=== PATIENT | male | born 1960 | race Caucasian/White ===

== ENCOUNTER 2016-12-14 15:38 | Inpatient (IN) | payer MEDICARE, OTHER ==
[2016-12-14] MEDS ORDERED: DEXTROSE 5%-NORMAL SALINE 1,000 ML IV PRN (16:01)
[2016-12-14 16:38] LABS: VENOUS BLOOD BASE EXCESS 7.3 mmol/L; VENOUS BLOOD PCO2 49.8 mmHg (35-63); VENOUS BLOOD PH 7.44 (7.30-7.42)
[2016-12-14] MEDS: LEVOFLOXACIN 750 MG/D5W RTU 750 MG/150 ML RTUPB IV SCH (17:32)
[2016-12-14] MEDS ORDERED: ALBUTEROL SULFATE 0.083% NEB 2.5 MG/3 ML AMPUL NEB PRN (17:50)
--- NOTE | 2016-12-14 18:05 | PDOC H&P ---
History of Present Illness Admission Date/PCP: 12/14/16 15:38 MIKEY FOX MD Pulmonary Dr Jesus Patient complains of: SOB History of Present Illness: ELIA ROSENBAUM is a 56 year old male With a known history of COPD O2 dependent, obstructive sleep apnea, still smoking half a pack a day He presented to Dr. Jesus's office with increasing shortness of breath In the office patient was found dyspneic with hypoxemia O2 sat was only 87% on 3 L nasal cannula Patient was referred to hospitalist service for admission Past Medical History Cardiac Medical History: Reports: Coronary Artery Disease, Myocardial Infarction , Hypertension Pulmonary Medical History: Reports: Chronic Obstructive Pulmonary Disease (COPD ) - O2 dependant, Pneumonia, Sleep Apnea, Other - exposure to asbestos EENT Medical History: Reports: None Neurological Medical History: Reports: None Endocrine Medical History: Reports: Diabetes Mellitus Type 2 Renal/ Medical History: Reports: None Malignancy Medical History: Reports: None Skin Medical History: Reports: None Psychiatric Medical History: Reports: None Hematology: Reports: Anemia Past Surgical History Past Surgical History: Reports: Coronary Stent Social History Smoking Status: Current Every Day Smoker Cigarettes Packs Per Day: 0.5 Last Time Smoked: 1230 Frequency of Alcohol Use: None Hx Recreational Drug Use: No Hx Prescription Drug Abuse: No Family History Family History: CAD, Other - Diabetes Parental Family History Reviewed: Yes Children Family History Reviewed: Yes Sibling(s) Family History Reviewed.: Yes - Diabetes mellitus Medication/Allergy Allergies/Adverse Reactions: No Known Allergies Allergy (Unverified 12/14/16 17:14) Review of Systems Constitutional: PRESENT: fatigue Eyes: ABSENT: visual disturbances Ears: ABSENT: hearing changes Respiratory: PRESENT: as per HPI, cough, dyspnea, sputum - Yellowish in color Gastrointestinal: ABSENT: abdominal pain, constipation, diarrhea, hematemesis, hematochezia, nausea, vomiting Genitourinary: ABSENT: dysuria, hematuria Musculoskeletal: ABSENT: joint swelling Integumentary: ABSENT: rash, wounds Neurological: ABSENT: abnormal gait, abnormal speech, confusion, dizziness, focal weakness, syncope Psychiatric: ABSENT: anxiety, depression, homidical ideation, suicidal ideation Physical Exam Vital Signs: Temp Pulse Resp BP Pulse Ox 98.0 F 97 24 H 106/54 L 93 12/14/16 15:59 12/14/16 16:01 12/14/16 15:59 12/14/16 15:59 12/14/16 15:59 Intake & Output 12/13/16 12/14/16 12/15/16 00:59 00:59 00:59 Intake Total 150 Balance 150 General appearance: PRESENT: cooperative, mild distress, other - In mild/ moderate respiratory distress very anxious Head exam: PRESENT: atraumatic, normocephalic Eye exam: PRESENT: conjunctiva pink, EOMI, PERRLA. ABSENT: scleral icterus Neck exam: ABSENT: carotid bruit, JVD, lymphadenopathy, thyromegaly Respiratory exam: PRESENT: accessory muscle use, decreased breath sounds, rales - In the right upper lung field, tachypnea, wheezes Cardiovascular exam: PRESENT: tachycardia. ABSENT: diastolic murmur, systolic murmur Pulses: PRESENT: normal dorsalis pedis pul GI/Abdominal exam: PRESENT: normal bowel sounds, soft. ABSENT: distended, guarding, mass, organolmegaly, rebound, tenderness Rectal exam: PRESENT: deferred Extremities exam: PRESENT: full ROM. ABSENT: calf tenderness, clubbing, pedal edema Musculoskeletal exam: ABSENT: ambulatory, deformity, dislocation, full ROM, normal inspection, tenderness, other Neurological exam: PRESENT: alert, awake, oriented to person, oriented to place , oriented to time, oriented to situation, CN II-XII grossly intact. ABSENT: motor sensory deficit Results Laboratory Results: 12/14/16 16:16 VBG pH 7.44 H VBG pCO2 49.8 VBG HCO3 33.0 H VBG Base Excess 7.3 Impressions: Chest x-ray did not show any infiltrate Assessment & Plan - Diagnosis (1) Acute on chronic respiratory failure with hypoxemia Is this a current diagnosis for this admission?: YesPlan: Hypocalcemia secondary to a COPD acute exacerbation ; patient may also have subclinical pneumonia Pulmonary embolism should be ruled out and CT of the chest will be performed We will provide O2 supplementation BiPAP when necessary (2) COPD exacerbation Is this a current diagnosis for this admission?: YesPlan: Treat with steroids antibiotics nebs (3) Tobacco abuse Is this a current diagnosis for this admission?: YesPlan: Nicotine patch (4) Coronary artery disease Qualifiers: Coronary Disease-Associated Artery/Lesion type: [place] artery [place] vs. transplanted heart: [place] heart Associated angina: without angina Qualified Code(s): I25.10 - Atherosclerotic heart disease of [place] coronary artery without angina pectoris Is this a current diagnosis for this admission?: YesPlan: We will obtain routine cardiac enzymes EKG Patient has no chest pain at this time There is no evidence of an acute coronary syndrome - Time Time Spent with patient: Patient will be admitted to [facility] Noted that is CODE STATUS is DNR/DNI Time Spent: Greater than 70 Minutes
[2016-12-14] MEDS ORDERED: ALBUTEROL SULFATE 0.083% NEB 2.5 MG/3 ML AMPUL NEB ONE (18:16)
[2016-12-14 18:43] LABS: ANION GAP 15 (5-19); BLOOD UREA NITROGEN 21 mg/dL (7-20); CALCIUM 10.3 mg/dL (8.4-10.2); CARBON DIOXIDE 34 mmol/L (22-30); CHLORIDE 94 mmol/L (98-107); GLUCOSE 179 mg/dL (75-110); POTASSIUM 4.5 mmol/L (3.6-5.0); SODIUM 142.5 mmol/L (137-145)
[2016-12-14] MEDS ORDERED: METHYLPREDNISOLONE INJ 125 MG/2 ML SDV IV ONE (19:00)
[2016-12-14] MEDS ORDERED: NICOTINE 14 MG/24 HR PATCH.TD24 TD ONE (19:00)
[2016-12-14 19:51] LABS: ARTERIAL BLOOD BASE EXCESS 5.6 mmol/L; ARTERIAL BLOOD O2 SATURATION 91.3 % (94-98)
[2016-12-14] MEDS: BUDESONIDE NEB 0.5 MG/2 ML AMPUL NEB SCH (20:05)
[2016-12-14] MEDS: IPRATROPIUM/ALBUTEROL 0.5-2.5 MG/3 ML AMPUL NEB SCH (20:05)
[2016-12-14] MEDS: CEFEPIME 1 GM/D5W RTU 1 GM/50 ML RTUPB IV SCH (23:23)
[2016-12-14] MEDS ORDERED: DEXTROSE 50%-WATER SYRINGE 12.5 GM/25 ML DOSE IV PRN (23:32)
[2016-12-14] MEDS ORDERED: DEXTROSE 50%-WATER SYRINGE 25 GM/50 ML DOSE IV PRN (23:32)
[2016-12-14] MEDS ORDERED: GLUCAGON,HUMAN RECOMB 1 MG INJ IM PRN (23:32)
[2016-12-14] MEDS ORDERED: DEXTROSE 40% GEL 15 GM TUBE PO PRN (23:32)
[2016-12-14] MEDS ORDERED: DEXTROSE 40% GEL 15 GM TUBE X 2 PO PRN (23:32)
[2016-12-14] MEDS ORDERED: INSULIN LISPRO 100 UNIT/ML 3 ML VIAL ONE (23:35)
[2016-12-14] MEDS: ACETAMINOPHEN 325 MG TABLET PO PRN (23:48)
--- NOTE | 2016-12-15 00:10 | EKG REPORT ---
SEVERITY:- ABNORMAL ECG - SINUS RHYTHM LAD, CONSIDER LEFT ANTERIOR FASCICULAR BLOCK : Confirmed by: Lindsay Brunson 15-Dec-2016 00:08:36
[2016-12-15] MEDS: METHYLPREDNISOLONE INJ 125 MG/2 ML SDV IV SCH ×3 (02:27→17:41)
[2016-12-15] MEDS: IPRATROPIUM/ALBUTEROL 0.5-2.5 MG/3 ML AMPUL NEB SCH ×4 (02:28→20:46)
[2016-12-15 05:36] LABS: HEMATOCRIT 40.8 % (37.9-51.0); HEMOGLOBIN 12.6 g/dL (13.5-17.0); MEAN CORPUSCULAR HEMOGLOBIN 23.8 pg (27.0-33.4); MEAN CORPUSCULAR HGB CONC 30.9 g/dL (32.0-36.0); MEAN CORPUSCULAR VOLUME 77 fl (80-97); RED BLOOD COUNT 5.28 10^6/uL (4.35-5.55); RED CELL DISTRIBUTION WIDTH 29.2 % (11.5-14.0); WHITE BLOOD COUNT 11.3 10^3/uL (4.0-10.5)
[2016-12-15 05:41] LABS: ALANINE AMINOTRANSFERASE 55 U/L (21-72); ALKALINE PHOSPHATASE 75 U/L (38-126); ANION GAP 11 (5-19); ASPARTATE AMINO TRANSFERASE 29 U/L (17-59); BILIRUBIN,TOTAL 0.4 mg/dL (0.2-1.3); BLOOD UREA NITROGEN 23 mg/dL (7-20); CALCIUM 9.7 mg/dL (8.4-10.2); CARBON DIOXIDE 30 mmol/L (22-30); CHLORIDE 98 mmol/L (98-107); CREATININE RESULT 0.81 mg/dL (0.52-1.25); GLUCOSE 251 mg/dL (75-110); POTASSIUM 4.2 mmol/L (3.6-5.0); SODIUM 138.6 mmol/L (137-145)
[2016-12-15] MEDS: LANSOPRAZOLE 15 MG TAB.RAP.DR PO SCH (05:51)
[2016-12-15 05:58] LABS: TROPONIN I < 0.012 ng/mL
[2016-12-15 06:00] LABS: BAND NEUTROPHILS % (MANUAL) 3 % (3-5); BASOPHILS % (MANUAL) 0 % (0-2); EOSINOPHILS % (MANUAL) 0 % (0-6); LYMPHOCYTES % (MANUAL) 3 % (13-45); TOTAL CELLS COUNTED 100
[2016-12-15 06:03] LABS: ANISOCYTOSIS 4+; BURR CELLS SLIGHT; HYPOCHROMASIA SLIGHT; MICROCYTOSIS SLIGHT; OVALOCYTES 1+; POIKILOCYTOSIS 1+; SCHISTOCYTES SLIGHT; TEAR DROP CELLS SLIGHT; TOXIC GRANULATION 1+
[2016-12-15] MEDS: ALBUTEROL SULFATE HFA (90 MCG/PUFF) 200 PUFF/8.5 GM MDI IH PRN ×2 (06:40→18:15)
[2016-12-15] MEDS: INSULIN LISPRO 100 UNIT/ML 3 ML VIAL SUBCUT PRN ×4 (08:00→22:20)
[2016-12-15] MEDS: BUDESONIDE NEB 0.5 MG/2 ML AMPUL NEB SCH ×2 (09:53→20:46)
[2016-12-15] MEDS ORDERED: AMLODIPINE BESYLATE 2.5 MG TABLET PO SCH (10:00)
--- NOTE | 2016-12-15 10:30 | PDOC PROGRESS REPORT ---
Subjective Progress Note for:: 12/15/16 Subjective:: Patient is very much improved today his breathing is easier; He has no chest pain no shortness of breath No fever no chills On the monitor is in the normal sinus rhythm A CTA of the chest performed yesterday was negative for PE Physical Exam Vital Signs: Temp Pulse Resp BP Pulse Ox 97.7 F 95 16 115/65 91 L 12/15/16 07:21 12/15/16 09:53 12/15/16 09:53 12/15/16 07:21 12/15/16 09:53 Intake & Output 12/14/16 12/15/16 12/16/16 00:59 00:59 00:59 Intake Total 1652 970 Output Total 500 Balance 1652 470 Weight 80.286 kg 80.3 kg General appearance: PRESENT: no acute distress, well-developed, well-nourished Head exam: PRESENT: atraumatic, normocephalic Eye exam: PRESENT: conjunctiva pink, EOMI, PERRLA. ABSENT: scleral icterus Ear exam: PRESENT: normal external ear exam Mouth exam: PRESENT: moist, tongue midline Neck exam: ABSENT: carotid bruit, JVD, lymphadenopathy, thyromegaly Respiratory exam: PRESENT: decreased breath sounds. ABSENT: rales, rhonchi, wheezes Cardiovascular exam: PRESENT: RRR. ABSENT: diastolic murmur, rubs, systolic murmur Pulses: PRESENT: normal dorsalis pedis pul Vascular exam: PRESENT: normal capillary refill GI/Abdominal exam: PRESENT: normal bowel sounds, soft. ABSENT: distended, guarding, mass, organolmegaly, rebound, tenderness Rectal exam: PRESENT: deferred Extremities exam: PRESENT: full ROM. ABSENT: calf tenderness, clubbing, pedal edema Neurological exam: PRESENT: alert, awake, oriented to person, oriented to place , oriented to time, oriented to situation, CN II-XII grossly intact. ABSENT: motor sensory deficit Psychiatric exam: PRESENT: appropriate affect, normal mood. ABSENT: homicidal ideation, suicidal ideation Skin exam: PRESENT: dry, intact, warm. ABSENT: cyanosis, rash Results Laboratory Results: 12/15/16 04:54 12/15/16 04:54 12/14/16 12/14/16 12/14/16 16:16 18:13 19:40 WBC RBC Hgb Hct MCV MCH MCHC RDW Plt Count Seg Neutrophils % Lymphocytes % Monocytes % Eosinophils % Basophils % Absolute Neutrophils Absolute Lymphocytes Absolute Monocytes Absolute Eosinophils Absolute Basophils Carbonic Acid 1.46 H HCO3/H2CO3 Ratio 21:1 ABG pH 7.42 ABG pCO2 48.6 H ABG pO2 60.0 L ABG HCO3 31.1 H ABG O2 Saturation 91.3 L ABG Base Excess 5.6 VBG pH 7.44 H VBG pCO2 49.8 VBG HCO3 33.0 H VBG Base Excess 7.3 FiO2 2L Sodium 142.5 Potassium 4.5 Chloride 94 L Carbon Dioxide 34 H Anion Gap 15 BUN 21 H Creatinine 1.00 Est GFR ( Amer) > 60 Est GFR (Non-Af Amer) > 60 Glucose 179 H Calcium 10.3 H Total Bilirubin AST ALT Alkaline Phosphatase Total Protein Albumin TSH 12/15/16 12/15/16 12/15/16 04:54 04:54 04:54 WBC 11.3 H RBC 5.28 Hgb 12.6 L Hct 40.8 MCV 77 L MCH 23.8 L MCHC 30.9 L RDW 29.2 H Plt Count 393 Seg Neutrophils % Not Reportable Lymphocytes % Not Reportable Monocytes % Not Reportable Eosinophils % Not Reportable Basophils % Not Reportable Absolute Neutrophils Not Reportable Absolute Lymphocytes Not Reportable Absolute Monocytes Not Reportable Absolute Eosinophils Not Reportable Absolute Basophils Not Reportable Carbonic Acid HCO3/H2CO3 Ratio ABG pH ABG pCO2 ABG pO2 ABG HCO3 ABG O2 Saturation ABG Base Excess VBG pH VBG pCO2 VBG HCO3 VBG Base Excess FiO2 Sodium 138.6 Potassium 4.2 Chloride 98 Carbon Dioxide 30 Anion Gap 11 BUN 23 H Creatinine 0.81 Est GFR ( Amer) > 60 Est GFR (Non-Af Amer) > 60 Glucose 251 H Calcium 9.7 Total Bilirubin 0.4 AST 29 ALT 55 Alkaline Phosphatase 75 Total Protein 6.0 L Albumin 3.0 L TSH 0.02 L 12/14/16 12/15/16 12/15/16 18:13 00:13 04:54 Troponin I < 0.012 < 0.012 < 0.012 NT-Pro-B Natriuret Pep 183 Impressions: Chest/Abdomen CTA 12/14/16 18:00 IMPRESSION: 1. NORMAL CTA OF THE CHEST. NO PULMONARY EMBOLI. 2. CHRONIC EMPHYSEMATOUS CHANGES. 5 MM NODULE IN THE RIGHT UPPER LOBE. FOLLOW- UP CLINICALLY INDICATED. Assessment & Plan - Diagnosis (1) Acute on chronic respiratory failure with hypoxemia Is this a current diagnosis for this admission?: Yes (2) COPD exacerbation Is this a current diagnosis for this admission?: YesPlan: Is improving continue the present management (3) Tobacco abuse Is this a current diagnosis for this admission?: Yes (4) Coronary artery disease Qualifiers: Coronary Disease-Associated Artery/Lesion type: [place] artery [place] vs. transplanted heart: [place] heart Associated angina: without angina Qualified Code(s): I25.10 - Atherosclerotic heart disease of [place] coronary artery without angina pectoris Is this a current diagnosis for this admission?: Yes (5) Nodule of right lung Is this a current diagnosis for this admission?: YesPlan: 5 mm nodule in the right upper lung field Patient was given a copy of the CT report And advised to follow-up with a repeat CT in 12 months (6) Hyperglycemia Is this a current diagnosis for this admission?: YesPlan: Patient is very much steroid sensitive Continue insulin coverage We'll start tapering steroids tomorrow - Time Time Spent with patient: 25-34 minutes
[2016-12-15] MEDS: ENOXAPARIN SODIUM INJ 40 MG/0.4 ML DISP.SYRIN SUBCUT SCH (11:09)
[2016-12-15] MEDS: ASCORBIC ACID 500 MG TABLET PO SCH (11:10)
[2016-12-15] MEDS: ACETAMINOPHEN 325 MG TABLET PO PRN ×2 (11:10→22:20)
[2016-12-15] MEDS: METOPROLOL SUCCINATE 50 MG TAB.SR.24H PO SCH (11:11)
[2016-12-15] MEDS: ASPIRIN 81 MG TABLET, CHEWABLE PO SCH (11:11)
[2016-12-15] MEDS: NICOTINE 14 MG/24 HR PATCH.TD24 TD SCH (11:12)
[2016-12-15] MEDS: FERROUS SULFATE 325 MG TABLET PO SCH (11:22)
[2016-12-15] MEDS: DOCUSATE SODIUM 100 MG CAPSULE PO SCH (11:23)
[2016-12-15] MEDS: CEFEPIME 1 GM/D5W RTU 1 GM/50 ML RTUPB IV SCH ×2 (11:23→22:15)
--- NOTE | 2016-12-15 16:38 | PDOC CONSULTATION ---
Consultation Consult Date: 12/14/16 Attending physician:: RADAMES DISLA Consult reason:: Acute on chronic respiratory failure History of Present Illness Admission Date/PCP: 12/14/16 15:38 MIKEY FOX MD History of Present Illness: ELIA ROSENBAUM is a 56 year old male With a known history of COPD O2 dependent, obstructive sleep apnea, still smoking half a pack a day. He i was prescribed 2 L of O2 continuously he was using on pulse at the time of presentation his SaO2 was 79%. He was placed on continuous 2 L therapy saturation isabella to 87% complained of a cough with occasional yellow streaks of phlegm no hemoptysis he denied nausea vomiting but did believe he had fevers and chills with a temperature up to 102 he denies any chest pain or edema he states that he is wearing his CPAP mask most nights although sometimes due to nasal congestion he limits his to use. After several DuoNeb treatments and some IM steroids patient is SaO2 respiratory rate did not improve and Dr. Davis graciously received him on her service Past Medical History Cardiac Medical History: Reports: Coronary Artery Disease, Myocardial Infarction , Hypertension Pulmonary Medical History: Reports: Chronic Obstructive Pulmonary Disease (COPD ) - O2 dependant, Pneumonia, Sleep Apnea, Other - exposure to asbestos EENT Medical History: Reports: None Neurological Medical History: Reports: None Endocrine Medical History: Reports: Diabetes Mellitus Type 2 Renal/ Medical History: Reports: None Malignancy Medical History: Reports: None Skin Medical History: Reports: None Psychiatric Medical History: Reports: None Hematology: Reports: Anemia Past Surgical History Past Surgical History: Reports: Coronary Stent Social History Smoking Status: Current Every Day Smoker Cigarettes Packs Per Day: 0.5 Last Time Smoked: 1230 Frequency of Alcohol Use: None Hx Recreational Drug Use: No Hx Prescription Drug Abuse: No Have you had any respiratory illnesses as a child?: No Have you been exposed to any sick contacts recently?: No Have you travelled outside of [place] in the past 12 months?: No Family History Family History: CAD, Other - Diabetes Parental Family History Reviewed: Yes Children Family History Reviewed: Yes Sibling(s) Family History Reviewed.: Yes Medication/Allergy Home Medications: Acetaminophen [Tylenol 325 mg Tablet] 650 mg PO Q4HP PRN 12/14/16 Albuterol Sulfate [Proair Hfa] 2 puff IH Q4HP PRN 12/14/16 Alendronate Sodium [Fosamax 70 mg Tablet] 1 tab PO ASDIR 12/14/16 Amlodipine Besylate [Norvasc 2.5 mg Tablet] 2.5 mg PO DAILY 12/14/16 Aspirin [Aspirin 81 mg Chewable Tablet] 81 mg PO DAILY 12/14/16 Atorvastatin Calcium [Lipitor 40 mg Tablet] 40 mg PO QHS 12/14/16 Clopidogrel Bisulfate [Plavix 75 mg Tablet] 75 mg PO DAILY 12/14/16 Ipratropium/Albuterol Sulfate [Duoneb 3 ml Ampul] 3 ml NEB RTQID 12/14/16 Lisinopril/Hydrochlorothiazide [Lisinopril-Hctz 10-12.5 mg Tab] 1 each PO DAILY 12/14/16 Metformin HCl [Glucophage] 500 mg PO BID 12/14/16 Metoprolol Succinate [Toprol Xl 50 mg Tab.sr] 50 mg PO DAILY 12/14/16 Tiotropium [place] [Spiriva] 1 cap IH DAILY 12/14/16 Ascorbic Acid [Vitamin C] 500 mg PO QHS 12/15/16 B12/Levomefolate Calcium/B-6 [Foltx Tablet] 1 each PO QHS 12/15/16 Ferrous Sulfate [Iron] 325 mg PO QHS 12/15/16 Omeprazole 20 mg PO DAILY 12/15/16 Allergies/Adverse Reactions: No Known Allergies Allergy (Unverified 12/14/16 17:14) Review of Systems Nose, Mouth, and Throat: PRESENT: sore throat Physical Exam Vital Signs: Temp Pulse Resp BP Pulse Ox 97.7 F 90 16 131/54 H 90 L 12/15/16 11:28 12/15/16 14:19 12/15/16 14:19 12/15/16 11:28 12/15/16 14:19 Intake & Output 12/14/16 12/15/16 12/16/16 06:59 06:59 06:59 Intake Total 2622 Output Total 500 Balance 2122 Weight 80.3 kg General appearance: PRESENT: cooperative, disheveled, mild distress, thin, well- developed, well-nourished Head exam: PRESENT: atraumatic, normocephalic Eye exam: PRESENT: conjunctiva pale, EOMI, PERRLA Mouth exam: PRESENT: moist, neck supple, tongue midline Neck exam: ABSENT: carotid bruit, JVD, lymphadenopathy, thyromegaly Respiratory exam: PRESENT: decreased breath sounds, prolonged expiratory phas, rales, rhonchi, symmetrical, wheezes Cardiovascular exam: PRESENT: RRR, +S1, +S2 Pulses: PRESENT: normal radial pulses GI/Abdominal exam: PRESENT: normal bowel sounds, soft. ABSENT: distended, guarding, mass, organolmegaly, rebound, tenderness Rectal exam: PRESENT: deferred Gentrourinary exam: PRESENT: indwelling catheter Musculoskeletal exam: PRESENT: normal inspection Neurological exam: PRESENT: alert, awake, oriented to person, oriented to place , oriented to time, oriented to situation Psychiatric exam: PRESENT: normal mood Skin exam: PRESENT: dry, warm Results Laboratory Results: 12/15/16 04:54 12/15/16 04:54 12/14/16 12/14/16 12/14/16 16:16 18:13 19:40 WBC RBC Hgb Hct MCV MCH MCHC RDW Plt Count Seg Neutrophils % Lymphocytes % Monocytes % Eosinophils % Basophils % Absolute Neutrophils Absolute Lymphocytes Absolute Monocytes Absolute Eosinophils Absolute Basophils Carbonic Acid 1.46 H HCO3/H2CO3 Ratio 21:1 ABG pH 7.42 ABG pCO2 48.6 H ABG pO2 60.0 L ABG HCO3 31.1 H ABG O2 Saturation 91.3 L ABG Base Excess 5.6 VBG pH 7.44 H VBG pCO2 49.8 VBG HCO3 33.0 H VBG Base Excess 7.3 FiO2 2L Sodium 142.5 Potassium 4.5 Chloride 94 L Carbon Dioxide 34 H Anion Gap 15 BUN 21 H Creatinine 1.00 Est GFR ( Amer) > 60 Est GFR (Non-Af Amer) > 60 Glucose 179 H Calcium 10.3 H Total Bilirubin AST ALT Alkaline Phosphatase Total Protein Albumin TSH 12/15/16 12/15/16 12/15/16 04:54 04:54 04:54 WBC 11.3 H RBC 5.28 Hgb 12.6 L Hct 40.8 MCV 77 L MCH 23.8 L MCHC 30.9 L RDW 29.2 H Plt Count 393 Seg Neutrophils % Not Reportable Lymphocytes % Not Reportable Monocytes % Not Reportable Eosinophils % Not Reportable Basophils % Not Reportable Absolute Neutrophils Not Reportable Absolute Lymphocytes Not Reportable Absolute Monocytes Not Reportable Absolute Eosinophils Not Reportable Absolute Basophils Not Reportable Carbonic Acid HCO3/H2CO3 Ratio ABG pH ABG pCO2 ABG pO2 ABG HCO3 ABG O2 Saturation ABG Base Excess VBG pH VBG pCO2 VBG HCO3 VBG Base Excess FiO2 Sodium 138.6 Potassium 4.2 Chloride 98 Carbon Dioxide 30 Anion Gap 11 BUN 23 H Creatinine 0.81 Est GFR ( Amer) > 60 Est GFR (Non-Af Amer) > 60 Glucose 251 H Calcium 9.7 Total Bilirubin 0.4 AST 29 ALT 55 Alkaline Phosphatase 75 Total Protein 6.0 L Albumin 3.0 L TSH 0.02 L 12/14/16 12/15/16 12/15/16 18:13 00:13 04:54 Troponin I < 0.012 < 0.012 < 0.012 NT-Pro-B Natriuret Pep 183 Impressions: Chest/Abdomen CTA 12/14/16 18:00 IMPRESSION: 1. NORMAL CTA OF THE CHEST. NO PULMONARY EMBOLI. 2. CHRONIC EMPHYSEMATOUS CHANGES. 5 MM NODULE IN THE RIGHT UPPER LOBE. FOLLOW- UP CLINICALLY INDICATED. Assessment & Plan - Diagnosis (1) Acute on chronic respiratory failure with hypoxemia Is this a current diagnosis for this admission?: YesPlan: Intense steroid therapy possible IV antibiotics and continued bronchodilator therapy (2) Coronary artery disease Qualifiers: Coronary Disease-Associated Artery/Lesion type: [place] artery [place] vs. transplanted heart: [place] heart Associated angina: without angina Qualified Code(s): I25.10 - Atherosclerotic heart disease of [place] coronary artery without angina pectoris Is this a current diagnosis for this admission?: YesPlan: Stable at this time (3) Nodule of right lung Is this a current diagnosis for this admission?: YesPlan: Following with serial CT scans (4) Tobacco abuse Is this a current diagnosis for this admission?: YesPlan: Unfortunately patient continues to smoke - Time Time Spent: 50 to 70 Minutes
[2016-12-15] MEDS: LEVOFLOXACIN 750 MG/D5W RTU 750 MG/150 ML RTUPB IV SCH (17:41)
[2016-12-16] MEDS: IPRATROPIUM/ALBUTEROL 0.5-2.5 MG/3 ML AMPUL NEB SCH ×4 (01:50→20:05)
[2016-12-16] MEDS: METHYLPREDNISOLONE INJ 125 MG/2 ML SDV IV SCH ×2 (02:25→09:50)
[2016-12-16] MEDS: LANSOPRAZOLE 15 MG TAB.RAP.DR PO SCH (06:36)
[2016-12-16] MEDS: BUDESONIDE NEB 0.5 MG/2 ML AMPUL NEB SCH ×2 (08:34→20:05)
[2016-12-16] MEDS: ENOXAPARIN SODIUM INJ 40 MG/0.4 ML DISP.SYRIN SUBCUT SCH (08:36)
[2016-12-16] MEDS: INSULIN LISPRO 100 UNIT/ML 3 ML VIAL SUBCUT PRN ×4 (08:36→21:43)
[2016-12-16] MEDS: ASCORBIC ACID 500 MG TABLET PO SCH (09:48)
[2016-12-16] MEDS: METOPROLOL SUCCINATE 50 MG TAB.SR.24H PO SCH (09:48)
[2016-12-16] MEDS: DOCUSATE SODIUM 100 MG CAPSULE PO SCH (09:49)
[2016-12-16] MEDS: FERROUS SULFATE 325 MG TABLET PO SCH (09:49)
[2016-12-16] MEDS: ASPIRIN 81 MG TABLET, CHEWABLE PO SCH (09:49)
[2016-12-16] MEDS: NICOTINE 14 MG/24 HR PATCH.TD24 TD SCH (09:50)
[2016-12-16] MEDS: CEFEPIME 1 GM/D5W RTU 1 GM/50 ML RTUPB IV SCH ×2 (09:50→21:45)
[2016-12-16] MEDS: ACETAMINOPHEN 325 MG TABLET PO PRN ×2 (09:51→21:46)
[2016-12-16] MEDS ORDERED: METHYLPREDNISOLONE INJ 125 MG/2 ML SDV IV SCH (11:40)
--- NOTE | 2016-12-16 15:48 | PDOC PROGRESS REPORT ---
Subjective Progress Note for:: 12/16/16 Subjective:: patient is greatly improved dyspnea resolving patient is coughing up purulent mucous no fever, chills or chest pains Physical Exam Vital Signs: Temp Pulse Resp BP Pulse Ox 97.5 F 77 16 131/60 H 91 L 12/16/16 11:21 12/16/16 14:13 12/16/16 14:13 12/16/16 11:21 12/16/16 11:21 Intake & Output 12/15/16 12/16/16 12/17/16 00:59 00:59 00:59 Intake Total 1652 3643 243 Output Total 2300 Balance 1652 1343 243 Weight 80.286 kg 80.3 kg 80.5 kg General appearance: PRESENT: no acute distress, thin Head exam: PRESENT: atraumatic, normocephalic Eye exam: PRESENT: conjunctiva pink, EOMI, PERRLA. ABSENT: scleral icterus Neck exam: ABSENT: carotid bruit, JVD, lymphadenopathy, thyromegaly Respiratory exam: PRESENT: decreased breath sounds, wheezes. ABSENT: rales, rhonchi Cardiovascular exam: PRESENT: RRR. ABSENT: diastolic murmur, rubs, systolic murmur GI/Abdominal exam: PRESENT: normal bowel sounds, soft. ABSENT: distended, guarding, mass, organolmegaly, rebound, tenderness Extremities exam: ABSENT: calf tenderness, clubbing, full ROM, joint swelling, pedal edema, tenderness, +1 edema, +2 edema, other Musculoskeletal exam: PRESENT: ambulatory, full ROM Neurological exam: PRESENT: alert, awake, oriented to person, oriented to place , oriented to time, oriented to situation, CN II-XII grossly intact. ABSENT: motor sensory deficit Psychiatric exam: PRESENT: appropriate affect, normal mood. ABSENT: homicidal ideation, suicidal ideation Skin exam: PRESENT: dry, intact, warm. ABSENT: cyanosis, rash Results Laboratory Results: 12/15/16 04:54 12/15/16 04:54 12/14/16 12/15/16 12/15/16 18:13 00:13 04:54 Troponin I < 0.012 < 0.012 < 0.012 NT-Pro-B Natriuret Pep 183 Impressions: Chest/Abdomen CTA 12/14/16 18:00 IMPRESSION: 1. NORMAL CTA OF THE CHEST. NO PULMONARY EMBOLI. 2. CHRONIC EMPHYSEMATOUS CHANGES. 5 MM NODULE IN THE RIGHT UPPER LOBE. FOLLOW- UP CLINICALLY INDICATED. Assessment & Plan - Diagnosis (1) Acute on chronic respiratory failure with hypoxemia Is this a current diagnosis for this admission?: Yes (2) COPD exacerbation Is this a current diagnosis for this admission?: Yes (3) Tobacco abuse Is this a current diagnosis for this admission?: Yes (4) Coronary artery disease Qualifiers: Coronary Disease-Associated Artery/Lesion type: [place] artery [place] vs. transplanted heart: [place] heart Associated angina: without angina Qualified Code(s): I25.10 - Atherosclerotic heart disease of [place] coronary artery without angina pectoris Is this a current diagnosis for this admission?: Yes (5) Nodule of right lung Is this a current diagnosis for this admission?: Yes (6) Hyperglycemia Is this a current diagnosis for this admission?: YesPlan: patient is steroid sensitive continue insulin scale - Time Time Spent with patient: continue present management start tapering down steroids d/c in 48H Time Spent with patient: 25-34 minutes
[2016-12-16] MEDS: METHYLPREDNISOLONE INJ 40 MG/1 ML SDV IV SCH (17:35)
[2016-12-16] MEDS ORDERED: LEVOFLOXACIN 750 MG TABLET PO SCH (18:00)
[2016-12-17] MEDS: METHYLPREDNISOLONE INJ 40 MG/1 ML SDV IV SCH ×2 (02:01→10:19)
[2016-12-17] MEDS: IPRATROPIUM/ALBUTEROL 0.5-2.5 MG/3 ML AMPUL NEB SCH ×2 (02:25→08:05)
[2016-12-17 05:20] LABS: HEMATOCRIT 37.7 % (37.9-51.0); HEMOGLOBIN 11.9 g/dL (13.5-17.0); MEAN CORPUSCULAR HEMOGLOBIN 24.4 pg (27.0-33.4); MEAN CORPUSCULAR HGB CONC 31.6 g/dL (32.0-36.0); MEAN CORPUSCULAR VOLUME 77 fl (80-97); RED BLOOD COUNT 4.89 10^6/uL (4.35-5.55); RED CELL DISTRIBUTION WIDTH 28.4 % (11.5-14.0)
[2016-12-17] MEDS: LANSOPRAZOLE 15 MG TAB.RAP.DR PO SCH (05:28)
[2016-12-17 05:39] LABS: ANION GAP 9 (5-19); BLOOD UREA NITROGEN 29 mg/dL (7-20); CARBON DIOXIDE 29 mmol/L (22-30); CHLORIDE 102 mmol/L (98-107); GLUCOSE 140 mg/dL (75-110); POTASSIUM 4.4 mmol/L (3.6-5.0); SODIUM 139.8 mmol/L (137-145)
[2016-12-17 06:01] LABS: BAND NEUTROPHILS % (MANUAL) 2 % (3-5); BASOPHILS % (MANUAL) 0 % (0-2); EOSINOPHILS % (MANUAL) 0 % (0-6); LYMPHOCYTES % (MANUAL) 6 % (13-45); TOTAL CELLS COUNTED 100
[2016-12-17 06:04] LABS: ANISOCYTOSIS 4+; HYPOCHROMASIA SLIGHT; MICROCYTOSIS SLIGHT; TOXIC GRANULATION SLIGHT
[2016-12-17 06:05] LABS: BURR CELLS SLIGHT; OVALOCYTES 1+; POIKILOCYTOSIS 1+; ROULEAUX SLIGHT; SCHISTOCYTES SLIGHT
[2016-12-17 08:02] VITALS: BP 121/62
[2016-12-17] MEDS: BUDESONIDE NEB 0.5 MG/2 ML AMPUL NEB SCH (08:05)
[2016-12-17] MEDS: ENOXAPARIN SODIUM INJ 40 MG/0.4 ML DISP.SYRIN SUBCUT SCH (09:22)
[2016-12-17] MEDS: INSULIN LISPRO 100 UNIT/ML 3 ML VIAL SUBCUT PRN ×2 (10:18→13:12)
[2016-12-17] MEDS: ASPIRIN 81 MG TABLET, CHEWABLE PO SCH (10:18)
[2016-12-17] MEDS: METOPROLOL SUCCINATE 50 MG TAB.SR.24H PO SCH (10:19)
[2016-12-17] MEDS: NICOTINE 14 MG/24 HR PATCH.TD24 TD SCH (10:19)
[2016-12-17] MEDS: DOCUSATE SODIUM 100 MG CAPSULE PO SCH (10:19)
[2016-12-17] MEDS: ASCORBIC ACID 500 MG TABLET PO SCH (10:19)
[2016-12-17] MEDS: FERROUS SULFATE 325 MG TABLET PO SCH (10:19)
[2016-12-17] MEDS: ACETAMINOPHEN 325 MG TABLET PO PRN (10:25)
[2016-12-17] MEDS: CEFEPIME 1 GM/D5W RTU 1 GM/50 ML RTUPB IV SCH (10:41)
--- NOTE | 2016-12-17 13:33 | PDOC PROGRESS REPORT ---
Subjective Progress Note for:: 12/17/16 Subjective:: Patient without complaints progressing well Physical Exam Vital Signs: Temp Pulse Resp BP Pulse Ox 97.4 F 58 L 16 121/62 100 12/17/16 12:22 12/17/16 12:22 12/17/16 12:22 12/17/16 07:27 12/17/16 12:22 Intake & Output 12/16/16 12/17/16 12/18/16 06:59 06:59 06:59 Intake Total 2916 1829 800 Output Total 1800 1825 Balance 1116 4 800 Weight 80.5 kg 82.2 kg General appearance: PRESENT: no acute distress, thin, well-developed, well- nourished Head exam: PRESENT: atraumatic, normocephalic Eye exam: PRESENT: conjunctiva pale Mouth exam: PRESENT: moist, neck supple, tongue midline Neck exam: ABSENT: carotid bruit, JVD, lymphadenopathy, thyromegaly Respiratory exam: PRESENT: decreased breath sounds, prolonged expiratory phas, unlabored Cardiovascular exam: PRESENT: RRR, +S1, +S2 Pulses: PRESENT: normal radial pulses GI/Abdominal exam: ABSENT: ascites, diminished bowel sounds, distended, firm, guarding, hernia, hyperactive bowel sounds, hypoactive bowel sounds, mass, Fraire's sign, normal bowel sounds, organolmegaly, rebound, rigid, soft, tenderness, other Rectal exam: PRESENT: deferred Musculoskeletal exam: PRESENT: normal inspection Neurological exam: PRESENT: alert, awake Psychiatric exam: PRESENT: normal mood Skin exam: PRESENT: dry, intact, warm Results Laboratory Results: 12/17/16 04:35 12/17/16 04:35 12/17/16 12/17/16 04:35 04:35 WBC 15.0 H RBC 4.89 Hgb 11.9 L Hct 37.7 L MCV 77 L MCH 24.4 L MCHC 31.6 L RDW 28.4 H Plt Count 461 H Seg Neutrophils % Not Reportable Lymphocytes % Not Reportable Monocytes % Not Reportable Eosinophils % Not Reportable Basophils % Not Reportable Absolute Neutrophils Not Reportable Absolute Lymphocytes Not Reportable Absolute Monocytes Not Reportable Absolute Eosinophils Not Reportable Absolute Basophils Not Reportable Sodium 139.8 Potassium 4.4 Chloride 102 Carbon Dioxide 29 Anion Gap 9 BUN 29 H Creatinine 0.70 Est GFR ( Amer) > 60 Est GFR (Non-Af Amer) > 60 Glucose 140 H Calcium 9.0 12/14/16 12/15/16 12/15/16 18:13 00:13 04:54 Troponin I < 0.012 < 0.012 < 0.012 NT-Pro-B Natriuret Pep 183 Impressions: Chest/Abdomen CTA 12/14/16 18:00 IMPRESSION: 1. NORMAL CTA OF THE CHEST. NO PULMONARY EMBOLI. 2. CHRONIC EMPHYSEMATOUS CHANGES. 5 MM NODULE IN THE RIGHT UPPER LOBE. FOLLOW- UP CLINICALLY INDICATED. Assessment & Plan - Diagnosis (1) Acute on chronic respiratory failure with hypoxemia Is this a current diagnosis for this admission?: No (2) Coronary artery disease Qualifiers: Coronary Disease-Associated Artery/Lesion type: [place] artery [place] vs. transplanted heart: [place] heart Associated angina: without angina Qualified Code(s): I25.10 - Atherosclerotic heart disease of [place] coronary artery without angina pectoris Is this a current diagnosis for this admission?: YesPlan: Stable at this time (3) Nodule of right lung Is this a current diagnosis for this admission?: YesPlan: Follow-up with CT scans as per Philip criteria (4) Tobacco abuse Is this a current diagnosis for this admission?: YesPlan: Discussed with patient risk and dangers associated with continued tobacco use who is polite but declined further assistance
--- NOTE | 2016-12-17 15:57 | PDOC DISCHARGE SUMMARY ---
General - Admit/Disc Date/PCP Admission Date/Primary Care Provider: 12/14/16 15:38 MIKEY FOX MD Discharge Date: 12/17/16 - Discharge Diagnosis (1) Acute on chronic respiratory failure with hypoxemia Is this a current diagnosis for this admission?: YesSummary: Upon admission patient had acute on chronic hypoxemic hypercarbic respiratory failure ABGs performed on 2 L nasal cannula showed a PCO2 of 48 and a PO2 of 60 Respiratory failure secondary to COPD acute exacerbation and clinical pneumonia Patient had CT of the chest was negative for PE (2) COPD exacerbation Is this a current diagnosis for this admission?: YesSummary: Patient was treated during this hospitalization with high doses of steroids nebs and his breathing improved greatly Was discharged on a steroid taper and Levaquin to continue prior inhalers (3) Tobacco abuse Is this a current diagnosis for this admission?: YesSummary: Patient was advised to quit smoking and agreed to wear a nicotine patch (4) Coronary artery disease Is this a current diagnosis for this admission?: YesSummary: There was no evidence of an acute coronary syndrome (5) Nodule of right lung Is this a current diagnosis for this admission?: YesSummary: Patient was given a copy of his CAT scan and advised to have repeat CAT scan in 6 months to follow up a nodule In the right upper lung (6) Hyperglycemia Is this a current diagnosis for this admission?: YesSummary: Blood sugars were elevated with high-dose steroids Patient was covered with lispro insulin during his hospitalization He is to resume metformin as an outpatient - Additional Information Discharge Activity: Activity As Tolerated Home Medications: Acetaminophen [Tylenol 325 mg Tablet] 650 mg PO Q4HP PRN 12/14/16 Albuterol Sulfate [Proair HFA] 2 puff IH Q4HP PRN 12/14/16 Alendronate Sodium [Fosamax 70 mg Tablet] 1 tab PO ASDIR 12/14/16 Amlodipine Besylate [Norvasc 2.5 mg Tablet] 2.5 mg PO DAILY 12/14/16 Aspirin [Aspirin 81 mg Chewable Tablet] 81 mg PO DAILY 12/14/16 Atorvastatin Calcium [Lipitor 40 mg Tablet] 40 mg PO QHS 12/14/16 Clopidogrel Bisulfate [Plavix 75 mg Tablet] 75 mg PO DAILY 12/14/16 Ipratropium/Albuterol Sulfate [Duoneb 3 ml Ampul] 3 ml NEB RTQID 12/14/16 Lisinopril/Hydrochlorothiazide [Lisinopril-Hctz 10-12.5 mg Tab] 1 each PO DAILY 12/14/16 Metformin HCl [Glucophage] 500 mg PO BID 12/14/16 Metoprolol Succinate [Toprol Xl 50 mg Tab.sr] 50 mg PO DAILY 12/14/16 Tiotropium [place] [Spiriva Handihaler 18 mcg/dose (30 Dose)] 1 cap IH DAILY Ascorbic Acid [Vitamin C] 500 mg PO QHS 12/15/16 Cyanocobalamin (Vitamin B-12) [Vitamin B-12] 1,000 mcg PO QHS 12/15/16 Ferrous Sulfate [Iron] 325 mg PO QHS 12/15/16 Folic Acid 1 mg PO QHS 12/15/16 Omeprazole 20 mg PO DAILY 12/15/16 Fluticasone/Salmeterol [Advair 250-50 Diskus 28 dose] 1 inh IH Q12H #1 inhaler 12/17/16 Levofloxacin [Levaquin 750 mg Tablet] 750 mg PO QPM #7 tablet 12/17/16 Nicotine [Nicoderm 14 mg/24 Hr Transdermal Patch] 1 each TD DAILY #30 patch.[email or web address] 12/17/16 Prednisone 60 mg PO ASDIR PRN #30 tablet 12/17/16 History of Present Illness Patient complains of: Shortness of breath History of Present Illness: ELIA ROSENBAUM is a 56 year old male With a known history of COPD O2 dependent, obstructive sleep apnea, still smoking half a pack a day He presented to Dr. Jesus's office with increasing shortness of breath In the office patient was found dyspneic with hypoxemia O2 sat was only 87% on 3 L nasal cannula Patient was referred to hospitalist service for admission Hospital Course Hospital Course: See above Physical Exam Vital Signs: Temp Pulse Resp BP Pulse Ox 97.4 F 58 L 16 121/62 100 12/17/16 12:22 12/17/16 12:22 12/17/16 12:22 12/17/16 07:27 12/17/16 12:22 Intake & Output 12/16/16 12/17/16 12/18/16 00:59 00:59 00:59 Intake Total 3643 1862 1010 Output Total 2300 1450 375 Balance 1343 412 635 Weight 80.3 kg 80.5 kg 82.2 kg General appearance: PRESENT: no acute distress, well-developed, well-nourished Head exam: PRESENT: atraumatic, normocephalic Eye exam: PRESENT: conjunctiva pink, EOMI, PERRLA. ABSENT: scleral icterus Ear exam: PRESENT: normal external ear exam Mouth exam: PRESENT: moist, tongue midline Neck exam: ABSENT: carotid bruit, JVD, lymphadenopathy, thyromegaly Respiratory exam: PRESENT: decreased breath sounds, wheezes. ABSENT: rales, rhonchi Cardiovascular exam: PRESENT: RRR. ABSENT: diastolic murmur, rubs, systolic murmur Pulses: PRESENT: normal dorsalis pedis pul Vascular exam: PRESENT: normal capillary refill GI/Abdominal exam: PRESENT: normal bowel sounds, soft. ABSENT: distended, guarding, mass, organolmegaly, rebound, tenderness Rectal exam: PRESENT: deferred Extremities exam: PRESENT: full ROM. ABSENT: calf tenderness, clubbing, pedal edema Neurological exam: PRESENT: alert, awake, oriented to person, oriented to place , oriented to time, oriented to situation, CN II-XII grossly intact. ABSENT: motor sensory deficit Psychiatric exam: PRESENT: appropriate affect, normal mood. ABSENT: homicidal ideation, suicidal ideation Skin exam: PRESENT: dry, intact, warm. ABSENT: cyanosis, rash Results Laboratory Results: 12/17/16 04:35 12/17/16 04:35 12/17/16 12/17/16 04:35 04:35 WBC 15.0 H RBC 4.89 Hgb 11.9 L Hct 37.7 L MCV 77 L MCH 24.4 L MCHC 31.6 L RDW 28.4 H Plt Count 461 H Seg Neutrophils % Not Reportable Lymphocytes % Not Reportable Monocytes % Not Reportable Eosinophils % Not Reportable Basophils % Not Reportable Absolute Neutrophils Not Reportable Absolute Lymphocytes Not Reportable Absolute Monocytes Not Reportable Absolute Eosinophils Not Reportable Absolute Basophils Not Reportable Sodium 139.8 Potassium 4.4 Chloride 102 Carbon Dioxide 29 Anion Gap 9 BUN 29 H Creatinine 0.70 Est GFR ( Amer) > 60 Est GFR (Non-Af Amer) > 60 Glucose 140 H Calcium 9.0 12/14/16 12/15/1617 18:13 00:13 04:54 Troponin I < 0.012 < 0.012 < 0.012 NT-Pro-B Natriuret Pep 183 Labs- Entire Visit 12/14/16 12/14/16 12/14/16 16:16 18:13 18:13 WBC RBC Hgb Hct MCV MCH MCHC RDW Plt Count Total Counted Seg Neutrophils % Seg Neuts % (Manual) Band Neutrophils % Lymphocytes % Lymphocytes % (Manual) Monocytes % Monocytes % (Manual) Eosinophils % Eosinophils % (Manual) Basophils % Basophils % (Manual) Absolute Neutrophils Abs Neuts (Manual) Absolute Lymphocytes Abs Lymphs (Manual) Absolute Monocytes Abs Monocytes (Manual) Absolute Eosinophils Absolute Eos (Manual) Absolute Basophils Abs Basophils (Manual) Toxic Granulation Platelet Comment Hypochromasia Poikilocytosis Anisocytosis Microcytosis Tear Drop Cells Ovalocytes Jt Cells Rouleaux Schistocytes Carbonic Acid HCO3/H2CO3 Ratio ABG pH ABG pCO2 ABG pO2 ABG HCO3 ABG Total CO2 ABG O2 Saturation ABG Base Excess VBG pH 7.44 H VBG pCO2 49.8 VBG HCO3 33.0 H VBG Base Excess 7.3 FiO2 Sodium 142.5 Potassium 4.5 Chloride 94 L Carbon Dioxide 34 H Anion Gap 15 BUN 21 H Creatinine 1.00 Est GFR ( Amer) > 60 Est GFR (Non-Af Amer) > 60 Glucose 179 H POC Glucose Calcium 10.3 H Total Bilirubin Direct Bilirubin AST ALT Alkaline Phosphatase Troponin I < 0.012 NT-Pro-B Natriuret Pep Total Protein Albumin TSH 12/14/16 12/14/16 12/15/16 19:40 23:30 00:13 WBC RBC Hgb Hct MCV MCH MCHC RDW Plt Count Total Counted Seg Neutrophils % Seg Neuts % (Manual) Band Neutrophils % Lymphocytes % Lymphocytes % (Manual) Monocytes % Monocytes % (Manual) Eosinophils % Eosinophils % (Manual) Basophils % Basophils % (Manual) Absolute Neutrophils Abs Neuts (Manual) Absolute Lymphocytes Abs Lymphs (Manual) Absolute Monocytes Abs Monocytes (Manual) Absolute Eosinophils Absolute Eos (Manual) Absolute Basophils Abs Basophils (Manual) Toxic Granulation Platelet Comment Hypochromasia Poikilocytosis Anisocytosis Microcytosis Tear Drop Cells Ovalocytes [place] Cells Rouleaux Schistocytes Carbonic Acid 1.46 H HCO3/H2CO3 Ratio 21:1 ABG pH 7.42 ABG pCO2 48.6 H ABG pO2 60.0 L ABG HCO3 31.1 H ABG Total CO2 32.6 H ABG O2 Saturation 91.3 L ABG Base Excess 5.6 VBG pH VBG pCO2 VBG HCO3 VBG Base Excess FiO2 2L Sodium Potassium Chloride Carbon Dioxide Anion Gap BUN Creatinine Est GFR ( Amer) Est GFR (Non-Af Amer) Glucose POC Glucose 337 H Calcium Total Bilirubin Direct Bilirubin AST ALT Alkaline Phosphatase Troponin I < 0.012 NT-Pro-B Natriuret Pep Total Protein Albumin TSH 12/15/16 12/15/16 12/15/16 04:54 04:54 04:54 WBC 11.3 H RBC 5.28 Hgb 12.6 L Hct 40.8 MCV 77 L MCH 23.8 L MCHC 30.9 L RDW 29.2 H Plt Count 393 Total Counted 100 Seg Neutrophils % Not Reportable Seg Neuts % (Manual) 92 H Band Neutrophils % 3 Lymphocytes % Not Reportable Lymphocytes % (Manual) 3 L Monocytes % Not Reportable Monocytes % (Manual) 2 L Eosinophils % Not Reportable Eosinophils % (Manual) 0 Basophils % Not Reportable Basophils % (Manual) 0 Absolute Neutrophils Not Reportable Abs Neuts (Manual) 10.7 H Absolute Lymphocytes Not Reportable Abs Lymphs (Manual) 0.3 L Absolute Monocytes Not Reportable Abs Monocytes (Manual) 0.2 Absolute Eosinophils Not Reportable Absolute Eos (Manual) 0.0 Absolute Basophils Not Reportable Abs Basophils (Manual) 0.0 Toxic Granulation 1+ Platelet Comment ADEQUATE Hypochromasia SLIGHT Poikilocytosis 1+ Anisocytosis 4+ Microcytosis SLIGHT Tear Drop Cells SLIGHT Ovalocytes 1+ Jt Cells SLIGHT Rouleaux Schistocytes SLIGHT Carbonic Acid HCO3/H2CO3 Ratio ABG pH ABG pCO2 ABG pO2 ABG HCO3 ABG Total CO2 ABG O2 Saturation ABG Base Excess VBG pH VBG pCO2 VBG HCO3 VBG Base Excess FiO2 Sodium 138.6 Potassium 4.2 Chloride 98 Carbon Dioxide 30 Anion Gap 11 BUN 23 H Creatinine 0.81 Est GFR ( Amer) > 60 Est GFR (Non-Af Amer) > 60 Glucose 251 H POC Glucose Calcium 9.7 Total Bilirubin 0.4 Direct Bilirubin 0.0 AST 29 ALT 55 Alkaline Phosphatase 75 Troponin I NT-Pro-B Natriuret Pep Total Protein 6.0 L Albumin 3.0 L TSH 0.02 L 12/15/16 12/15/16 12/15/16 04:54 06:12 11:12 WBC RBC Hgb Hct MCV MCH MCHC RDW Plt Count Total Counted Seg Neutrophils % Seg Neuts % (Manual) Band Neutrophils % Lymphocytes % Lymphocytes % (Manual) Monocytes % Monocytes % (Manual) Eosinophils % Eosinophils % (Manual) Basophils % Basophils % (Manual) Absolute Neutrophils Abs Neuts (Manual) Absolute Lymphocytes Abs Lymphs (Manual) Absolute Monocytes Abs Monocytes (Manual) Absolute Eosinophils Absolute Eos (Manual) Absolute Basophils Abs Basophils (Manual) Toxic Granulation Platelet Comment Hypochromasia Poikilocytosis Anisocytosis Microcytosis Tear Drop Cells Ovalocytes Jt Cells Rouleaux Schistocytes Carbonic Acid HCO3/H2CO3 Ratio ABG pH ABG pCO2 ABG pO2 ABG HCO3 ABG Total CO2 ABG O2 Saturation ABG Base Excess VBG pH VBG pCO2 VBG HCO3 VBG Base Excess FiO2 Sodium Potassium Chloride Carbon Dioxide Anion Gap BUN Creatinine Est GFR ( Amer) Est GFR (Non-Af Amer) Glucose POC Glucose 220 H 239 H Calcium Total Bilirubin Direct Bilirubin AST ALT Alkaline Phosphatase Troponin I < 0.012 NT-Pro-B Natriuret Pep 183 Total Protein Albumin TSH 12/15/16 12/15/16 12/16/16 15:54 21:34 06:09 WBC RBC Hgb Hct MCV MCH MCHC RDW Plt Count Total Counted Seg Neutrophils % Seg Neuts % (Manual) Band Neutrophils % Lymphocytes % Lymphocytes % (Manual) Monocytes % Monocytes % (Manual) Eosinophils % Eosinophils % (Manual) Basophils % Basophils % (Manual) Absolute Neutrophils Abs Neuts (Manual) Absolute Lymphocytes Abs Lymphs (Manual) Absolute Monocytes Abs Monocytes (Manual) Absolute Eosinophils Absolute Eos (Manual) Absolute Basophils Abs Basophils (Manual) Toxic Granulation Platelet Comment Hypochromasia Poikilocytosis Anisocytosis Microcytosis Tear Drop Cells Ovalocytes Jt Cells Rouleaux Schistocytes Carbonic Acid HCO3/H2CO3 Ratio ABG pH ABG pCO2 ABG pO2 ABG HCO3 ABG Total CO2 ABG O2 Saturation ABG Base Excess VBG pH VBG pCO2 VBG HCO3 VBG Base Excess FiO2 Sodium Potassium Chloride Carbon Dioxide Anion Gap BUN Creatinine Est GFR ( Amer) Est GFR (Non-Af Amer) Glucose POC Glucose 321 H 164 H 166 H Calcium Total Bilirubin Direct Bilirubin AST ALT Alkaline Phosphatase Troponin I NT-Pro-B Natriuret Pep Total Protein Albumin TSH 12/16/16 12/16/16 12/16/16 11:32 16:05 21:28 WBC RBC Hgb Hct MCV MCH MCHC RDW Plt Count Total Counted Seg Neutrophils % Seg Neuts % (Manual) Band Neutrophils % Lymphocytes % Lymphocytes % (Manual) Monocytes % Monocytes % (Manual) Eosinophils % Eosinophils % (Manual) Basophils % Basophils % (Manual) Absolute Neutrophils Abs Neuts (Manual) Absolute Lymphocytes Abs Lymphs (Manual) Absolute Monocytes Abs Monocytes (Manual) Absolute Eosinophils Absolute Eos (Manual) Absolute Basophils Abs Basophils (Manual) Toxic Granulation Platelet Comment Hypochromasia Poikilocytosis Anisocytosis Microcytosis Tear Drop Cells Ovalocytes Jt Cells Rouleaux Schistocytes Carbonic Acid HCO3/H2CO3 Ratio ABG pH ABG pCO2 ABG pO2 ABG HCO3 ABG Total CO2 ABG O2 Saturation ABG Base Excess VBG pH VBG pCO2 VBG HCO3 VBG Base Excess FiO2 Sodium Potassium Chloride Carbon Dioxide Anion Gap BUN Creatinine Est GFR ( Amer) Est GFR (Non-Af Amer) Glucose POC Glucose 259 H 284 H 273 H Calcium Total Bilirubin Direct Bilirubin AST ALT Alkaline Phosphatase Troponin I NT-Pro-B Natriuret Pep Total Protein Albumin TSH 12/17/16 12/17/16 12/17/16 04:35 04:35 06:42 WBC 15.0 H RBC 4.89 Hgb 11.9 L Hct 37.7 L MCV 77 L MCH 24.4 L MCHC 31.6 L RDW 28.4 H Plt Count 461 H Total Counted 100 Seg Neutrophils % Not Reportable Seg Neuts % (Manual) 88 H Band Neutrophils % 2 L Lymphocytes % Not Reportable Lymphocytes % (Manual) 6 L Monocytes % Not Reportable Monocytes % (Manual) 4 Eosinophils % Not Reportable Eosinophils % (Manual) 0 Basophils % Not Reportable Basophils % (Manual) 0 Absolute Neutrophils Not Reportable Abs Neuts (Manual) 13.5 H Absolute Lymphocytes Not Reportable Abs Lymphs (Manual) 0.9 Absolute Monocytes Not Reportable Abs Monocytes (Manual) 0.6 Absolute Eosinophils Not Reportable Absolute Eos (Manual) 0.0 Absolute Basophils Not Reportable Abs Basophils (Manual) 0.0 Toxic Granulation SLIGHT Platelet Comment ADEQUATE Hypochromasia SLIGHT Poikilocytosis 1+ Anisocytosis 4+ Microcytosis SLIGHT Tear Drop Cells Ovalocytes 1+ [place] Cells SLIGHT Rouleaux SLIGHT Schistocytes SLIGHT Carbonic Acid HCO3/H2CO3 Ratio ABG pH ABG pCO2 ABG pO2 ABG HCO3 ABG Total CO2 ABG O2 Saturation ABG Base Excess VBG pH VBG pCO2 VBG HCO3 VBG Base Excess FiO2 Sodium 139.8 Potassium 4.4 Chloride 102 Carbon Dioxide 29 Anion Gap 9 BUN 29 H Creatinine 0.70 Est GFR ( Amer) > 60 Est GFR (Non-Af Amer) > 60 Glucose 140 H POC Glucose 175 H Calcium 9.0 Total Bilirubin Direct Bilirubin AST ALT Alkaline Phosphatase Troponin I NT-Pro-B Natriuret Pep Total Protein Albumin TSH 12/17/16 11:07 WBC RBC Hgb Hct MCV MCH MCHC RDW Plt Count Total Counted Seg Neutrophils % Seg Neuts % (Manual) Band Neutrophils % Lymphocytes % Lymphocytes % (Manual) Monocytes % Monocytes % (Manual) Eosinophils % Eosinophils % (Manual) Basophils % Basophils % (Manual) Absolute Neutrophils Abs Neuts (Manual) Absolute Lymphocytes Abs Lymphs (Manual) Absolute Monocytes Abs Monocytes (Manual) Absolute Eosinophils Absolute Eos (Manual) Absolute Basophils Abs Basophils (Manual) Toxic Granulation Platelet Comment Hypochromasia Poikilocytosis Anisocytosis Microcytosis Tear Drop Cells Ovalocytes [place] Cells Rouleaux Schistocytes Carbonic Acid HCO3/H2CO3 Ratio ABG pH ABG pCO2 ABG pO2 ABG HCO3 ABG Total CO2 ABG O2 Saturation ABG Base Excess VBG pH VBG pCO2 VBG HCO3 VBG Base Excess FiO2 Sodium Potassium Chloride Carbon Dioxide Anion Gap BUN Creatinine Est GFR ( Amer) Est GFR (Non-Af Amer) Glucose POC Glucose 345 H Calcium Total Bilirubin Direct Bilirubin AST ALT Alkaline Phosphatase Troponin I NT-Pro-B Natriuret Pep Total Protein Albumin TSH EKG Comments: Normal sinus rhythm ,left anterior fascicular block Impressions: Chest/Abdomen CTA 12/14/16 18:00 IMPRESSION: 1. NORMAL CTA OF THE CHEST. NO PULMONARY EMBOLI. 2. CHRONIC EMPHYSEMATOUS CHANGES. 5 MM NODULE IN THE RIGHT UPPER LOBE. FOLLOW- UP CLINICALLY INDICATED. Plan Discharge Plan: Patient was discharged home to follow-up with primary care physician and Dr. Jesus Time Spent: Greater than 30 Minutes
[2016-12-17] MEDS ORDERED: METHYLPREDNISOLONE INJ 125 MG/2 ML SDV IV SCH (18:00)
== END 2016-12-17 13:50 | disposition home or self-care (01) | DRG 189 ==
LOC: 3W 15:38
PROVIDERS: ADMIT Emergency Medicine; ATTEND Emergency Medicine
DX: J96.21 Acute and chronic respiratory failure with hypoxia (principal); J18.9 Pneumonia, unspecified organism; J44.1 Chronic obstructive pulmonary disease with (acute) exacerbation; E11.9 Type 2 diabetes mellitus without complications; D64.9 Anemia, unspecified; I10 Essential (primary) hypertension; I25.10 Atherosclerotic heart disease of native coronary artery without angina pectoris; R91.1 Solitary pulmonary nodule; G47.33 Obstructive sleep apnea (adult) (pediatric); F17.210 Nicotine dependence, cigarettes, uncomplicated; I25.2 Old myocardial infarction; Z99.81 Dependence on supplemental oxygen; Z79.82 Long term (current) use of aspirin; Z79.01 Long term (current) use of anticoagulants; Z79.84 Long term (current) use of oral hypoglycemic drugs; Z79.51 Long term (current) use of inhaled steroids
CPT/HCPCS: 36415; 36600; 71020; 71275; 80048; 80053; 82803; 82962; 83880; 84443; 84484; 85025; 87070; 87077; 87205; 93005; 93010; 94640; 94660; J0692; J1650; J1815; J1956; J2920; J2930; J3490; J7620

== ENCOUNTER 2017-03-21 18:46 | Emergency (ER) | payer MEDICARE, OTHER ==
[2017-03-21] MEDS ORDERED: IPRATROPIUM/ALBUTEROL 0.5-2.5 MG/3 ML AMPUL NEB ONE (18:50)
[2017-03-21] MEDS ORDERED: METHYLPREDNISOLONE INJ 125 MG/2 ML SDV IV ONE (18:52)
[2017-03-21] MEDS ORDERED: NORMAL SALINE 1000 ML 1,000 ML IV ONE (18:58)
[2017-03-21 19:19] LABS: ABSOLUTE BASOPHILS # (AUTO) 0.1 10^3/uL (0.0-0.2); ABSOLUTE EOSINOPHILS # (AUTO) 0.2 10^3/uL (0.0-0.6); ABSOLUTE LYMPHOCYTES (AUTO) 1.8 10^3/uL (0.5-4.7); ABSOLUTE MONOCYTES (AUTO) 1.5 10^3/uL (0.1-1.4); ABSOLUTE NEUT (AUTO) 12.7 10^3/uL (1.7-8.2); BASOPHILS % (AUTO) 0.5 % (0-2); EOSINOPHILS % (AUTO) 1.4 % (0-6); HEMATOCRIT 43.4 % (37.9-51.0); HEMOGLOBIN 14.6 g/dL (13.5-17.0); HGB HCT DIFFERENCE 0.4; LYMPHOCYTES % (AUTO) 11.1 % (13-45); MEAN CORPUSCULAR HEMOGLOBIN 29.2 pg (27.0-33.4); MEAN CORPUSCULAR HGB CONC 33.6 g/dL (32.0-36.0); MEAN CORPUSCULAR VOLUME 87 fl (80-97); MONOCYTES % (AUTO) 9.2 % (3-13); RED BLOOD COUNT 5.01 10^6/uL (4.35-5.55); RED CELL DISTRIBUTION WIDTH 15.8 % (11.5-14.0); SEGMENTED NEUTROPHILS % (AUTO) 77.8 % (42-78); WHITE BLOOD COUNT 16.3 10^3/uL (4.0-10.5)
[2017-03-21 19:27] LABS: VENOUS BLOOD BASE EXCESS 2.7 mmol/L; VENOUS BLOOD HCO3 28.3 mmol/L (20-32); VENOUS BLOOD PCO2 46.9 mmHg (35-63); VENOUS BLOOD PH 7.4 (7.30-7.42)
[2017-03-21 19:28] LABS: PROTHROMBIN TIME 12.9 SEC (11.4-15.4)
[2017-03-21 19:43] LABS: ALANINE AMINOTRANSFERASE 41 U/L (21-72); ALBUMIN 4.4 g/dL (3.5-5.0); ALKALINE PHOSPHATASE 72 U/L (38-126); ANION GAP 12 (5-19); ASPARTATE AMINO TRANSFERASE 27 U/L (17-59); BILIRUBIN,DIRECT 0.3 mg/dL (0.0-0.4); BILIRUBIN,TOTAL 0.7 mg/dL (0.2-1.3); BLOOD UREA NITROGEN 20 mg/dL (7-20); CALCIUM 10.1 mg/dL (8.4-10.2); CARBON DIOXIDE 30 mmol/L (22-30); CHLORIDE 101 mmol/L (98-107); CREATINE KINASE 159 U/L (55-170); CREATININE RESULT 0.87 mg/dL (0.52-1.25); GLUCOSE 113 mg/dL (75-110); POTASSIUM 3.9 mmol/L (3.6-5.0); SODIUM 142.9 mmol/L (137-145)
--- NOTE | 2017-03-21 20:06 | ER Document Report ---
ED Respiratory Problem - General Time seen by provider: 18:49 Mode of Arrival: Ambulatory Information source: Patient, Relative - spouse TRAVEL OUTSIDE OF THE [place] IN LAST 30 DAYS: No - HPI Patient complains to provider of: COPD, Cough, Short of breath Onset: Other - Refer to HPI notes Cough: Productive Sputum color: Yellow Similar symptoms previously: Yes Recently seen / treated by doctor: No <CHRISSY YU - Last Filed: 03/21/17 20:47> <INEZ REES - Last Filed: 03/21/17 23:02> - General Chief Complaint: Breathing Difficulty Stated Complaint: DIFFICULTY BREATHING Notes: Patient is a 56-year-old male presented to emergency department for difficulty breathing. Patient states that his breathing became difficult around 16:00 this afternoon. Patient has a history of COPD and is still a smoker. Patient is dependent on 2 L of oxygen at home. Patient's spouse took the patient's vitals at home at 17:30 and they were: 92% O2 saturation, 95 heart rate, 104 F, 135/82 blood pressure; at 18:00 the patient's vitals were: 91% O2 saturation, 104 heart rate, 103 F, 135/82 blood pressure. Patient had a breathing treatment at 17:30 which provided no relief. Patient denies any chest pain. Patient has a productive cough with yellow sputum. On 12/14/[address] of the chest that showed a 5 mm nodule in the right upper lobe. Patient was told to follow up in 6 months concerning this finding. Patient denies any history of previous intubation. Patient uses CPAP at night. Patient has no known allergies. Patient's k9 handler is Dr. Jesus. (CHRISSY YU) - Related Data Allergies/Adverse Reactions: No Known Allergies Allergy (Unverified 12/14/16 17:14) Past Medical History - General Information source: Patient, Relative - spouse - Social History Smoking Status: Current Every Day Smoker Chew tobacco use (# tins/day): No Frequency of alcohol use: None Drug Abuse: None Family History: CAD, Other - Diabetes - Past Medical History Cardiac Medical History: Reports: Hx Coronary Artery Disease, Hx Heart Attack, Hx Hypertension Pulmonary Medical History: Reports: Hx COPD - O2 dependant, Hx Pneumonia, Hx Sleep Apnea Endocrine Medical History: Reports: Hx Diabetes Mellitus Type 2 Past Surgical History: Reports: Hx Coronary Stent - Immunizations Hx Pneumococcal Vaccination: 08/15/16 <CHRISSY YU - Last Filed: 03/21/17 20:47> Review of Systems - Review of Systems Constitutional: No symptoms reported EENT: No symptoms reported Cardiovascular: No symptoms reported Respiratory: See HPI, Cough, Short of breath, Wheezing Gastrointestinal: No symptoms reported Genitourinary: No symptoms reported Male Genitourinary: No symptoms reported Musculoskeletal: No symptoms reported Skin: No symptoms reported Hematologic/Lymphatic: No symptoms reported Neurological/Psychological: No symptoms reported -: Yes All other systems reviewed and negative <CHRISSY YU - Last Filed: 03/21/17 20:47> Physical Exam <CHRISSY YU - Last Filed: 03/21/17 20:47> <INEZ REES - Last Filed: 03/21/17 23:02> - Vital signs Vitals: Resp Pulse Ox 18 93 03/21/17 18:55 03/21/17 18:55 - Notes Notes: GENERAL: Alert, interacts well. Respiratory distress. HEAD: Normocephalic, atraumatic. EYES: Pupils equal, round, and reactive to light. Extraocular movements intact. ENT: Oral mucosa moist, tongue midline. NECK: Full range of motion. Supple. Trachea midline. LUNGS: Tachypnea. Decreased breath sounds to the right lower lobe. Accessory muscle usage. No wheezes, rales, or rhonchi. HEART: Tachycardic. Regular rhythm. No murmurs, gallops, or rubs. ABDOMEN: Soft, non-tender. Non-distended. Bowel sounds present in all 4 quadrants. EXTREMITIES: Moves all 4 extremities spontaneously. No edema, radial and dorsalis pedis pulses 2/4 bilaterally. No cyanosis. NEUROLOGICAL: Alert and oriented x3. Normal speech. PSYCH: Normal affect, normal mood. SKIN: Warm, dry, normal turgor. No rashes or lesions noted. (CHRISSY YU) Course - Laboratory Result Diagrams: 03/21/17 19:00 03/21/17 19:00 <CHRISSY YU - Last Filed: 03/21/17 20:47> - Laboratory Result Diagrams: 03/21/17 19:00 03/21/17 19:00 <INEZ REES - Last Filed: 03/21/17 23:02> - Re-evaluation Re-evalutation: 03/21/17 23:00 CBC shows leukocytosis at 16.3, coags normal, VBG grossly unremarkable, CMP grossly unremarkable, lactic acid normal, cardiac enzymes negative, chest x-ray shows no acute process, CT angiogram of the chest does not show any pulmonary embolism. After steroids and breathing treatments patient feels much better, oxygenating well, no longer in any respiratory distress. Given his initial fever patient will not only received steroids for this acute exacerbation of COPD but also antibiotics. Patient is quite stable at this point and will be discharged home. (INEZ REES) - Vital Signs Vital signs: Temp Pulse Resp BP Pulse Ox 99.3 F 91 24 H 107/67 93 03/21/17 19:48 03/21/17 22:00 03/21/17 22:00 03/21/17 22:00 03/21/17 22:00 - Laboratory Laboratory results interpreted by me: 03/21/17 03/21/17 19:00 19:00 WBC 16.3 H RDW 15.8 H Lymphocytes % 11.1 L Absolute Neutrophils 12.7 H Absolute Monocytes 1.5 H Glucose 113 H - EKG Interpretation by Me Additional EKG results interpreted by me: 03/21/17 23:00 EKG shows sinus rhythm rate 99, left anterior hemiblock, T wave inversions noted in aVL, T-wave flattening noted in V1 and V2, those T waves were previously inverted on 12/14/2016, no ST segment elevations or depressions per my interpretation. (INEZ REES) Discharge <CHRISSY YU - Last Filed: 03/21/17 20:47> <INEZ REES - Last Filed: 03/21/17 23:02> - Discharge Clinical Impression: Acute on chronic respiratory failure with hypoxemia, Acute bronchitis, bacterial Condition: Stable Disposition: HOME, SELF-CARE Prescriptions: Amox Tr/Potassium Clavulanate [Augmentin 875-125 Tablet] 1 tab PO BID 10 Days Prednisone [Deltasone 20 mg Tablet] 3 tab PO DAILY 5 Days Referrals: MIKEY FOX MD [Primary Care Provider] - Follow up in 3-5 days Scribe Attestation: 03/21/17 23:02 I personally performed the services described in the documentation, reviewed and edited the documentation which was dictated to the scribe in my presence, and it accurately records my words and actions. (INEZ REES) Scribe Documentation - Scribe Written by Scribhelen:: Geovanna Trammell, 03/21/17 20:45 acting as scribe for :: Caren <CHRISSY YU - Last Filed: 03/21/17 20:47>
--- NOTE | 2017-03-21 20:47 | EKG REPORT ---
SEVERITY:- ABNORMAL ECG - SINUS RHYTHM LAD, CONSIDER LEFT ANTERIOR FASCICULAR BLOCK NONSPECIFIC ST-T CHANGES LATERAL LEADS : Confirmed by: Guillermo Cárdenas MD 21-Mar-2017 20:47:14
[2017-03-21 21:54] LABS: CREATINE KINASE MB 2.28 ng/mL (<4.55)
[2017-03-21 22:04] LABS: TROPONIN I < 0.012 ng/mL
[2017-03-21] MEDS ORDERED: AMOXICILLIN TR/POT CLAVULANATE 500-125 MG TAB PO ONE (22:53)
[2017-03-21] MEDS ORDERED: PREDNISONE 20 MG TABLET PO ONE (22:53)
[2017-03-21 23:42] VITALS: BP 113/71
--- NOTE | 2017-03-22 13:02 | ER Document Report ---
Doctor's Note Notes: 03/22/17 13:01 I called and spoke to Christiano Jaeger today in follow-up regarding his visit last night. Patient states that he is feeling quite a bit better than he was yesterday however he still does not feel back to his baseline. States that he is using his breathing treatments approximately every 2-1/2 hours. Advised patient to return to the emergency department should he need uses breathing treatments more often than every 2 hours. Patient expresses understanding.
== END 2017-03-21 23:30 | disposition home or self-care (01) ==
LOC: ER 18:46
DX: J96.21 Acute and chronic respiratory failure with hypoxia (principal); J20.9 Acute bronchitis, unspecified; F17.200 Nicotine dependence, unspecified, uncomplicated; R00.0 Tachycardia, unspecified; I25.10 Atherosclerotic heart disease of native coronary artery without angina pectoris; E11.9 Type 2 diabetes mellitus without complications; I10 Essential (primary) hypertension; Z99.81 Dependence on supplemental oxygen; I25.2 Old myocardial infarction
CPT/HCPCS: 93005; 94640; 99285; 96361; 96374; 36415; 87040; 82553; 82550; 85025; 85610; 80053; 84484; 82803; 83605; 71010; 71275; 93010; J2930; J7030; A9270; J7620

== ENCOUNTER → 2017-07-06 | Outpatient (CLI) | payer MEDICARE, OTHER ==
--- NOTE | 2017-07-06 10:30 | RADIOLOGY REPORT (SQ) ---
EXAM DESCRIPTION: CT CHEST WITHOUT COMPLETED DATE/TIME: 07/06/2017 8:21 am REASON FOR STUDY: EMPHYSEMA (J43.9), CHRONIC RESPIRATORY FAILURE W/HYPOXIA (J96.11), SOLITARY J43.9 EMPHYSEMA, UNSPECIFIED J96.11 CHRONIC RESPIRATORY FAILURE WITH HYPOXIA R91.1 SOLITARY PULMONARY NO DULE COMPARISON: 03/21/2017 TECHNIQUE: CT scan performed of the chest without intravenous contrast. Images reviewed with lung, soft tissue and bone windows. Reconstructed coronal and sagittal MPR images reviewed. All images st ored on PACS. All CT scanners at this facility use dose modulation, iterative reconstruction, and/or weight based d osing when appropriate to reduce radiation dose to as low as reasonably achievable (ALARA). [facility]: Dose Right [facility]: CareDose [facility]: Dose Right [facility]: Teradose 4D [facility]: Smart gokit RADIATION DOSE: Up-to-date CT equipment and radiation dose reduction techniques were employed. CTDIv ol: 8.4 mGy. DLP: 349 mGy-cm. mGy. LIMITATIONS: No technical limitations. FINDINGS: LUNGS AND PLEURA: Moderate centrilobular emphysema. Mild peripheral reticular opacity pro bably associated with COPD. Small faint stable subpleural nodularity. No new infiltrates. No pleur al effusions. HILAR AND MEDIASTINAL STRUCTURES: No identified masses or abnormal nodes. Mild aneurysmal change asc ending aorta. 4.2 cm maximum transverse diameter. No interval change. . HEART AND VASCULAR STRUCTURES: No aneurysm. No pericardial effusion. Marked coronary arterial calci fication. UPPER ABDOMEN: No significant findings. Limited exam. THYROID AND OTHER SOFT TISSUES: No masses. No adenopathy. BONES: No significant finding. HARDWARE: None in the chest. OTHER: No other significant findings. IMPRESSION: COPD. Associated mild interstitial change peripherally. No acute findings. No signifi cant mediastinal pathology. No significant change since the previous chest CT of 03/21/2017 TECHNICAL DOCUMENTATION: JOB ID: [id number] Quality ID # [id number]: Final reports with documentation of one or more dose reduction techniques (e.g., Au tomated exposure control, adjustment of the mA and/or kV according to patient size, use of iterative reconstruction technique) 2010 [employer]- All Rights Reserved
== END ==
LOC: RAD 08:08
PROVIDERS: ATTEND Internal Medicine Pulmonary Disease
DX: J43.9 Emphysema, unspecified (principal); J96.11 Chronic respiratory failure with hypoxia; R91.1 Solitary pulmonary nodule
CPT/HCPCS: 71250

== ENCOUNTER → 2017-09-13 | Outpatient (CLI) | payer MEDICARE, OTHER ==
--- NOTE | 2017-09-13 14:58 | RADIOLOGY REPORT (SQ) ---
EXAM DESCRIPTION: CHEST PA/LATERAL COMPLETED DATE/TIME: 09/13/2017 1:32 pm REASON FOR STUDY: COUGH R05 COUGH COMPARISON: 03/21/2017 NUMBER OF VIEWS: Two view. TECHNIQUE: Frontal and lateral radiographic views of the chest acquired. LIMITATIONS: None. FINDINGS: LUNGS AND PLEURA: No opacities, masses or pneumothorax. No pleural effusion. Attenuated bl ood vessels and flattened loreto-diaphragms. MEDIASTINUM AND HILAR STRUCTURES: No masses. No contour abnormalities. HEART AND VASCULAR STRUCTURES: Heart normal in size and contour. No evidence for failure. BONES: No acute findings. HARDWARE: None in the chest. OTHER: No other significant finding. IMPRESSION: COPD. NO ACUTE RADIOGRAPHIC FINDING IN THE CHEST. TECHNICAL DOCUMENTATION: JOB ID: [id number] [employer]- All Rights Reserved
== END ==
LOC: OD 13:18
PROVIDERS: ATTEND Internal Medicine Pulmonary Disease
DX: R05 Cough (principal)
CPT/HCPCS: 71020

== ENCOUNTER → 2017-09-13 | Outpatient (CLI) | payer MEDICARE, OTHER ==
[2017-09-13 13:37] LABS: ARTERIAL BLOOD BASE EXCESS 4.7 mmol/L; ARTERIAL BLOOD O2 SATURATION 88.2 % (94-98)
[2017-09-13 13:38] LABS: ABSOLUTE BASOPHILS # (AUTO) 0.1 10^3/uL (0.0-0.2); ABSOLUTE EOSINOPHILS # (AUTO) 0.2 10^3/uL (0.0-0.6); ABSOLUTE LYMPHOCYTES (AUTO) 1.6 10^3/uL (0.5-4.7); ABSOLUTE MONOCYTES (AUTO) 1.6 10^3/uL (0.1-1.4); ABSOLUTE NEUT (AUTO) 8.6 10^3/uL (1.7-8.2); BASOPHILS % (AUTO) 0.5 % (0-2); EOSINOPHILS % (AUTO) 1.6 % (0-6); HEMATOCRIT 45.3 % (37.9-51.0); HEMOGLOBIN 15.4 g/dL (13.5-17.0); HGB HCT DIFFERENCE 0.9; LYMPHOCYTES % (AUTO) 13.4 % (13-45); MEAN CORPUSCULAR HEMOGLOBIN 30.6 pg (27.0-33.4); MEAN CORPUSCULAR VOLUME 90 fl (80-97); MONOCYTES % (AUTO) 13.5 % (3-13); RED BLOOD COUNT 5.02 10^6/uL (4.35-5.55); RED CELL DISTRIBUTION WIDTH 13.7 % (11.5-14.0); WHITE BLOOD COUNT 12.1 10^3/uL (4.0-10.5)
[2017-09-13 13:56] LABS: ALANINE AMINOTRANSFERASE 41 U/L (21-72); ALBUMIN 4.8 g/dL (3.5-5.0); ALKALINE PHOSPHATASE 65 U/L (38-126); ANION GAP 14 (5-19); ASPARTATE AMINO TRANSFERASE 31 U/L (17-59); BILIRUBIN,DIRECT 0.4 mg/dL (0.0-0.4); BLOOD UREA NITROGEN 17 mg/dL (7-20); CALCIUM 10.1 mg/dL (8.4-10.2); CARBON DIOXIDE 31 mmol/L (22-30); CHLORIDE 100 mmol/L (98-107); CREATININE RESULT 0.74 mg/dL (0.52-1.25); GLUCOSE 91 mg/dL (75-110); SODIUM 144.6 mmol/L (137-145); TOTAL PROTEIN 7.5 g/dL (6.3-8.2)
== END ==
LOC: OD 11:19
PROVIDERS: ATTEND Internal Medicine Pulmonary Disease
DX: J96.11 Chronic respiratory failure with hypoxia (principal); R05 Cough; R50.9 Fever, unspecified
CPT/HCPCS: 36415; 36600; 80053; 82803; 85025; 87070; 87077; 87086; 87205

== ENCOUNTER → 2018-04-20 | Outpatient (CLI) | payer MEDICARE, OTHER ==
--- NOTE | 2018-04-20 13:57 | RADIOLOGY REPORT (SQ) ---
EXAM DESCRIPTION: CHEST PA/LATERAL COMPLETED DATE/TIME: 04/20/2018 1:50 pm REASON FOR STUDY: CHRONIC OBSTRUCTIVE PULMONARY DISEASE, UNSPECIFIED J44.9 CHRONIC OBSTRUCTIVE PULM ONARY DISEASE, UNSPECIFIED COMPARISON: 09/13/2017. NUMBER OF VIEWS: Two view. TECHNIQUE: Frontal and lateral radiographic views of the chest acquired. LIMITATIONS: None. FINDINGS: LUNGS AND PLEURA: No opacities, masses or pneumothorax. No pleural effusion. Attenuated bl ood vessels and flattened [place]-diaphragms. MEDIASTINUM AND HILAR STRUCTURES: No masses. No contour abnormalities. HEART AND VASCULAR STRUCTURES: Heart normal in size and contour. No evidence for failure. BONES: No acute findings. HARDWARE: None in the chest. OTHER: No other significant finding. IMPRESSION: COPD. NO ACUTE RADIOGRAPHIC FINDING IN THE CHEST. TECHNICAL DOCUMENTATION: JOB ID: [id number] [employer]- All Rights Reserved Reading location - IP/workstation name: [email or web address]
[2018-04-20 14:27] LABS: ABSOLUTE BASOPHILS # (AUTO) 0.1 10^3/uL (0.0-0.2); ABSOLUTE EOSINOPHILS # (AUTO) 0.3 10^3/uL (0.0-0.6); ABSOLUTE LYMPHOCYTES (AUTO) 1.4 10^3/uL (0.5-4.7); ABSOLUTE MONOCYTES (AUTO) 0.6 10^3/uL (0.1-1.4); ABSOLUTE NEUT (AUTO) 6.1 10^3/uL (1.7-8.2); BASOPHILS % (AUTO) 0.7 % (0-2); EOSINOPHILS % (AUTO) 3.6 % (0-6); HEMATOCRIT 40.1 % (37.9-51.0); HEMOGLOBIN 13.6 g/dL (13.5-17.0); LYMPHOCYTES % (AUTO) 16.9 % (13-45); MEAN CORPUSCULAR HEMOGLOBIN 29.6 pg (27.0-33.4); MEAN CORPUSCULAR VOLUME 87 fl (80-97); MONOCYTES % (AUTO) 6.6 % (3-13); PLATELET COUNT 328 10^3/uL (150-450); RED CELL DISTRIBUTION WIDTH 14.8 % (11.5-14.0); SEGMENTED NEUTROPHILS % (AUTO) 72.2 % (42-78); TOTAL CELLS COUNTED % (AUTO) 100 %; WHITE BLOOD COUNT 8.4 10^3/uL (4.0-10.5)
== END ==
LOC: OD 13:19
PROVIDERS: ATTEND Internal Medicine Pulmonary Disease
DX: J44.9 Chronic obstructive pulmonary disease, unspecified (principal)
CPT/HCPCS: 36415; 71046; 85025

== ENCOUNTER 2018-09-25 16:10 | Inpatient (IN) | payer MEDICARE ==
[2018-09-25] MEDS ORDERED: ASPIRIN 81 MG TABLET, CHEWABLE PO ONE (16:17)
[2018-09-25] MEDS ORDERED: IPRATROPIUM/ALBUTEROL 0.5-2.5 MG/3 ML AMPUL NEB ONE (16:25)
[2018-09-25] MEDS ORDERED: METHYLPREDNISOLONE INJ 125 MG/2 ML SDV IV ONE (16:25)
--- NOTE | 2018-09-25 16:31 | ER Document Report ---
ED General - General Mode of Arrival: Ambulatory Information source: Patient TRAVEL OUTSIDE OF THE [place] 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 Patient states this morning he used a breathing treatment and felt it did not work as well as it normally does. He states around 1530 he began to have increased shortness of breath and chest pain. Patient describes the chest pain as a hot sensation in the middle of his chest. states she administered 3 baby aspirin at this time after which the patient stated his pain was relieved some but then returned. Patient mentions a chronic productive cough with yellowish brown sputum. Patient's PCP is Dr. Kaur at [facility], dowel setting machine operator is Dr. Jesus, and collar folder operator is Dr. Magana at [facility]. Patient is currently on Plavix. (CARLOS DHALIWAL) The patient reported that the productive cough with the yellowish brown sputum is a long-standing chronic problem. (SHIRA FELIX) - Related Data Allergies/Adverse Reactions: No Known Allergies Allergy (Unverified 12/14/16 17:14) Past Medical History - General Information source: Patient - Social History Smoking Status: Current Every Day Smoker Cigarette use (# per day): Yes Chew tobacco use (# tins/day): No Smoking Education Provided: No Frequency of alcohol use: None Family History: CAD, Other - Diabetes - Past Medical History Cardiac Medical History: Reports: Hx Coronary Artery Disease, Hx Heart Attack, Hx Hypertension Pulmonary Medical History: Reports: Hx COPD - O2 dependant, Hx Pneumonia, Hx Sleep Apnea Endocrine Medical History: Reports: Hx Diabetes Mellitus Type 2 Past Surgical History: Reports: Hx Coronary Stent - right coronary artery stents x4 - Immunizations Hx Pneumococcal Vaccination: 08/15/16 <CARLOS DHALIWAL - Last Filed: 09/25/18 16:38> Review of Systems - Review of Systems Constitutional: No symptoms reported EENT: No symptoms reported Cardiovascular: See HPI, Chest pain Respiratory: See HPI, Short of breath Gastrointestinal: No symptoms reported Genitourinary: No symptoms reported Male Genitourinary: No symptoms reported Musculoskeletal: No symptoms reported Skin: No symptoms reported Hematologic/Lymphatic: No symptoms reported Neurological/Psychological: No symptoms reported -: Yes All other systems reviewed and negative <MADHURICARLOS - Last Filed: 09/25/18 16:38> Physical Exam <MADHURIPATSHARLENE - Last Filed: 09/25/18 16:38> <SHIRA FELIX - Last Filed: 09/25/18 18:09> - Vital signs Vitals: Resp Pulse Ox 22 H 96 09/25/18 16:28 09/25/18 16:28 - Notes Notes: GENERAL: Alert, Dyspneic. HEAD: Normocephalic, atraumatic. EYES: Pupils equal, round, and reactive to light. Extraocular movements intact. ENT: Oral mucosa moist, tongue midline. NECK: Full range of motion. Supple. Trachea midline. LUNGS: Dyspneic, few word sentences. Wheezes and rhonchi. HEART: Irregular. No murmurs, gallops, or rubs. ABDOMEN: Soft, non-tender. Non-distended. Bowel sounds present in all 4 quadrants. EXTREMITIES: Moves all 4 extremities spontaneously. NEUROLOGICAL: Alert and oriented x3. Normal speech. PSYCH: Somewhat excited. SKIN: Warm, dry, normal turgor. No rashes or lesions noted. (MADHURIPATSHARLENE) Course - Laboratory Result Diagrams: 09/25/18 16:20 09/25/18 16:20 <MADHURICARLOS PINEDA - Last Filed: 09/25/18 16:38> - Laboratory Result Diagrams: 09/25/18 16:20 09/25/18 16:20 - Diagnostic Test Radiology reviewed: Image reviewed, Reports reviewed - Chest x-ray shows COPD without acute changes. - EKG Interpretation by Pa EKG shows normal: Sinus rhythm, [place], Intervals, ST-T Waves. abnormal: QRS Complexes Rate: Normal - 83 Rhythm: NSR [place]/QRS: RBBB When compared to previous EKG there are: No significant change - Consults Dut Time consulted: 18:02 Consulted provider: will come to ER <SHIRA FELIX - Last Filed: 09/25/18 18:09> - Re-evaluation Re-evalutation: 09/25/18 18:00 Patient is now smiling. States his breathing is considerably better than when he first got here. He states it is not back to normal for him but it is close. The chest pain he was feeling when he came in has also resolved. EKG did not show acute changes. Initial troponin was undetectable. Unable to determine if the substernal chest pain the patient was having on arrival was cardiac or pulmonary in origin. (SHIRA FELIX) - Vital Signs Vital signs: Temp Pulse Resp BP Pulse Ox 25 H 132/79 H 94 09/25/18 17:01 09/25/18 17:00 09/25/18 17:01 - Laboratory Laboratory results interpreted by me: 09/25/18 16:20 RDW 15.9 H Critical Care Note - Critical Care Note Total time excluding time spent on procedures (mins): 40 <SHIRA FELIX - Last Filed: 09/25/18 18:09> Discharge <CARLOS DHALIWAL - Last Filed: 09/25/18 16:38> - Discharge Admitting Provider: Hospitalist Unit Admitted: Telemetry <SHIRA FELIX - Last Filed: 09/25/18 18:09> - Discharge Clinical Impression: COPD with acute exacerbation, Tobacco abuse Chest pain Qualifiers: Chest pain type: unspecified Qualified Code(s): R07.9 - Chest pain, unspecified Coronary artery disease Qualifiers: Coronary Disease-Associated Artery/Lesion type: unspecified vessel or lesion type [place] vs. transplanted heart: [place] heart Associated angina: angina presence unspecified Qualified Code(s): I25.10 - Atherosclerotic heart disease of [place] coronary artery without angina pectoris Condition: Good Disposition: ADMITTED INPATIENT Referrals: ALEX JESUS MD [Primary Care Provider] - Follow up as needed Scribe Attestation: 09/25/18 16:37 I personally performed the services described in the documentation, reviewed and edited the documentation which was dictated to the scribe in my presence, and it accurately records my words and actions. (SHIRA FELIX) Scribe Documentation - Scribe Written by Scribe:: Geovanna Marrero, 09/25/2018 16:33 acting as scribe for :: Mando <CARLOS DHALIWAL - Last Filed: 09/25/18 16:38>
[2018-09-25] MEDS: MAGNESIUM SULFATE/D5W 1 GM/100 ML RTUPB IV SCH ×2 (16:35→17:31)
[2018-09-25 16:48] LABS: ABSOLUTE BASOPHILS # (AUTO) 0.1 10^3/uL (0.0-0.2); ABSOLUTE EOSINOPHILS # (AUTO) 0.4 10^3/uL (0.0-0.6); ABSOLUTE LYMPHOCYTES (AUTO) 1.8 10^3/uL (0.5-4.7); ABSOLUTE NEUT (AUTO) 6.7 10^3/uL (1.7-8.2); BASOPHILS % (AUTO) 0.6 % (0-2); EOSINOPHILS % (AUTO) 4.3 % (0-6); HEMATOCRIT 44.9 % (37.9-51.0); HEMOGLOBIN 14.9 g/dL (13.5-17.0); LYMPHOCYTES % (AUTO) 18.4 % (13-45); MEAN CORPUSCULAR HEMOGLOBIN 28.7 pg (27.0-33.4); MEAN CORPUSCULAR HGB CONC 33.3 g/dL (32.0-36.0); MEAN CORPUSCULAR VOLUME 86 fl (80-97); MONOCYTES % (AUTO) 9.6 % (3-13); PLATELET COUNT 351 10^3/uL (150-450); RED CELL DISTRIBUTION WIDTH 15.9 % (11.5-14.0); SEGMENTED NEUTROPHILS % (AUTO) 67.1 % (42-78); TOTAL CELLS COUNTED % (AUTO) 100 %
[2018-09-25 17:01] LABS: ALANINE AMINOTRANSFERASE 35 U/L (21-72); ALBUMIN 4.2 g/dL (3.5-5.0); ALKALINE PHOSPHATASE 56 U/L (38-126); ANION GAP 13 (5-19); ASPARTATE AMINO TRANSFERASE 30 U/L (17-59); BILIRUBIN,DIRECT 0.2 mg/dL (0.0-0.4); BILIRUBIN,TOTAL 0.4 mg/dL (0.2-1.3); BLOOD UREA NITROGEN 13 mg/dL (7-20); CARBON DIOXIDE 29 mmol/L (22-30); CHLORIDE 103 mmol/L (98-107); CREATINE KINASE 166 U/L (55-170); GLUCOSE 106 mg/dL (75-110); POTASSIUM 4.3 mmol/L (3.6-5.0); TOTAL PROTEIN 6.7 g/dL (6.3-8.2)
[2018-09-25 17:13] LABS: CREATINE KINASE MB 3.12 ng/mL (<4.55); TROPONIN I < 0.012 ng/mL
[2018-09-25] MEDS ORDERED: ALBUTEROL SULFATE 0.083% NEB 2.5 MG/3 ML AMPUL NEB ONE (17:17)
--- NOTE | 2018-09-25 17:52 | EKG REPORT ---
SEVERITY:- ABNORMAL ECG - SINUS RHYTHM PROBABLE LEFT ATRIAL ABNORMALITY RIGHT BUNDLE BRANCH BLOCK : Confirmed by: Guillermo Cárdenas MD 25-Sep-2018 17:51:51
--- NOTE | 2018-09-25 17:52 | EKG REPORT ---
SEVERITY:- ABNORMAL ECG - SINUS RHYTHM RIGHT BUNDLE BRANCH BLOCK : Confirmed by: Guillermo Cárdenas MD 25-Sep-2018 17:51:36
--- NOTE | 2018-09-25 17:54 | RADIOLOGY REPORT (SQ) ---
EXAM DESCRIPTION: CHEST SINGLE VIEW COMPLETED DATE/TIME: 09/25/2018 5:07 pm REASON FOR STUDY: Chest pain COMPARISON: 12/14/2016 and earlier EXAM PARAMETERS: NUMBER OF VIEWS: One view. TECHNIQUE: Single frontal radiographic view of the chest acquired. RADIATION DOSE: NA LIMITATIONS: None. FINDINGS: LUNGS AND PLEURA: No opacities, masses or pneumothorax. No pleural effusion. Lungs are hy perlucent with flattening of the hemidiaphragm. MEDIASTINUM AND HILAR STRUCTURES: No masses. Contour normal. HEART AND VASCULAR STRUCTURES: Heart normal in size. Normal vasculature. BONES: No acute findings. Tendon anchor over the left humeral head. HARDWARE: None in the chest. OTHER: No other significant finding. IMPRESSION: 1. No acute cardiopulmonary process. 2. Sequela of COPD. 1. 1. TECHNICAL DOCUMENTATION: JOB ID: [id number] [employer]- All Rights Reserved Reading location - IP/workstation name: [email or web address]
[2018-09-25] MEDS ORDERED: ONDANSETRON HCL INJ/PF 4 MG/2 ML SDV IV PRN (18:38)
[2018-09-25] MEDS ORDERED: ACETAMINOPHEN 325 MG TABLET PO PRN (18:38)
[2018-09-25] MEDS ORDERED: GLUCAGON,HUMAN RECOMB 1 MG INJ IM PRN (18:47)
[2018-09-25] MEDS ORDERED: DEXTROSE 50%-WATER 25 GM/50 ML DISP.SYRIN IV PRN ×2 (18:47)
[2018-09-25] MEDS ORDERED: DEXTROSE 40% GEL 15 GM TUBE PO PRN ×2 (18:47)
[2018-09-25] MEDS ORDERED: HYDRALAZINE HCL INJ/PF 20 MG/1 ML SDV IV PRN (18:49)
--- NOTE | 2018-09-25 19:11 | PDOC H&P ---
History of Present Illness Admission Date/PCP: 09/25/18 18:23 ALEX JESUS MD Patient complains of: shortness of breath and chest pain History of Present Illness: ELIA ROSENBAUM is a 58 year old male w/ PMH of CAD, HTN, HLD, COPD and chronic respiratory failure- who presented to the ED c/o SOB and chest pain. patient states he woke up this morning and felt fine. but then around 8-9am he started to get a little SOB with exertion. states he has good days and bad days like this and did think anything of it. states later he developed a "hot flash" on his chest that lasted about 5 mins. since he has a history of NM in the past- he was worried so he came to the ED with his . on the way to the ED his chest discomfort subsided. at this time he's not having any chest discomfort. Past Medical History Cardiac Medical History: Reports: Coronary Artery Disease, Myocardial Infarction , Hypertension Pulmonary Medical History: Reports: Chronic Obstructive Pulmonary Disease (COPD ) - O2 dependant, Pneumonia, Sleep Apnea Endocrine Medical History: Reports: Diabetes Mellitus Type 2 Hematology: Reports: Anemia Past Surgical History Past Surgical History: Reports: Coronary Stent - right coronary artery stents x4 Social History Information Source: Patient Lives with: Family Smoking Status: Former Smoker Frequency of Alcohol Use: None Hx Recreational Drug Use: No Hx Prescription Drug Abuse: No - Advance Directive Resuscitation Status: Full Code Family History Family History: CAD, Other - Diabetes Parental Family History Reviewed: Yes Children Family History Reviewed: Unknown Sibling(s) Family History Reviewed.: Unknown Medication/Allergy Home Medications: Acetaminophen [Tylenol 325 mg Tablet] 650 mg PO Q4HP PRN 12/14/16 Albuterol Sulfate [Proair HFA] 2 puff IH Q4HP PRN 12/14/16 Alendronate Sodium [Fosamax 70 mg Tablet] 1 tab PO ASDIR 12/14/16 Amlodipine Besylate [Norvasc 2.5 mg Tablet] 2.5 mg PO DAILY 12/14/16 Aspirin [Aspirin 81 mg Chewable Tablet] 81 mg PO DAILY 12/14/16 Atorvastatin Calcium [Lipitor 40 mg Tablet] 40 mg PO QHS 12/14/16 Clopidogrel Bisulfate [Plavix 75 mg Tablet] 75 mg PO DAILY 12/14/16 Ipratropium/Albuterol Sulfate [Duoneb 3 ml Ampul] 3 ml NEB RTQID 12/14/16 Lisinopril/Hydrochlorothiazide [Lisinopril-Hctz 10-12.5 mg Tab] 1 each PO DAILY 12/14/16 Metformin HCl [Glucophage] 500 mg PO BID 12/14/16 Metoprolol Succinate [Toprol Xl 50 mg Tab.sr] 50 mg PO DAILY 12/14/16 Tiotropium [place] [Spiriva Handihaler 18 mcg/dose (30 Dose)] 1 cap IH DAILY Ascorbic Acid [Vitamin C] 500 mg PO QHS 12/15/16 Cyanocobalamin (Vitamin B-12) [Vitamin B-12] 1,000 mcg PO QHS 12/15/16 Ferrous Sulfate [Iron] 325 mg PO QHS 12/15/16 Folic Acid 1 mg PO QHS 12/15/16 Omeprazole 20 mg PO DAILY 12/15/16 Fluticasone/Salmeterol [Advair 250-50 Diskus 28 dose] 1 inh IH Q12H #1 inhaler 12/17/16 Levofloxacin [Levaquin 750 mg Tablet] 750 mg PO QPM #7 tablet 12/17/16 Nicotine [Nicoderm 14 mg/24 Hr Transdermal Patch] 1 each TD DAILY #30 patch.td24 12/17/16 Prednisone 20 mg PO ASDIR #30 tablet 12/17/16 Amox Tr/Potassium Clavulanate [Augmentin 875-125 Tablet] 1 tab PO BID 10 Days tablet 03/21/17 Prednisone [Deltasone 20 mg Tablet] 3 tab PO DAILY 5 Days tablet 03/21/17 Allergies/Adverse Reactions: No Known Allergies Allergy (Unverified 12/14/16 17:14) Review of Systems Constitutional: ABSENT: chills, fever(s) Ears: ABSENT: hearing changes Nose, Mouth, and Throat: ABSENT: mouth pain Cardiovascular: PRESENT: other - chest discomfort "hot flashes". ABSENT: edema Respiratory: PRESENT: cough, dyspnea. ABSENT: hemoptysis, sputum Gastrointestinal: ABSENT: abdominal pain, nausea, vomiting Musculoskeletal: ABSENT: joint swelling Neurological: ABSENT: numbness, syncope, weakness Physical Exam Vital Signs: Temp Pulse Resp BP Pulse Ox 25 H 132/79 H 94 09/25/18 17:01 09/25/18 17:00 09/25/18 17:01 General appearance: PRESENT: no acute distress Head exam: PRESENT: atraumatic, normocephalic Eye exam: PRESENT: EOMI, PERRLA. ABSENT: scleral icterus Ear exam: PRESENT: normal external ear exam Mouth exam: PRESENT: tongue midline Teeth exam: ABSENT: poor dentation Neck exam: ABSENT: tracheal deviation Respiratory exam: PRESENT: accessory muscle use, decreased breath sounds - bilaterally- mostly at the bases, symmetrical, tachypnea, wheezes - expiratory Cardiovascular exam: PRESENT: +S1, +S2 Pulses: PRESENT: +2 pedal pulses bilateral GI/Abdominal exam: PRESENT: normal bowel sounds, soft. ABSENT: tenderness Extremities exam: ABSENT: pedal edema Neurological exam: PRESENT: alert, awake, oriented to person, oriented to place , oriented to time, oriented to situation, CN II-XII grossly intact Skin exam: PRESENT: dry, warm. ABSENT: erythema Results Impressions: Chest X-Ray 09/25/18 16:17 IMPRESSION: 1. No acute cardiopulmonary process. 2. Sequela of COPD. 1. 1. Assessment & Plan - Diagnosis (1) COPD with acute exacerbation Is this a current diagnosis for this admission?: Yes (2) Chest pain Qualifiers: Chest pain type: unspecified Qualified Code(s): R07.9 - Chest pain, unspecified Is this a current diagnosis for this admission?: Yes (3) Chronic respiratory failure Qualifiers: Respiratory failure complication: unspecified whether with hypoxia or hypercapnia Qualified Code(s): J96.10 - Chronic respiratory failure, unspecified whether with hypoxia or hypercapnia Is this a current diagnosis for this admission?: Yes (4) Coronary artery disease Qualifiers: Coronary Disease-Associated Artery/Lesion type: unspecified vessel or lesion type [place] vs. transplanted heart: [place] heart Associated angina: angina presence unspecified Qualified Code(s): I25.10 - Atherosclerotic heart disease of [place] coronary artery without angina pectoris Is this a current diagnosis for this admission?: Yes (5) Diabetes mellitus type 2 in nonobese Is this a current diagnosis for this admission?: Yes (6) History of tobacco abuse Is this a current diagnosis for this admission?: Yes (7) Essential hypertension Is this a current diagnosis for this admission?: Yes - Time Time Spent: Greater than 70 Minutes - Plan Summary Plan Summary: Acute COPD exacerbation- with chronic respiratory failure- on 2L O2 at home- currently on 2L when I examined him. c/wo Duoneb, and start on Solumedrol 60mg IV BID from tomorrow. will have to keep eye on his glucose levels. Incentive spirometry. States he uses a special inhaler given to him by his pulm, Dr Jesus, 3 months ago. i advised him to bring that from home so he can use it while he's in the hospital Chest pain- less likely cardiac in origin- will trend trops- so far neg. CXR neg. will get EKG in AM. monitor on Tele for now DM- states his last A1c was in the 5. he's only on metformin- will hold and start SSI. monitor glucose given his solumedrol. chronic respiratory failure- on 2L O2 at home with CPAP and O2 at night. currently he's on 2L when i went to admit him. back to baseline. his meds have not be reconciled in the ED- will put him on hydralazine PRN for now for BP.
[2018-09-25] MEDS: IPRATROPIUM/ALBUTEROL 0.5-2.5 MG/3 ML AMPUL NEB SCH (20:38)
[2018-09-25] MEDS: INSULIN REG, HUMAN 100 UNIT/ML 3 ML VIAL (PYX) SUBCUT PRN (22:16)
[2018-09-25] MEDS: FAMOTIDINE 20 MG TABLET PO SCH (22:16)
[2018-09-26 05:29] LABS: ABSOLUTE LYMPHOCYTES (AUTO) 0.5 10^3/uL (0.5-4.7); ABSOLUTE MONOCYTES (AUTO) 0.2 10^3/uL (0.1-1.4); ABSOLUTE NEUT (AUTO) 7.6 10^3/uL (1.7-8.2); BASOPHILS % (AUTO) 0.2 % (0-2); EOSINOPHILS % (AUTO) 0.1 % (0-6); HEMATOCRIT 40.6 % (37.9-51.0); HEMOGLOBIN 13.5 g/dL (13.5-17.0); LYMPHOCYTES % (AUTO) 5.7 % (13-45); MEAN CORPUSCULAR HEMOGLOBIN 28.5 pg (27.0-33.4); MEAN CORPUSCULAR HGB CONC 33.2 g/dL (32.0-36.0); MEAN CORPUSCULAR VOLUME 86 fl (80-97); MONOCYTES % (AUTO) 2.7 % (3-13); PLATELET COUNT 301 10^3/uL (150-450); RED BLOOD COUNT 4.72 10^6/uL (4.35-5.55); RED CELL DISTRIBUTION WIDTH 15.6 % (11.5-14.0); SEGMENTED NEUTROPHILS % (AUTO) 91.3 % (42-78); TOTAL CELLS COUNTED % (AUTO) 100 %; WHITE BLOOD COUNT 8.3 10^3/uL (4.0-10.5)
[2018-09-26 05:55] LABS: ANION GAP 12 (5-19); BLOOD UREA NITROGEN 15 mg/dL (7-20); CALCIUM 8.9 mg/dL (8.4-10.2); CARBON DIOXIDE 25 mmol/L (22-30); CHLORIDE 105 mmol/L (98-107); GLUCOSE 143 mg/dL (75-110); POTASSIUM 4.2 mmol/L (3.6-5.0); SODIUM 141.8 mmol/L (137-145)
[2018-09-26] MEDS: IPRATROPIUM/ALBUTEROL 0.5-2.5 MG/3 ML AMPUL NEB SCH ×4 (08:37→19:48)
[2018-09-26] MEDS: ENOXAPARIN SODIUM INJ 40 MG/0.4 ML DISP.SYRIN SUBCUT SCH (09:50)
[2018-09-26] MEDS: FAMOTIDINE 20 MG TABLET PO SCH ×2 (09:50→21:59)
[2018-09-26] MEDS: METHYLPREDNISOLONE INJ 125 MG/2 ML SDV IV SCH ×2 (09:50→21:59)
--- NOTE | 2018-09-26 10:35 | EKG REPORT ---
SEVERITY:- ABNORMAL ECG - SINUS RHYTHM RIGHT BUNDLE BRANCH BLOCK CAN NOT R/O INF DC OLD : Confirmed by: Lindsay Brunson 26-Sep-2018 10:34:14
[2018-09-26] MEDS: ASPIRIN 81 MG TABLET, CHEWABLE PO SCH (12:40)
[2018-09-26] MEDS: METOPROLOL SUCCINATE 50 MG TAB.SR.24H PO SCH (12:40)
[2018-09-26] MEDS: CLOPIDOGREL BISULFATE 75 MG TABLET PO SCH (12:41)
--- NOTE | 2018-09-26 13:14 | PDOC PROGRESS REPORT ---
Subjective Progress Note for:: 09/26/18 - seen on rounds this morning Subjective:: states he feels better than yesterday. does admit that he took his home albuterol inhaler and used it today without informing nursing. i requested that he call nursing if he feels SOB and not to use home medications without informing staff Reason For Visit: COPD EXACERBATION Physical Exam Vital Signs: Temp Pulse Resp BP Pulse Ox 97.6 F 86 16 113/58 L 95 09/26/18 08:07 09/26/18 11:39 09/26/18 11:39 09/26/18 08:07 09/26/18 11:39 Intake & Output 09/25/18 09/26/18 09/27/18 06:59 06:59 06:59 Intake Total 100 Balance 100 Weight 173 lb 15.115 oz General appearance: PRESENT: no acute distress Head exam: PRESENT: atraumatic, normocephalic Eye exam: PRESENT: EOMI, PERRLA. ABSENT: scleral icterus Ear exam: PRESENT: normal external ear exam Mouth exam: PRESENT: tongue midline Neck exam: ABSENT: tracheal deviation Respiratory exam: PRESENT: accessory muscle use, decreased breath sounds - bilaterally- mostly at the bases, symmetrical, wheezes Cardiovascular exam: PRESENT: +S1, +S2 Pulses: PRESENT: +2 pedal pulses bilateral GI/Abdominal exam: PRESENT: normal bowel sounds, soft. ABSENT: tenderness Extremities exam: ABSENT: pedal edema Neurological exam: PRESENT: alert, awake, oriented to person, oriented to place , oriented to time, oriented to situation, CN II-XII grossly intact Skin exam: PRESENT: dry, warm Results Laboratory Results: 09/26/18 04:21 09/26/18 04:21 09/26/18 09/26/18 09/26/18 04:21 04:21 04:21 WBC 8.3 RBC 4.72 Hgb 13.5 Hct 40.6 MCV 86 MCH 28.5 MCHC 33.2 RDW 15.6 H Plt Count 301 Seg Neutrophils % 91.3 H Lymphocytes % 5.7 L Monocytes % 2.7 L Eosinophils % 0.1 Basophils % 0.2 Absolute Neutrophils 7.6 Absolute Lymphocytes 0.5 Absolute Monocytes 0.2 Absolute Eosinophils 0.0 Absolute Basophils 0.0 Sodium 141.8 Potassium 4.2 Chloride 105 Carbon Dioxide 25 Anion Gap 12 BUN 15 Creatinine 0.66 Est GFR ( Amer) > 60 Est GFR (Non-Af Amer) > 60 Glucose 143 H Calcium 8.9 Magnesium 2.0 TSH < 0.01 L 09/25/18 09/26/18 09/26/18 22:29 04:21 10:36 Troponin I < 0.012 < 0.012 < 0.012 Impressions: Chest X-Ray 09/25/18 16:17 IMPRESSION: 1. No acute cardiopulmonary process. 2. Sequela of COPD. 1. 1. Assessment & Plan - Diagnosis (1) COPD with acute exacerbation Is this a current diagnosis for this admission?: Yes (2) Chest pain Qualifiers: Chest pain type: unspecified Qualified Code(s): R07.9 - Chest pain, unspecified Is this a current diagnosis for this admission?: Yes (3) Chronic respiratory failure Qualifiers: Respiratory failure complication: unspecified whether with hypoxia or hypercapnia Qualified Code(s): J96.10 - Chronic respiratory failure, unspecified whether with hypoxia or hypercapnia Is this a current diagnosis for this admission?: Yes (4) Coronary artery disease Qualifiers: Coronary Disease-Associated Artery/Lesion type: unspecified vessel or lesion type [place] vs. transplanted heart: [place] heart Associated angina: angina presence unspecified Qualified Code(s): I25.10 - Atherosclerotic heart disease of [place] coronary artery without angina pectoris Is this a current diagnosis for this admission?: Yes (5) Diabetes mellitus type 2 in nonobese Is this a current diagnosis for this admission?: Yes (6) History of tobacco abuse Is this a current diagnosis for this admission?: Yes (7) Essential hypertension Is this a current diagnosis for this admission?: Yes - Time Time Spent with patient: 15-24 minutes - Plan Summary Plan Summary: Acute COPD exacerbation- with chronic respiratory failure- on 2L O2 at home- currently on 2L and baseline- c/wo Duoneb and Solumedrol 60mg IV BID. will have to keep eye on his glucose levels. Incentive spirometry. his will bring Trelegy today from home. i have added mucinex and chest physiotherapy. also added Levaquin 750mg x5 days. Spoke with Dr Jesus and he agrees with plan Chest pain- less likely cardiac in origin- trops neg. CXR neg. monitor on tele. DM- states his last A1c was in the 5. he's only on metformin- will hold and start SSI. monitor glucose given his solumedrol. chronic respiratory failure- on 2L O2 at home with CPAP and O2 at night. currently he's on 2L when i went to admit him. back to baseline. RT consulted and has setup CPAP at night HTN- started on home meds - stable CAD- restarted on plavix and coreg
--- NOTE | 2018-09-26 13:15 | Progress Note ---
Provider Note Provider Note: low TSH level now- added T4- still pending
[2018-09-26] MEDS: INSULIN REG, HUMAN 100 UNIT/ML 3 ML VIAL (PYX) SUBCUT PRN (13:35)
[2018-09-26] MEDS ORDERED: ONDANSETRON HCL INJ/PF 4 MG/2 ML SDV IV PRN (14:30)
[2018-09-26] MEDS ORDERED: HYDRALAZINE HCL INJ/PF 20 MG/1 ML SDV IV PRN (14:30)
--- NOTE | 2018-09-26 14:50 | Physician Advisory Note ---
Physician Advisor ProgressNote .: Pursuant to the plan for Igor Arredondo, I have reviewed the medical record for this patient. Physician Advisor Statement: Medicare pt w/COPD exacerb (a dx which typically should be Obs to start, unless attending documents clearly the reasons to expect 2+ MNs from the start - then changed to INpt w/reasons documented, or d/c'd, the next day). Most of HPI refers to CP concern. Please consider documentin. "CP, suspect due to " 2. the s/s of COPD exacerbation present on adm - HPI documentation so far seems to suggest pt's only significant sx was CP, as he always has waxing/ waning SOB/LOCO & wasn't concerned about that. - Did he have increased cough compared to baseline? Increased sputum > baseline? worsened SOB compared to baseline? 3. "Acute bronchitis", or what is the dx requiring Levaquin, since COPD exac.s don't need abx unless potential infxn is also suspected. Status: Based on H&P, should have started as Obs. However, today's PN states pt still using accessory muscles to breathe, & nursing also states labored breathing this AM. Attending adding additional tx's today, so presumably pt is still far from his baseline resp status. Appropraite for Inpt status. Thanks! CK
[2018-09-26] MEDS: LEVOFLOXACIN 750 MG TABLET PO SCH (16:52)
[2018-09-26] MEDS: ROFLUMILAST 500 MCG TABLET PO SCH (16:53)
[2018-09-26] MEDS: FLUTICASONE/UMECLIDIN/VILANTER 100-62.5-25 MCG/DOSE IH SCH (16:54)
[2018-09-26] MEDS: AMLODIPINE BESYLATE 2.5 MG TABLET PO SCH (18:19)
[2018-09-26] MEDS: FERROUS SULFATE 325 MG TABLET PO SCH (18:30)
[2018-09-26] MEDS: GUAIFENESIN 600 MG TABLET.SA PO SCH (21:59)
[2018-09-26] MEDS: ATORVASTATIN CALCIUM 40 MG TABLET PO SCH (21:59)
[2018-09-26] MEDS: FOLIC ACID 1 MG TABLET PO SCH (21:59)
[2018-09-26] MEDS: ALBUTEROL SULFATE 0.083% NEB 2.5 MG/3 ML AMPUL NEB PRN (23:48)
[2018-09-27] MEDS: LANSOPRAZOLE 15 MG TAB.RAP.DR PO SCH (05:20)
[2018-09-27] MEDS: IPRATROPIUM/ALBUTEROL 0.5-2.5 MG/3 ML AMPUL NEB SCH ×4 (08:02→20:19)
[2018-09-27] MEDS: ENOXAPARIN SODIUM INJ 40 MG/0.4 ML DISP.SYRIN SUBCUT SCH (09:05)
[2018-09-27] MEDS: FAMOTIDINE 20 MG TABLET PO SCH ×2 (09:06→21:40)
[2018-09-27] MEDS: GUAIFENESIN 600 MG TABLET.SA PO SCH ×2 (09:06→21:39)
[2018-09-27] MEDS: METOPROLOL SUCCINATE 50 MG TAB.SR.24H PO SCH (09:06)
[2018-09-27] MEDS: METHYLPREDNISOLONE INJ 125 MG/2 ML SDV IV SCH ×2 (09:06→21:40)
[2018-09-27] MEDS: LEVOFLOXACIN 750 MG TABLET PO SCH (09:06)
[2018-09-27] MEDS: FERROUS SULFATE 325 MG TABLET PO SCH ×2 (09:06→17:22)
[2018-09-27] MEDS: CLOPIDOGREL BISULFATE 75 MG TABLET PO SCH (09:06)
[2018-09-27] MEDS: ASPIRIN 81 MG TABLET, CHEWABLE PO SCH (09:06)
[2018-09-27] MEDS: ROFLUMILAST 500 MCG TABLET PO SCH (09:07)
[2018-09-27] MEDS: AMLODIPINE BESYLATE 2.5 MG TABLET PO SCH (09:07)
[2018-09-27] MEDS: HYDROCHLOROTHIAZIDE 12.5 MG TABLET PO SCH (09:07)
[2018-09-27] MEDS: LISINOPRIL 10 MG TABLET PO SCH (09:08)
[2018-09-27] MEDS: FLUTICASONE/UMECLIDIN/VILANTER 100-62.5-25 MCG/DOSE IH SCH (09:08)
[2018-09-27] MEDS ORDERED: LANSOPRAZOLE 15 MG TAB.RAP.DR PO SCH (10:00)
[2018-09-27] MEDS ORDERED: (PENDING PHARMACY ID) (Lisinopril/Hydrochlorothiazide [Lisinopril-Hctz 10-12.5 Mg Tab] 1 E PO SCH (10:00)
--- NOTE | 2018-09-27 14:48 | PDOC PROGRESS REPORT ---
Subjective Progress Note for:: 09/27/18 - Seen on rounds this morning Subjective:: Patient states that he is feeling much better this morning. States that the physical therapy is really helping him. He wants to know when he can go home. I discussed about possible discharge in 1-2 days if he continues to improve. He is agreeable with this plan. Reason For Visit: COPD EXACERBATION Physical Exam Vital Signs: Temp Pulse Resp BP Pulse Ox 98.3 F 69 17 121/66 97 09/27/18 11:44 09/27/18 11:44 09/27/18 11:44 09/27/18 11:44 09/27/18 11:44 Intake & Output 09/26/18 09/27/18 09/28/18 06:59 06:59 06:59 Intake Total 100 1090 Balance 100 1090 Weight 173 lb 15.115 oz 173 lb 15.115 oz General appearance: PRESENT: no acute distress Head exam: PRESENT: atraumatic, normocephalic Eye exam: PRESENT: EOMI, PERRLA. ABSENT: scleral icterus Ear exam: PRESENT: normal external ear exam Mouth exam: PRESENT: tongue midline Teeth exam: PRESENT: poor dentation Neck exam: ABSENT: tracheal deviation Respiratory exam: PRESENT: accessory muscle use - Much improved than yesterday, decreased breath sounds - Bilaterally and mostly at the bases-improved from yesterday., symmetrical, wheezes - Expiratory wheezing noted in all lung [place] Cardiovascular exam: PRESENT: +S1, +S2 Pulses: PRESENT: +2 pedal pulses bilateral GI/Abdominal exam: PRESENT: normal bowel sounds, soft. ABSENT: tenderness Extremities exam: ABSENT: pedal edema Neurological exam: PRESENT: alert, awake, oriented to person, oriented to place , oriented to time, oriented to situation, CN II-XII grossly intact Skin exam: PRESENT: dry, warm Results Laboratory Results: 09/26/18 04:21 09/26/18 04:21 09/25/18 09/26/18 09/26/18 22:29 04:21 10:36 Troponin I < 0.012 < 0.012 < 0.012 Impressions: Chest X-Ray 09/25/18 16:17 IMPRESSION: 1. No acute cardiopulmonary process. 2. Sequela of COPD. 1. 1. Assessment & Plan - Diagnosis (1) COPD with acute exacerbation Is this a current diagnosis for this admission?: Yes (2) Chest pain Qualifiers: Chest pain type: unspecified Qualified Code(s): R07.9 - Chest pain, unspecified Is this a current diagnosis for this admission?: Yes (3) Chronic respiratory failure Qualifiers: Respiratory failure complication: unspecified whether with hypoxia or hypercapnia Qualified Code(s): J96.10 - Chronic respiratory failure, unspecified whether with hypoxia or hypercapnia Is this a current diagnosis for this admission?: Yes (4) Coronary artery disease Qualifiers: Coronary Disease-Associated Artery/Lesion type: unspecified vessel or lesion type [place] vs. transplanted heart: [place] heart Associated angina: angina presence unspecified Qualified Code(s): I25.10 - Atherosclerotic heart disease of [place] coronary artery without angina pectoris Is this a current diagnosis for this admission?: Yes (5) Diabetes mellitus type 2 in nonobese Is this a current diagnosis for this admission?: Yes (6) History of tobacco abuse Is this a current diagnosis for this admission?: Yes (7) Essential hypertension Is this a current diagnosis for this admission?: Yes - Time Time Spent with patient: 15-24 minutes - Plan Summary Plan Summary: Acute COPD exacerbation- with chronic respiratory failure- on 2L O2 at home- currently on 2L and baseline- c/w Duoneb. He is on Solumedrol 60mg IV BID-I think we can switch him to Solu-Medrol IV 60 mg daily from tomorrow. will have to keep eye on his glucose levels. Incentive spirometry. his will bring Trelegy today from home. i have added mucinex and chest physiotherapy. also added Levaquin 750mg x5 days. Spoke with Dr Jesus and he agrees with plan. I spoke with Dr. Jesus again about his [id number] to his diabetes we will have to do a short taper when he is ready for discharge. Acute bronchitis-i have started patient on levaquin on 09/26/18 for suspected infection. he's having more cough at this time than usual. states he's bring up greenish sputum. possible bronchitis with COPD exacerbation. yesterday he was having a difficult time breathing- using accessory muscles and difficulty with deep breathing Chest pain-suspect that this was due to his COPD exacerbation-less likely cardiac in origin- trops neg. CXR neg. monitor on tele. DM- states his last A1c was in the 5. he's only on metformin- will hold and start SSI. monitor glucose given his solumedrol. chronic respiratory failure- on 2L O2 at home with CPAP and O2 at night. currently he's on 2L when i went to admit him. back to baseline. RT consulted and has setup CPAP at night HTN- started on home meds - stable CAD- restarted on plavix and coreg
[2018-09-27] MEDS: FOLIC ACID 1 MG TABLET PO SCH (21:39)
[2018-09-27] MEDS: ATORVASTATIN CALCIUM 40 MG TABLET PO SCH (21:40)
[2018-09-27] MEDS: ALBUTEROL SULFATE 0.083% NEB 2.5 MG/3 ML AMPUL NEB PRN (23:50)
[2018-09-28] MEDS: LANSOPRAZOLE 15 MG TAB.RAP.DR PO SCH (07:50)
[2018-09-28] MEDS: IPRATROPIUM/ALBUTEROL 0.5-2.5 MG/3 ML AMPUL NEB SCH ×2 (08:32→12:33)
[2018-09-28] MEDS ORDERED: METHYLPREDNISOLONE INJ 125 MG/2 ML SDV IV SCH (10:00)
[2018-09-28] MEDS: ASPIRIN 81 MG TABLET, CHEWABLE PO SCH (11:04)
[2018-09-28] MEDS: FERROUS SULFATE 325 MG TABLET PO SCH (11:05)
[2018-09-28] MEDS: ROFLUMILAST 500 MCG TABLET PO SCH (11:05)
[2018-09-28] MEDS: HYDROCHLOROTHIAZIDE 12.5 MG TABLET PO SCH (11:05)
[2018-09-28] MEDS: LEVOFLOXACIN 750 MG TABLET PO SCH (11:06)
[2018-09-28] MEDS: AMLODIPINE BESYLATE 2.5 MG TABLET PO SCH (11:06)
[2018-09-28] MEDS: GUAIFENESIN 600 MG TABLET.SA PO SCH (11:06)
[2018-09-28] MEDS: ENOXAPARIN SODIUM INJ 40 MG/0.4 ML DISP.SYRIN SUBCUT SCH (11:06)
[2018-09-28] MEDS: FAMOTIDINE 20 MG TABLET PO SCH (11:07)
[2018-09-28] MEDS: LISINOPRIL 10 MG TABLET PO SCH (11:07)
[2018-09-28] MEDS: CLOPIDOGREL BISULFATE 75 MG TABLET PO SCH (11:07)
[2018-09-28] MEDS: METOPROLOL SUCCINATE 50 MG TAB.SR.24H PO SCH (11:08)
[2018-09-28] MEDS: FLUTICASONE/UMECLIDIN/VILANTER 100-62.5-25 MCG/DOSE IH SCH (11:09)
[2018-09-28 12:36] VITALS: BP 122/65
--- NOTE | 2018-09-28 15:04 | PDOC DISCHARGE SUMMARY ---
General - Admit/Disc Date/PCP Admission Date/Primary Care Provider: 09/25/18 18:23 ALEX JESUS MD Discharge Date: 09/28/18 - Discharge Diagnosis (1) COPD with acute exacerbation Is this a current diagnosis for this admission?: Yes Summary: The patient has severe chronic obstructive pulmonary disease. He follows with Dr. Jesus. He is feeling much better. The increased productive cough noted at admission has improved significantly. The patient feels he is back to his baseline. He has his medications, oxygen and nebulizer at home and he will continue with his preadmission medication regimen with the exception of a prednisone taper. I have given a prescription for the 18-day taper with instructions. Dr. Jesus has seen the patient during this admission and will be seeing him after discharge. (2) Bronchitis, acute Is this a current diagnosis for this admission?: Yes Summary: At the time of admission the patient did have increased cough. The cough was productive of discolored sputum which was not his baseline. He will complete his course of antibiotic therapy as an outpatient. (3) Chest pain Is this a current diagnosis for this admission?: Yes Summary: The patient had a negative cardiac workup. The chest pain is non-cardiac. The chest discomfort is more likely a combination of the bronchitis and increased cough with his underlying chronic obstructive pulmonary disease. There was no evidence of pneumonia on his chest x-ray. (4) Diabetes mellitus type 2 in nonobese Is this a current diagnosis for this admission?: Yes Summary: The patient's hemoglobin A1c in fact is quite good. He will return to his metformin. The prednisone taper will be just over 2 weeks and will start at only 30 mg. The patient will likely experience transient elevated glucose levels but these should resolve fairly quickly. He will also be following up with his primary care physician. (5) Coronary artery disease Is this a current diagnosis for this admission?: Yes Summary: As noted above the patient's cardiac status was in fact stable during this admission. His home medications will be resumed at this time. (6) Essential hypertension Is this a current diagnosis for this admission?: Yes Summary: Blood pressures were stable. He will continue on his home medication regimen. - Additional Information Resuscitation Status: Full Code Discharge Diet: Cardiac Discharge Activity: Activity As Tolerated Prescriptions: Levofloxacin [Levaquin 750 mg Tablet] 750 mg PO DAILY 4 Days #4 tablet Prednisone [Deltasone 5 mg Tablet] 5 mg PO DAILY 18 Days #58 tablet Home Medications: Acetaminophen [Tylenol 325 mg Tablet] 650 mg PO Q4HP PRN 09/26/18 Albuterol Sulfate [Proair HFA Inhalation Aerosol 8.5 gm MDI] 2 puff IH QID 09/26 Alendronate Sodium [Fosamax 70 mg Tablet] 70 mg PO WE@0600 09/26/18 Amlodipine Besylate [Norvasc 2.5 mg Tablet] 2.5 mg PO DAILY 09/26/18 Ascorbic Acid [Vitamin C 500 mg Tablet] 500 mg PO QPM 09/26/18 Aspirin [Aspirin 81 mg Chewable Tablet] 81 mg PO DAILY 09/26/18 Atorvastatin Calcium [Lipitor 40 mg Tablet] 40 mg PO QHS 09/26/18 Clopidogrel Bisulfate [Plavix 75 mg Tablet] 75 mg PO DAILY 09/26/18 Cyanocobalamin (Vitamin B-12) [B-12] 1,000 mcg PO QHS 09/26/18 Ferrous Sulfate [Feosol] 325 mg PO BID 09/26/18 Fluticasone/Umeclidin/Vilanter [Trelegy 100-62.5-25 Mcg Ellipta 14 Dose/Dpi] 1 inh IH DAILY 09/26/18 Folic Acid [Folvite 1 mg Tablet] 1 mg PO QHS 09/26/18 Ipratropium/Albuterol Sulfate [Duoneb 3 ml Ampul] 3 ml NEB .[id number] 09/26/18 Lisinopril/Hydrochlorothiazide [Lisinopril-Hctz 10-12.5 mg Tab] 1 each PO DAILY 09/26/18 Metformin HCl [Glucophage XR 500 mg Tablet] 500 mg PO BIDACBS 09/26/18 Metoprolol Succinate [Toprol Xl 50 mg Tab.sr] 50 mg PO DAILY 09/26/18 Omeprazole 20 mg PO DAILY 09/26/18 Roflumilast [Daliresp 500 mcg Tablet] 500 mcg PO DAILY 09/26/18 Famotidine [Pepcid 20 mg Tablet] 20 mg PO Q12 tablet 09/28/18 Guaifenesin [Mucinex Sr 600 mg Tablet.sa] 1,200 mg PO Q12 tablet.sa 09/28/18 Levofloxacin [Levaquin 750 mg Tablet] 750 mg PO DAILY 4 Days #4 tablet 09/28/18 Prednisone [Deltasone 5 mg Tablet] 5 mg PO DAILY 18 Days #58 tablet 09/28/18 History of Present Illness Patient complains of: Difficulty breathing History of Present Illness: ELIA ROSENBAUM is a 58 year old male with a complex past medical history including coronary artery disease, myocardial infarction, hypertension, diabetes , anemia and his chronic obstructive pulmonary disease. On the morning of admission he noted increasing shortness of breath with a productive cough over his baseline. He experienced increasing shortness of breath and chest discomfort. Considering his significant past medical history he presented to the emergency department. Hospital Course Hospital Course: The patient's hospital course was uneventful. Consistent with his past history he was given aggressive nebulizer treatments and started on intravenous steroid therapy. Because of the productive cough with discolored sputum he was started on levofloxacin as well. It took several days for the patient to return to his baseline status. His alteration inspector visited him in the hospital regularly as well. Once he reached his baseline it was decided to discharge him home with a prednisone taper. Since he has been through these exacerbations before he is comfortable finishing his prednisone taper and administering his pulmonary medications without difficulty. Physical Exam Vital Signs: Temp Pulse Resp BP Pulse Ox 97.5 F 74 16 122/54 L 97 09/28/18 12:32 09/28/18 12:35 09/28/18 12:35 09/28/18 12:32 09/28/18 12:35 Intake & Output 09/27/18 09/28/18 09/29/18 06:59 06:59 06:59 Intake Total 1090 1304 474 Balance 1090 1304 474 Weight 78.9 kg 82.1 kg General appearance: PRESENT: no acute distress, cooperative, well-developed, well-nourished Head exam: PRESENT: atraumatic, normocephalic Eye exam: PRESENT: conjunctiva pink. ABSENT: scleral icterus Ear exam: PRESENT: normal external ear exam Mouth exam: PRESENT: moist Neck exam: ABSENT: carotid bruit, JVD, lymphadenopathy Respiratory exam: PRESENT: prolonged expiratory phas, symmetrical, unlabored. ABSENT: rales, rhonchi, wheezes Cardiovascular exam: PRESENT: RRR, +S1, +S2 GI/Abdominal exam: PRESENT: normal bowel sounds, soft. ABSENT: guarding, tenderness Musculoskeletal exam: PRESENT: normal inspection Neurological exam: PRESENT: alert, awake, oriented to person, oriented to place , oriented to situation Skin exam: PRESENT: dry, intact, warm. ABSENT: cyanosis, rash Results Laboratory Results: 09/26/18 04:21 09/26/18 04:21 09/25/18 09/26/18 09/26/18 22:29 04:21 10:36 Troponin I < 0.012 < 0.012 < 0.012 Impressions: Chest X-Ray 09/25/18 16:17 IMPRESSION: 1. No acute cardiopulmonary process. 2. Sequela of COPD. 1. 1. Qualifiers - * PATIENT BEING DISCHARGED WITH ANY OF THE FOLLOWING DIAGNOSIS: No Plan Discharge Plan: As noted above the patient will return to his prior medication regimen with the addition of a prednisone taper. He will follow-up with Dr. Jesus who was visiting him during his hospitalization. The patient is comfortable administering his medication regimen. Time Spent: Greater than 30 Minutes
== END 2018-09-28 13:30 | disposition home or self-care (01) | DRG 191 ==
LOC: ER 16:10 → EH 18:23 → 4N 20:10
PROVIDERS: ADMIT Internal Medicine; ATTEND Internal Medicine
DX: J44.1 Chronic obstructive pulmonary disease with (acute) exacerbation (principal); J96.10 Chronic respiratory failure, unspecified whether with hypoxia or hypercapnia; J20.9 Acute bronchitis, unspecified; J44.0 Chronic obstructive pulmonary disease with (acute) lower respiratory infection; R07.9 Chest pain, unspecified; D64.9 Anemia, unspecified; E11.9 Type 2 diabetes mellitus without complications; I25.10 Atherosclerotic heart disease of native coronary artery without angina pectoris; I10 Essential (primary) hypertension; Z79.82 Long term (current) use of aspirin; Z79.899 Other long term (current) drug therapy; Z79.84 Long term (current) use of oral hypoglycemic drugs; I25.2 Old myocardial infarction; Z95.5 Presence of coronary angioplasty implant and graft; Z87.891 Personal history of nicotine dependence
CPT/HCPCS: 36415; 71045; 80048; 80053; 82550; 82553; 82962; 83735; 84439; 84443; 84484; 85025; 90471; 90686; 93005; 93010; 94640; 94660; 94667; 94668; 94799; 96365; 96366; 96375; 99291; G0008; J1650; J1815; J2930; J3475; J3490; J7620

== ENCOUNTER 2018-12-11 20:02 | Inpatient (IN) | payer MEDICARE, OTHER ==
[2018-12-11] MEDS ORDERED: METHYLPREDNISOLONE INJ 125 MG/2 ML SDV IV ONE (20:19)
[2018-12-11] MEDS ORDERED: IPRATROPIUM/ALBUTEROL 0.5-2.5 MG/3 ML AMPUL NEB ONE ×3 (20:19→21:07)
[2018-12-11] MEDS ORDERED: ACETAMINOPHEN 325 MG TABLET PO ONE (20:20)
--- NOTE | 2018-12-11 20:24 | ER Document Report ---
ED Medical Screen (RME) - General Chief Complaint: Breathing Difficulty Stated Complaint: DIFFICULTY BREATHING Time Seen by Provider: 12/11/18 20:14 Primary Care Provider: ALEX FIELDS MD [Primary Care Provider] - Follow up as needed Notes: 58-year-old O2 dependent end-stage COPD patient started getting short of breath probably last night and progressively worse throughout the day today. He is running a fever of 102.9 degrees. He is quite dyspneic and beginning to tire out. He was admitted here in September with a similar COPD exacerbation, only at that time he was not quite this tired when he first encountered him and were able to avoid BiPAP at that time. He did get a flu shot on that admission. I immediately placed a call to the charge nurse to find a room for this patient, they are going to move a patient out of 1 of the rooms to accommodate him. In the meantime I have instructed nurses to start his saline lock here, start his Solu-Medrol, DuoNeb treatment, and lab work if feasible. I have greeted and performed a rapid initial assessment of this patient. A comprehensive ED assessment and evaluation of the patient, analysis of test results and completion of the medical decision making process will be conducted by additional ED providers. TRAVEL OUTSIDE OF THE [place] IN LAST 30 DAYS: No - Related Data Allergies/Adverse Reactions: No Known Allergies Allergy (Unverified 12/14/16 17:14) Past Medical History - Past Medical History Cardiac Medical History: Reports: Hx Coronary Artery Disease, Hx Heart Attack, Hx Hypertension Pulmonary Medical History: Reports: Hx COPD, Hx Pneumonia, Hx Sleep Apnea Endocrine Medical History: Reports: Hx Diabetes Mellitus Type 2 Renal/ Medical History: Denies: Hx Peritoneal Dialysis GI Medical History: Denies: Hx Cirrhosis, Hx Crohn's Disease, Hx Ulcerative Colitis Skin Medical History: Denies Hx Psoriasis Traumatic Medical History: Denies: Hx Traumatic Brain Injury Past Surgical History: Reports: Hx Coronary Stent - right coronary artery stents x4 - Immunizations Hx Diphtheria, Pertussis, Tetanus Vaccination: No History of Influenza Vaccine for 08/2017 - 01/2018 Season: No Physical Exam - Vital signs Vitals: Temp Pulse Resp BP Pulse Ox 102.7 F H 125 H 40 H 123/67 94 12/11/18 20:11 12/11/18 20:11 12/11/18 20:11 12/11/18 20:11 12/11/18 20:11 Course - Vital Signs Vital signs: Temp Pulse Resp BP Pulse Ox 102.7 F H 125 H 40 H 123/67 94 12/11/18 20:11 12/11/18 20:11 12/11/18 20:11 12/11/18 20:11 12/11/18 20:11 Doctor's Discharge - Discharge Referrals: ALEX FIELDS MD [Primary Care Provider] - Follow up as needed
[2018-12-11 21:03] LABS: HEMOGLOBIN 14.7 g/dL (13.5-17.0); MEAN CORPUSCULAR HEMOGLOBIN 30.4 pg (27.0-33.4); MEAN CORPUSCULAR HGB CONC 34.3 g/dL (32.0-36.0); MEAN CORPUSCULAR VOLUME 89 fl (80-97); PLATELET COUNT 514 10^3/uL (150-450); RED BLOOD COUNT 4.84 10^6/uL (4.35-5.55); RED CELL DISTRIBUTION WIDTH 14.7 % (11.5-14.0); WHITE BLOOD COUNT 15.1 10^3/uL (4.0-10.5)
[2018-12-11] MEDS ORDERED: MAGNESIUM SULFATE/D5W 2 GM/200 ML RTUPB IV ONE (21:04)
[2018-12-11 21:06] LABS: ALANINE AMINOTRANSFERASE 39 U/L (21-72); ALBUMIN 4.9 g/dL (3.5-5.0); ALKALINE PHOSPHATASE 80 U/L (38-126); ANION GAP 13 (5-19); ASPARTATE AMINO TRANSFERASE 36 U/L (17-59); BILIRUBIN,DIRECT 0.3 mg/dL (0.0-0.4); BILIRUBIN,TOTAL 0.3 mg/dL (0.2-1.3); BLOOD UREA NITROGEN 20 mg/dL (7-20); CALCIUM 10.5 mg/dL (8.4-10.2); CARBON DIOXIDE 25 mmol/L (22-30); CHLORIDE 98 mmol/L (98-107); CREATINE KINASE 140 U/L (55-170); GLUCOSE 111 mg/dL (75-110); POTASSIUM 5.3 mmol/L (3.6-5.0); SODIUM 136.4 mmol/L (137-145); TOTAL PROTEIN 7.2 g/dL (6.3-8.2)
[2018-12-11] MEDS: MAGNESIUM SULFATE/D5W 1 GM/100 ML RTUPB IV SCH ×2 (21:13→21:25)
--- NOTE | 2018-12-11 21:14 | ER Document Report ---
ED General - General Chief Complaint: Breathing Difficulty Stated Complaint: DIFFICULTY BREATHING Time Seen by Provider: 12/11/18 20:14 Primary Care Provider: ALEX FIELDS MD [Primary Care Provider] - Follow up as needed Cannot obtain history due to: Unstable vital signs Notes: Patient is a 58-year-old male with a past medical history of hypertension, COPD with oxygen dependence, diabetes with oral hypoglycemic control, presents in severe respiratory distress. Patient is unable to speak, unable to provide history. at the bedside states that the symptoms started just prior to a rrival and have rapidly worsened. They were unaware that he had a fever prior to today. TRAVEL OUTSIDE OF THE [place] IN LAST 30 DAYS: No - Related Data Allergies/Adverse Reactions: No Known Allergies Allergy (Unverified 12/14/16 17:14) Past Medical History - General Information source: Relative Cannot obtain history due to: Unstable vital signs - Social History Smoking Status: Current Every Day Smoker Frequency of alcohol use: Occasional Drug Abuse: None Lives with: Spouse/Significant other Family History: CAD, DM Patient has suicidal ideation: No Patient has homicidal ideation: No - Past Medical History Cardiac Medical History: Reports: Hx Coronary Artery Disease, Hx Heart Attack, Hx Hypertension Pulmonary Medical History: Reports: Hx COPD, Hx Pneumonia, Hx Sleep Apnea Endocrine Medical History: Reports: Hx Diabetes Mellitus Type 2 Renal/ Medical History: Denies: Hx Peritoneal Dialysis GI Medical History: Denies: Hx Cirrhosis, Hx Crohn's Disease, Hx Ulcerative Colitis Skin Medical History: Denies Hx Psoriasis Traumatic Medical History: Denies: Hx Traumatic Brain Injury Past Surgical History: Reports: Hx Coronary Stent - right coronary artery stents x4 - Immunizations Hx Diphtheria, Pertussis, Tetanus Vaccination: No Hx Pneumococcal Vaccination: 08/15/16 Review of Systems - Review of Systems Notes: Constitutional: Positive for fever. HENT: Negative for sore throat. Eyes: Negative for visual changes. Cardiovascular: Negative for chest pain. Respiratory: Positive for shortness of breath and cough. Gastrointestinal: Negative for abdominal pain, vomiting or diarrhea. Genitourinary: Negative for dysuria. Musculoskeletal: Negative for back pain. Skin: Negative for rash. Neurological: Negative for headaches, weakness or numbness. 10 point ROS negative except as marked above and in HPI. Physical Exam - Vital signs Vitals: Temp Pulse Resp BP Pulse Ox 102.7 F H 125 H 40 H 123/67 94 01/27/19 20:11 12/11/18 20:11 12/11/18 20:11 12/11/18 20:11 12/11/18 20:11 Interpretation: Tachycardic, Febrile Notes: PHYSICAL EXAMINATION: GENERAL: In severe respiratory distress, appears extremely unwell HEAD: Atraumatic, normocephalic. EYES: Pupils equal round and reactive to light, extraocular movements intact, sclera anicteric, conjunctiva are normal. ENT: nares patent, oropharynx clear without exudates. Dry mucous membranes. NECK: Normal range of motion, supple without lymphadenopathy LUNGS: Severe respiratory distress, retractions in the subclavicular intercostal space. Globally diminished air movement in all lung omalley with pronounced expiratory wheezing throughout. HEART: Regular tachycardia without murmurs ABDOMEN: Soft, nontender, normoactive bowel sounds. No guarding, no rebound. No masses appreciated. EXTREMITIES: Normal range of motion, no pitting or edema. No cyanosis. NEUROLOGICAL: No focal neurological deficits. Moves all extremities spontaneously and on command. PSYCH: Anxious but appropriate to situation SKIN: Warm, Dry, normal turgor, no rashes or lesions noted. Course - Re-evaluation Re-evalutation: 12/11/18 21:05 Patient presents in severe respiratory distress. Unable to speak. Retracting in the i supraclavicular and intercostal spaces. Coarse wheezing had diminished air movement in all lung omalley. Patient will need to be placed on continuous nebulizers, BiPAP will be applied. Patient has a fever. Suspect underlying pneumonia versus influenza. Patient is critically ill, require frequent and regular reassessments 12/11/18 21:49 Chest x-ray clear. Rapid flu negative although this is not definitively exclude influenza. Patient has had marked improvement of his work of breathing on BiPAP. Additional in-line nebulizers will be given as he does still have some wheezing and tightness of air movement. Vitals are notable for mild hypotension blood pressure 96 on 64. Patient will receive levofloxacin to empirically cover for possible pneumonia. Will receive a second liter of IV fluids. Labs are otherwise unremarkable. 12/11/18 22:07 Patient continues to improve on bipap. Pressures remain unchanged. Receiving fluid bolus. I discussed with the hospitalist Dr. Simpson who has accepted the patient for admission - Vital Signs Vital signs: Temp Pulse Resp BP Pulse Ox 102.7 F H 125 H 23 H 123/67 98 12/11/18 20:11 12/11/18 20:11 12/11/18 21:12 12/11/18 20:11 12/11/18 21:12 - Laboratory Result Diagrams: 12/11/18 20:30 12/11/18 20:30 Laboratory results interpreted by me: 12/11/18 12/11/18 12/11/18 20:30 20:30 21:18 WBC 15.1 H RDW 14.7 H Plt Count 514 H Seg Neuts % (Manual) 82 H Lymphocytes % (Manual) 9 L Abs Neuts (Manual) 12.4 H ABG pO2 78.3 L ABG HCO3 24.1 H Sodium 136.4 L Potassium 5.3 H Creatinine 1.27 H Est GFR (Non-Af Amer) 58 L Glucose 111 H Calcium 10.5 H - Diagnostic Test Radiology reviewed: Image reviewed, Reports reviewed Radiology results interpreted by me: 12/11/18 22:06 Chest x-ray: No acute infiltrate or pneumothorax Critical Care Note - Critical Care Note Total time excluding time spent on procedures (mins): 38 Comments: Critical care time spent obtaining history from patient or surrogate, discussi ons with consultants, development of treatment plan with patient or surrogate, evaluation of patient's response to treatment, examination of patient, ordering and performing treatments and interventions, ordering and review of laboratory studies, re-evaluation of patient's condition, ordering and review of radiographic studies and review of old charts Discharge - Discharge Clinical Impression: COPD exacerbation, Tobacco abuse, COPD with acute exacerbation, Respiratory distress Sepsis Qualifiers: Sepsis type: sepsis due to unspecified organism Qualified Code(s): A41.9 - Sepsis, unspecified organism Condition: Fair Disposition: ADMITTED INPATIENT Admitting Provider: Hospitalist Unit Admitted: Telemetry Referrals: ALEX FIELDS MD [Primary Care Provider] - Follow up as needed
[2018-12-11 21:16] LABS: A TYPE INFLUENZA AG NEGATIVE (NEGATIVE); B INFLUENZA AG NEGATIVE (NEGATIVE)
[2018-12-11 21:17] LABS: CREATINE KINASE MB 2.01 ng/mL (<4.55)
--- NOTE | 2018-12-11 21:21 | RADIOLOGY REPORT (SQ) ---
EXAM DESCRIPTION: XR CHEST 1 VIEW COMPLETED DATE/TME: 12/11/2018 20:18 CLINICAL HISTORY: 58 years, Male, COPD exacerbation COMPARISON: [id number] chest NUMBER OF VIEWS: 1 TECHNIQUE: Portable upright chest LIMITATIONS: None. FINDINGS: The heart size is normal. Underlying hyperinflation/COPD. Undulating appearance to the right hemidiaphragm. Lungs appear clear. No pneumothorax IMPRESSION: Underlying COPD. No acute cardiopulmonary process copyright 2010 [employer]- All Rights Reserved
[2018-12-11 21:24] LABS: TROPONIN I < 0.012 ng/mL
[2018-12-11 21:28] LABS: ARTERIAL BLOOD BASE EXCESS 0.6 mmol/L; ARTERIAL BLOOD FIO2 30%; ARTERIAL BLOOD H2CO3 1.07 mmol/L (1.05-1.35); ARTERIAL BLOOD HCO3 24.1 mmol/L (20-24); ARTERIAL BLOOD O2 SATURATION 96.2 % (94-98); ARTERIAL BLOOD PCO2 35.5 mmHg (35-45); ARTERIAL BLOOD PH 7.45 (7.35-7.45); ARTERIAL BLOOD PO2 78.3 mmHg (80-100); ARTERIAL BLOOD TOTAL CO2 25.2 mmol/L (23-27)
[2018-12-11 21:29] LABS: ABSOLUTE LYMPHOCYTES# (MANUAL) 1.4 10^3/uL (0.5-4.7); ABSOLUTE MONOCYTES # (MANUAL) 1.1 10^3/uL (0.1-1.4); ABSOLUTE NEUTROPHILS# (MANUAL) 12.4 10^3/uL (1.7-8.2); BASOPHILS % (MANUAL) 0 % (0-2); EOSINOPHILS % (MANUAL) 2 % (0-6); LYMPHOCYTES % (MANUAL) 9 % (13-45); MONOCYTES % (MANUAL) 7 % (3-13); SEGMENTED NEUTROPHILS % (MAN) 82 % (42-78); TOTAL CELLS COUNTED 100
[2018-12-11 21:32] LABS: ANISOCYTOSIS SLIGHT; BURR CELLS SLIGHT; HELMET CELLS 1+; OVALOCYTES 1+; PLATELET COMMENT ADEQUATE; POIKILOCYTOSIS 1+; TEAR DROP CELLS 1+; TOXIC GRANULATION 1+; TOXIC VACUOLATION PRESENT
[2018-12-11] MEDS ORDERED: RINGERS SOLUTION,LACTATED 1,000 ML IV ONE ×2 (21:51)
[2018-12-11] MEDS ORDERED: ALBUTEROL SULFATE 0.083% NEB 2.5 MG/3 ML AMPUL NEB ONE (22:02)
[2018-12-11 22:12] LABS: APPEARANCE,URINE SLIGHTLY-CLOUDY; BILIRUBIN,URINE NEGATIVE (NEGATIVE); COLOR,URINE YELLOW; GLUCOSE, URINE NEGATIVE (NEGATIVE); KETONES,URINE NEGATIVE (NEGATIVE); LEUKOCYTE ESTERASE,URINE SMALL (NEGATIVE); NITRITE,URINE NEGATIVE (NEGATIVE); PROTEIN,URINE NEGATIVE (NEGATIVE)
[2018-12-11] MEDS ORDERED: LEVOFLOXACIN 750 MG/D5W RTU 750 MG/150 ML RTUPB IV ONE (22:15)
[2018-12-11] MEDS ORDERED: ACETAMINOPHEN 325 MG TABLET PO PRN (23:25)
[2018-12-11] MEDS ORDERED: LABETALOL HCL INJ 20 MG/4 ML DISP.SYRIN IV PRN (23:31)
[2018-12-11] MEDS ORDERED: NALBUPHINE HCL INJ 10 MG/1 ML AMPULE IV PRN (23:31)
[2018-12-11] MEDS ORDERED: ACETAMINOPHEN 650 MG SUPP.RECT PR PRN (23:31)
[2018-12-11] MEDS ORDERED: MAG HYDROX/AL HYDROX/SIMETH SUSP 30 ML UDCUP PO PRN (23:31)
[2018-12-11] MEDS ORDERED: INSULIN REG, HUMAN 100 UNIT/ML 3 ML VIAL (PYX) SUBCUT PRN (23:31)
[2018-12-11] MEDS ORDERED: MAGNESIUM HYDROXIDE SUSP 30 ML UDCUP PO PRN (23:31)
[2018-12-11] MEDS ORDERED: NICOTINE 21 MG/24 HR PATCH.TD24 TD PRN (23:31)
[2018-12-11] MEDS ORDERED: DEXTROSE 40% GEL 15 GM TUBE PO PRN ×2 (23:33)
[2018-12-11] MEDS ORDERED: GLUCAGON,HUMAN RECOMB 1 MG INJ IM PRN (23:33)
[2018-12-11] MEDS ORDERED: DEXTROSE 50%-WATER 25 GM/50 ML DISP.SYRIN IV PRN ×2 (23:33)
[2018-12-11] MEDS ORDERED: ONDANSETRON 4 MG TAB.RAPDIS PO PRN (23:34)
[2018-12-11] MEDS ORDERED: ONDANSETRON HCL INJ/PF 4 MG/2 ML SDV IV PRN (23:34)
[2018-12-12] MEDS ORDERED: FAMOTIDINE 20 MG TABLET PO ONE (00:35)
[2018-12-12] MEDS ORDERED: CYANOCOBALAMIN (VITAMIN B-12) 1,000 MCG TABLET PO ONE (00:35)
[2018-12-12] MEDS ORDERED: ATORVASTATIN CALCIUM 40 MG TABLET PO ONE (00:35)
[2018-12-12] MEDS ORDERED: GUAIFENESIN 600 MG TABLET.SA PO ONE (00:35)
[2018-12-12] MEDS ORDERED: FOLIC ACID 1 MG TABLET PO ONE (00:35)
[2018-12-12] MEDS ORDERED: CYANOCOBALAMIN (VITAMIN B-12) 1,000 MCG TABLET ONE (00:51)
--- NOTE | 2018-12-12 01:35 | PDOC H&P ---
History of Present Illness Admission Date/PCP: 12/11/18 22:11 ALEX FIELDS MD Patient complains of: Dyspnea History of Present Illness: ELIA ROSENBAUM is a 58 year old male who presented to the emergency room with a 1 day history of progressively worsening dyspnea. He admits that he began having some shortness of breath and general malaise on the evening prior to his admission and this initially improved overnight but recurred this morning and continued to worsen through the following day to the point where he became so severely dyspneic that he was gasping for air and working very hard to breathe. He denies any accompanying symptoms, but he does admit numerous prior similar episodes due to his COPD. He has not identified any aggravating or ameliorating factors for his current episode of dyspnea. Patient is oxygen dependent at 2 L/min via nasal cannula on a continuous basis at home. In the emergency room he was found to have a fever of 102.9 F and severe dyspnea with respiratory failure requiring placement of BiPAP immediately. His emergency room evaluation showed acute kidney injury as well as a mildly elevated white count at 15,100. His chest x-ray was unremarkable for acute changes. Patient showed significant improvement with BiPAP and is subsequently being admitted for further evaluation and treatment. Past Medical History Cardiac Medical History: Reports: Coronary Artery Disease, Myocardial Infarction, Hypertension Pulmonary Medical History: Reports: Chronic Obstructive Pulmonary Disease (COPD), Pneumonia, Respiratory Failure - Chronic hypoxic respiratory failure on O2 2 L/min per nasal cannula cont., Sleep Apnea EENT Medical History: Reports: None Neurological Medical History: Denies: Hemorrhagic CVA, Ischemic CVA, Multiple Sclerosis, Seizures Endocrine Medical History: Reports: Diabetes Mellitus Type 2 Denies: Hyperthyroidism, Hypothyroidism Renal/ Medical History: Denies: Chronic Kidney Disease, Nephrolithiasis Malignancy Medical History: Reports: None GI Medical History: Denies: Cirrhosis, Crohn's Disease, Hepatitis, Ulcerative Colitis Musculoskeltal Medical History: Denies: Arthritis, Gout Skin Medical History: Denies: Eczema, Psoriasis Psychiatric Medical History: Reports: Tobacco Dependency Denies: Alcohol Dependency, Substance Abuse Traumatic Medical History: Reports: None Denies: Traumatic Brain Injury Hematology: Reports: Anemia Denies: Bleeding Tendencies Infectious Medical History: Reports: None Past Surgical History Past Surgical History: Reports: Cardiac Catheterization, Coronary Stent - right coronary artery stents x4 Social History Information Source: Patient Lives with: Spouse/Significant other Smoking Status: Current Every Day Smoker Frequency of Alcohol Use: None Hx Recreational Drug Use: No Drugs: None Hx Prescription Drug Abuse: No - Advance Directive Resuscitation Status: Full Code Surrogate healthcare decision maker:: Family History Family History: CAD, DM Parental Family History Reviewed: Yes Children Family History Reviewed: No Sibling(s) Family History Reviewed.: Yes Medication/Allergy Home Medications: Acetaminophen [Tylenol 325 mg Tablet] 650 mg PO Q4HP PRN 09/26/18 Albuterol Sulfate [Proair HFA Inhalation Aerosol 8.5 gm MDI] 2 puff IH QID 09/26/18 Alendronate Sodium [Fosamax 70 mg Tablet] 70 mg PO WE@0600 09/26/18 Amlodipine Besylate [Norvasc 2.5 mg Tablet] 2.5 mg PO DAILY 09/26/18 Ascorbic Acid [Vitamin C 500 mg Tablet] 500 mg PO QPM 09/26/18 Aspirin [Aspirin 81 mg Chewable Tablet] 81 mg PO DAILY 09/26/18 Atorvastatin Calcium [Lipitor 40 mg Tablet] 40 mg PO QHS 09/26/18 Clopidogrel Bisulfate [Plavix 75 mg Tablet] 75 mg PO DAILY 09/26/18 Cyanocobalamin (Vitamin B-12) [B-12] 1,000 mcg PO QHS 09/26/18 Ferrous Sulfate [Feosol] 325 mg PO BID 09/26/18 Fluticasone/Umeclidin/Vilanter [Trelegy 100-62.5-25 Mcg Ellipta 14 Dose/Dpi] 1 inh IH DAILY 09/26/18 Folic Acid [Folvite 1 mg Tablet] 1 mg PO QHS 09/26/18 Ipratropium/Albuterol Sulfate [Duoneb 3 ml Ampul] 3 ml NEB .[id number] 09/26/18 Lisinopril/Hydrochlorothiazide [Lisinopril-Hctz 10-12.5 mg Tab] 1 each PO DAILY 09/26/18 Metformin HCl [Glucophage XR 500 mg Tablet] 500 mg PO BIDACBS 09/26/18 Metoprolol Succinate [Toprol Xl 50 mg Tab.sr] 50 mg PO DAILY 09/26/18 Omeprazole 20 mg PO DAILY 09/26/18 Roflumilast [Daliresp 500 mcg Tablet] 500 mcg PO DAILY 09/26/18 Famotidine [Pepcid 20 mg Tablet] 20 mg PO Q12 tablet 09/28/18 Guaifenesin [Mucinex Sr 600 mg Tablet.sa] 1,200 mg PO Q12 tablet.sa 09/28/18 Levofloxacin [Levaquin 750 mg Tablet] 750 mg PO DAILY 4 Days #4 tablet 09/28/18 Prednisone [Deltasone 5 mg Tablet] 5 mg PO DAILY 18 Days #58 tablet 09/28/18 Allergies/Adverse Reactions: No Known Allergies Allergy (Unverified 12/14/16 17:14) Review of Systems Constitutional: ABSENT: chills, fever(s) Eyes: ABSENT: visual disturbances, other - Ocular pain Ears: ABSENT: hearing changes, other - Ear pain Nose, Mouth, and Throat: ABSENT: mouth pain, sore throat Cardiovascular: PRESENT: as per HPI, dyspnea on exertion. ABSENT: chest pain, edema, orthropnea, palpitations Respiratory: PRESENT: as per HPI, dyspnea. ABSENT: cough, hemoptysis, sputum Gastrointestinal: ABSENT: abdominal pain, constipation, diarrhea, nausea, vomiting Genitourinary: ABSENT: dysuria, hematuria Musculoskeletal: ABSENT: deformity, joint swelling Integumentary: ABSENT: pruritus, rash Neurological: ABSENT: confusion, convulsions, memory loss, tremor(s) Psychiatric: ABSENT: anxiety, depression Endocrine: ABSENT: cold intolerance, heat intolerance Hematologic/Lymphatic: ABSENT: easy bleeding, easy bruising Physical Exam Vital Signs: Temp Pulse Resp BP Pulse Ox 102.7 F H 125 H 22 H 96/59 L 97 12/11/18 20:11 12/11/18 20:11 12/11/18 22:01 12/11/18 22:01 12/11/18 22:01 Intake & Output 12/09/18 12/10/18 12/11/18 23:59 23:59 23:59 Intake Total 120 Balance 120 Weight 76.9 kg General appearance: PRESENT: cooperative, mild distress - Continued mild respiratory distress on BiPAP, other - On BiPAP Head exam: PRESENT: atraumatic, normocephalic Eye exam: PRESENT: conjunctiva pink, EOMI. ABSENT: scleral icterus Ear exam: PRESENT: normal external ear exam. ABSENT: bleeding, drainage Mouth exam: PRESENT: dry mucosa, neck supple Neck exam: ABSENT: JVD, thyromegaly, tracheal deviation Respiratory exam: PRESENT: accessory muscle use - Mild accessory muscle use to facilitate breathing noted, decreased breath sounds - Moderately decreased breath sounds throughout all omalley consistent with moderate to severe COPD, prolonged expiratory phas - Moderately prolonged expiratory phase in all omalley, symmetrical, wheezes - Expiratory wheezes in all omalley, other - On BiPAP, significantly increased AP chest diameter Cardiovascular exam: PRESENT: RRR. ABSENT: clicks, gallop, rubs Pulses: PRESENT: normal radial pulses, normal dorsalis pedis pul Vascular exam: PRESENT: normal capillary refill. ABSENT: pallor GI/Abdominal exam: PRESENT: normal bowel sounds, soft Rectal exam: PRESENT: deferred Extremities exam: ABSENT: joint swelling, pedal edema Musculoskeletal exam: ABSENT: deformity, dislocation Neurological exam: PRESENT: alert, oriented to person, oriented to place, orien gee to time, oriented to situation, CN II-XII grossly intact. ABSENT: motor sensory deficit Psychiatric exam: PRESENT: appropriate affect, normal mood Skin exam: PRESENT: dry, intact, warm. ABSENT: jaundice, rash, urticaria Results Laboratory Results: 12/11/18 20:30 12/11/18 20:30 12/11/18 12/11/18 12/11/18 20:30 20:30 20:30 WBC 15.1 H RBC 4.84 Hgb 14.7 Hct 43.0 MCV 89 MCH 30.4 MCHC 34.3 RDW 14.7 H Plt Count 514 H Seg Neutrophils % Not Reportable Lymphocytes % Not Reportable Monocytes % Not Reportable Eosinophils % Not Reportable Basophils % Not Reportable Absolute Neutrophils Not Reportable Absolute Lymphocytes Not Reportable Absolute Monocytes Not Reportable Absolute Eosinophils Not Reportable Absolute Basophils Not Reportable Carbonic Acid HCO3/H2CO3 Ratio ABG pH ABG pCO2 ABG pO2 ABG HCO3 ABG O2 Saturation ABG Base Excess FiO2 Sodium 136.4 L Potassium 5.3 H Chloride 98 Carbon Dioxide 25 Anion Gap 13 BUN 20 Creatinine 1.27 H Est GFR ( Amer) > 60 Est GFR (Non-Af Amer) 58 L Glucose 111 H Lactic Acid 1.5 Calcium 10.5 H Total Bilirubin 0.3 AST 36 ALT 39 Alkaline Phosphatase 80 Total Protein 7.2 Albumin 4.9 Urine Color Urine Appearance Urine pH Ur Specific [place] Urine Protein Urine Glucose (UA) Urine Ketones Urine Blood Urine Nitrite Ur Leukocyte Esterase Urine WBC (Auto) Urine RBC (Auto) 12/11/18 12/11/18 21:18 22:00 WBC RBC Hgb Hct MCV MCH MCHC RDW Plt Count Seg Neutrophils % Lymphocytes % Monocytes % Eosinophils % Basophils % Absolute Neutrophils Absolute Lymphocytes Absolute Monocytes Absolute Eosinophils Absolute Basophils Carbonic Acid 1.07 HCO3/H2CO3 Ratio 22:1 ABG pH 7.45 ABG pCO2 35.5 ABG pO2 78.3 L ABG HCO3 24.1 H ABG O2 Saturation 96.2 ABG Base Excess 0.6 FiO2 30% Sodium Potassium Chloride Carbon Dioxide Anion Gap BUN Creatinine Est GFR ( Amer) Est GFR (Non-Af Amer) Glucose Lactic Acid Calcium Total Bilirubin AST ALT Alkaline Phosphatase Total Protein Albumin Urine Color YELLOW Urine Appearance SLIGHTLY-CLOUDY Urine pH 5.0 Ur Specific [place] 1.020 Urine Protein NEGATIVE Urine Glucose (UA) NEGATIVE Urine Ketones NEGATIVE Urine Blood NEGATIVE Urine Nitrite NEGATIVE Ur Leukocyte Esterase SMALL H Urine WBC (Auto) 3 Urine RBC (Auto) 4 12/11/18 12/11/18 20:30 20:30 Creatine Kinase 140 CK-MB (CK-2) 2.01 Troponin I < 0.012 Impressions: Chest X-Ray 12/11/18 20:18 IMPRESSION: Underlying COPD. No acute cardiopulmonary process copyright 2010 [employer]- All Rights Reserved Assessment & Plan - Diagnosis (1) Acute and chronic respiratory failure with hypoxia Is this a current diagnosis for this admission?: Yes Plan: Will be continued on BiPAP as needed to support his respiratory status with further intervention is required. This test will be monitored utilizing ABGs. (2) COPD with acute exacerbation Is this a current diagnosis for this admission?: Yes Plan: Patient will be treated with an aggressive pulmonary toilet utilizing Xopenex, Atrovent, Pulmicort and albuterol nebulizers. He will receive IV Solu-Medrol and he will also be treated with Levaquin empirically. (3) Tobacco abuse Is this a current diagnosis for this admission?: Yes Plan: Smoking cessation is advised. Smoking cessation counseling is provided (brief). A nicotine patch is available for use. (4) Coronary artery disease Qualifiers: Coronary Disease-Associated Artery/Lesion type: [place] artery [place] vs. transplanted heart: [place] heart Associated angina: angina presence unspecifie d Qualified Code(s): I25.10 - Atherosclerotic heart disease of [place] coronary artery without angina pectoris Is this a current diagnosis for this admission?: Yes Plan: Patient will be continued on his current cardiac medications with changes made only as required. (5) Diabetes mellitus type 2 in nonobese Is this a current diagnosis for this admission?: Yes Plan: Patient will be continued on his usual diabetic therapy and a diabetic diet. Hemoglobin A1c obtained to evaluate efficacy of his chronic therapy. (6) Essential hypertension Is this a current diagnosis for this admission?: Yes Plan: Patient be continued on his current antihypertensive medications and his vital signs be monitored closely to determine efficacy of the of therapy (7) GONZALO (acute kidney injury) Is this a current diagnosis for this admission?: Yes Plan: The patient will be hydrated with IV fluids and his renal status will be mo nitored with daily BMP's. - Time Time Spent: 30 to 50 Minutes Critical Time spent with patient: Less than 15 minutes Smoking Cessation Education: 3 to 10 minutes Medications reviewed and adjusted accordingly: Yes Anticipated discharge: Home - Inpatient Certification Based on my medical assessment, after consideration of the patient's comorbidities, presenting symptoms, or acuity I expect that the services needed warrant INPATIENT care.: Yes I certify that my determination is in accordance with my understanding of Medicare's requirements for reasonable and necessary INPATIENT services [42 CFR 412.3e].: Yes Medical Necessity: Significant Comorbidiites Make Outpatient Treatment Too Risky, Need Close Monitoring Due to Risk of Patient Decompensation, Need For IV Fluids, Need for Nebulizer Therapy and Monitoring of Response, Risk of Complication if Not Cared For in Hospital
[2018-12-12] MEDS: METHYLPREDNISOLONE INJ 40 MG/1 ML SDV IV SCH ×3 (02:39→14:46)
[2018-12-12 03:32] LABS: HEMATOCRIT 36.1 % (37.9-51.0); MEAN CORPUSCULAR HEMOGLOBIN 30.1 pg (27.0-33.4); MEAN CORPUSCULAR HGB CONC 33.9 g/dL (32.0-36.0); MEAN CORPUSCULAR VOLUME 89 fl (80-97); PLATELET COUNT 378 10^3/uL (150-450); RED BLOOD COUNT 4.07 10^6/uL (4.35-5.55); RED CELL DISTRIBUTION WIDTH 14.4 % (11.5-14.0); WHITE BLOOD COUNT 11.8 10^3/uL (4.0-10.5)
[2018-12-12 03:43] LABS: ANION GAP 10 (5-19); BLOOD UREA NITROGEN 17 mg/dL (7-20); CALCIUM 9.2 mg/dL (8.4-10.2); CARBON DIOXIDE 26 mmol/L (22-30); CHLORIDE 102 mmol/L (98-107); CHOLESTEROL 57.03 mg/dL (0-200); CREATINE KINASE 127 U/L (55-170); GLUCOSE 162 mg/dL (75-110); SODIUM 137.6 mmol/L (137-145); TRIGLYCERIDES 73 mg/dL (<150)
[2018-12-12 03:54] LABS: HEMOGLOBIN 12.2 g/dL (13.5-17.0)
[2018-12-12 03:55] LABS: NT PRO BNP 100 pg/mL (5-900)
[2018-12-12 03:56] LABS: TROPONIN I < 0.012 ng/mL
[2018-12-12 03:57] LABS: DIRECT LDL < 30 mg/dL (<100); POTASSIUM 4.3 mmol/L (3.6-5.0)
[2018-12-12 03:58] LABS: ABSOLUTE LYMPHOCYTES# (MANUAL) 0.2 10^3/uL (0.5-4.7); ABSOLUTE MONOCYTES # (MANUAL) 0.4 10^3/uL (0.1-1.4); ABSOLUTE NEUTROPHILS# (MANUAL) 11.1 10^3/uL (1.7-8.2); BASOPHILS % (MANUAL) 0 % (0-2); EOSINOPHILS % (MANUAL) 1 % (0-6); LYMPHOCYTES % (MANUAL) 2 % (13-45); MONOCYTES % (MANUAL) 3 % (3-13); SEGMENTED NEUTROPHILS % (MAN) 94 % (42-78); TOTAL CELLS COUNTED 100
[2018-12-12 04:02] LABS: ANISOCYTOSIS SLIGHT; TOXIC GRANULATION 1+; TOXIC VACUOLATION PRESENT
[2018-12-12 04:03] LABS: BURR CELLS 1+; OVALOCYTES 1+; PLATELET COMMENT ADEQUATE; POIKILOCYTOSIS 1+; TEAR DROP CELLS SLIGHT
[2018-12-12 04:23] LABS: FREE T3 2.54 pg/mL (2.77-5.27)
[2018-12-12 04:39] LABS: THYROID STIMULATING HORMONE < 0.01 uIU/mL (0.47-4.68)
[2018-12-12] MEDS: HEPARIN SOD (PORCINE) 5,000 UNIT/ML 1 ML SYRINGE SUBCUT SCH ×3 (05:44→22:23)
[2018-12-12 06:51] LABS: ARTERIAL BLOOD BASE EXCESS 0.7 mmol/L; ARTERIAL BLOOD H2CO3 1.11 mmol/L (1.05-1.35); ARTERIAL BLOOD HCO3 24.6 mmol/L (20-24); ARTERIAL BLOOD O2 SATURATION 97.4 % (94-98); ARTERIAL BLOOD PH 7.44 (7.35-7.45); ARTERIAL BLOOD PO2 93.7 mmHg (80-100); ARTERIAL BLOOD TOTAL CO2 25.7 mmol/L (23-27)
[2018-12-12 06:53] LABS: ARTERIAL BLOOD FIO2 30%
[2018-12-12] MEDS: METFORMIN HCL 500 MG TABLET PO SCH ×2 (08:45→16:12)
[2018-12-12] MEDS: FERROUS SULFATE 325 MG TABLET PO SCH (08:46)
[2018-12-12] MEDS: LISINOPRIL 10 MG TABLET PO SCH (09:07)
[2018-12-12] MEDS: DOCUSATE SODIUM 100 MG CAPSULE PO SCH ×2 (09:07→18:32)
[2018-12-12] MEDS: GUAIFENESIN 600 MG TABLET.SA PO SCH ×2 (09:08→22:22)
[2018-12-12] MEDS: CLOPIDOGREL BISULFATE 75 MG TABLET PO SCH (09:09)
[2018-12-12] MEDS: FAMOTIDINE 20 MG TABLET PO SCH ×2 (09:09→22:22)
[2018-12-12] MEDS: ASPIRIN 81 MG TABLET, CHEWABLE PO SCH (09:10)
[2018-12-12] MEDS: METOPROLOL SUCCINATE 50 MG TAB.SR.24H PO SCH (09:10)
--- NOTE | 2018-12-12 09:11 | PDOC PROGRESS REPORT ---
Subjective Progress Note for:: 12/12/18 Subjective:: No adverse events overnight. He was feeling well enough to complain about a number of small issues this morning. He was primarily complaining about the fact that he takes 5 nebulizer treatments a day and that it had only been an hour since he had the last one, as though he felt like he should have another one. Despite the fact that he was sitting up on the edge of the bed in front of his dinner tray, he said that no one had been in to set him up so he could eat. He was still on BiPAP, and grudgingly admitted that his breathing had improved and that he felt more comfortable than when he came in. Reason For Visit: ACUTE EXACERBATION OF COPD Physical Exam Vital Signs: Temp Pulse Resp BP Pulse Ox 102.7 F H 125 H 20 103/71 96 12/11/18 20:11 12/11/18 20:11 12/12/18 07:01 12/12/18 07:01 12/12/18 05:01 Intake & Output 12/11/18 12/12/18 12/13/18 06:59 06:59 06:59 Intake Total 2270 Balance 2270 Weight 76.9 kg General appearance: PRESENT: cooperative, disheveled, mild distress, other - Cantankerous Respiratory exam: PRESENT: accessory muscle use, decreased breath sounds, prolonged expiratory phas, symmetrical, wheezes. ABSENT: crackles, rhonchi, tachypnea, unlabored Cardiovascular exam: PRESENT: RRR, +S1, +S2 Pulses: PRESENT: normal carotid pulses Vascular exam: PRESENT: normal capillary refill GI/Abdominal exam: PRESENT: normal bowel sounds, soft. ABSENT: distended, guarding, rebound, tenderness Extremities exam: ABSENT: clubbing, pedal edema Musculoskeletal exam: PRESENT: normal inspection. ABSENT: deformity Neurological exam: PRESENT: alert, awake, oriented to person, oriented to place, oriented to time, oriented to situation Psychiatric exam: PRESENT: appropriate affect, normal mood Skin exam: PRESENT: dry, warm Results Laboratory Results: 12/12/18 03:18 12/12/18 03:18 12/11/18 12/11/18 12/11/18 20:30 20:30 20:30 WBC 15.1 H RBC 4.84 Hgb 14.7 Hct 43.0 MCV 89 MCH 30.4 MCHC 34.3 RDW 14.7 H Plt Count 514 H Seg Neutrophils % Not Reportable Lymphocytes % Not Reportable Monocytes % Not Reportable Eosinophils % Not Reportable Basophils % Not Reportable Absolute Neutrophils Not Reportable Absolute Lymphocytes Not Reportable Absolute Monocytes Not Reportable Absolute Eosinophils Not Reportable Absolute Basophils Not Reportable Carbonic Acid HCO3/H2CO3 Ratio ABG pH ABG pCO2 ABG pO2 ABG HCO3 ABG O2 Saturation ABG Base Excess FiO2 Sodium 136.4 L Potassium 5.3 H Chloride 98 Carbon Dioxide 25 Anion Gap 13 BUN 20 Creatinine 1.27 H Est GFR ( Amer) > 60 Est GFR (Non-Af Amer) 58 L Glucose 111 H Lactic Acid 1.5 Calcium 10.5 H Magnesium Total Bilirubin 0.3 AST 36 ALT 39 Alkaline Phosphatase 80 Total Protein 7.2 Albumin 4.9 Triglycerides Cholesterol LDL Cholesterol Direct VLDL Cholesterol HDL Cholesterol TSH Free T4 Free T3 pg/mL Urine Color Urine Appearance Urine pH Ur Specific [place] Urine Protein Urine Glucose (UA) Urine Ketones Urine Blood Urine Nitrite Ur Leukocyte Esterase Urine WBC (Auto) Urine RBC (Auto) 12/11/18 12/11/18 12/12/18 21:18 22:00 03:18 WBC RBC Hgb Hct MCV MCH MCHC RDW Plt Count Seg Neutrophils % Lymphocytes % Monocytes % Eosinophils % Basophils % Absolute Neutrophils Absolute Lymphocytes Absolute Monocytes Absolute Eosinophils Absolute Basophils Carbonic Acid 1.07 HCO3/H2CO3 Ratio 22:1 ABG pH 7.45 ABG pCO2 35.5 ABG pO2 78.3 L ABG HCO3 24.1 H ABG O2 Saturation 96.2 ABG Base Excess 0.6 FiO2 30% Sodium 137.6 Potassium 4.3 D Chloride 102 Carbon Dioxide 26 Anion Gap 10 BUN 17 Creatinine 1.01 Est GFR ( Amer) > 60 Est GFR (Non-Af Amer) > 60 Glucose 162 H Lactic Acid Calcium 9.2 Magnesium 1.8 Total Bilirubin AST ALT Alkaline Phosphatase Total Protein Albumin Triglycerides 73 Cholesterol 57.03 LDL Cholesterol Direct < 30 VLDL Cholesterol 15.0 HDL Cholesterol 30 L TSH Free T4 Free T3 pg/mL Urine Color YELLOW Urine Appearance SLIGHTLY-CLOUDY Urine pH 5.0 Ur Specific [place] 1.020 Urine Protein NEGATIVE Urine Glucose (UA) NEGATIVE Urine Ketones NEGATIVE Urine Blood NEGATIVE Urine Nitrite NEGATIVE Ur Leukocyte Esterase SMALL H Urine WBC (Auto) 3 Urine RBC (Auto) 4 12/12/18 12/12/18 12/12/18 03:18 03:18 06:40 WBC 11.8 H RBC 4.07 L Hgb 12.2 L D Hct 36.1 L MCV 89 MCH 30.1 MCHC 33.9 RDW 14.4 H Plt Count 378 Seg Neutrophils % Not Reportable Lymphocytes % Not Reportable Monocytes % Not Reportable Eosinophils % Not Reportable Basophils % Not Reportable Absolute Neutrophils Not Reportable Absolute Lymphocytes Not Reportable Absolute Monocytes Not Reportable Absolute Eosinophils Not Reportable Absolute Basophils Not Reportable Carbonic Acid 1.11 HCO3/H2CO3 Ratio 22:1 ABG pH 7.44 ABG pCO2 37.0 ABG pO2 93.7 ABG HCO3 24.6 H ABG O2 Saturation 97.4 ABG Base Excess 0.7 FiO2 30% Sodium Potassium Chloride Carbon Dioxide Anion Gap BUN Creatinine Est GFR ( Amer) Est GFR (Non-Af Amer) Glucose Lactic Acid Calcium Magnesium Total Bilirubin AST ALT Alkaline Phosphatase Total Protein Albumin Triglycerides Cholesterol LDL Cholesterol Direct VLDL Cholesterol HDL Cholesterol TSH < 0.01 L Free T4 1.20 Free T3 pg/mL 2.54 L Urine Color Urine Appearance Urine pH Ur Specific [place] Urine Protein Urine Glucose (UA) Urine Ketones Urine Blood Urine Nitrite Ur Leukocyte Esterase Urine WBC (Auto) Urine RBC (Auto) 12/11/18 12/11/18 12/12/18 20:30 20:30 03:18 Creatine Kinase 140 127 CK-MB (CK-2) 2.01 Troponin I < 0.012 NT-Pro-B Natriuret Pep 12/12/18 03:18 Creatine Kinase CK-MB (CK-2) 1.60 Troponin I < 0.012 NT-Pro-B Natriuret Pep 100 Impressions: Chest X-Ray 12/11/18 20:18 IMPRESSION: Underlying COPD. No acute cardiopulmonary process copyright 2011 [employer]- All Rights Reserved Assessment & Plan - Diagnosis (1) Acute and chronic respiratory failure with hypoxia Is this a current diagnosis for this admission?: Yes Plan: Continue BiPAP and supplemental O2 as needed to help with work of breathing and to maintain SPO2 greater than 90%. (2) COPD with acute exacerbation Is this a current diagnosis for this admission?: Yes Plan: Continue steroids, nebulizers, and antibiotics. He had a temperature of 102.7 Fahrenheit on admission, but no evidence of pneumonia on chest x-ray. - Time Time Spent with patient: 25-34 minutes
[2018-12-12] MEDS: LEVALBUTEROL HCL NEB 1.25 MG/3 ML AMPUL NEB SCH ×3 (09:29→23:55)
[2018-12-12] MEDS: BUDESONIDE NEB 0.5 MG/2 ML AMPUL NEB SCH ×2 (09:29→20:48)
[2018-12-12] MEDS: IPRATROPIUM BROMIDE 0.02% NEB 0.5 MG/2.5 ML AMPUL NEB SCH ×3 (09:29→23:55)
[2018-12-12] MEDS ORDERED: (PENDING PHARMACY ID) (Lisinopril/Hydrochlorothiazide [Lisinopril-Hctz 10-12.5 Mg Tab] 1 E PO SCH (10:00)
[2018-12-12 10:21] LABS: TROPONIN I < 0.012 ng/mL
[2018-12-12] MEDS: HYDROCHLOROTHIAZIDE 12.5 MG TABLET PO SCH (10:30)
[2018-12-12] MEDS: LEVOFLOXACIN 750 MG TABLET PO SCH (10:30)
[2018-12-12] MEDS: ROFLUMILAST 500 MCG TABLET PO SCH (11:00)
[2018-12-12] MEDS: AMLODIPINE BESYLATE 2.5 MG TABLET PO SCH (14:24)
[2018-12-12 16:25] LABS: CREATINE KINASE MB 2.11 ng/mL (<4.55)
[2018-12-12 16:27] LABS: TROPONIN I < 0.012 ng/mL
[2018-12-12] MEDS: ASCORBIC ACID 500 MG TABLET PO SCH (18:32)
[2018-12-12] MEDS: ATORVASTATIN CALCIUM 40 MG TABLET PO SCH (22:22)
[2018-12-12] MEDS: CYANOCOBALAMIN (VITAMIN B-12) 1,000 MCG TABLET PO SCH (22:22)
[2018-12-12] MEDS: FOLIC ACID 1 MG TABLET PO SCH (22:23)
[2018-12-13] MEDS: HEPARIN SOD (PORCINE) 5,000 UNIT/ML 1 ML SYRINGE SUBCUT SCH ×3 (05:15→21:44)
[2018-12-13] MEDS: ALBUTEROL SULFATE 0.083% NEB 2.5 MG/3 ML AMPUL NEB PRN ×2 (05:33→12:46)
[2018-12-13 07:30] LABS: HEMOGLOBIN 13.3 g/dL (13.5-17.0); MEAN CORPUSCULAR HEMOGLOBIN 30.2 pg (27.0-33.4); MEAN CORPUSCULAR VOLUME 89 fl (80-97); PLATELET COUNT 386 10^3/uL (150-450); RED BLOOD COUNT 4.39 10^6/uL (4.35-5.55); RED CELL DISTRIBUTION WIDTH 14.9 % (11.5-14.0); WHITE BLOOD COUNT 10.1 10^3/uL (4.0-10.5)
[2018-12-13 07:43] LABS: ANION GAP 10 (5-19); BLOOD UREA NITROGEN 23 mg/dL (7-20); CALCIUM 9.9 mg/dL (8.4-10.2); CARBON DIOXIDE 30 mmol/L (22-30); CHLORIDE 98 mmol/L (98-107); GLUCOSE 90 mg/dL (75-110); POTASSIUM 4.2 mmol/L (3.6-5.0); SODIUM 137.6 mmol/L (137-145)
[2018-12-13 08:15] LABS: ABSOLUTE LYMPHOCYTES# (MANUAL) 0.5 10^3/uL (0.5-4.7); ABSOLUTE MONOCYTES # (MANUAL) 1.2 10^3/uL (0.1-1.4); ABSOLUTE NEUTROPHILS# (MANUAL) 8.4 10^3/uL (1.7-8.2); BASOPHILS % (MANUAL) 0 % (0-2); EOSINOPHILS % (MANUAL) 0 % (0-6); LYMPHOCYTES % (MANUAL) 5 % (13-45); MONOCYTES % (MANUAL) 12 % (3-13); POLYCHROMASIA 1+; SEGMENTED NEUTROPHILS % (MAN) 83 % (42-78); TOTAL CELLS COUNTED 100
[2018-12-13 08:16] LABS: ANISOCYTOSIS SLIGHT; PLATELET COMMENT ADEQUATE
[2018-12-13] MEDS: BUDESONIDE NEB 0.5 MG/2 ML AMPUL NEB SCH ×2 (08:41→19:47)
[2018-12-13] MEDS: IPRATROPIUM BROMIDE 0.02% NEB 0.5 MG/2.5 ML AMPUL NEB SCH ×2 (08:42→17:21)
[2018-12-13] MEDS: LEVALBUTEROL HCL NEB 1.25 MG/3 ML AMPUL NEB SCH ×2 (08:42→17:21)
[2018-12-13] MEDS: DOCUSATE SODIUM 100 MG CAPSULE PO SCH ×2 (09:26→16:59)
[2018-12-13] MEDS: FERROUS SULFATE 325 MG TABLET PO SCH (09:26)
[2018-12-13] MEDS: METFORMIN HCL 500 MG TABLET PO SCH ×2 (09:26→16:54)
[2018-12-13] MEDS: ASPIRIN 81 MG TABLET, CHEWABLE PO SCH (09:26)
[2018-12-13] MEDS: FAMOTIDINE 20 MG TABLET PO SCH ×2 (09:27→21:45)
[2018-12-13] MEDS ORDERED: METHYLPREDNISOLONE INJ 125 MG/2 ML SDV IV ONE (09:30)
[2018-12-13] MEDS: ROFLUMILAST 500 MCG TABLET PO SCH (10:33)
[2018-12-13] MEDS: GUAIFENESIN 600 MG TABLET.SA PO SCH ×2 (10:33→21:44)
[2018-12-13] MEDS: LEVOFLOXACIN 750 MG TABLET PO SCH (11:22)
[2018-12-13] MEDS: CLOPIDOGREL BISULFATE 75 MG TABLET PO SCH (11:22)
[2018-12-13] MEDS: LISINOPRIL 10 MG TABLET PO SCH (11:23)
[2018-12-13] MEDS: INSULIN REG, HUMAN 100 UNIT/ML 3 ML VIAL (PYX) SUBCUT SCH ×3 (11:50→21:54)
--- NOTE | 2018-12-13 12:14 | PDOC PROGRESS REPORT ---
Subjective Progress Note for:: 12/13/18 Subjective:: This is a 58 yr old male with COPD on 2L of home O2 who presented with increasing shortness of breath. Patient was admitted fort COPD exacerbation and was requiring BIPAP. Upon encounter, patient is slightly tachypneic on BIPAP. He says his breathing is only a little better from yesterday. Appears he is not getting steroids. Denies chest pain. No fever or chills. Reason For Visit: ACUTE EXACERBATION OF COPD Physical Exam Vital Signs: Temp Pulse Resp BP Pulse Ox 98.5 F 93 22 H 109/53 L 91 L 12/13/18 11:38 12/13/18 11:38 12/13/18 11:38 12/13/18 11:38 12/13/18 11:38 Intake & Output 12/12/18 12/13/18 12/14/18 06:59 06:59 06:59 Intake Total 2270 500 Output Total 1200 Balance 2270 -700 Weight 169 lb 8.568 oz 171 lb 15.369 oz General appearance: PRESENT: mild distress Head exam: PRESENT: atraumatic, normocephalic Eye exam: PRESENT: conjunctiva pink, EOMI, PERRLA. ABSENT: scleral icterus Ear exam: PRESENT: normal external ear exam Mouth exam: PRESENT: moist, tongue midline Neck exam: ABSENT: carotid bruit, JVD, lymphadenopathy, thyromegaly Respiratory exam: PRESENT: rhonchi, wheezes - wheezes bilaterally. ABSENT: rales Cardiovascular exam: PRESENT: RRR. ABSENT: diastolic murmur, rubs, systolic murmur Pulses: PRESENT: normal dorsalis pedis pul GI/Abdominal exam: PRESENT: normal bowel sounds, soft. ABSENT: distended, guarding, mass, organolmegaly, rebound, tenderness Rectal exam: PRESENT: deferred Neurological exam: PRESENT: alert, awake, oriented to person, oriented to place, oriented to time, oriented to situation, CN II-XII grossly intact. ABSENT: motor sensory deficit Results Laboratory Results: 12/13/18 06:35 12/13/18 06:35 12/13/18 12/13/18 06:35 06:35 WBC 10.1 RBC 4.39 Hgb 13.3 L Hct 39.0 MCV 89 MCH 30.2 MCHC 34.0 RDW 14.9 H Plt Count 386 Seg Neutrophils % Not Reportable Lymphocytes % Not Reportable Monocytes % Not Reportable Eosinophils % Not Reportable Basophils % Not Reportable Absolute Neutrophils Not Reportable Absolute Lymphocytes Not Reportable Absolute Monocytes Not Reportable Absolute Eosinophils Not Reportable Absolute Basophils Not Reportable Sodium 137.6 Potassium 4.2 Chloride 98 Carbon Dioxide 30 Anion Gap 10 BUN 23 H Creatinine 0.85 Est GFR ( Amer) > 60 Est GFR (Non-Af Amer) > 60 Glucose 90 Calcium 9.9 Magnesium 1.5 L 12/11/18 12/11/18 12/12/18 20:30 20:30 03:18 Creatine Kinase 140 127 CK-MB (CK-2) 2.01 Troponin I < 0.012 NT-Pro-B Natriuret Pep 12/12/18 12/12/18 12/12/18 03:18 09:22 09:22 Creatine Kinase 139 CK-MB (CK-2) 1.60 2.00 Troponin I < 0.012 < 0.012 NT-Pro-B Natriuret Pep 100 12/12/18 12/12/18 15:41 15:41 Creatine Kinase 142 CK-MB (CK-2) 2.11 Troponin I < 0.012 NT-Pro-B Natriuret Pep Impressions: Chest X-Ray 12/11/18 20:18 IMPRESSION: Underlying COPD. No acute cardiopulmonary process copyright 2011 [employer]- All Rights Reserved Assessment & Plan - Diagnosis (1) Acute and chronic respiratory failure with hypoxia Is this a current diagnosis for this admission?: Yes Plan: Secondary to COPD exacerbation. Currently on BIPAP. (2) COPD with acute exacerbation Is this a current diagnosis for this admission?: Yes Plan: Continue breathing treatments. Will add IV solumedrol 125 mg then 40 mg IV q8h. (3) Chronic respiratory failure Is this a current diagnosis for this admission?: Yes Plan: On 2L of home O2 for his COPD. (4) CAD (coronary artery disease) Is this a current diagnosis for this admission?: Yes Plan: Stable. Continue plavix, aspirin and statin. - Time Time Spent with patient: 25-34 minutes
[2018-12-13] MEDS: HYDROCHLOROTHIAZIDE 12.5 MG TABLET PO SCH (12:31)
[2018-12-13] MEDS: AMLODIPINE BESYLATE 2.5 MG TABLET PO SCH (12:31)
[2018-12-13] MEDS: MAGNESIUM SULFATE/D5W 1 GM/100 ML RTUPB IV SCH ×2 (13:52→15:15)
[2018-12-13] MEDS: METHYLPREDNISOLONE INJ 40 MG/1 ML SDV IV SCH ×2 (13:52→21:44)
[2018-12-13] MEDS: ASCORBIC ACID 500 MG TABLET PO SCH (16:59)
[2018-12-13] MEDS: CYANOCOBALAMIN (VITAMIN B-12) 1,000 MCG TABLET PO SCH (21:44)
[2018-12-13] MEDS: ATORVASTATIN CALCIUM 40 MG TABLET PO SCH (21:44)
[2018-12-13] MEDS: FOLIC ACID 1 MG TABLET PO SCH (21:45)
[2018-12-14] MEDS: IPRATROPIUM BROMIDE 0.02% NEB 0.5 MG/2.5 ML AMPUL NEB SCH ×2 (00:33→08:11)
[2018-12-14] MEDS: LEVALBUTEROL HCL NEB 1.25 MG/3 ML AMPUL NEB SCH ×2 (00:33→08:11)
[2018-12-14 05:09] LABS: HEMATOCRIT 38.5 % (37.9-51.0); HEMOGLOBIN 13.2 g/dL (13.5-17.0); MEAN CORPUSCULAR HEMOGLOBIN 30.2 pg (27.0-33.4); MEAN CORPUSCULAR HGB CONC 34.2 g/dL (32.0-36.0); MEAN CORPUSCULAR VOLUME 88 fl (80-97); PLATELET COUNT 352 10^3/uL (150-450); RED BLOOD COUNT 4.35 10^6/uL (4.35-5.55); RED CELL DISTRIBUTION WIDTH 14.3 % (11.5-14.0); WHITE BLOOD COUNT 6.2 10^3/uL (4.0-10.5)
[2018-12-14] MEDS: HEPARIN SOD (PORCINE) 5,000 UNIT/ML 1 ML SYRINGE SUBCUT SCH ×3 (05:17→22:02)
[2018-12-14] MEDS: METHYLPREDNISOLONE INJ 40 MG/1 ML SDV IV SCH ×2 (05:18→14:34)
[2018-12-14 05:35] LABS: ANION GAP 9 (5-19); BLOOD UREA NITROGEN 25 mg/dL (7-20); CALCIUM 9.5 mg/dL (8.4-10.2); CARBON DIOXIDE 28 mmol/L (22-30); CHLORIDE 101 mmol/L (98-107); GLUCOSE 112 mg/dL (75-110); POTASSIUM 4.5 mmol/L (3.6-5.0); SODIUM 138.4 mmol/L (137-145)
[2018-12-14 05:50] LABS: ABSOLUTE LYMPHOCYTES# (MANUAL) 0.4 10^3/uL (0.5-4.7); ABSOLUTE MONOCYTES # (MANUAL) 0.6 10^3/uL (0.1-1.4); ABSOLUTE NEUTROPHILS# (MANUAL) 5.1 10^3/uL (1.7-8.2); BAND NEUTROPHILS % (MANUAL) 1 % (3-5); BASOPHILS % (MANUAL) 0 % (0-2); EOSINOPHILS % (MANUAL) 0 % (0-6); LYMPHOCYTES % (MANUAL) 7 % (13-45); MONOCYTES % (MANUAL) 10 % (3-13); SEGMENTED NEUTROPHILS % (MAN) 82 % (42-78); TOTAL CELLS COUNTED 100
[2018-12-14 05:51] LABS: PLATELET COMMENT ADEQUATE; RBC MORPHOLOGY COMMENT NORMO-CYTIC/CHROMIC
[2018-12-14] MEDS: BUDESONIDE NEB 0.5 MG/2 ML AMPUL NEB SCH (08:11)
[2018-12-14] MEDS: INSULIN REG, HUMAN 100 UNIT/ML 3 ML VIAL (PYX) SUBCUT SCH ×4 (08:40→21:52)
[2018-12-14] MEDS: FERROUS SULFATE 325 MG TABLET PO SCH (08:40)
[2018-12-14] MEDS: METFORMIN HCL 500 MG TABLET PO SCH ×2 (08:40→17:03)
[2018-12-14] MEDS: FAMOTIDINE 20 MG TABLET PO SCH ×2 (11:13→22:01)
[2018-12-14] MEDS: LISINOPRIL 10 MG TABLET PO SCH (11:13)
[2018-12-14] MEDS: GUAIFENESIN 600 MG TABLET.SA PO SCH ×2 (11:13→22:01)
[2018-12-14] MEDS: HYDROCHLOROTHIAZIDE 12.5 MG TABLET PO SCH (11:14)
[2018-12-14] MEDS: ASPIRIN 81 MG TABLET, CHEWABLE PO SCH (11:14)
[2018-12-14] MEDS: ROFLUMILAST 500 MCG TABLET PO SCH (11:14)
[2018-12-14] MEDS: CLOPIDOGREL BISULFATE 75 MG TABLET PO SCH (11:14)
[2018-12-14] MEDS: AMLODIPINE BESYLATE 2.5 MG TABLET PO SCH (11:14)
[2018-12-14] MEDS: LEVOFLOXACIN 750 MG TABLET PO SCH (11:15)
[2018-12-14] MEDS: DOCUSATE SODIUM 100 MG CAPSULE PO SCH ×2 (11:15→17:04)
[2018-12-14] MEDS: IPRATROPIUM/ALBUTEROL 0.5-2.5 MG/3 ML AMPUL NEB SCH ×3 (12:31→19:56)
--- NOTE | 2018-12-14 13:47 | PDOC PROGRESS REPORT ---
Subjective Progress Note for:: 12/14/18 Subjective:: This is a 58 yr old male with COPD on 2L of home O2 who presented with increasing shortness of breath. Patient was admitted fort COPD exacerbation and was requiring BIPAP. 12/13: Patient is slightly tachypneic on BIPAP. He says his breathing is only a little better from yesterday. Appears he is not getting steroids. Denies chest pain. No fever or chills. 12/14: No acute event overnight but he continues to be on BIPAP. He says he gets SOB off breath off the BIPAP. He does have bilateral wheezing this morning. Denies chest pain. Reason For Visit: ACUTE EXACERBATION OF COPD Physical Exam Vital Signs: Temp Pulse Resp BP Pulse Ox 97.7 F 96 21 H 113/65 100 12/14/18 11:53 12/14/18 12:31 12/14/18 12:31 12/14/18 11:53 12/14/18 12:31 Intake & Output 12/13/18 12/14/18 12/15/18 06:59 06:59 06:59 Intake Total 500 565 300 Output Total 1200 900 375 Balance -700 -335 -75 Weight 171 lb 15.369 oz 168 lb 10.458 oz General appearance: PRESENT: mild distress, well-developed, well-nourished Head exam: PRESENT: atraumatic, normocephalic Eye exam: PRESENT: conjunctiva pink, EOMI, PERRLA. ABSENT: scleral icterus Ear exam: PRESENT: normal external ear exam Neck exam: ABSENT: carotid bruit, JVD, lymphadenopathy, thyromegaly Respiratory exam: PRESENT: rhonchi, wheezes. ABSENT: rales Cardiovascular exam: PRESENT: RRR. ABSENT: diastolic murmur, rubs, systolic murmur Pulses: PRESENT: normal dorsalis pedis pul GI/Abdominal exam: PRESENT: normal bowel sounds, soft. ABSENT: distended, guarding, mass, organolmegaly, rebound, tenderness Rectal exam: PRESENT: deferred Neurological exam: PRESENT: alert, awake, oriented to person, oriented to place, oriented to time, oriented to situation, CN II-XII grossly intact. ABSENT: motor sensory deficit Results Laboratory Results: 12/14/18 04:37 12/14/18 04:37 12/14/18 12/14/18 04:37 04:37 WBC 6.2 RBC 4.35 Hgb 13.2 L Hct 38.5 MCV 88 MCH 30.2 MCHC 34.2 RDW 14.3 H Plt Count 352 Seg Neutrophils % Not Reportable Lymphocytes % Not Reportable Monocytes % Not Reportable Eosinophils % Not Reportable Basophils % Not Reportable Absolute Neutrophils Not Reportable Absolute Lymphocytes Not Reportable Absolute Monocytes Not Reportable Absolute Eosinophils Not Reportable Absolute Basophils Not Reportable Sodium 138.4 Potassium 4.5 Chloride 101 Carbon Dioxide 28 Anion Gap 9 BUN 25 H Creatinine 0.74 Est GFR ( Amer) > 60 Est GFR (Non-Af Amer) > 60 Glucose 112 H Calcium 9.5 Magnesium 1.9 12/11/18 12/11/18 12/12/18 20:30 20:30 03:18 Creatine Kinase 140 127 CK-MB (CK-2) 2.01 Troponin I < 0.012 NT-Pro-B Natriuret Pep 12/12/18 12/12/18 12/12/18 03:18 09:22 09:22 Creatine Kinase 139 CK-MB (CK-2) 1.60 2.00 Troponin I < 0.012 < 0.012 NT-Pro-B Natriuret Pep 100 12/12/18 12/12/18 15:41 15:41 Creatine Kinase 142 CK-MB (CK-2) 2.11 Troponin I < 0.012 NT-Pro-B Natriuret Pep Impressions: Chest X-Ray 12/11/18 20:18 IMPRESSION: Underlying COPD. No acute cardiopulmonary process copyright 2011 [employer]- All Rights Reserved Assessment & Plan - Diagnosis (1) Acute and chronic respiratory failure with hypoxia Is this a current diagnosis for this admission?: Yes Plan: Secondary to COPD exacerbation. Currently on BIPAP. (2) COPD with acute exacerbation Is this a current diagnosis for this admission?: Yes Plan: Revised breathing treatments. Duoneb scheduled q4h. Increase solumedrol to 60 mg q8. (3) Chronic respiratory failure Is this a current diagnosis for this admission?: Yes Plan: On 2L of home O2 for his COPD. (4) CAD (coronary artery disease) Is this a current diagnosis for this admission?: Yes Plan: Stable. Continue plavix, aspirin and statin. - Time Time Spent with patient: 25-34 minutes
[2018-12-14] MEDS ORDERED: METHYLPREDNISOLONE INJ 125 MG/2 ML SDV ONE (14:21)
[2018-12-14] MEDS: NORMAL SALINE 1000 ML 1,000 ML IV PRN (14:38)
[2018-12-14] MEDS ORDERED: METHYLPREDNISOLONE INJ 125 MG/2 ML SDV IV ONE (15:45)
[2018-12-14] MEDS: ASCORBIC ACID 500 MG TABLET PO SCH (17:03)
[2018-12-14] MEDS: ALBUTEROL SULFATE 0.083% NEB 2.5 MG/3 ML AMPUL NEB PRN (17:58)
[2018-12-14] MEDS: METHYLPREDNISOLONE INJ 125 MG/2 ML SDV IV SCH (22:00)
[2018-12-14] MEDS: CYANOCOBALAMIN (VITAMIN B-12) 1,000 MCG TABLET PO SCH (22:01)
[2018-12-14] MEDS: FOLIC ACID 1 MG TABLET PO SCH (22:01)
[2018-12-14] MEDS: ATORVASTATIN CALCIUM 40 MG TABLET PO SCH (22:01)
[2018-12-15] MEDS: NORMAL SALINE 1000 ML 1,000 ML IV PRN ×4 (00:20→22:12)
[2018-12-15] MEDS: IPRATROPIUM/ALBUTEROL 0.5-2.5 MG/3 ML AMPUL NEB SCH ×6 (00:40→20:13)
[2018-12-15] MEDS: HEPARIN SOD (PORCINE) 5,000 UNIT/ML 1 ML SYRINGE SUBCUT SCH ×3 (05:40→22:06)
[2018-12-15] MEDS: METHYLPREDNISOLONE INJ 125 MG/2 ML SDV IV SCH ×3 (05:41→22:06)
[2018-12-15] MEDS: INSULIN REG, HUMAN 100 UNIT/ML 3 ML VIAL (PYX) SUBCUT SCH ×4 (09:00→22:00)
[2018-12-15] MEDS: LEVOFLOXACIN 750 MG TABLET PO SCH (09:10)
[2018-12-15] MEDS: FAMOTIDINE 20 MG TABLET PO SCH ×2 (09:10→22:05)
[2018-12-15] MEDS: GUAIFENESIN 600 MG TABLET.SA PO SCH ×2 (09:10→22:04)
[2018-12-15] MEDS: ASPIRIN 81 MG TABLET, CHEWABLE PO SCH (09:11)
[2018-12-15] MEDS: LISINOPRIL 10 MG TABLET PO SCH (09:11)
[2018-12-15] MEDS: HYDROCHLOROTHIAZIDE 12.5 MG TABLET PO SCH (09:11)
[2018-12-15] MEDS: METFORMIN HCL 500 MG TABLET PO SCH ×2 (09:11→17:21)
[2018-12-15] MEDS: CLOPIDOGREL BISULFATE 75 MG TABLET PO SCH (09:11)
[2018-12-15] MEDS: FERROUS SULFATE 325 MG TABLET PO SCH (09:11)
[2018-12-15] MEDS: DOCUSATE SODIUM 100 MG CAPSULE PO SCH ×2 (09:12→17:19)
[2018-12-15] MEDS: ROFLUMILAST 500 MCG TABLET PO SCH (09:39)
[2018-12-15] MEDS: AMLODIPINE BESYLATE 2.5 MG TABLET PO SCH (09:39)
--- NOTE | 2018-12-15 15:37 | PDOC PROGRESS REPORT ---
Subjective Progress Note for:: 12/15/18 Subjective:: This is a 58 yr old male with COPD on 2L of home O2 who presented with increasing shortness of breath. Patient was admitted fort COPD exacerbation and was requiring BIPAP. 12/13: Patient is slightly tachypneic on BIPAP. He says his breathing is only a little better from yesterday. Appears he is not getting steroids. Denies chest pain. No fever or chills. 12/14: No acute event overnight but he continues to be on BIPAP. He says he gets SOB off breath off the BIPAP. He does have bilateral wheezing this morning. Denies chest pain. 12/15: No acute event overnight. He has been able to tolerate being off the BIPAP for a few hours but does say he requires it at night. He continues to have bilateral wheezing but slightly improved from yesterday. Reason For Visit: ACUTE EXACERBATION OF COPD Physical Exam Vital Signs: Temp Pulse Resp BP Pulse Ox 98 F 88 14 120/62 94 12/15/18 11:00 12/15/18 14:00 12/15/18 12:07 12/15/18 11:00 12/15/18 12:07 Intake & Output 12/14/18 12/15/18 12/16/18 06:59 06:59 06:59 Intake Total 565 2606 1000 Output Total 900 1500 Balance -335 1106 1000 Weight 168 lb 10.458 oz 157 lb 13.616 oz General appearance: PRESENT: no acute distress, well-developed, well-nourished Head exam: PRESENT: atraumatic, normocephalic Eye exam: PRESENT: conjunctiva pink, EOMI, PERRLA. ABSENT: scleral icterus Ear exam: PRESENT: normal external ear exam Mouth exam: PRESENT: moist, tongue midline Neck exam: ABSENT: carotid bruit, JVD, lymphadenopathy, thyromegaly Respiratory exam: PRESENT: rhonchi, wheezes. ABSENT: rales Cardiovascular exam: PRESENT: RRR. ABSENT: diastolic murmur, rubs, systolic murmur Pulses: PRESENT: normal dorsalis pedis pul GI/Abdominal exam: PRESENT: normal bowel sounds, soft. ABSENT: distended, guarding, mass, organolmegaly, rebound, tenderness Rectal exam: PRESENT: deferred Neurological exam: PRESENT: alert, awake, oriented to person, oriented to place, oriented to time, oriented to situation, CN II-XII grossly intact. ABSENT: motor sensory deficit Results Laboratory Results: 12/14/18 04:37 12/14/18 04:37 12/11/18 12/11/18 12/12/18 20:30 20:30 03:18 Creatine Kinase 140 127 CK-MB (CK-2) 2.01 Troponin I < 0.012 NT-Pro-B Natriuret Pep 12/12/18 12/12/18 12/12/18 03:18 09:22 09:22 Creatine Kinase 139 CK-MB (CK-2) 1.60 2.00 Troponin I < 0.012 < 0.012 NT-Pro-B Natriuret Pep 100 12/12/18 12/12/18 15:41 15:41 Creatine Kinase 142 CK-MB (CK-2) 2.11 Troponin I < 0.012 NT-Pro-B Natriuret Pep Impressions: Chest X-Ray 12/11/18 20:18 IMPRESSION: Underlying COPD. No acute cardiopulmonary process copyright 2011 [employer]- All Rights Reserved Assessment & Plan - Diagnosis (1) Acute and chronic respiratory failure with hypoxia Is this a current diagnosis for this admission?: Yes Plan: Secondary to COPD exacerbation. Currently on BIPAP. (2) COPD with acute exacerbation Is this a current diagnosis for this admission?: Yes Plan: Continue duoneb scheduled q4h. Continue solumedrol to 60 mg q8. (3) Chronic respiratory failure Is this a current diagnosis for this admission?: Yes Plan: On 2L of home O2 for his COPD. (4) CAD (coronary artery disease) Is this a current diagnosis for this admission?: Yes Plan: Stable. Continue plavix, aspirin and statin. - Time Time Spent with patient: 25-34 minutes
[2018-12-15] MEDS: ASCORBIC ACID 500 MG TABLET PO SCH (17:21)
[2018-12-15] MEDS: FOLIC ACID 1 MG TABLET PO SCH (22:04)
[2018-12-15] MEDS: ATORVASTATIN CALCIUM 40 MG TABLET PO SCH (22:05)
[2018-12-15] MEDS: CYANOCOBALAMIN (VITAMIN B-12) 1,000 MCG TABLET PO SCH (22:05)
[2018-12-16] MEDS: IPRATROPIUM/ALBUTEROL 0.5-2.5 MG/3 ML AMPUL NEB SCH ×7 (00:02→23:51)
[2018-12-16] MEDS: HEPARIN SOD (PORCINE) 5,000 UNIT/ML 1 ML SYRINGE SUBCUT SCH ×3 (05:41→21:59)
[2018-12-16] MEDS: METHYLPREDNISOLONE INJ 125 MG/2 ML SDV IV SCH ×3 (05:41→22:00)
[2018-12-16] MEDS: NORMAL SALINE 1000 ML 1,000 ML IV PRN ×3 (05:42→21:59)
[2018-12-16] MEDS: INSULIN REG, HUMAN 100 UNIT/ML 3 ML VIAL (PYX) SUBCUT SCH ×4 (09:37→21:53)
[2018-12-16] MEDS: HYDROCHLOROTHIAZIDE 12.5 MG TABLET PO SCH (09:43)
[2018-12-16] MEDS: CLOPIDOGREL BISULFATE 75 MG TABLET PO SCH (09:44)
[2018-12-16] MEDS: LEVOFLOXACIN 750 MG TABLET PO SCH (09:44)
[2018-12-16] MEDS: METOPROLOL SUCCINATE 50 MG TAB.SR.24H PO SCH (09:44)
[2018-12-16] MEDS: GUAIFENESIN 600 MG TABLET.SA PO SCH ×2 (09:44→22:00)
[2018-12-16] MEDS: DOCUSATE SODIUM 100 MG CAPSULE PO SCH ×2 (09:44→18:40)
[2018-12-16] MEDS: FAMOTIDINE 20 MG TABLET PO SCH ×2 (09:45→22:00)
[2018-12-16] MEDS: LISINOPRIL 10 MG TABLET PO SCH (09:45)
[2018-12-16] MEDS: ASPIRIN 81 MG TABLET, CHEWABLE PO SCH (09:45)
[2018-12-16] MEDS: AMLODIPINE BESYLATE 2.5 MG TABLET PO SCH (09:45)
[2018-12-16] MEDS: ROFLUMILAST 500 MCG TABLET PO SCH (09:45)
[2018-12-16] MEDS: FERROUS SULFATE 325 MG TABLET PO SCH (09:45)
[2018-12-16] MEDS: METFORMIN HCL 500 MG TABLET PO SCH ×2 (09:45→18:39)
--- NOTE | 2018-12-16 16:20 | PDOC PROGRESS REPORT ---
Subjective Progress Note for:: 12/16/18 Subjective:: This is a 58 yr old male with COPD on 2L of home O2, FRED on CPAP, who presented with increasing shortness of breath. Patient was admitted fort COPD exacerbation and was requiring BIPAP. 12/13: Patient is slightly tachypneic on BIPAP. He says his breathing is only a little better from yesterday. Appears he is not getting steroids. Denies chest pain. No fever or chills. 12/14: No acute event overnight but he continues to be on BIPAP. He says he gets SOB off breath off the BIPAP. He does have bilateral wheezing this morning. Denies chest pain. 12/15: He has been able to tolerate being off the BIPAP for a few hours but does say he requires it at night. He continues to have bilateral wheezing but slightly improved from yesterday. 12/16: No acute event overnight. He continues to improve albeit gradually. He is saturating well on NC. He says he gets really SOB when going to the bathroom. Reason For Visit: SEPSIS Physical Exam Vital Signs: Temp Pulse Resp BP Pulse Ox 98.2 F 77 16 103/65 99 12/16/18 15:00 12/16/18 15:54 12/16/18 15:54 12/16/18 15:00 12/16/18 15:54 Intake & Output 12/15/18 12/16/18 12/17/18 06:59 06:59 06:59 Intake Total 2606 3469 1000 Output Total 1500 1970 Balance 1106 1499 1000 Weight 157 lb 13.616 oz 160 lb 7.944 oz General appearance: PRESENT: no acute distress, well-developed, well-nourished Head exam: PRESENT: atraumatic, normocephalic Eye exam: PRESENT: conjunctiva pink, EOMI, PERRLA. ABSENT: scleral icterus Ear exam: PRESENT: normal external ear exam Mouth exam: PRESENT: moist, tongue midline Neck exam: ABSENT: carotid bruit, JVD, lymphadenopathy, thyromegaly Respiratory exam: PRESENT: rhonchi, wheezes. ABSENT: rales Cardiovascular exam: PRESENT: RRR. ABSENT: diastolic murmur, rubs, systolic murmur Pulses: PRESENT: normal dorsalis pedis pul GI/Abdominal exam: PRESENT: normal bowel sounds, soft. ABSENT: distended, guarding, mass, organolmegaly, rebound, tenderness Rectal exam: PRESENT: deferred Neurological exam: PRESENT: alert, awake, oriented to person, oriented to place, oriented to time, oriented to situation, CN II-XII grossly intact. ABSENT: motor sensory deficit Results Laboratory Results: 12/14/18 04:37 12/14/18 04:37 12/11/18 12/11/18 12/12/18 20:30 20:30 03:18 Creatine Kinase 140 127 CK-MB (CK-2) 2.01 Troponin I < 0.012 NT-Pro-B Natriuret Pep 12/12/18 12/12/18 12/12/18 03:18 09:22 09:22 Creatine Kinase 139 CK-MB (CK-2) 1.60 2.00 Troponin I < 0.012 < 0.012 NT-Pro-B Natriuret Pep 100 12/12/18 12/12/18 15:41 15:41 Creatine Kinase 142 CK-MB (CK-2) 2.11 Troponin I < 0.012 NT-Pro-B Natriuret Pep Impressions: Chest X-Ray 12/11/18 20:18 IMPRESSION: Underlying COPD. No acute cardiopulmonary process copyright 2011 [employer]- All Rights Reserved Assessment & Plan - Diagnosis (1) Acute and chronic respiratory failure with hypoxia Is this a current diagnosis for this admission?: Yes Plan: Secondary to COPD exacerbation. Off BIPAP. Saturating well on 4 lpm via NC. (2) COPD with acute exacerbation Is this a current diagnosis for this admission?: Yes Plan: Continue duoneb scheduled q4h. Decrease solumedrol to 40 mg q8. (3) Chronic respiratory failure Is this a current diagnosis for this admission?: Yes Plan: On 2L of home O2 for his COPD. (4) CAD (coronary artery disease) Is this a current diagnosis for this admission?: Yes Plan: Stable. Continue plavix, aspirin and statin. (5) FRED on CPAP Is this a current diagnosis for this admission?: Yes Plan: BIPAP at night.
[2018-12-16] MEDS: ASCORBIC ACID 500 MG TABLET PO SCH (18:39)
[2018-12-16] MEDS: CYANOCOBALAMIN (VITAMIN B-12) 1,000 MCG TABLET PO SCH (22:00)
[2018-12-16] MEDS: ATORVASTATIN CALCIUM 40 MG TABLET PO SCH (22:00)
[2018-12-16] MEDS: FOLIC ACID 1 MG TABLET PO SCH (22:01)
[2018-12-17] MEDS: IPRATROPIUM/ALBUTEROL 0.5-2.5 MG/3 ML AMPUL NEB SCH ×5 (03:54→19:37)
[2018-12-17] MEDS: NORMAL SALINE 1000 ML 1,000 ML IV PRN ×3 (06:12→21:45)
[2018-12-17] MEDS: METHYLPREDNISOLONE INJ 125 MG/2 ML SDV IV SCH (06:12)
[2018-12-17] MEDS: HEPARIN SOD (PORCINE) 5,000 UNIT/ML 1 ML SYRINGE SUBCUT SCH ×3 (06:12→21:39)
[2018-12-17] MEDS: LISINOPRIL 10 MG TABLET PO SCH (11:05)
[2018-12-17] MEDS: HYDROCHLOROTHIAZIDE 12.5 MG TABLET PO SCH (11:06)
[2018-12-17] MEDS: FERROUS SULFATE 325 MG TABLET PO SCH (11:06)
[2018-12-17] MEDS: METFORMIN HCL 500 MG TABLET PO SCH ×2 (11:06→19:30)
[2018-12-17] MEDS: METOPROLOL SUCCINATE 50 MG TAB.SR.24H PO SCH (11:06)
[2018-12-17] MEDS: GUAIFENESIN 600 MG TABLET.SA PO SCH ×2 (11:06→21:39)
[2018-12-17] MEDS: LEVOFLOXACIN 750 MG TABLET PO SCH (11:06)
[2018-12-17] MEDS: ASPIRIN 81 MG TABLET, CHEWABLE PO SCH (11:07)
[2018-12-17] MEDS: CLOPIDOGREL BISULFATE 75 MG TABLET PO SCH (11:07)
[2018-12-17] MEDS: FAMOTIDINE 20 MG TABLET PO SCH ×2 (11:07→21:39)
[2018-12-17] MEDS: AMLODIPINE BESYLATE 2.5 MG TABLET PO SCH (11:08)
[2018-12-17] MEDS: DOCUSATE SODIUM 100 MG CAPSULE PO SCH ×2 (11:08→19:34)
[2018-12-17] MEDS: ROFLUMILAST 500 MCG TABLET PO SCH (11:09)
[2018-12-17] MEDS: INSULIN REG, HUMAN 100 UNIT/ML 3 ML VIAL (PYX) SUBCUT SCH ×4 (11:10→21:32)
--- NOTE | 2018-12-17 11:46 | PDOC PROGRESS REPORT ---
Subjective Progress Note for:: 12/17/18 Subjective:: This is a 58 yr old male with COPD on 2L of home O2, FRED on CPAP, who presented with increasing shortness of breath. Patient was admitted fort COPD exacerbation and was requiring BIPAP. 12/13: Patient is slightly tachypneic on BIPAP. He says his breathing is only a little better from yesterday. Appears he is not getting steroids. Denies chest pain. No fever or chills. 12/14: No acute event overnight but he continues to be on BIPAP. He says he gets SOB off breath off the BIPAP. He does have bilateral wheezing this morning. Denies chest pain. 12/15: He has been able to tolerate being off the BIPAP for a few hours but does say he requires it at night. He continues to have bilateral wheezing but slightly improved from yesterday. 12/16: He continues to improve albeit gradually. He is saturating well on NC. He says he gets really SOB when going to the bathroom. 12/17: No acute event overnight. He says he still gets SOB going to the bathroom which is not is his baseline but this has improved from yesterday. He is less wheezy today. He has not required a BIPAP during the day and is saturating well on 3lpm via NC. Reason For Visit: SEPSIS Physical Exam Vital Signs: Temp Pulse Resp BP Pulse Ox 98.0 F 62 14 114/70 99 12/17/18 07:00 12/17/18 07:58 12/17/18 07:58 12/17/18 07:00 12/17/18 07:58 Intake & Output 12/16/18 12/17/18 12/18/18 06:59 06:59 06:59 Intake Total 3469 5135 Output Total 1970 1245 Balance 1499 3890 Weight 160 lb 7.944 oz 164 lb 10.965 oz General appearance: PRESENT: no acute distress, well-developed, well-nourished Head exam: PRESENT: atraumatic, normocephalic Eye exam: PRESENT: conjunctiva pink, EOMI, PERRLA. ABSENT: scleral icterus Ear exam: PRESENT: normal external ear exam Mouth exam: PRESENT: moist, tongue midline Neck exam: ABSENT: carotid bruit, JVD, lymphadenopathy, thyromegaly Respiratory exam: PRESENT: wheezes - minimal wheezes compared to yesterday. ABSENT: rales, rhonchi Cardiovascular exam: PRESENT: RRR. ABSENT: diastolic murmur, rubs, systolic murmur Pulses: PRESENT: normal dorsalis pedis pul GI/Abdominal exam: PRESENT: normal bowel sounds, soft. ABSENT: distended, guarding, mass, organolmegaly, rebound, tenderness Rectal exam: PRESENT: deferred Neurological exam: PRESENT: alert, awake, oriented to person, oriented to place, oriented to time, oriented to situation, CN II-XII grossly intact. ABSENT: motor sensory deficit Results Laboratory Results: 12/14/18 04:37 12/14/18 04:37 12/11/18 20:35 Blood Blood Culture - Final NO GROWTH IN 5 DAYS 12/11/18 20:30 Blood Blood Culture - Final NO GROWTH IN 5 DAYS 12/11/18 12/11/18 12/12/18 20:30 20:30 03:18 Creatine Kinase 140 127 CK-MB (CK-2) 2.01 Troponin I < 0.012 NT-Pro-B Natriuret Pep 12/12/18 12/12/18 12/12/18 03:18 09:22 09:22 Creatine Kinase 139 CK-MB (CK-2) 1.60 2.00 Troponin I < 0.012 < 0.012 NT-Pro-B Natriuret Pep 100 12/12/18 12/12/18 15:41 15:41 Creatine Kinase 142 CK-MB (CK-2) 2.11 Troponin I < 0.012 NT-Pro-B Natriuret Pep Impressions: Chest X-Ray 12/11/18 20:18 IMPRESSION: Underlying COPD. No acute cardiopulmonary process copyright 2011 [employer]- All Rights Reserved Assessment & Plan - Diagnosis (1) Acute and chronic respiratory failure with hypoxia Is this a current diagnosis for this admission?: Yes Plan: Secondary to COPD exacerbation. Off BIPAP. Saturating well on 3 lpm via NC. (2) COPD with acute exacerbation Is this a current diagnosis for this admission?: Yes Plan: Continue duoneb scheduled q4h. Decrease solumedrol to 40 mg q12. (3) Chronic respiratory failure Is this a current diagnosis for this admission?: Yes Plan: On 2L of home O2 for his COPD. (4) CAD (coronary artery disease) Is this a current diagnosis for this admission?: Yes Plan: Stable. Continue plavix, aspirin and statin. (5) FRED on CPAP Is this a current diagnosis for this admission?: Yes Plan: BIPAP at night. - Time Time Spent with patient: 25-34 minutes
[2018-12-17] MEDS: ASCORBIC ACID 500 MG TABLET PO SCH (19:30)
[2018-12-17] MEDS: METHYLPREDNISOLONE INJ 40 MG/1 ML SDV IV SCH (21:39)
[2018-12-17] MEDS: CYANOCOBALAMIN (VITAMIN B-12) 1,000 MCG TABLET PO SCH (21:39)
[2018-12-17] MEDS: ATORVASTATIN CALCIUM 40 MG TABLET PO SCH (21:39)
[2018-12-17] MEDS: FOLIC ACID 1 MG TABLET PO SCH (21:39)
[2018-12-17] MEDS ORDERED: METHYLPREDNISOLONE INJ 125 MG/2 ML SDV IV SCH (22:00)
[2018-12-18] MEDS: IPRATROPIUM/ALBUTEROL 0.5-2.5 MG/3 ML AMPUL NEB SCH ×6 (01:32→19:44)
[2018-12-18] MEDS: HEPARIN SOD (PORCINE) 5,000 UNIT/ML 1 ML SYRINGE SUBCUT SCH ×3 (06:00→21:51)
[2018-12-18] MEDS: NORMAL SALINE 1000 ML 1,000 ML IV PRN ×3 (06:01→22:20)
[2018-12-18] MEDS: INSULIN REG, HUMAN 100 UNIT/ML 3 ML VIAL (PYX) SUBCUT SCH ×4 (07:56→21:52)
[2018-12-18] MEDS: METFORMIN HCL 500 MG TABLET PO SCH ×2 (08:33→15:50)
[2018-12-18] MEDS: FERROUS SULFATE 325 MG TABLET PO SCH (08:33)
[2018-12-18] MEDS: HYDROCHLOROTHIAZIDE 12.5 MG TABLET PO SCH (10:28)
[2018-12-18] MEDS: METOPROLOL SUCCINATE 50 MG TAB.SR.24H PO SCH (10:29)
[2018-12-18] MEDS: LEVOFLOXACIN 750 MG TABLET PO SCH (10:29)
[2018-12-18] MEDS: CLOPIDOGREL BISULFATE 75 MG TABLET PO SCH (10:29)
[2018-12-18] MEDS: ASPIRIN 81 MG TABLET, CHEWABLE PO SCH (10:29)
[2018-12-18] MEDS: LISINOPRIL 10 MG TABLET PO SCH (10:29)
[2018-12-18] MEDS: FAMOTIDINE 20 MG TABLET PO SCH ×2 (10:30→21:49)
[2018-12-18] MEDS: GUAIFENESIN 600 MG TABLET.SA PO SCH ×2 (10:30→21:49)
[2018-12-18] MEDS: ROFLUMILAST 500 MCG TABLET PO SCH (10:30)
[2018-12-18] MEDS: AMLODIPINE BESYLATE 2.5 MG TABLET PO SCH (10:30)
[2018-12-18] MEDS: DOCUSATE SODIUM 100 MG CAPSULE PO SCH ×2 (10:31→17:18)
[2018-12-18] MEDS: METHYLPREDNISOLONE INJ 40 MG/1 ML SDV IV SCH ×2 (10:31→21:53)
--- NOTE | 2018-12-18 10:42 | PDOC PROGRESS REPORT ---
Subjective Progress Note for:: 12/18/18 Subjective:: This is a 58 yr old male with severe COPD on 2L of home O2, FRED on CPAP, who presented with increasing shortness of breath. Patient was admitted fort COPD exacerbation and was requiring BIPAP. 12/13: Patient is slightly tachypneic on BIPAP. He says his breathing is only a little better from yesterday. Appears he is not getting steroids. Denies chest pain. No fever or chills. 12/14: No acute event overnight but he continues to be on BIPAP. He says he gets SOB off breath off the BIPAP. He does have bilateral wheezing this morning. Denies chest pain. 12/15: He has been able to tolerate being off the BIPAP for a few hours but does say he requires it at night. He continues to have bilateral wheezing but slightly improved from yesterday. 12/16: He continues to improve albeit gradually. He is saturating well on NC. He says he gets really SOB when going to the bathroom. 12/17: No acute event overnight. He says he still gets SOB going to the bathroom which is not is his baseline but this has improved from yesterday. He is less wheezy today. He has not required a BIPAP during the day and is saturating well on 3lpm via NC. 12/18: Patient went to the bathroom last night and develop SOB and sats went down. He initially required BIPAP and later recovered. This morning, he is saturating well on 3 lpm. He says his breathing today is only a little better from yeste rday. He still has bilateral wheezes slightly improved from compared to yesterday. Reason For Visit: SEPSIS Physical Exam Vital Signs: Temp Pulse Resp BP Pulse Ox 97.7 F 63 15 112/68 99 12/18/18 07:36 12/18/18 07:48 12/18/18 07:48 12/18/18 07:36 12/18/18 07:48 Intake & Output 12/17/18 12/18/18 12/19/18 06:59 06:59 06:59 Intake Total 5135 3286 Output Total 1245 2200 Balance 3890 1086 Weight 164 lb 10.965 oz 177 lb 7.554 oz General appearance: PRESENT: no acute distress, well-developed, well-nourished Head exam: PRESENT: atraumatic, normocephalic Eye exam: PRESENT: conjunctiva pink, EOMI, PERRLA. ABSENT: scleral icterus Ear exam: PRESENT: normal external ear exam Mouth exam: PRESENT: moist, tongue midline Neck exam: ABSENT: carotid bruit, JVD, lymphadenopathy, thyromegaly Respiratory exam: PRESENT: wheezes. ABSENT: rales, rhonchi Cardiovascular exam: PRESENT: RRR. ABSENT: diastolic murmur, rubs, systolic murmur Pulses: PRESENT: normal dorsalis pedis pul GI/Abdominal exam: PRESENT: normal bowel sounds, soft. ABSENT: distended, guarding, mass, organolmegaly, rebound, tenderness Rectal exam: PRESENT: deferred Neurological exam: PRESENT: alert, awake, oriented to person, oriented to place, oriented to time, oriented to situation, CN II-XII grossly intact. ABSENT: motor sensory deficit Results Laboratory Results: 12/14/18 04:37 12/14/18 04:37 12/11/18 12/11/18 12/12/18 20:30 20:30 03:18 Creatine Kinase 140 127 CK-MB (CK-2) 2.01 Troponin I < 0.012 NT-Pro-B Natriuret Pep 12/12/18 12/12/18 12/12/18 03:18 09:22 09:22 Creatine Kinase 139 CK-MB (CK-2) 1.60 2.00 Troponin I < 0.012 < 0.012 NT-Pro-B Natriuret Pep 100 12/12/18 12/12/18 15:41 15:41 Creatine Kinase 142 CK-MB (CK-2) 2.11 Troponin I < 0.012 NT-Pro-B Natriuret Pep Impressions: Chest X-Ray 12/11/18 20:18 IMPRESSION: Underlying COPD. No acute cardiopulmonary process copyright 2011 [employer]- All Rights Reserved Assessment & Plan - Diagnosis (1) Acute and chronic respiratory failure with hypoxia Is this a current diagnosis for this admission?: Yes Plan: Secondary to COPD exacerbation. He required BIPAP last night after he went to the bathroom. Saturating well on 3 lpm via NC this morning. (2) COPD with acute exacerbation Is this a current diagnosis for this admission?: Yes Plan: Continue duoneb scheduled q4h. Will continue solumedrol at 40 mg q12 today. (3) Chronic respiratory failure Is this a current diagnosis for this admission?: Yes Plan: On 2L of home O2 for his COPD. (4) CAD (coronary artery disease) Is this a current diagnosis for this admission?: Yes Plan: Stable. Continue plavix, aspirin and statin. (5) FRED on CPAP Is this a current diagnosis for this admission?: Yes Plan: BIPAP at night. - Time Time Spent with patient: 25-34 minutes
[2018-12-18] MEDS: ASCORBIC ACID 500 MG TABLET PO SCH (17:19)
[2018-12-18] MEDS ORDERED: LOPERAMIDE HCL 2 MG CAPSULE PO ONE (20:30)
[2018-12-18] MEDS: FOLIC ACID 1 MG TABLET PO SCH (21:48)
[2018-12-18] MEDS: CYANOCOBALAMIN (VITAMIN B-12) 1,000 MCG TABLET PO SCH (21:49)
[2018-12-18] MEDS: ATORVASTATIN CALCIUM 40 MG TABLET PO SCH (21:49)
[2018-12-19] MEDS: IPRATROPIUM/ALBUTEROL 0.5-2.5 MG/3 ML AMPUL NEB SCH ×6 (00:05→19:37)
[2018-12-19] MEDS: NORMAL SALINE 1000 ML 1,000 ML IV PRN ×3 (05:57→22:16)
[2018-12-19] MEDS: HEPARIN SOD (PORCINE) 5,000 UNIT/ML 1 ML SYRINGE SUBCUT SCH ×3 (05:58→22:20)
[2018-12-19] MEDS: INSULIN REG, HUMAN 100 UNIT/ML 3 ML VIAL (PYX) SUBCUT SCH ×4 (09:02→22:19)
[2018-12-19] MEDS: CLOPIDOGREL BISULFATE 75 MG TABLET PO SCH (09:42)
[2018-12-19] MEDS: METFORMIN HCL 500 MG TABLET PO SCH ×2 (09:42→17:03)
[2018-12-19] MEDS: HYDROCHLOROTHIAZIDE 12.5 MG TABLET PO SCH (09:42)
[2018-12-19] MEDS: METOPROLOL SUCCINATE 50 MG TAB.SR.24H PO SCH (09:42)
[2018-12-19] MEDS: ASPIRIN 81 MG TABLET, CHEWABLE PO SCH (09:42)
[2018-12-19] MEDS: LISINOPRIL 10 MG TABLET PO SCH (09:43)
[2018-12-19] MEDS: ROFLUMILAST 500 MCG TABLET PO SCH (09:43)
[2018-12-19] MEDS: FAMOTIDINE 20 MG TABLET PO SCH ×2 (09:43→22:17)
[2018-12-19] MEDS: GUAIFENESIN 600 MG TABLET.SA PO SCH ×2 (09:43→22:17)
[2018-12-19] MEDS: AMLODIPINE BESYLATE 2.5 MG TABLET PO SCH (09:43)
[2018-12-19] MEDS: FERROUS SULFATE 325 MG TABLET PO SCH (09:43)
[2018-12-19] MEDS: METHYLPREDNISOLONE INJ 40 MG/1 ML SDV IV SCH ×2 (09:43→22:17)
[2018-12-19] MEDS: DOCUSATE SODIUM 100 MG CAPSULE PO SCH ×2 (09:44→17:03)
--- NOTE | 2018-12-19 10:30 | PDOC PROGRESS REPORT ---
Subjective Progress Note for:: 12/19/18 Subjective:: This is a 58 yr old male with severe COPD on 2L of home O2, FRED on CPAP, who presented with increasing shortness of breath. Patient was admitted fort COPD exacerbation and was requiring BIPAP. 12/13: Patient is slightly tachypneic on BIPAP. He says his breathing is only a little better from yesterday. Appears he is not getting steroids. Denies chest pain. No fever or chills. 12/14: No acute event overnight but he continues to be on BIPAP. He says he gets SOB off breath off the BIPAP. He does have bilateral wheezing this morning. Denies chest pain. 12/15: He has been able to tolerate being off the BIPAP for a few hours but does say he requires it at night. He continues to have bilateral wheezing but slightly improved from yesterday. 12/16: He continues to improve albeit gradually. He is saturating well on NC. He says he gets really SOB when going to the bathroom. 12/17: No acute event overnight. He says he still gets SOB going to the bathroom which is not is his baseline but this has improved from yesterday. He is less wheezy today. He has not required a BIPAP during the day and is saturating well on 3lpm via NC. 12/18: Patient went to the bathroom last night and develop SOB and sats went down. He initially required BIPAP and later recovered. This morning, he is saturating well on 3 lpm. He says his breathing today is only a little better from yeste rday. He still has bilateral wheezes slightly improved from compared to yesterday. 12/19: He continues to feel better. He went to the bathroom and became short of breath. He says this is not his baseline. He say at home is able to walk from his bedroom the kitchen comfortably. He has minimal wheezes today much improved from yesterday. Anticipate discharge in the next 24-48 hrs. Reason For Visit: SEPSIS Physical Exam Vital Signs: Temp Pulse Resp BP Pulse Ox 97.4 F 61 14 115/69 98 12/19/18 07:39 12/19/18 07:46 12/19/18 07:46 12/19/18 07:39 12/19/18 07:46 Intake & Output 12/18/18 12/19/18 12/20/18 06:59 06:59 06:59 Intake Total 3286 4347 Output Total 2200 2500 Balance 1086 1847 Weight 177 lb 7.554 oz 174 lb 6.17 oz General appearance: PRESENT: no acute distress, well-developed, well-nourished Head exam: PRESENT: atraumatic, normocephalic Eye exam: PRESENT: conjunctiva pink, EOMI, PERRLA. ABSENT: scleral icterus Ear exam: PRESENT: normal external ear exam Mouth exam: PRESENT: moist, tongue midline Neck exam: ABSENT: carotid bruit, JVD, lymphadenopathy, thyromegaly Respiratory exam: PRESENT: wheezes. ABSENT: rales, rhonchi Cardiovascular exam: PRESENT: RRR. ABSENT: diastolic murmur, rubs, systolic murmur Pulses: PRESENT: normal dorsalis pedis pul GI/Abdominal exam: PRESENT: normal bowel sounds, soft. ABSENT: distended, guarding, mass, organolmegaly, rebound, tenderness Rectal exam: PRESENT: deferred Neurological exam: PRESENT: alert, awake, oriented to person, oriented to place, oriented to time, oriented to situation, CN II-XII grossly intact. ABSENT: motor sensory deficit Results Laboratory Results: 12/14/18 04:37 12/14/18 04:37 12/11/18 12/11/18 12/12/18 20:30 20:30 03:18 Creatine Kinase 140 127 CK-MB (CK-2) 2.01 Troponin I < 0.012 NT-Pro-B Natriuret Pep 12/12/18 12/12/18 12/12/18 03:18 09:22 09:22 Creatine Kinase 139 CK-MB (CK-2) 1.60 2.00 Troponin I < 0.012 < 0.012 NT-Pro-B Natriuret Pep 100 12/12/18 12/12/18 15:41 15:41 Creatine Kinase 142 CK-MB (CK-2) 2.11 Troponin I < 0.012 NT-Pro-B Natriuret Pep Impressions: Chest X-Ray 12/11/18 20:18 IMPRESSION: Underlying COPD. No acute cardiopulmonary process copyright 2010 [employer]- All Rights Reserved Assessment & Plan - Diagnosis (1) Acute and chronic respiratory failure with hypoxia Is this a current diagnosis for this admission?: Yes Plan: Secondary to COPD exacerbation. Improving but not at baseline yet. Saturating well on 3 lpm via NC this morning. (2) COPD with acute exacerbation Is this a current diagnosis for this admission?: Yes Plan: Continue duoneb scheduled q4h. Continue solumedrol 40 mg q12 today. (3) Chronic respiratory failure Is this a current diagnosis for this admission?: Yes Plan: On 2L of home O2 for his COPD. (4) CAD (coronary artery disease) Is this a current diagnosis for this admission?: Yes Plan: Stable. Continue plavix, aspirin and statin. (5) FRED on CPAP Is this a current diagnosis for this admission?: Yes Plan: BIPAP at night. - Time Time Spent with patient: 25-34 minutes
[2018-12-19] MEDS: ASCORBIC ACID 500 MG TABLET PO SCH (17:03)
[2018-12-19] MEDS: ATORVASTATIN CALCIUM 40 MG TABLET PO SCH (22:17)
[2018-12-19] MEDS: FOLIC ACID 1 MG TABLET PO SCH (22:17)
[2018-12-19] MEDS: CYANOCOBALAMIN (VITAMIN B-12) 1,000 MCG TABLET PO SCH (22:17)
[2018-12-20] MEDS: IPRATROPIUM/ALBUTEROL 0.5-2.5 MG/3 ML AMPUL NEB SCH ×7 (00:25→23:51)
[2018-12-20] MEDS: HEPARIN SOD (PORCINE) 5,000 UNIT/ML 1 ML SYRINGE SUBCUT SCH ×3 (05:22→21:58)
[2018-12-20] MEDS ORDERED: ALBUTEROL SULFATE HFA (90 MCG/PUFF) 200 PUFF/8.5 GM MDI IH PRN ×2 (09:51→10:46)
[2018-12-20] MEDS: INSULIN REG, HUMAN 100 UNIT/ML 3 ML VIAL (PYX) SUBCUT SCH ×4 (09:53→21:58)
[2018-12-20] MEDS: METFORMIN HCL 500 MG TABLET PO SCH ×2 (10:07→18:10)
[2018-12-20] MEDS: ASPIRIN 81 MG TABLET, CHEWABLE PO SCH (10:08)
[2018-12-20] MEDS: ROFLUMILAST 500 MCG TABLET PO SCH (10:08)
[2018-12-20] MEDS: FERROUS SULFATE 325 MG TABLET PO SCH (10:08)
[2018-12-20] MEDS: DOCUSATE SODIUM 100 MG CAPSULE PO SCH ×2 (10:08→18:10)
[2018-12-20] MEDS: GUAIFENESIN 600 MG TABLET.SA PO SCH ×2 (10:09→21:57)
[2018-12-20] MEDS: HYDROCHLOROTHIAZIDE 12.5 MG TABLET PO SCH (10:09)
[2018-12-20] MEDS: AMLODIPINE BESYLATE 2.5 MG TABLET PO SCH (10:10)
[2018-12-20] MEDS: FAMOTIDINE 20 MG TABLET PO SCH ×2 (10:10→21:58)
[2018-12-20] MEDS: CLOPIDOGREL BISULFATE 75 MG TABLET PO SCH (10:10)
[2018-12-20] MEDS: LISINOPRIL 10 MG TABLET PO SCH (10:11)
[2018-12-20] MEDS: METOPROLOL SUCCINATE 50 MG TAB.SR.24H PO SCH (10:11)
[2018-12-20] MEDS: METHYLPREDNISOLONE INJ 40 MG/1 ML SDV IV SCH (10:11)
--- NOTE | 2018-12-20 10:11 | PDOC PROGRESS REPORT ---
Subjective Progress Note for:: 12/20/18 Subjective:: This is a 58 yr old male with severe COPD on 2L of home O2, FRED on CPAP, who presented with increasing shortness of breath. Patient was admitted fort COPD exacerbation and was requiring BIPAP. 12/13: Patient is slightly tachypneic on BIPAP. He says his breathing is only a little better from yesterday. Appears he is not getting steroids. Denies chest pain. No fever or chills. 12/14: No acute event overnight but he continues to be on BIPAP. He says he gets SOB off breath off the BIPAP. He does have bilateral wheezing this morning. Denies chest pain. 12/15: He has been able to tolerate being off the BIPAP for a few hours but does say he requires it at night. He continues to have bilateral wheezing but slightly improved from yesterday. 12/16: He continues to improve albeit gradually. He is saturating well on NC. He says he gets really SOB when going to the bathroom. 12/17: No acute event overnight. He says he still gets SOB going to the bathroom which is not is his baseline but this has improved from yesterday. He is less wheezy today. He has not required a BIPAP during the day and is saturating well on 3lpm via NC. 12/18: Patient went to the bathroom last night and develop SOB and sats went down. He initially required BIPAP and later recovered. This morning, he is saturating well on 3 lpm. He says his breathing today is only a little better from yest erday. He still has bilateral wheezes slightly improved from compared to yesterday. 12/19: He continues to feel better. He went to the bathroom and became short of breath. He says this is not his baseline. He say at home is able to walk from his bedroom the kitchen comfortably. He has minimal wheezes today much improved from yesterday. Anticipate discharge in the next 24-48 hrs. 12/20/2018 no acute events in the last 24 hours. Patient is afebrile. Pulse ox is 97% on 3 L. We are going to check the pulse ox on 2 L. No complaints. He is still on IV Solu-Medrol 40 mg every 12 hours. Patient is on 2 L oxygen at home. Reason For Visit: SEPSIS Physical Exam Vital Signs: Temp Pulse Resp BP Pulse Ox 97.7 F 60 14 118/66 97 12/20/18 07:41 12/20/18 07:55 12/20/18 07:55 12/20/18 07:41 12/20/18 07:55 Intake & Output 12/19/18 12/20/18 12/21/18 06:59 06:59 06:59 Intake Total 4347 4179 Output Total 3942 3550 Balance 1847 629 Weight 79.1 kg 80.6 kg General appearance: PRESENT: no acute distress Head exam: PRESENT: atraumatic Eye exam: PRESENT: PERRLA Mouth exam: PRESENT: moist Neck exam: ABSENT: carotid bruit, JVD, lymphadenopathy, thyromegaly Respiratory exam: PRESENT: decreased breath sounds, wheezes Cardiovascular exam: PRESENT: RRR. ABSENT: diastolic murmur, rubs, systolic murmur GI/Abdominal exam: PRESENT: normal bowel sounds, soft. ABSENT: distended, guarding, mass, organolmegaly, rebound, tenderness Neurological exam: PRESENT: alert, awake, oriented to person, oriented to place, oriented to time, oriented to situation, CN II-XII grossly intact. ABSENT: motor sensory deficit Psychiatric exam: PRESENT: appropriate affect, normal mood. ABSENT: homicidal ideation, suicidal ideation Results Laboratory Results: 12/14/18 04:37 12/14/18 04:37 12/11/18 12/11/18 12/12/18 20:30 20:30 03:18 Creatine Kinase 140 127 CK-MB (CK-2) 2.01 Troponin I < 0.012 NT-Pro-B Natriuret Pep 12/12/18 12/12/18 12/12/18 03:18 09:22 09:22 Creatine Kinase 139 CK-MB (CK-2) 1.60 2.00 Troponin I < 0.012 < 0.012 NT-Pro-B Natriuret Pep 100 12/12/18 12/12/18 15:41 15:41 Creatine Kinase 142 CK-MB (CK-2) 2.11 Troponin I < 0.012 NT-Pro-B Natriuret Pep Impressions: Chest X-Ray 12/11/18 20:18 IMPRESSION: Underlying COPD. No acute cardiopulmonary process copyright 2011 [employer]- All Rights Reserved Assessment & Plan - Diagnosis (1) Acute and chronic respiratory failure with hypoxia Is this a current diagnosis for this admission?: Yes Plan: Secondary to COPD exacerbation. Improving but not at baseline yet. Saturating well on 3 lpm via NC this morning. 12/20/2018 patient was admitted with acute on chronic respiratory failure with hypoxia. Pulse oxes are 97% on 3 L. He uses 2 L oxygen at home. We are going to put him on 2 L oxygen and decreased IV Solu-Medrol to 40 mg daily. Continue the nebulization treatments. Probably discharge home tomorrow. Cultures are negative. (2) Chronic respiratory failure Is this a current diagnosis for this admission?: Yes Plan: On 2L of home O2 for his COPD. 12/20/2018-patient has history of COPD secondary to smoking. He uses 2 L oxygen at home. He is also using CPAP at night. Is almost back to baseline. We are going to watch him another day probably discharge him home on 2 L oxygen. (3) CAD (coronary artery disease) Is this a current diagnosis for this admission?: Yes Plan: 12/20/2018 patient has history of coronary artery disease no complaints of chest pain during the hospital stay. He is on Plavix aspirin and statin. Plan is to continue the present management. (4) FRED on CPAP Is this a current diagnosis for this admission?: Yes Plan: 12/20/2018 patient history of obstructive sleep apnea on CPAP at home. Initially he is on BiPAP for the couple of days during this hospital stay. And is still using BIPAP at night. - Time Time Spent with patient: 15-24 minutes Smoking Cessation Education: 3 to 10 minutes Medications reviewed and adjusted accordingly: Yes Anticipated discharge: Home
[2018-12-20] MEDS ORDERED: IPRATROPIUM/ALBUTEROL 0.5-2.5 MG/3 ML AMPUL NEB ONE (11:15)
[2018-12-20 11:17] LABS: HEMATOCRIT 36.2 % (37.9-51.0); HEMOGLOBIN 12.5 g/dL (13.5-17.0); MEAN CORPUSCULAR HEMOGLOBIN 30.2 pg (27.0-33.4); MEAN CORPUSCULAR HGB CONC 34.6 g/dL (32.0-36.0); MEAN CORPUSCULAR VOLUME 87 fl (80-97); PLATELET COUNT 355 10^3/uL (150-450); RED BLOOD COUNT 4.15 10^6/uL (4.35-5.55); RED CELL DISTRIBUTION WIDTH 14.2 % (11.5-14.0)
[2018-12-20 11:38] LABS: ABSOLUTE LYMPHOCYTES# (MANUAL) 1.8 10^3/uL (0.5-4.7); ABSOLUTE MONOCYTES # (MANUAL) 0.1 10^3/uL (0.1-1.4); ABSOLUTE NEUTROPHILS# (MANUAL) 8.9 10^3/uL (1.7-8.2); BASOPHILS % (MANUAL) 0 % (0-2); EOSINOPHILS % (MANUAL) 2 % (0-6); LYMPHOCYTES % (MANUAL) 16 % (13-45); METAMYELOCYTES % (MANUAL) 1 % (0); MONOCYTES % (MANUAL) 1 % (3-13); SEGMENTED NEUTROPHILS % (MAN) 80 % (42-78); TOTAL CELLS COUNTED 100
[2018-12-20 11:39] LABS: ANISOCYTOSIS SLIGHT; OVALOCYTES SLIGHT; PLATELET COMMENT ADEQUATE; POIKILOCYTOSIS SLIGHT
[2018-12-20 11:41] LABS: ALANINE AMINOTRANSFERASE 86 U/L (21-72); ALBUMIN 3.1 g/dL (3.5-5.0); ALKALINE PHOSPHATASE 45 U/L (38-126); ANION GAP 6 (5-19); ASPARTATE AMINO TRANSFERASE 34 U/L (17-59); BILIRUBIN,DIRECT 0.2 mg/dL (0.0-0.4); BILIRUBIN,TOTAL 0.4 mg/dL (0.2-1.3); BLOOD UREA NITROGEN 21 mg/dL (7-20); CALCIUM 9.2 mg/dL (8.4-10.2); CARBON DIOXIDE 30 mmol/L (22-30); CHLORIDE 99 mmol/L (98-107); GLUCOSE 103 mg/dL (75-110); POTASSIUM 3.8 mmol/L (3.6-5.0); SODIUM 135.4 mmol/L (137-145); TOTAL PROTEIN 5.2 g/dL (6.3-8.2)
[2018-12-20] MEDS ORDERED: IPRATROPIUM/ALBUTEROL 0.5-2.5 MG/3 ML AMPUL NEB SCH ×2 (13:00→16:00)
[2018-12-20] MEDS: ASCORBIC ACID 500 MG TABLET PO SCH (18:10)
[2018-12-20] MEDS: FOLIC ACID 1 MG TABLET PO SCH (21:57)
[2018-12-20] MEDS: ATORVASTATIN CALCIUM 40 MG TABLET PO SCH (21:57)
[2018-12-20] MEDS: CYANOCOBALAMIN (VITAMIN B-12) 1,000 MCG TABLET PO SCH (21:58)
[2018-12-21] MEDS: IPRATROPIUM/ALBUTEROL 0.5-2.5 MG/3 ML AMPUL NEB SCH ×3 (03:21→12:06)
[2018-12-21] MEDS: HEPARIN SOD (PORCINE) 5,000 UNIT/ML 1 ML SYRINGE SUBCUT SCH (05:42)
[2018-12-21 06:26] LABS: HEMOGLOBIN 12.4 g/dL (13.5-17.0); MEAN CORPUSCULAR HEMOGLOBIN 30.1 pg (27.0-33.4); MEAN CORPUSCULAR HGB CONC 34.5 g/dL (32.0-36.0); MEAN CORPUSCULAR VOLUME 87 fl (80-97); PLATELET COUNT 360 10^3/uL (150-450); RED BLOOD COUNT 4.13 10^6/uL (4.35-5.55); RED CELL DISTRIBUTION WIDTH 14.3 % (11.5-14.0); WHITE BLOOD COUNT 12.5 10^3/uL (4.0-10.5)
[2018-12-21 07:00] LABS: ALANINE AMINOTRANSFERASE 93 U/L (21-72); ALBUMIN 3.3 g/dL (3.5-5.0); ALKALINE PHOSPHATASE 43 U/L (38-126); ANION GAP 6 (5-19); ASPARTATE AMINO TRANSFERASE 40 U/L (17-59); BILIRUBIN,DIRECT 0.2 mg/dL (0.0-0.4); BILIRUBIN,TOTAL 0.5 mg/dL (0.2-1.3); BLOOD UREA NITROGEN 22 mg/dL (7-20); CALCIUM 9.4 mg/dL (8.4-10.2); CARBON DIOXIDE 32 mmol/L (22-30); CHLORIDE 98 mmol/L (98-107); GLUCOSE 80 mg/dL (75-110); POTASSIUM 4.1 mmol/L (3.6-5.0); SODIUM 136.3 mmol/L (137-145); TOTAL PROTEIN 5.1 g/dL (6.3-8.2)
[2018-12-21 07:11] LABS: ABSOLUTE LYMPHOCYTES# (MANUAL) 3.3 10^3/uL (0.5-4.7); ABSOLUTE NEUTROPHILS# (MANUAL) 8.3 10^3/uL (1.7-8.2); BASOPHILS % (MANUAL) 0 % (0-2); EOSINOPHILS % (MANUAL) 0 % (0-6); LYMPHOCYTES % (MANUAL) 26 % (13-45); MONOCYTES % (MANUAL) 8 % (3-13); SEGMENTED NEUTROPHILS % (MAN) 66 % (42-78); TOTAL CELLS COUNTED 100
[2018-12-21 07:12] LABS: ANISOCYTOSIS SLIGHT; OVALOCYTES SLIGHT
[2018-12-21 07:13] LABS: PLATELET COMMENT ADEQUATE
[2018-12-21] MEDS: METFORMIN HCL 500 MG TABLET PO SCH (07:26)
[2018-12-21] MEDS: INSULIN REG, HUMAN 100 UNIT/ML 3 ML VIAL (PYX) SUBCUT SCH (07:27)
[2018-12-21] MEDS: CLOPIDOGREL BISULFATE 75 MG TABLET PO SCH (09:41)
[2018-12-21] MEDS: ASPIRIN 81 MG TABLET, CHEWABLE PO SCH (09:41)
[2018-12-21] MEDS: FERROUS SULFATE 325 MG TABLET PO SCH (09:41)
[2018-12-21] MEDS: AMLODIPINE BESYLATE 2.5 MG TABLET PO SCH (09:41)
[2018-12-21] MEDS: ROFLUMILAST 500 MCG TABLET PO SCH (09:42)
[2018-12-21] MEDS: LISINOPRIL 10 MG TABLET PO SCH (09:43)
[2018-12-21] MEDS: METOPROLOL SUCCINATE 50 MG TAB.SR.24H PO SCH (09:43)
[2018-12-21] MEDS: HYDROCHLOROTHIAZIDE 12.5 MG TABLET PO SCH (09:43)
[2018-12-21] MEDS: DOCUSATE SODIUM 100 MG CAPSULE PO SCH (09:43)
[2018-12-21] MEDS: FAMOTIDINE 20 MG TABLET PO SCH (09:43)
[2018-12-21] MEDS: GUAIFENESIN 600 MG TABLET.SA PO SCH (09:44)
[2018-12-21] MEDS ORDERED: METHYLPREDNISOLONE INJ 40 MG/1 ML SDV IV SCH (10:00)
[2018-12-21 12:14] VITALS: BP 98/62
--- NOTE | 2018-12-21 16:33 | PDOC DISCHARGE SUMMARY ---
General - Admit/Disc Date/PCP Admission Date/Primary Care Provider: 12/11/18 22:11 ALEX JESUS MD Discharge Date: 12/21/18 - Discharge Diagnosis (1) Acute and chronic respiratory failure with hypoxia Is this a current diagnosis for this admission?: Yes Summary: Secondary to COPD exacerbation. Improving but not at baseline yet. Saturating well on 3 lpm via NC this morning. 12/20/2018 patient was admitted with acute on chronic respiratory failure with hypoxia. Pulse oxes are 97% on 3 L. He uses 2 L oxygen at home. We are going to put him on 2 L oxygen and decreased IV Solu-Medrol to 40 mg daily. Continue the nebulization treatments. Probably discharge home tomorrow. Cultures are negative. 12/21/2018 patient was admitted with acute on chronic respiratory failure with hypoxia which was resolved. Pulse ox on 2 L is 96%. He is going home on p.o. prednisone 10 mg twice daily. Patient was strongly advised to follow-up with Dr. Jesus in 1 week. (2) Chronic respiratory failure Is this a current diagnosis for this admission?: Yes Summary: On 2L of home O2 for his COPD. 12/20/2018-patient has history of COPD secondary to smoking. He uses 2 L oxygen at home. He is also using CPAP at night. Is almost back to baseline. We are going to watch him another day probably discharge him home on 2 L oxygen. 12/21/2018-patient has history of COPD secondary to smoking. He is on 2 L oxygen at home. He is also using CPAP at night. Plan was patient is advised to continue CPAP and 2 L oxygen at home. (3) CAD (coronary artery disease) Is this a current diagnosis for this admission?: Yes Summary: 12/20/2018 patient has history of coronary artery disease no complaints of chest pain during the hospital stay. He is on Plavix aspirin and statin. Plan is to continue the present management. 12/21/2018-patient has history of coronary artery disease he is on Plavix, aspirin, statin. Patient is asymptomatic during the hospital stay. Advised to continue the present management. (4) FRED on CPAP Is this a current diagnosis for this admission?: Yes Summary: 12/20/2018 patient history of obstructive sleep apnea on CPAP at home. Initially he is on BiPAP for the couple of days during this hospital stay. And is still using BIPAP at night. 12/21/2018-patient has history of obstructive sleep apnea and CPAP at night. He initially is on BiPAP. It was switched to CPAP 2 days ago patient is asymptomatic. Advised to continue these measures at home. - Additional Information Resuscitation Status: Full Code Discharge Diet: Diabetic Discharge Activity: Activity As Tolerated, Balance Activity w/Rest, Energy Conservation Prescriptions: Prednisone 10 mg PO BID #14 [email or web address] Home Medications: Albuterol Sulfate [Proair HFA Inhalation Aerosol 8.5 gm MDI] 2 puff IH QID PRN 09/26/18 Alendronate Sodium [Fosamax 70 mg Tablet] 70 mg PO WE@0600 09/26/18 Amlodipine Besylate [Norvasc 2.5 mg Tablet] 2.5 mg PO DAILY 09/26/18 Ascorbic Acid [Vitamin C 500 mg Tablet] 500 mg PO QPM 09/26/18 Atorvastatin Calcium [Lipitor 40 mg Tablet] 40 mg PO QHS 09/26/18 Clopidogrel Bisulfate [Plavix 75 mg Tablet] 75 mg PO DAILY 09/26/18 Cyanocobalamin (Vitamin B-12) [B-12] 1,000 mcg PO QHS 09/26/18 Ferrous Sulfate [Feosol] 325 mg PO BID 09/26/18 Fluticasone/Umeclidin/Vilanter [Trelegy 100-62.5-25 Mcg Ellipta 14 Dose/Dpi] 1 inh IH DAILY 09/26/18 Folic Acid [Folvite 1 mg Tablet] 1 mg PO QHS 09/26/18 Ipratropium/Albuterol Sulfate [Duoneb 3 ml Ampul] 3 ml NEB 5XD 09/26/18 Lisinopril/Hydrochlorothiazide [Lisinopril-Hctz 10-12.5 mg Tab] 1 each PO DAILY 09/26/18 Metformin HCl [Glucophage XR 500 mg Tablet] 500 mg PO BIDACBS 09/26/18 Metoprolol Succinate [Toprol Xl 50 mg Tab.sr] 50 mg PO DAILY 09/26/18 Roflumilast [Daliresp 500 mcg Tablet] 500 mcg PO DAILY 09/26/18 Acetaminophen [Tylenol Extra Strength 500 mg Tablet] 1 tab PO Q8 PRN 12/12/18 Aspirin [Adult Aspirin] 81 mg PO DAILY 12/12/18 Aspirin [Aspirin 81 mg Chewable Tablet] 81 mg PO DAILY tab.chew 12/21/18 Famotidine [Pepcid 20 mg Tablet] 20 mg PO Q12 tablet 12/21/18 Guaifenesin [Mucinex Sr 600 mg Tablet.sa] 1,200 mg PO Q12 tablet.sa 12/21/18 Hydrochlorothiazide [Hydrodiuril 12.5 mg Tablet] 12.5 mg PO DAILY tablet 12/21/18 Prednisone 10 mg PO BID #14 tab.ds.pk 12/21/18 History of Present Illness History of Present Illness: ELIA ROSENBAUM is a 58 year old male 58 year old male who presented to the emergency room with a 1 day history of progressively worsening dyspnea. He admits that he began having some shortness of breath and general malaise on the evening prior to his admission and this initially improved overnight but recurred this morning and continued to worsen through the following day to the point where he became so severely dyspneic that he was gasping for air and working very hard to breathe. He denies any accompanying symptoms, but he does admit numerous prior similar episodes due to his COPD. He has not identified any aggravating or ameliorating factors for his current episode of dyspnea. Patient is oxygen dependent at 2 L/min via nasal cannula on a continuous basis at home. In the emergency room he was found to have a fever of 102.9 F and severe dyspnea with respiratory failure requiring placement of BiPAP immediately. His emergency room evaluation showed acute kidney injury as well as a mildly elevated white count at 15,100. His chest x- ray was unremarkable for acute changes. Patient showed significant improvement with BiPAP and is subsequently being admitted for further evaluation and treatment. Physical Exam Vital Signs: Temp Pulse Resp BP Pulse Ox 97.6 F 61 18 98/62 L 96 12/21/18 11:02 12/21/18 12:07 12/21/18 12:07 12/21/18 11:02 12/21/18 12:07 Intake & Output 12/20/18 12/21/18 12/22/18 06:59 06:59 06:59 Intake Total 1225 136 240 Output Total 7926 7222 400 Balance 289 -0636 -933 Weight 80.6 kg 76.2 kg General appearance: PRESENT: no acute distress Head exam: PRESENT: atraumatic Eye exam: PRESENT: PERRLA Teeth exam: PRESENT: poor dentation Neck exam: ABSENT: carotid bruit, JVD, lymphadenopathy, thyromegaly Respiratory exam: PRESENT: decreased breath sounds Cardiovascular exam: PRESENT: RRR. ABSENT: diastolic murmur, rubs, systolic murmur GI/Abdominal exam: PRESENT: normal bowel sounds, soft. ABSENT: distended, guarding, mass, organolmegaly, rebound, tenderness Extremities exam: PRESENT: full ROM. ABSENT: calf tenderness, clubbing, pedal edema Neurological exam: PRESENT: alert, awake, oriented to person, oriented to place, oriented to time, oriented to situation, CN II-XII grossly intact. ABSENT: motor sensory deficit Psychiatric exam: PRESENT: appropriate affect, normal mood. ABSENT: homicidal ideation, suicidal ideation Results Laboratory Results: 12/21/18 05:21 12/21/18 05:21 12/21/18 12/21/18 05:21 05:21 WBC 12.5 H RBC 4.13 L Hgb 12.4 L Hct 36.0 L MCV 87 MCH 30.1 MCHC 34.5 RDW 14.3 H Plt Count 360 Seg Neutrophils % Not Reportable Lymphocytes % Not Reportable Monocytes % Not Reportable Eosinophils % Not Reportable Basophils % Not Reportable Absolute Neutrophils Not Reportable Absolute Lymphocytes Not Reportable Absolute Monocytes Not Reportable Absolute Eosinophils Not Reportable Absolute Basophils Not Reportable Sodium 136.3 L Potassium 4.1 Chloride 98 Carbon Dioxide 32 H Anion Gap 6 BUN 22 H Creatinine 0.77 Est GFR ( Amer) > 60 Est GFR (Non-Af Amer) > 60 Glucose 80 Calcium 9.4 Magnesium 1.6 Total Bilirubin 0.5 AST 40 ALT 93 H Alkaline Phosphatase 43 Total Protein 5.1 L Albumin 3.3 L 12/11/18 12/11/18 12/12/18 20:30 20:30 03:18 Creatine Kinase 140 127 CK-MB (CK-2) 2.01 Troponin I < 0.012 NT-Pro-B Natriuret Pep 12/12/18 12/12/18 12/12/18 03:18 09:22 09:22 Creatine Kinase 139 CK-MB (CK-2) 1.60 2.00 Troponin I < 0.012 < 0.012 NT-Pro-B Natriuret Pep 100 12/12/18 12/12/18 15:41 15:41 Creatine Kinase 142 CK-MB (CK-2) 2.11 Troponin I < 0.012 NT-Pro-B Natriuret Pep Impressions: Chest X-Ray 12/11/18 20:18 IMPRESSION: Underlying COPD. No acute cardiopulmonary process copyright 2010 [employer]- All Rights Reserved Qualifiers - * PATIENT BEING DISCHARGED WITH ANY OF THE FOLLOWING DIAGNOSIS: No VTE patient discharged on overlapping Therapy?: Yes
== END 2018-12-21 12:50 | disposition home or self-care (01) | DRG 189 ==
LOC: ER 20:02 → EH 22:11 → 2N 12-12 18:08 → 3W 12-13 12:17 → 4N 12-15 03:30
PROVIDERS: ADMIT Emergency Medicine; ATTEND Emergency Medicine
DX: J96.21 Acute and chronic respiratory failure with hypoxia (principal); J44.1 Chronic obstructive pulmonary disease with (acute) exacerbation; N17.9 Acute kidney failure, unspecified; E11.9 Type 2 diabetes mellitus without complications; I25.10 Atherosclerotic heart disease of native coronary artery without angina pectoris; I10 Essential (primary) hypertension; G47.33 Obstructive sleep apnea (adult) (pediatric); F17.210 Nicotine dependence, cigarettes, uncomplicated; Z99.81 Dependence on supplemental oxygen; Z79.84 Long term (current) use of oral hypoglycemic drugs; Z79.2 Long term (current) use of antibiotics; Z79.51 Long term (current) use of inhaled steroids; Z79.52 Long term (current) use of systemic steroids; Z79.899 Other long term (current) drug therapy
CPT/HCPCS: 36415; 71045; 80048; 80053; 80061; 81001; 82550; 82553; 82803; 82962; 83036; 83605; 83735; 83880; 84439; 84443; 84481; 84484; 85025; 87040; 87493; 87804; 94640; 94660; 96365; 96375; 99291; J1644; J1815; J1956; J2920; J2930; J3475; J3490; J7030; J7120; J7620

== ENCOUNTER 2018-12-21 22:59 | Inpatient (IN) | payer MEDICARE, OTHER ==
[2018-12-21] MEDS ORDERED: MAGNESIUM SULFATE/D5W 2 GM/200 ML RTUPB IV ONE (23:03)
[2018-12-21] MEDS ORDERED: IPRATROPIUM/ALBUTEROL 0.5-2.5 MG/3 ML AMPUL NEB ONE ×2 (23:03)
[2018-12-21] MEDS ORDERED: METHYLPREDNISOLONE INJ 125 MG/2 ML SDV IV ONE (23:03)
[2018-12-21] MEDS ORDERED: METHYLPREDNISOLONE INJ 125 MG/2 ML SDV ONE (23:03)
--- NOTE | 2018-12-21 23:03 | ER Document Report ---
ED Respiratory Problem - General Stated Complaint: shortness of breath Time Seen by Provider: 12/21/18 23:03 Notes: 58-year-old male to the emergency department for evaluation of severe shortness of breath. Patient was just discharged today after being admitted for ap proximately a week for COPD and respiratory failure. Oxygen saturations were in the low 80s in triage. Patient brought immediately back. Patient does admit that he went home and started smoking cigarettes again. Denies any chest pain. Just cannot get a breath. Has oxygen at home. Has a CPAP at home but did not use it. TRAVEL OUTSIDE OF THE [place] IN LAST 30 DAYS: No - HPI Patient complains to provider of: COPD, Short of breath Onset: Just prior to arrival Duration: Worse/persistent Quality of pain: No pain Severity: Severe Context: Hx COPD Short of Breath: Severe - Related Data Allergies/Adverse Reactions: No Known Allergies Allergy (Verified 12/21/18 23:31) Past Medical History - General Information source: Patient - Social History Smoking Status: Current Every Day Smoker Frequency of alcohol use: None Drug Abuse: None Lives with: Family Family History: CAD, DM - Past Medical History Cardiac Medical History: Reports: Hx Coronary Artery Disease, Hx Heart Attack, Hx Hypertension Pulmonary Medical History: Reports: Hx COPD, Hx Pneumonia, Hx Respiratory Failure - Chronic hypoxic respiratory failure on O2 2 L/min per nasal cannula cont., Hx Sleep Apnea Neurological Medical History: Denies: Hx Seizures Endocrine Medical History: Reports: Hx Diabetes Mellitus Type 2. Denies: Hx Hyperthyroidism, Hx Hypothyroidism Renal/ Medical History: Denies: Hx Peritoneal Dialysis GI Medical History: Denies: Hx Cirrhosis, Hx Crohn's Disease, Hx Hepatitis, Hx Ulcerative Colitis Musculoskeletal Medical History: Denies Hx Arthritis, Denies Hx Gout Skin Medical History: Denies Hx Eczema, Denies Hx Psoriasis Psychiatric Medical History: Denies: Hx Depression Traumatic Medical History: Denies: Hx Traumatic Brain Injury Infectious Medical History: Denies: Hx Hepatitis Past Surgical History: Reports: Hx Cardiac Catheterization, Hx Coronary Stent - right coronary artery stents x4 - Immunizations Hx Diphtheria, Pertussis, Tetanus Vaccination: No Hx Pneumococcal Vaccination: 08/15/16 Review of Systems - Review of Systems -: Yes ROS unobtainable due to patient's medical condition - Severe dyspnea making review of systems difficult to obtain Physical Exam - Vital signs Vitals: Temp Resp Pulse Ox 97.6 F 56 H 92 12/21/18 22:59 12/21/18 22:59 12/21/18 22:59 Interpretation: Tachycardic, Hypoxic, Tachypneic - General General appearance: Appears well, Alert - HEENT Head: Normocephalic, Atraumatic Eyes: Normal Pupils: PERRL - Respiratory Respiratory status: Respiratory distress, Labored, Pursed lip breathing, Retractions, Tachypnea, Tripod position Chest status: Nontender Breath sounds: Decreased air movement, Wheezing Chest palpation: Normal - Cardiovascular Rhythm: Tachycardia Heart sounds: Normal auscultation Murmur: No - Abdominal Inspection: Normal Distension: No distension Bowel sounds: Normal Tenderness: Nontender Organomegaly: No organomegaly - Back Back: Normal, Nontender - Extremities General upper extremity: Normal inspection, Nontender, Normal color, Normal ROM, Normal temperature General lower extremity: Normal inspection, Nontender, Normal color, Normal ROM, Normal temperature, Normal weight bearing. No: Lila's sign - Neurological Neuro grossly intact: Yes Cognition: Normal Orientation: AAOx4 Yuliet Coma Scale Eye Opening: Spontaneous [place] Coma Scale Verbal: Oriented [place] Coma Scale Motor: Obeys Commands [place] Coma Scale Total: 15 Speech: Normal Motor strength normal: LUE, RUE, LLE, RLE Sensory: Normal - Psychological Associated symptoms: Normal affect, Normal mood - Skin Skin Temperature: Warm Skin Moisture: Dry Skin Color: Normal Course - Re-evaluation Re-evalutation: 12/22/18 04:58 Patient has severe dyspnea. BiPAP ordered immediately. Blood gas is remarkable for low oxygen level. Not significantly hypercarbic. PH is normal. Tolerating BiPAP well. Will start on steroids and hold on the antibiotics at this time. Will consult with hospitalist for admission. - Vital Signs Vital signs: Temp Pulse Resp BP Pulse Ox 97.5 F 20 96/65 L 97 12/22/18 02:24 12/22/18 04:25 12/22/18 04:01 12/22/18 04:01 - Laboratory Result Diagrams: 12/21/18 23:05 12/21/18 23:05 Laboratory results interpreted by me: 12/21/18 12/21/18 12/21/18 23:05 23:05 23:22 WBC 19.5 H RDW 14.4 H Band Neutrophils % 1 L Abs Neuts (Manual) 15.2 H ABG pO2 ABG HCO3 ABG Total CO2 VBG pH 7.48 H Sodium 135.2 L Chloride 97 L BUN 29 H Glucose 125 H AST 85 H ALT 154 H Total Protein 6.2 L 12/21/18 23:44 WBC RDW Band Neutrophils % Abs Neuts (Manual) ABG pO2 73.6 L ABG HCO3 26.9 H ABG Total CO2 28.1 H VBG pH Sodium Chloride BUN Glucose AST ALT Total Protein Critical Care Note - Critical Care Note Total time excluding time spent on procedures (mins): 45 Comments: hypoxia, resp disress Discharge - Discharge Clinical Impression: Acute respiratory failure with hypoxia, COPD exacerbation Condition: Fair Disposition: ADMITTED INPATIENT Admitting Provider: [facility] Unit Admitted: Medical Floor
[2018-12-21] MEDS: MAGNESIUM SULFATE/D5W 1 GM/100 ML RTUPB IV SCH ×2 (23:10→23:25)
[2018-12-21 23:20] LABS: HEMATOCRIT 42.1 % (37.9-51.0); HEMOGLOBIN 14.2 g/dL (13.5-17.0); MEAN CORPUSCULAR HEMOGLOBIN 29.5 pg (27.0-33.4); MEAN CORPUSCULAR HGB CONC 33.8 g/dL (32.0-36.0); MEAN CORPUSCULAR VOLUME 87 fl (80-97); PLATELET COUNT 450 10^3/uL (150-450); RED BLOOD COUNT 4.82 10^6/uL (4.35-5.55); RED CELL DISTRIBUTION WIDTH 14.4 % (11.5-14.0); WHITE BLOOD COUNT 19.5 10^3/uL (4.0-10.5)
[2018-12-21 23:33] LABS: ALANINE AMINOTRANSFERASE 154 U/L (21-72); ALBUMIN 4.1 g/dL (3.5-5.0); ALKALINE PHOSPHATASE 60 U/L (38-126); ANION GAP 9 (5-19); ASPARTATE AMINO TRANSFERASE 85 U/L (17-59); BILIRUBIN,DIRECT 0.1 mg/dL (0.0-0.4); BILIRUBIN,TOTAL 0.5 mg/dL (0.2-1.3); BLOOD UREA NITROGEN 29 mg/dL (7-20); CALCIUM 9.9 mg/dL (8.4-10.2); CARBON DIOXIDE 29 mmol/L (22-30); CHLORIDE 97 mmol/L (98-107); GLUCOSE 125 mg/dL (75-110); POTASSIUM 3.7 mmol/L (3.6-5.0); SODIUM 135.2 mmol/L (137-145); TOTAL PROTEIN 6.2 g/dL (6.3-8.2)
--- NOTE | 2018-12-21 23:34 | RADIOLOGY REPORT (SQ) ---
EXAM DESCRIPTION: XR CHEST 1 VIEW COMPLETED DATE/TME: 12/21/2018 23:04 CLINICAL HISTORY: 58 years, Male, sob COMPARISON: 12/11/2018 chest NUMBER OF VIEWS: 1 TECHNIQUE: Portable chest LIMITATIONS: None. FINDINGS: The heart size is normal. Osteopenia. Lungs are hyperinflated. Calcified granuloma right lung base. Lungs are otherwise clear. No pneumothorax IMPRESSION: Underlying hyperinflation. No acute cardiopulmonary process copyright 2010 [employer]- All Rights Reserved
[2018-12-21 23:37] LABS: VENOUS BLOOD BASE EXCESS 2.8 mmol/L; VENOUS BLOOD HCO3 26.5 mmol/L (20-32); VENOUS BLOOD PH 7.48 (7.30-7.42)
[2018-12-21 23:45] LABS: ABSOLUTE LYMPHOCYTES# (MANUAL) 2.9 10^3/uL (0.5-4.7); ABSOLUTE MONOCYTES # (MANUAL) 1.4 10^3/uL (0.1-1.4); ABSOLUTE NEUTROPHILS# (MANUAL) 15.2 10^3/uL (1.7-8.2); BAND NEUTROPHILS % (MANUAL) 1 % (3-5); BASOPHILS % (MANUAL) 0 % (0-2); EOSINOPHILS % (MANUAL) 0 % (0-6); LYMPHOCYTES % (MANUAL) 14 % (13-45); MONOCYTES % (MANUAL) 7 % (3-13); NT PRO BNP 182 pg/mL (5-900); NUCLEATED RED BLOOD CELLS 1 /100 WBC (0); SEGMENTED NEUTROPHILS % (MAN) 77 % (42-78); TOTAL CELLS COUNTED 100
[2018-12-21 23:46] LABS: ANISOCYTOSIS SLIGHT; PLATELET COMMENT ADEQUATE; TOXIC VACUOLATION PRESENT; TROPONIN I < 0.012 ng/mL
[2018-12-22 00:06] LABS: ARTERIAL BLOOD BASE EXCESS 2.8 mmol/L; ARTERIAL BLOOD H2CO3 1.19 mmol/L (1.05-1.35); ARTERIAL BLOOD HCO3 26.9 mmol/L (20-24); ARTERIAL BLOOD O2 SATURATION 95.4 % (94-98); ARTERIAL BLOOD PCO2 39.5 mmHg (35-45); ARTERIAL BLOOD PH 7.45 (7.35-7.45); ARTERIAL BLOOD PO2 73.6 mmHg (80-100); ARTERIAL BLOOD TOTAL CO2 28.1 mmol/L (23-27)
[2018-12-22 00:07] LABS: ARTERIAL BLOOD FIO2 35%
[2018-12-22] MEDS ORDERED: MAGNESIUM HYDROXIDE SUSP 30 ML UDCUP PO PRN (02:43)
[2018-12-22] MEDS ORDERED: ONDANSETRON HCL INJ/PF 4 MG/2 ML SDV IV PRN (02:43)
[2018-12-22] MEDS ORDERED: ONDANSETRON 4 MG TAB.RAPDIS PO PRN (02:43)
[2018-12-22] MEDS ORDERED: MAG HYDROX/AL HYDROX/SIMETH SUSP 30 ML UDCUP PO PRN (02:43)
[2018-12-22] MEDS ORDERED: ACETAMINOPHEN 325 MG TABLET PO PRN (02:51)
[2018-12-22] MEDS ORDERED: NICOTINE 21 MG/24 HR PATCH.TD24 TD PRN (02:51)
[2018-12-22] MEDS ORDERED: DEXTROSE 40% GEL 15 GM TUBE PO PRN ×2 (02:55)
[2018-12-22] MEDS ORDERED: GLUCAGON,HUMAN RECOMB 1 MG INJ IM PRN (02:55)
[2018-12-22] MEDS ORDERED: DEXTROSE 50%-WATER 25 GM/50 ML DISP.SYRIN IV PRN ×2 (02:55)
[2018-12-22] MEDS: ALBUTEROL SULFATE 0.083% NEB 2.5 MG/3 ML AMPUL NEB PRN ×2 (03:26→12:09)
--- NOTE | 2018-12-22 04:11 | PDOC H&P ---
History of Present Illness Admission Date/PCP: 12/22/18 02:27 ALEX FIELDS MD Patient complains of: Dyspnea History of Present Illness: ELIA ROSENBAUM is a 58 year old male who presented to the hospital just a few hours after he was discharged to home complaining of a recurrence of his dyspnea. He admits that after leaving the hospital today even though he did not feel "back to normal" he did return to home and began smoking cigarettes. After smoking he noticed that he had become more dyspneic and he tried using his nebulizer therapy administering several treatments to himself without significant improvement. His dyspnea continued to worsen and he did not attempt to use his CPAP at home but instead called for the EMS team to bring him back to the hospital. He admits numerous similar previous episodes and now understands that smoking does indeed worsen his dyspnea. He has not found any ameliorating factors for his dyspnea other than treatment in the hospital. In the emergency room he was found to be hypoxic and dyspneic with significant work of breathing requiring BiPAP respiratory support. Because of his worsened condition he was readmitted to the hospital for further evaluation and treatment. Past Medical History Cardiac Medical History: Reports: Coronary Artery Disease, Myocardial Infarction, Hypertension Pulmonary Medical History: Reports: Chronic Obstructive Pulmonary Disease (COPD), Pneumonia, Respiratory Failure - Chronic hypoxic respiratory failure on O2 2 L/min per nasal cannula cont., Sleep Apnea EENT Medical History: Reports: None Neurological Medical History: Denies: Multiple Sclerosis, Seizures Endocrine Medical History: Reports: Diabetes Mellitus Type 2 Denies: Diabetes Mellitus Type 1, Hyperthyroidism, Hypothyroidism Renal/ Medical History: Denies: Chronic Kidney Disease, Nephrolithiasis Malignancy Medical History: Reports: None GI Medical History: Denies: Cirrhosis, Crohn's Disease, Hepatitis, Ulcerative Colitis Musculoskeltal Medical History: Denies: Arthritis, Gout Skin Medical History: Denies: Eczema, Psoriasis Psychiatric Medical History: Reports: Tobacco Dependency Denies: Alcohol Dependency, Depression, Substance Abuse Traumatic Medical History: Reports: None Denies: Traumatic Brain Injury Hematology: Reports: Anemia Denies: Sickle Cell Disease, Bleeding Tendencies Infectious Medical History: Reports: None Past Surgical History Past Surgical History: Reports: Cardiac Catheterization, Coronary Stent - right coronary artery stents x4 Social History Information Source: Patient Lives with: Spouse/Significant other Smoking Status: Current Every Day Smoker Frequency of Alcohol Use: None Hx Recreational Drug Use: No Drugs: None Hx Prescription Drug Abuse: No - Advance Directive Resuscitation Status: Full Code Surrogate healthcare decision maker:: Family History Family History: CAD, DM Parental Family History Reviewed: Yes Children Family History Reviewed: No Sibling(s) Family History Reviewed.: Yes Medication/Allergy Home Medications: Albuterol Sulfate [Proair HFA Inhalation Aerosol 8.5 gm MDI] 2 puff IH QID PRN 09/26/18 Alendronate Sodium [Fosamax 70 mg Tablet] 70 mg PO WE@0600 09/26/18 Amlodipine Besylate [Norvasc 2.5 mg Tablet] 2.5 mg PO DAILY 09/26/18 Ascorbic Acid [Vitamin C 500 mg Tablet] 500 mg PO QPM 09/26/18 Atorvastatin Calcium [Lipitor 40 mg Tablet] 40 mg PO QHS 09/26/18 Clopidogrel Bisulfate [Plavix 75 mg Tablet] 75 mg PO DAILY 09/26/18 Cyanocobalamin (Vitamin B-12) [B-12] 1,000 mcg PO QHS 09/26/18 Ferrous Sulfate [Feosol] 325 mg PO BID 09/26/18 Fluticasone/Umeclidin/Vilanter [Trelegy 100-62.5-25 Mcg Ellipta 14 Dose/Dpi] 1 inh IH DAILY 09/26/18 Folic Acid [Folvite 1 mg Tablet] 1 mg PO QHS 09/26/18 Ipratropium/Albuterol Sulfate [Duoneb 3 ml Ampul] 3 ml NEB 5XD 09/26/18 Lisinopril/Hydrochlorothiazide [Lisinopril-Hctz 10-12.5 mg Tab] 1 each PO DAILY 09/26/18 Metformin HCl [Glucophage XR 500 mg Tablet] 500 mg PO BIDACBS 09/26/18 Metoprolol Succinate [Toprol Xl 50 mg Tab.sr] 50 mg PO DAILY 09/26/18 Roflumilast [Daliresp 500 mcg Tablet] 500 mcg PO DAILY 09/26/18 Acetaminophen [Tylenol Extra Strength 500 mg Tablet] 1 tab PO Q8 PRN 12/12/18 Aspirin [Adult Aspirin] 81 mg PO DAILY 12/12/18 Aspirin [Aspirin 81 mg Chewable Tablet] 81 mg PO DAILY tab.chew 12/21/18 Famotidine [Pepcid 20 mg Tablet] 20 mg PO Q12 tablet 12/21/18 Guaifenesin [Mucinex Sr 600 mg Tablet.sa] 1,200 mg PO Q12 tablet.sa 12/21/18 Hydrochlorothiazide [Hydrodiuril 12.5 mg Tablet] 12.5 mg PO DAILY tablet 12/21/18 Prednisone 10 mg PO BID #14 tab.ds.pk 12/21/18 Allergies/Adverse Reactions: No Known Allergies Allergy (Verified 12/21/18 23:31) Review of Systems Constitutional: ABSENT: chills, fever(s) Eyes: ABSENT: visual disturbances, other - Ocular pain Ears: ABSENT: hearing changes, other - Ear pain Nose, Mouth, and Throat: ABSENT: sore throat Cardiovascular: PRESENT: dyspnea on exertion. ABSENT: chest pain, orthropnea, palpitations Respiratory: PRESENT: dyspnea. ABSENT: cough Gastrointestinal: ABSENT: abdominal pain, constipation, diarrhea, nausea, vomiting Genitourinary: ABSENT: difficulty urinating, dysuria Musculoskeletal: ABSENT: back pain, joint swelling Integumentary: ABSENT: pruritus, rash Neurological: ABSENT: confusion, convulsions, memory loss Psychiatric: ABSENT: anxiety, depression Endocrine: ABSENT: cold intolerance, heat intolerance Hematologic/Lymphatic: ABSENT: easy bleeding, easy bruising Physical Exam Vital Signs: Temp Pulse Resp BP Pulse Ox 97.5 F 20 98/70 L 96 12/22/18 02:24 12/22/18 01:46 12/22/18 01:46 12/22/18 01:46 Intake & Output 12/20/18 12/21/18 12/22/18 23:59 23:59 23:59 Intake Total 200 Balance 200 Weight 79 kg General appearance: PRESENT: no acute distress, cooperative, other - On BiPAP Head exam: PRESENT: atraumatic, normocephalic Eye exam: PRESENT: conjunctiva pink, EOMI. ABSENT: scleral icterus Ear exam: PRESENT: normal external ear exam. ABSENT: bleeding, drainage Mouth exam: PRESENT: dry mucosa, neck supple Neck exam: ABSENT: thyromegaly, tracheal deviation Respiratory exam: PRESENT: decreased breath sounds - Moderately decreased breath sounds throughout all [place] consistent with moderate to severe COPD., prolonged expiratory phas - Mildly prolonged expiratory phase in all [place], symmetrical, tachypnea - Mild tachypnea noted, wheezes Cardiovascular exam: PRESENT: RRR. ABSENT: clicks, gallop, rubs Pulses: PRESENT: normal radial pulses, normal dorsalis pedis pul GI/Abdominal exam: PRESENT: normal bowel sounds, soft Rectal exam: PRESENT: deferred Extremities exam: ABSENT: joint swelling, pedal edema Musculoskeletal exam: ABSENT: deformity, dislocation Neurological exam: PRESENT: alert, oriented to person, oriented to place, oriented to time, oriented to situation, CN II-XII grossly intact. ABSENT: motor sensory deficit Psychiatric exam: PRESENT: appropriate affect, normal mood Skin exam: PRESENT: dry, intact, warm. ABSENT: jaundice, rash, urticaria Results Laboratory Results: 12/21/18 23:05 12/21/18 23:05 12/21/18 12/21/18 12/21/18 23:05 23:05 23:22 WBC 19.5 H RBC 4.82 Hgb 14.2 Hct 42.1 MCV 87 MCH 29.5 MCHC 33.8 RDW 14.4 H Plt Count 450 Seg Neutrophils % Not Reportable Lymphocytes % Not Reportable Monocytes % Not Reportable Eosinophils % Not Reportable Basophils % Not Reportable Absolute Neutrophils Not Reportable Absolute Lymphocytes Not Reportable Absolute Monocytes Not Reportable Absolute Eosinophils Not Reportable Absolute Basophils Not Reportable Carbonic Acid HCO3/H2CO3 Ratio ABG pH ABG pCO2 ABG pO2 ABG HCO3 ABG O2 Saturation ABG Base Excess VBG pH 7.48 H VBG pCO2 36.0 VBG HCO3 26.5 VBG Base Excess 2.8 FiO2 Sodium 135.2 L Potassium 3.7 Chloride 97 L Carbon Dioxide 29 Anion Gap 9 BUN 29 H Creatinine 0.81 Est GFR ( Amer) > 60 Est GFR (Non-Af Amer) > 60 Glucose 125 H Calcium 9.9 Total Bilirubin 0.5 AST 85 H ALT 154 H Alkaline Phosphatase 60 Total Protein 6.2 L Albumin 4.1 12/21/18 23:44 WBC RBC Hgb Hct MCV MCH MCHC RDW Plt Count Seg Neutrophils % Lymphocytes % Monocytes % Eosinophils % Basophils % Absolute Neutrophils Absolute Lymphocytes Absolute Monocytes Absolute Eosinophils Absolute Basophils Carbonic Acid 1.19 HCO3/H2CO3 Ratio 22:1 ABG pH 7.45 ABG pCO2 39.5 ABG pO2 73.6 L ABG HCO3 26.9 H ABG O2 Saturation 95.4 ABG Base Excess 2.8 VBG pH VBG pCO2 VBG HCO3 VBG Base Excess FiO2 35% Sodium Potassium Chloride Carbon Dioxide Anion Gap BUN Creatinine Est GFR ( Amer) Est GFR (Non-Af Amer) Glucose Calcium Total Bilirubin AST ALT Alkaline Phosphatase Total Protein Albumin 12/21/18 23:05 Troponin I < 0.012 NT-Pro-B Natriuret Pep 182 Impressions: Chest X-Ray 12/21/18 23:04 IMPRESSION: Underlying hyperinflation. No acute cardiopulmonary process copyright 2010 [employer]- All Rights Reserved Assessment & Plan - Diagnosis (1) Acute and chronic respiratory failure with hypoxia Is this a current diagnosis for this admission?: Yes Plan: Patient will be treated with BiPAP and supplemental oxygen as required to maintain adequate oxygen saturation greater than 90%. He will receive additional supportive care as required. (2) Tobacco use disorder, severe, dependence Is this a current diagnosis for this admission?: Yes Plan: Patient has been advised to discontinue smoking and smoking cessation counseling has been provided briefly. A nicotine patch is available to patient for use. (3) COPD with acute exacerbation Is this a current diagnosis for this admission?: Yes (4) CAD (coronary artery disease) Qualifiers: Coronary Disease-Associated Artery/Lesion type: [place] artery [place] vs. transplanted heart: [place] heart Associated angina: angina presence unspecified Qualified Code(s): I25.10 - Atherosclerotic heart disease of [place] coronary artery without angina pectoris Is this a current diagnosis for this admission?: Yes Plan: Patient be continued on his usual cardiac medications with changes made only for absolute indications. (5) FRED on CPAP Is this a current diagnosis for this admission?: Yes Plan: Patient will be treated with BiPAP during his hospital course however once he is able to tolerate being off BiPAP during the day he will be treated with CPAP at night as he would be at home. If patient unable to tolerate CPAP at night with no further therapy he should be discharged home on BiPAP. (6) Diabetes mellitus type 2 in nonobese Is this a current diagnosis for this admission?: Yes Plan: Patient will be continued on his current diabetic medications and will also have a supplemental sliding scale insulin available to cover hyperglycemia. Hemoglobin A1c will be obtained to determine his diabetic therapeutic efficacy over the last 90 days. - Time Time Spent: 30 to 50 Minutes Critical Time spent with patient: Less than 15 minutes Smoking Cessation Education: 3 to 10 minutes Medications reviewed and adjusted accordingly: Yes Anticipated discharge: Home - Inpatient Certification Based on my medical assessment, after consideration of the patient's comorbidities, presenting symptoms, or acuity I expect that the services needed warrant INPATIENT care.: Yes I certify that my determination is in accordance with my understanding of Medicare's requirements for reasonable and necessary INPATIENT services [42 CFR 412.3e].: Yes Medical Necessity: Significant Comorbidiites Make Outpatient Treatment Too Risky, Need Close Monitoring Due to Risk of Patient Decompensation, Need for Nebulizer Therapy and Monitoring of Response, Risk of Complication if Not Cared For in Hospital
[2018-12-22 06:23] LABS: CREATINE KINASE MB 1.58 ng/mL (<4.55)
[2018-12-22 06:29] LABS: TROPONIN I < 0.012 ng/mL
[2018-12-22] MEDS: METHYLPREDNISOLONE INJ 40 MG/1 ML SDV IV SCH ×3 (06:54→18:44)
[2018-12-22] MEDS: HEPARIN SOD (PORCINE) 5,000 UNIT/ML 1 ML SYRINGE SUBCUT SCH ×3 (06:55→22:15)
[2018-12-22] MEDS: BUDESONIDE NEB 0.5 MG/2 ML AMPUL NEB SCH ×2 (07:51→20:01)
[2018-12-22] MEDS: LEVALBUTEROL HCL NEB 1.25 MG/3 ML AMPUL NEB SCH ×2 (07:51→16:05)
[2018-12-22] MEDS: IPRATROPIUM BROMIDE 0.02% NEB 0.5 MG/2.5 ML AMPUL NEB SCH ×2 (07:51→16:05)
[2018-12-22] MEDS ORDERED: (PENDING PHARMACY ID) (Metformin Hcl [Glucophage Xr 500 Mg Tablet] 500 MG) PO SCH (08:00)
--- NOTE | 2018-12-22 08:54 | PDOC PROGRESS REPORT ---
Subjective Progress Note for:: 12/22/18 Subjective:: 58 year old male who presented to the hospital just a few hours after he was discharged to home complaining of a recurrence of his dyspnea. He admits that after leaving the hospital today even though he did not feel "back to normal" he did return to home and began smoking cigarettes. After smoking he noticed that he had become more dyspneic and he tried using his nebulizer therapy administering several treatments to himself without significant improvement. His dyspnea continued to worsen and he did not attempt to use his CPAP at home but instead called for the EMS team to bring him back to the hospital. He admits numerous similar previous episodes and now understands that smoking does indeed worsen his dyspnea. He has not found any ameliorating factors for his dyspnea other than treatment in the hospital. In the emergency room he was found to be hypoxic and dyspneic with significant work of breathing requiring BiPAP respiratory support. Because of his worsened condition he was readmitted to the hospital for further evaluation and treatment. 12/22/2018 -58-year-old male with history of COPD chronic smoker he was discharged yesterday morning on p.o. prednisone and was advised to continue home oxygen at home. He was fine for a few hours at home after that started having the severe shortness of breath wheezing unable to walk from the bed to the bathroom. Try to use the inhalers and try to use the nebulizer treatments 4-5 times without any improvement so he decided to come to the emergency room again last night. He admitted to the overnight hospitalist that he started smoking again at home. On examination this morning patient is still on BiPAP. Alert and awake communicating very well. Pulse ox is 98% on 35% oxygen. Reason For Visit: ACUTE EXACERBATION OF COPD Physical Exam Vital Signs: Temp Pulse Resp BP Pulse Ox 97.7 F 17 100/63 96 12/22/18 07:05 12/22/18 06:31 12/22/18 06:31 12/22/18 06:31 Intake & Output 12/21/18 12/22/18 12/23/18 06:59 06:59 06:59 Intake Total 200 Balance 200 Weight 79 kg General appearance: PRESENT: mild distress Head exam: PRESENT: atraumatic Eye exam: PRESENT: PERRLA Mouth exam: PRESENT: dry mucosa Teeth exam: PRESENT: poor dentation Neck exam: ABSENT: carotid bruit, JVD, lymphadenopathy, thyromegaly Respiratory exam: PRESENT: crackles, decreased breath sounds, wheezes Cardiovascular exam: PRESENT: tachycardia GI/Abdominal exam: PRESENT: normal bowel sounds, soft. ABSENT: distended, guarding, mass, organolmegaly, rebound, tenderness Extremities exam: PRESENT: full ROM. ABSENT: calf tenderness, clubbing, pedal edema Neurological exam: PRESENT: alert, awake, oriented to person, oriented to place, oriented to time, oriented to situation, CN II-XII grossly intact. ABSENT: motor sensory deficit Psychiatric exam: PRESENT: appropriate affect, normal mood. ABSENT: homicidal ideation, suicidal ideation Results Laboratory Results: 12/21/18 23:05 12/21/18 23:05 12/21/18 12/21/18 12/21/18 23:05 23:05 23:22 WBC 19.5 H RBC 4.82 Hgb 14.2 Hct 42.1 MCV 87 MCH 29.5 MCHC 33.8 RDW 14.4 H Plt Count 450 Seg Neutrophils % Not Reportable Lymphocytes % Not Reportable Monocytes % Not Reportable Eosinophils % Not Reportable Basophils % Not Reportable Absolute Neutrophils Not Reportable Absolute Lymphocytes Not Reportable Absolute Monocytes Not Reportable Absolute Eosinophils Not Reportable Absolute Basophils Not Reportable Carbonic Acid HCO3/H2CO3 Ratio ABG pH ABG pCO2 ABG pO2 ABG HCO3 ABG O2 Saturation ABG Base Excess VBG pH 7.48 H VBG pCO2 36.0 VBG HCO3 26.5 VBG Base Excess 2.8 FiO2 Sodium 135.2 L Potassium 3.7 Chloride 97 L Carbon Dioxide 29 Anion Gap 9 BUN 29 H Creatinine 0.81 Est GFR ( Amer) > 60 Est GFR (Non-Af Amer) > 60 Glucose 125 H Calcium 9.9 Total Bilirubin 0.5 AST 85 H ALT 154 H Alkaline Phosphatase 60 Total Protein 6.2 L Albumin 4.1 12/21/18 23:44 WBC RBC Hgb Hct MCV MCH MCHC RDW Plt Count Seg Neutrophils % Lymphocytes % Monocytes % Eosinophils % Basophils % Absolute Neutrophils Absolute Lymphocytes Absolute Monocytes Absolute Eosinophils Absolute Basophils Carbonic Acid 1.19 HCO3/H2CO3 Ratio 22:1 ABG pH 7.45 ABG pCO2 39.5 ABG pO2 73.6 L ABG HCO3 26.9 H ABG O2 Saturation 95.4 ABG Base Excess 2.8 VBG pH VBG pCO2 VBG HCO3 VBG Base Excess FiO2 35% Sodium Potassium Chloride Carbon Dioxide Anion Gap BUN Creatinine Est GFR ( Amer) Est GFR (Non-Af Amer) Glucose Calcium Total Bilirubin AST ALT Alkaline Phosphatase Total Protein Albumin 12/21/18 12/22/18 12/22/18 23:05 05:36 05:36 Creatine Kinase 33 L CK-MB (CK-2) 1.58 Troponin I < 0.012 < 0.012 NT-Pro-B Natriuret Pep 182 Impressions: Chest X-Ray 12/21/18 23:04 IMPRESSION: Underlying hyperinflation. No acute cardiopulmonary process copyright 2010 [employer]- All Rights Reserved Assessment & Plan - Diagnosis (1) Acute respiratory failure with hypoxia Is this a current diagnosis for this admission?: Yes Plan: Patient will be treated with BiPAP and supplemental oxygen as required to main tain adequate oxygen saturation greater than 90%. He will receive additional supportive care as required. 12/22/2018-patient is presently on BiPAP, pulse ox is 96% on 35% oxygen. Pulse ox 135.7 and oxygen yesterday pH is 7.45/PCO2 40/PO2 73.6/bicarb is 27. Plan is to continue BiPAP as needed, IV Solu-Medrol 40 mg every 6 hours, scheduled nebulizer treatments. Patient is presently on Xopenex nebs every 8 hours and albuterol nebulizations every hour as needed. Plan to repeat the ABG today and do the follow-up chest x-rays tomorrow. Admission chest x-ray ruled out any pneumonia. (2) COPD exacerbation Is this a current diagnosis for this admission?: Yes Plan: 12/22/2018-patient has history of COPD secondary to chronic smoking. He is a current smoker. He is uses 2 L oxygen at home. He uses CPAP at night at home. We are going to resume the CPAP orders were during this hospital stay. Patient does not want to be on nicotine patch. Patient is presently on albuterol nebulization, Xopenex nebulizations, IV steroids. Plan is to continue the present management. (3) FRED on CPAP Is this a current diagnosis for this admission?: Yes Plan: Patient will be treated with BiPAP during his hospital course however once he is able to tolerate being off BiPAP during the day he will be treated with CPAP at night as he would be at home. If patient unable to tolerate CPAP at night with no further therapy he should be discharged home on BiPAP. 12/22/2018-patient has history of obstructive sleep apnea uses CPAP at home during the night. We are going to put him on BiPAP for the next 2 days and switch to CPAP once COPD exacerbation is resolving. (4) Diabetes mellitus type 2 in nonobese Is this a current diagnosis for this admission?: Yes Plan: Patient will be continued on his current diabetic medications and will also have a supplemental sliding scale insulin available to cover hyperglycemia. Hemoglobin A1c will be obtained to determine his diabetic therapeutic efficacy over the last 90 days. 12/22/2018-patient history of type 2 diabetes mellitus he was started on IV Solu-Medrol 40 mg every 6 hours for COPD exacerbation, based on sliding scale before meals and at bedtime. he is on metformin at home ,to hold metformin during the hospital stay. He is hemoglobin A1c last week is 6.4. Plan is to continue the present management. - Time Time Spent with patient: 15-24 minutes Smoking Cessation Education: over 10 minutes Medications reviewed and adjusted accordingly: Yes Anticipated discharge: Home
[2018-12-22] MEDS: ASPIRIN 81 MG TABLET, ENT COATED PO SCH (09:11)
[2018-12-22] MEDS: METOPROLOL SUCCINATE 50 MG TAB.SR.24H PO SCH (09:11)
[2018-12-22] MEDS: ROFLUMILAST 500 MCG TABLET PO SCH (09:12)
[2018-12-22] MEDS: AMLODIPINE BESYLATE 2.5 MG TABLET PO SCH (09:12)
[2018-12-22] MEDS: GUAIFENESIN 600 MG TABLET.SA PO SCH ×2 (09:13→22:15)
[2018-12-22] MEDS: LISINOPRIL 10 MG TABLET PO SCH (09:13)
[2018-12-22] MEDS: FAMOTIDINE 20 MG TABLET PO SCH ×2 (09:13→22:15)
[2018-12-22] MEDS: FERROUS SULFATE 325 MG TABLET PO SCH (09:13)
[2018-12-22] MEDS: CLOPIDOGREL BISULFATE 75 MG TABLET PO SCH (09:13)
[2018-12-22] MEDS: HYDROCHLOROTHIAZIDE 12.5 MG TABLET PO SCH (09:18)
[2018-12-22] MEDS: DOCUSATE SODIUM 100 MG CAPSULE PO SCH ×2 (09:19→18:45)
[2018-12-22 09:47] LABS: ARTERIAL BLOOD BASE EXCESS 2.3 mmol/L; ARTERIAL BLOOD H2CO3 1.12 mmol/L (1.05-1.35); ARTERIAL BLOOD HCO3 25.9 mmol/L (20-24); ARTERIAL BLOOD O2 SATURATION 95.2 % (94-98); ARTERIAL BLOOD PCO2 37.2 mmHg (35-45); ARTERIAL BLOOD PH 7.46 (7.35-7.45); ARTERIAL BLOOD PO2 71.2 mmHg (80-100); ARTERIAL BLOOD TOTAL CO2 27.1 mmol/L (23-27)
[2018-12-22 09:50] LABS: ARTERIAL BLOOD FIO2 2L
[2018-12-22] MEDS ORDERED: (PENDING PHARMACY ID) (Roflumilast [Daliresp 500 Mcg Tablet] 500 MCG) PO SCH (10:00)
--- NOTE | 2018-12-22 11:13 | EKG REPORT ---
SEVERITY:- ABNORMAL ECG - SINUS RHYTHM RIGHT BUNDLE BRANCH BLOCK : Confirmed by: Lindsay Brunson 22-Dec-2018 11:11:44
--- NOTE | 2018-12-22 11:13 | EKG REPORT ---
SEVERITY:- ABNORMAL ECG - SINUS RHYTHM RIGHT BUNDLE BRANCH BLOCK : Confirmed by: Lindsay Brunson 22-Dec-2018 11:11:40
[2018-12-22 12:03] LABS: CREATINE KINASE MB 1.39 ng/mL (<4.55)
[2018-12-22 12:05] LABS: TROPONIN I < 0.012 ng/mL
[2018-12-22 17:40] LABS: TROPONIN I < 0.012 ng/mL
[2018-12-22] MEDS: ASCORBIC ACID 500 MG TABLET PO SCH (18:44)
[2018-12-22] MEDS: FOLIC ACID 1 MG TABLET PO SCH (22:15)
[2018-12-22] MEDS: ATORVASTATIN CALCIUM 40 MG TABLET PO SCH (22:15)
[2018-12-22] MEDS: CYANOCOBALAMIN (VITAMIN B-12) 1,000 MCG TABLET PO SCH (22:16)
[2018-12-23] MEDS: IPRATROPIUM BROMIDE 0.02% NEB 0.5 MG/2.5 ML AMPUL NEB SCH ×3 (00:43→16:07)
[2018-12-23] MEDS: LEVALBUTEROL HCL NEB 1.25 MG/3 ML AMPUL NEB SCH ×3 (00:43→16:07)
[2018-12-23] MEDS: HEPARIN SOD (PORCINE) 5,000 UNIT/ML 1 ML SYRINGE SUBCUT SCH ×3 (05:32→22:07)
[2018-12-23 06:58] LABS: HEMATOCRIT 37.6 % (37.9-51.0); HEMOGLOBIN 12.8 g/dL (13.5-17.0); MEAN CORPUSCULAR HEMOGLOBIN 29.8 pg (27.0-33.4); MEAN CORPUSCULAR VOLUME 88 fl (80-97); PLATELET COUNT 371 10^3/uL (150-450); RED BLOOD COUNT 4.29 10^6/uL (4.35-5.55); RED CELL DISTRIBUTION WIDTH 14.4 % (11.5-14.0); WHITE BLOOD COUNT 17.6 10^3/uL (4.0-10.5)
[2018-12-23 07:16] LABS: ALANINE AMINOTRANSFERASE 99 U/L (21-72); ALBUMIN 3.5 g/dL (3.5-5.0); ALKALINE PHOSPHATASE 48 U/L (38-126); ANION GAP 8 (5-19); ASPARTATE AMINO TRANSFERASE 23 U/L (17-59); BILIRUBIN,DIRECT 0.2 mg/dL (0.0-0.4); BILIRUBIN,TOTAL 0.6 mg/dL (0.2-1.3); BLOOD UREA NITROGEN 26 mg/dL (7-20); CALCIUM 9.6 mg/dL (8.4-10.2); CARBON DIOXIDE 26 mmol/L (22-30); CHLORIDE 100 mmol/L (98-107); GLUCOSE 101 mg/dL (75-110); POTASSIUM 4.2 mmol/L (3.6-5.0); SODIUM 134.2 mmol/L (137-145); TOTAL PROTEIN 5.4 g/dL (6.3-8.2)
[2018-12-23 07:41] LABS: ABSOLUTE LYMPHOCYTES# (MANUAL) 1.9 10^3/uL (0.5-4.7); ABSOLUTE MONOCYTES # (MANUAL) 0.5 10^3/uL (0.1-1.4); ABSOLUTE NEUTROPHILS# (MANUAL) 15.1 10^3/uL (1.7-8.2); ANISOCYTOSIS SLIGHT; BAND NEUTROPHILS % (MANUAL) 1 % (3-5); BASOPHILS % (MANUAL) 0 % (0-2); BURR CELLS SLIGHT; EOSINOPHILS % (MANUAL) 0 % (0-6); LYMPHOCYTES % (MANUAL) 11 % (13-45); MONOCYTES % (MANUAL) 3 % (3-13); PLATELET COMMENT ADEQUATE; POIKILOCYTOSIS SLIGHT; SEGMENTED NEUTROPHILS % (MAN) 85 % (42-78); TOTAL CELLS COUNTED 100
[2018-12-23] MEDS: BUDESONIDE NEB 0.5 MG/2 ML AMPUL NEB SCH ×2 (07:44→20:31)
[2018-12-23] MEDS ORDERED: PREDNISONE 20 MG TABLET PO ONE (08:00)
[2018-12-23] MEDS: ASPIRIN 81 MG TABLET, ENT COATED PO SCH (09:21)
[2018-12-23] MEDS: FERROUS SULFATE 325 MG TABLET PO SCH ×2 (09:21→20:25)
[2018-12-23] MEDS: CLOPIDOGREL BISULFATE 75 MG TABLET PO SCH (09:21)
[2018-12-23] MEDS: GUAIFENESIN 600 MG TABLET.SA PO SCH ×2 (09:21→22:07)
[2018-12-23] MEDS: ROFLUMILAST 500 MCG TABLET PO SCH (09:21)
[2018-12-23] MEDS: FAMOTIDINE 20 MG TABLET PO SCH ×2 (09:21→22:07)
[2018-12-23] MEDS: DOCUSATE SODIUM 100 MG CAPSULE PO SCH ×2 (09:22→20:22)
[2018-12-23] MEDS: AMLODIPINE BESYLATE 2.5 MG TABLET PO SCH (09:27)
[2018-12-23] MEDS: HYDROCHLOROTHIAZIDE 12.5 MG TABLET PO SCH (09:27)
[2018-12-23] MEDS: METOPROLOL SUCCINATE 50 MG TAB.SR.24H PO SCH (09:28)
[2018-12-23] MEDS: LISINOPRIL 10 MG TABLET PO SCH (09:28)
[2018-12-23] MEDS: ALBUTEROL SULFATE 0.083% NEB 2.5 MG/3 ML AMPUL NEB PRN ×2 (12:22→20:31)
[2018-12-23] MEDS ORDERED: ALBUTEROL SULFATE HFA (90 MCG/PUFF) 200 PUFF/8.5 GM MDI IH PRN (12:38)
--- NOTE | 2018-12-23 13:19 | PDOC PROGRESS REPORT ---
Subjective Progress Note for:: 12/23/18 Subjective:: 58 year old male who presented to the hospital just a few hours after he was discharged to home complaining of a recurrence of his dyspnea. He admits that after leaving the hospital today even though he did not feel "back to normal" he did return to home and began smoking cigarettes. After smoking he noticed that he had become more dyspneic and he tried using his nebulizer therapy administering several treatments to himself without significant improvement. His dyspnea continued to worsen and he did not attempt to use his CPAP at home but instead called for the EMS team to bring him back to the hospital. He admits numerous similar previous episodes and now understands that smoking does indeed worsen his dyspnea. He has not found any ameliorating factors for his dyspnea other than treatment in the hospital. In the emergency room he was found to be hypoxic and dyspneic with significant work of breathing requiring BiPAP respiratory support. Because of his worsened condition he was readmitted to the hospital for further evaluation and treatment. 12/22/2018 -58-year-old male with history of COPD chronic smoker he was discharged yesterday morning on p.o. prednisone and was advised to continue home oxygen at home. He was fine for a few hours at home after that started having the severe shortness of breath wheezing unable to walk from the bed to the bathroom. Try to use the inhalers and try to use the nebulizer treatments 4-5 times without any improvement so he decided to come to the emergency room again last night. He admitted to the overnight hospitalist that he started smoking again at home. On examination this morning patient is still on BiPAP. Alert and awake communicating very well. Pulse ox is 98% on 35% oxygen. 01/[id number]-[id number]-old male recently discharged from the hospital for COPD exacerbation came back again within 1 day. Nurse called me this morning and the blood pressure is running in the upper 80s and diastolic running in the 60s patient was completely asymptomatic I requested the nurse to hold his morning blood pressure medications, patient was encouraged to drink plenty of oral fluids. I went to talk to him patient was in shortness of breath struggling to complete the sentences and he calmed down after a minute or so. Also complaining of chest tightness. He just completed nebulizer treatment. I dis cussed the plan with him that we going to place him on a telemetry monitoring, cardiac workup, CT of the chest to rule out PE. Also told him a plan to start him on IV antibiotic therapy. Patient is agreed with the plan. Later on I spoke to the and explained the treatment and plan of care. Reason For Visit: ACUTE EXACERBATION OF COPD Physical Exam Vital Signs: Temp Pulse Resp BP Pulse Ox 97.6 F 64 16 92/58 L 96 12/23/18 11:06 12/23/18 12:22 12/23/18 12:22 12/23/18 11:06 12/23/18 12:22 Intake & Output 12/22/18 12/23/18 12/24/18 06:59 06:59 06:59 Intake Total 200 Output Total 1000 Balance 200 -1000 Weight 79 kg 74.2 kg General appearance: PRESENT: other Head exam: PRESENT: atraumatic Eye exam: PRESENT: PERRLA Mouth exam: PRESENT: dry mucosa Neck exam: ABSENT: carotid bruit, JVD, lymphadenopathy, thyromegaly Respiratory exam: PRESENT: crackles, decreased breath sounds, wheezes Cardiovascular exam: PRESENT: tachycardia GI/Abdominal exam: PRESENT: normal bowel sounds, soft. ABSENT: distended, guarding, mass, organolmegaly, rebound, tenderness Neurological exam: PRESENT: alert, awake, oriented to person, oriented to place, oriented to time, oriented to situation, CN II-XII grossly intact. ABSENT: motor sensory deficit Psychiatric exam: PRESENT: appropriate affect, normal mood. ABSENT: homicidal ideation, suicidal ideation Results Laboratory Results: 12/23/18 05:54 12/23/18 05:54 12/23/18 12/23/18 05:54 05:54 WBC 17.6 H RBC 4.29 L Hgb 12.8 L Hct 37.6 L MCV 88 MCH 29.8 MCHC 34.0 RDW 14.4 H Plt Count 371 Seg Neutrophils % Not Reportable Lymphocytes % Not Reportable Monocytes % Not Reportable Eosinophils % Not Reportable Basophils % Not Reportable Absolute Neutrophils Not Reportable Absolute Lymphocytes Not Reportable Absolute Monocytes Not Reportable Absolute Eosinophils Not Reportable Absolute Basophils Not Reportable Sodium 134.2 L Potassium 4.2 Chloride 100 Carbon Dioxide 26 Anion Gap 8 BUN 26 H Creatinine 0.59 Est GFR ( Amer) > 60 Est GFR (Non-Af Amer) > 60 Glucose 101 Calcium 9.6 Magnesium 1.9 Total Bilirubin 0.6 AST 23 ALT 99 H Alkaline Phosphatase 48 Total Protein 5.4 L Albumin 3.5 12/21/18 12/22/18 12/22/18 23:05 05:36 05:36 Creatine Kinase 33 L CK-MB (CK-2) 1.58 Troponin I < 0.012 < 0.012 NT-Pro-B Natriuret Pep 182 12/22/18 12/22/18 12/22/18 10:40 10:40 16:42 Creatine Kinase 29 L 26 L CK-MB (CK-2) 1.39 Troponin I < 0.012 NT-Pro-B Natriuret Pep 12/22/18 16:42 Creatine Kinase CK-MB (CK-2) 1.20 Troponin I < 0.012 NT-Pro-B Natriuret Pep Impressions: Chest X-Ray 12/21/18 23:04 IMPRESSION: Underlying hyperinflation. No acute cardiopulmonary process copyright 2010 [employer]- All Rights Reserved Assessment & Plan - Diagnosis (1) Acute respiratory failure with hypoxia Is this a current diagnosis for this admission?: Yes Plan: Patient will be treated with BiPAP and supplemental oxygen as required to maintain adequate oxygen saturation greater than 90%. He will receive additional supportive care as required. 12/22/2018-patient is presently on BiPAP, pulse ox is 96% on 35% oxygen. Pulse ox 135.7 and oxygen yesterday pH is 7.45/PCO2 40/PO2 73.6/bicarb is 27. Plan is to continue BiPAP as needed, IV Solu-Medrol 40 mg every 6 hours, scheduled nebulizer treatments. Patient is presently on Xopenex nebs every 8 hours and albuterol nebulizations every hour as needed. Plan to repeat the ABG today and do the follow-up chest x-rays tomorrow. Admission chest x-ray ruled out any p neumonia. 01/02/2019-patient was admitted with acute respiratory failure with hypoxia. Patient was a nebulizer treatment IV Solu-Medrol 40 mg every 6 hours. Also was placed on BiPAP on as needed basis. Chest x-ray ruled out any pneumonia. Pulse oxes on 3.5 L today is 97%. Patient was hypotensive and asymptomatic without any complaints of dizziness or lightheadedness. Plan is to do the CT of the chest to rule out PE and started on IV Rocephin 2 g daily. Cardiac workup was requested. Is going to be placed on telemetry monitoring. Plan to put a consult for Dr. Jesus. (2) COPD exacerbation Is this a current diagnosis for this admission?: Yes Plan: 12/22/2018-patient has history of COPD secondary to chronic smoking. He is a current smoker. He is uses 2 L oxygen at home. He uses CPAP at night at home. We are going to resume the CPAP orders were during this hospital stay. Patient does not want to be on nicotine patch. Patient is presently on albuterol nebulization, Xopenex nebulizations, IV steroids. Plan is to continue the present management. 12/23/2018-patient has history of COPD secondary to smoking according to his after he was discharged from here he went home and started smoking again and had another attack of COPD exacerbation came to the emergency room and he was readmitted. He uses 2 L of oxygen at home. Pulse ox is 97% on 3.5 L. Patient does not want any nicotine patch. Presently on IV Solu-Medrol 40 mg daily every 12 hours, Xopenex and albuterol nebulizations. Plan is to continue the present management. (3) FRED on CPAP Is this a current diagnosis for this admission?: Yes Plan: Patient will be treated with BiPAP during his hospital course however once he is able to tolerate being off BiPAP during the day he will be treated with CPAP at night as he would be at home. If patient unable to tolerate CPAP at night with no further therapy he should be discharged home on BiPAP. 12/22/2018-patient has history of obstructive sleep apnea uses CPAP at home during the night. We are going to put him on BiPAP for the next 2 days and switch to CPAP once COPD exacerbation is resolving. 12/23/2018-patient has history of obstructive sleep apnea uses CPAP at night. Plan is to resume the CPAP treatment here. (4) Diabetes mellitus type 2 in nonobese Is this a current diagnosis for this admission?: Yes Plan: Patient will be continued on his current diabetic medications and will also have a supplemental sliding scale insulin available to cover hyperglycemia. Hemoglobin A1c will be obtained to determine his diabetic therapeutic efficacy over the last 90 days. 12/22/2018-patient history of type 2 diabetes mellitus he was started on IV Solu-Medrol 40 mg every 6 hours for COPD exacerbation, based on sliding scale before meals and at bedtime. he is on metformin at home ,to hold metformin during the hospital stay. He is hemoglobin A1c last week is 6.4. Plan is to continue the present management. 12/23/2018-patient has history of type 2 diabetes mellitus latest blood sugar is 103. Metformin is on hold. His insulin sliding scale. Hemoglobin A1c 6.4. Plan is to continue the present management. - Time Time Spent with patient: 15-24 minutes Smoking Cessation Education: over 10 minutes Medications reviewed and adjusted accordingly: Yes Anticipated discharge: Home
--- NOTE | 2018-12-23 14:01 | EKG REPORT ---
SEVERITY:- ABNORMAL ECG - SINUS RHYTHM VENTRICULAR PREMATURE COMPLEX RIGHT BUNDLE BRANCH BLOCK : Confirmed by: Lindsay Brunson 23-Dec-2018 14:00:40
[2018-12-23] MEDS: METHYLPREDNISOLONE INJ 40 MG/1 ML SDV IV SCH ×2 (14:18→22:07)
[2018-12-23 15:18] LABS: TROPONIN I < 0.012 ng/mL
--- NOTE | 2018-12-23 15:51 | RADIOLOGY REPORT (SQ) ---
EXAM DESCRIPTION: CTA CHEST COMPLETED DATE/TIME: 12/23/2018 3:26 pm REASON FOR STUDY: r/o PE COMPARISON: 07/06/2017 TECHNIQUE: CT scan of the chest performed using helical scanning technique with dynamic intravenous contrast injection. Images reviewed with lung, soft tissue and bone windows. Reconstructed coronal and sagittal MPR images reviewed. Additional 3 dimensional post-processing performed to develop Maximal Intensity Projection images (OR P). All images stored on PACS. All CT scanners at this facility use dose modulation, iterative reconstruction, and/or weight based d osing when appropriate to reduce radiation dose to as low as reasonably achievable (ALARA). [facility]: Dose Right [facility]: CareDose [facility]: Dose Right [facility]: Teradose 4D [facility]: [employer] CONTRAST TYPE AND DOSE: contrast/concentration: Isovue 350.00 mg/ml; Total Contrast Delivered: 66.0 ml; Total Saline Delivered: 110.0 ml RENAL FUNCTION: GFR > 60. RADIATION DOSE: CT Rad equipment meets quality standard of care and radiation dose reduction techniq ues were employed. CTDIvol: 9.2 - 13.2 mGy. DLP: 376 mGy-cm. . LIMITATIONS: None. FINDINGS: LUNGS AND PLEURA: Moderate emphysema. Left basilar atelectasis. No developing nodules or infiltrate. No effusions. AORTA AND GREAT VESSELS: No aneurysm. Contrast bolus not optimized for the aorta. HEART: No pericardial effusion. Moderate to marked coronary artery calcifications. PULMONARY ARTERIES: No emboli visualized in the main pulmonary arteries or the segmental branches. HILAR AND MEDIASTINAL STRUCTURES: No identified masses or abnormal nodes. HARDWARE: None in the chest. UPPER ABDOMEN: No significant findings. Limited exam. THYROID AND OTHER SOFT TISSUES: No masses. No adenopathy. BONES: No acute or significant finding. 3D MIPS: Confirm above findings. OTHER: No other significant finding. IMPRESSION: 1. No pulmonary emboli. 2. COPD. No evidence of superimposed pneumonia. COMMENT: Quality ID # [id number]: Final reports with documentation of one or more dose reduction techniques (e.g., Automated exposure control, adjustment of the mA and/or kV according to patient size, use of iterative reconstruction technique) TECHNICAL DOCUMENTATION: JOB ID: [id number] [employer]- All Rights Reserved Reading location - IP/workstation name: [email or web address]
[2018-12-23] MEDS ORDERED: IPRATROPIUM/ALBUTEROL 0.5-2.5 MG/3 ML AMPUL NEB SCH (16:00)
[2018-12-23 19:45] LABS: CREATINE KINASE MB 0.85 ng/mL (<4.55)
[2018-12-23 19:49] LABS: TROPONIN I < 0.012 ng/mL
[2018-12-23] MEDS: ASCORBIC ACID 500 MG TABLET PO SCH (20:25)
[2018-12-23] MEDS ORDERED: ATORVASTATIN CALCIUM 40 MG TABLET PO SCH (22:00)
[2018-12-23] MEDS: CYANOCOBALAMIN (VITAMIN B-12) 1,000 MCG TABLET PO SCH (22:07)
[2018-12-23] MEDS: ATORVASTATIN CALCIUM 40 MG TABLET PO SCH (22:07)
[2018-12-23] MEDS: FOLIC ACID 1 MG TABLET PO SCH (22:07)
[2018-12-24] MEDS: IPRATROPIUM BROMIDE 0.02% NEB 0.5 MG/2.5 ML AMPUL NEB SCH ×3 (00:08→15:35)
[2018-12-24] MEDS: LEVALBUTEROL HCL NEB 1.25 MG/3 ML AMPUL NEB SCH ×3 (00:09→15:35)
[2018-12-24 01:20] LABS: CREATINE KINASE MB 0.66 ng/mL (<4.55)
[2018-12-24 01:25] LABS: TROPONIN I < 0.012 ng/mL
[2018-12-24] MEDS: METHYLPREDNISOLONE INJ 40 MG/1 ML SDV IV SCH ×3 (06:27→21:53)
[2018-12-24] MEDS: HEPARIN SOD (PORCINE) 5,000 UNIT/ML 1 ML SYRINGE SUBCUT SCH ×3 (06:27→21:54)
[2018-12-24 07:14] LABS: ABSOLUTE LYMPHOCYTES (AUTO) 0.8 10^3/uL (0.5-4.7); ABSOLUTE NEUT (AUTO) 12.3 10^3/uL (1.7-8.2); BASOPHILS % (AUTO) 0.1 % (0-2); HEMATOCRIT 38.1 % (37.9-51.0); HEMOGLOBIN 13.1 g/dL (13.5-17.0); LYMPHOCYTES % (AUTO) 5.6 % (13-45); MEAN CORPUSCULAR HEMOGLOBIN 30.2 pg (27.0-33.4); MEAN CORPUSCULAR HGB CONC 34.3 g/dL (32.0-36.0); MEAN CORPUSCULAR VOLUME 88 fl (80-97); MONOCYTES % (AUTO) 6.9 % (3-13); PLATELET COUNT 343 10^3/uL (150-450); RED BLOOD COUNT 4.34 10^6/uL (4.35-5.55); RED CELL DISTRIBUTION WIDTH 14.7 % (11.5-14.0); SEGMENTED NEUTROPHILS % (AUTO) 87.4 % (42-78); TOTAL CELLS COUNTED % (AUTO) 100 %; WHITE BLOOD COUNT 14.1 10^3/uL (4.0-10.5)
[2018-12-24 07:45] LABS: ALANINE AMINOTRANSFERASE 89 U/L (21-72); ALBUMIN 3.6 g/dL (3.5-5.0); ALKALINE PHOSPHATASE 44 U/L (38-126); ANION GAP 9 (5-19); ASPARTATE AMINO TRANSFERASE 20 U/L (17-59); BILIRUBIN,DIRECT 0.2 mg/dL (0.0-0.4); BILIRUBIN,TOTAL 0.7 mg/dL (0.2-1.3); BLOOD UREA NITROGEN 26 mg/dL (7-20); CALCIUM 9.7 mg/dL (8.4-10.2); CARBON DIOXIDE 27 mmol/L (22-30); CHLORIDE 99 mmol/L (98-107); GLUCOSE 110 mg/dL (75-110); SODIUM 135.2 mmol/L (137-145); TOTAL PROTEIN 5.6 g/dL (6.3-8.2)
[2018-12-24] MEDS: BUDESONIDE NEB 0.5 MG/2 ML AMPUL NEB SCH ×2 (08:33→20:46)
[2018-12-24] MEDS ORDERED: ASPIRIN 81 MG TABLET, ENT COATED PO SCH (10:00)
[2018-12-24] MEDS ORDERED: FOLIC ACID 1 MG TABLET PO SCH (10:00)
[2018-12-24] MEDS ORDERED: CLOPIDOGREL BISULFATE 75 MG TABLET PO SCH (10:00)
[2018-12-24] MEDS ORDERED: (PENDING PHARMACY ID) (Roflumilast [Daliresp 500 Mcg Tablet] 500 MCG) PO SCH (10:00)
[2018-12-24] MEDS ORDERED: ASCORBIC ACID 500 MG TABLET PO SCH (10:00)
[2018-12-24] MEDS ORDERED: METOPROLOL SUCCINATE 50 MG TAB.SR.24H PO SCH (10:00)
[2018-12-24] MEDS: CLOPIDOGREL BISULFATE 75 MG TABLET PO SCH (10:28)
[2018-12-24] MEDS: LISINOPRIL 10 MG TABLET PO SCH (10:28)
[2018-12-24] MEDS: METOPROLOL SUCCINATE 50 MG TAB.SR.24H PO SCH (10:28)
[2018-12-24] MEDS: DOCUSATE SODIUM 100 MG CAPSULE PO SCH ×2 (10:29→18:30)
[2018-12-24] MEDS: FERROUS SULFATE 325 MG TABLET PO SCH ×2 (10:29→18:30)
[2018-12-24] MEDS: FAMOTIDINE 20 MG TABLET PO SCH ×2 (10:29→21:54)
[2018-12-24] MEDS: GUAIFENESIN 600 MG TABLET.SA PO SCH ×2 (10:29→21:54)
[2018-12-24] MEDS: ASPIRIN 81 MG TABLET, ENT COATED PO SCH (10:30)
[2018-12-24] MEDS: ROFLUMILAST 500 MCG TABLET PO SCH (10:30)
[2018-12-24] MEDS: CEFTRIAXONE 2 GM/D5W RTU 2 GM/50 ML RTUPB IV SCH (10:31)
[2018-12-24] MEDS: AMLODIPINE BESYLATE 2.5 MG TABLET PO SCH (10:31)
[2018-12-24] MEDS: FLUTICASONE/UMECLIDIN/VILANTER 100-62.5-25 MCG/DOSE IH SCH (10:33)
--- NOTE | 2018-12-24 11:26 | PDOC PROGRESS REPORT ---
Subjective Progress Note for:: 12/24/18 Subjective:: 58 year old male who presented to the hospital just a few hours after he was discharged to home complaining of a recurrence of his dyspnea. He admits that after leaving the hospital today even though he did not feel "back to normal" he did return to home and began smoking cigarettes. After smoking he noticed that he had become more dyspneic and he tried using his nebulizer therapy administering several treatments to himself without significant improvement. His dyspnea continued to worsen and he did not attempt to use his CPAP at home but instead called for the EMS team to bring him back to the hospital. He admits numerous similar previous episodes and now understands that smoking does indeed worsen his dyspnea. He has not found any ameliorating factors for his dyspnea other than treatment in the hospital. In the emergency room he was found to be hypoxic and dyspneic with significant work of breathing requiring BiPAP respiratory support. Because of his worsened condition he was readmitted to the hospital for further evaluation and treatment. 12/22/2018 -58-year-old male with history of COPD chronic smoker he was discharged yesterday morning on p.o. prednisone and was advised to continue home oxygen at home. He was fine for a few hours at home after that started having the severe shortness of breath wheezing unable to walk from the bed to the bathroom. Try to use the inhalers and try to use the nebulizer treatments 4-5 times without any improvement so he decided to come to the emergency room again last night. He admitted to the overnight hospitalist that he started smoking again at home. On examination this morning patient is still on BiPAP. Alert and awake communicating very well. Pulse ox is 98% on 35% oxygen. 12/23/[id number]-byry-old male recently discharged from the hospital for COPD exacerbation came back again within 1 day. Nurse called me this morning and the blood pressure is running in the upper 80s and diastolic running in the 60s patient was completely asymptomatic I requested the nurse to hold his morning blood pressure medications, patient was encouraged to drink plenty of oral fluids. I went to talk to him patient was in shortness of breath struggling to complete the sentences and he calmed down after a minute or so. Also complaining of chest tightness. He just completed nebulizer treatment. I disc ussed the plan with him that we going to place him on a telemetry monitoring, cardiac workup, CT of the chest to rule out PE. Also told him a plan to start him on IV antibiotic therapy. Patient is agreed with the plan. Later on I spoke to the and explained the treatment and plan of care. 12/24/2018 58-year-old male admitted with COPD exacerbation. He is looking much better today. He feels better today. He still on BiPAP as needed. He is receiving IV Solu-Medrol, atrial nebulizations. No acute events in the last 24 hours. Afebrile. Yesterday we did a CT of the chest to rule out PE which was negative for PE. Reason For Visit: COPD EXACERBATION Physical Exam Vital Signs: Temp Pulse Resp BP Pulse Ox 97.7 F 67 21 H 98/63 L 98 12/24/18 08:08 12/24/18 08:33 12/24/18 08:33 12/24/18 08:08 12/24/18 08:33 Intake & Output 12/23/18 12/24/18 12/25/18 06:59 06:59 06:59 Intake Total 1658 523 Output Total 1000 675 250 Balance -1000 983 273 Weight 74.2 kg 73.3 kg General appearance: PRESENT: mild distress Head exam: PRESENT: atraumatic Eye exam: PRESENT: PERRLA Mouth exam: PRESENT: dry mucosa Neck exam: ABSENT: carotid bruit, JVD, lymphadenopathy, thyromegaly Respiratory exam: PRESENT: decreased breath sounds Cardiovascular exam: PRESENT: tachycardia GI/Abdominal exam: PRESENT: normal bowel sounds, soft. ABSENT: distended, guarding, mass, organolmegaly, rebound, tenderness Extremities exam: PRESENT: full ROM. ABSENT: calf tenderness, clubbing, pedal edema Neurological exam: PRESENT: alert, awake, oriented to person, oriented to place, oriented to time, oriented to situation, CN II-XII grossly intact. ABSENT: motor sensory deficit Psychiatric exam: PRESENT: appropriate affect, normal mood. ABSENT: homicidal ideation, suicidal ideation Results Laboratory Results: 12/24/18 06:26 12/24/18 06:26 12/24/18 12/24/18 06:26 06:26 WBC 14.1 H RBC 4.34 L Hgb 13.1 L Hct 38.1 MCV 88 MCH 30.2 MCHC 34.3 RDW 14.7 H Plt Count 343 Seg Neutrophils % 87.4 H Lymphocytes % 5.6 L Monocytes % 6.9 Eosinophils % 0.0 Basophils % 0.1 Absolute Neutrophils 12.3 H Absolute Lymphocytes 0.8 Absolute Monocytes 1.0 Absolute Eosinophils 0.0 Absolute Basophils 0.0 Sodium 135.2 L Potassium 5.0 Chloride 99 Carbon Dioxide 27 Anion Gap 9 BUN 26 H Creatinine 0.70 Est GFR ( Amer) > 60 Est GFR (Non-Af Amer) > 60 Glucose 110 Calcium 9.7 Total Bilirubin 0.7 AST 20 ALT 89 H Alkaline Phosphatase 44 Total Protein 5.6 L Albumin 3.6 12/21/18 12/22/18 12/22/18 23:05 05:36 05:36 Creatine Kinase 33 L CK-MB (CK-2) 1.58 Troponin I < 0.012 < 0.012 NT-Pro-B Natriuret Pep 182 12/22/18 12/22/18 12/22/18 10:40 10:40 16:42 Creatine Kinase 29 L 26 L CK-MB (CK-2) 1.39 Troponin I < 0.012 NT-Pro-B Natriuret Pep 12/22/18 12/23/18 12/23/18 16:42 13:59 13:59 Creatine Kinase < 20 L CK-MB (CK-2) 1.20 0.90 Troponin I < 0.012 < 0.012 NT-Pro-B Natriuret Pep 12/23/18 12/23/18 12/24/18 18:30 18:30 00:41 Creatine Kinase < 20 L < 20 L CK-MB (CK-2) 0.85 Troponin I < 0.012 NT-Pro-B Natriuret Pep 12/24/18 00:41 Creatine Kinase CK-MB (CK-2) 0.66 Troponin I < 0.012 NT-Pro-B Natriuret Pep Impressions: Chest X-Ray 12/21/18 23:04 IMPRESSION: Underlying hyperinflation. No acute cardiopulmonary process copyright 2011 [employer]- All Rights Reserved Chest/Abdomen CTA 12/23/18 00:00 IMPRESSION: 1. No pulmonary emboli. 2. COPD. No evidence of superimposed pneumonia. Assessment & Plan - Diagnosis (1) Acute respiratory failure with hypoxia Is this a current diagnosis for this admission?: Yes Plan: Patient will be treated with BiPAP and supplemental oxygen as required to maintain adequate oxygen saturation greater than 90%. He will receive additional supportive care as required. 12/22/2018-patient is presently on BiPAP, pulse ox is 96% on 35% oxygen. Pulse ox 135.7 and oxygen yesterday pH is 7.45/PCO2 40/PO2 73.6/bicarb is 27. Plan is to continue BiPAP as needed, IV Solu-Medrol 40 mg every 6 hours, scheduled nebulizer treatments. Patient is presently on Xopenex nebs every 8 hours and albuterol nebulizations every hour as needed. Plan to repeat the ABG today and do the follow-up chest x-rays tomorrow. Admission chest x-ray ruled out any pneumonia. 12/23/2018-patient was admitted with acute respiratory failure with hypoxia. Patient was a nebulizer treatment IV Solu-Medrol 40 mg every 6 hours. Also was placed on BiPAP on as needed basis. Chest x-ray ruled out any pneumonia. Pulse oxes on 3.5 L today is 97%. Patient was hypotensive and asymptomatic without any complaints of dizziness or lightheadedness. Plan is to do the CT of the ch est to rule out PE and started on IV Rocephin 2 g daily. Cardiac workup was requested. Is going to be placed on telemetry monitoring. Plan to put a consult for Dr. Jesus. 12/[id number]-bwub-old male with history of COPD admitted for acute exacerbation of COPD leading to acute respiratory failure with hypoxia. CT of the chest was negative for pneumonia or PE. Presently on IV Solu-Medrol 40 mg every 8 hours, IV Rocephin 2 g daily, Xopenex nebulizations every 8 hours and albuterol nebulizations as needed basis. Plan is to continue the present management today. She says she is feeling better today. (2) COPD exacerbation Is this a current diagnosis for this admission?: Yes Plan: 12/22/2018-patient has history of COPD secondary to chronic smoking. He is a current smoker. He is uses 2 L oxygen at home. He uses CPAP at night at home. We are going to resume the CPAP orders were during this hospital stay. Patient does not want to be on nicotine patch. Patient is presently on albuterol nebulization, Xopenex nebulizations, IV steroids. Plan is to continue the present management. 12/23/2018-patient has history of COPD secondary to smoking according to his after he was discharged from here he went home and started smoking again and had another attack of COPD exacerbation came to the emergency room and he was readmitted. He uses 2 L of oxygen at home. Pulse ox is 97% on 3.5 L. Patient does not want any nicotine patch. Presently on IV Solu-Medrol 40 mg daily every 12 hours, Xopenex and albuterol nebulizations. Plan is to continue the present management. 12/24/2018-patient has history of COPD secondary to chronic smoking on 2 L of oxygen at home. Pulse ox today 98% on 2 L oxygen. Plan is to continue Xopenex, albuterol nebulizations and IV steroids. CPT is going to be requested. (3) FRED on CPAP Is this a current diagnosis for this admission?: Yes Plan: Patient will be treated with BiPAP during his hospital course however once he is able to tolerate being off BiPAP during the day he will be treated with CPAP at night as he would be at home. If patient unable to tolerate CPAP at night with no further therapy he should be discharged home on BiPAP. 12/22/2018-patient has history of obstructive sleep apnea uses CPAP at home during the night. We are going to put him on BiPAP for the next 2 days and switch to CPAP once COPD exacerbation is resolving. 12/23/2018-patient has history of obstructive sleep apnea uses CPAP at night. Plan is to resume the CPAP treatment here. 12/24/2018-patient has history of obstructive sleep apnea uses CPAP at night at home. Patient is presently on BiPAP on as-needed basis. (4) Diabetes mellitus type 2 in nonobese Is this a current diagnosis for this admission?: Yes Plan: Patient will be continued on his current diabetic medications and will also have a supplemental sliding scale insulin available to cover hyperglycemia. Hemoglobin A1c will be obtained to determine his diabetic therapeutic efficacy over the last 90 days. 12/22/2018-patient history of type 2 diabetes mellitus he was started on IV Solu- Medrol 40 mg every 6 hours for COPD exacerbation, based on sliding scale before meals and at bedtime. he is on metformin at home ,to hold metformin during the hospital stay. He is hemoglobin A1c last week is 6.4. Plan is to continue the present management. 12/23/2018-patient has history of type 2 diabetes mellitus latest blood sugar is 103. Metformin is on hold. His insulin sliding scale. Hemoglobin A1c 6.4. Plan is to continue the present management. 12/24/2018-patient has history of type 2 diabetes mellitus. Latest blood sugar is 129. He is on insulin sliding scale and hemoglobin A1c 6.4. Plan is to continue the present management. - Time Time Spent with patient: 15-24 minutes Smoking Cessation Education: over 10 minutes Medications reviewed and adjusted accordingly: Yes Anticipated discharge: Home
[2018-12-24] MEDS: ALBUTEROL SULFATE 0.083% NEB 2.5 MG/3 ML AMPUL NEB PRN ×2 (12:24→20:46)
[2018-12-24] MEDS: ASCORBIC ACID 500 MG TABLET PO SCH (18:30)
--- NOTE | 2018-12-24 20:14 | EKG REPORT ---
SEVERITY:- ABNORMAL ECG - SINUS RHYTHM VENTRICULAR PREMATURE COMPLEX RIGHT BUNDLE BRANCH BLOCK : Confirmed by: Lindsay Brunson 24-Dec-2018 20:14:08
[2018-12-24] MEDS: CYANOCOBALAMIN (VITAMIN B-12) 1,000 MCG TABLET PO SCH (21:54)
[2018-12-24] MEDS: FOLIC ACID 1 MG TABLET PO SCH (21:54)
[2018-12-24] MEDS: ATORVASTATIN CALCIUM 40 MG TABLET PO SCH (21:54)
[2018-12-25] MEDS: LEVALBUTEROL HCL NEB 1.25 MG/3 ML AMPUL NEB SCH ×4 (00:17→23:57)
[2018-12-25] MEDS: IPRATROPIUM BROMIDE 0.02% NEB 0.5 MG/2.5 ML AMPUL NEB SCH ×4 (00:17→23:57)
[2018-12-25 05:05] LABS: HEMATOCRIT 37.4 % (37.9-51.0); HEMOGLOBIN 12.8 g/dL (13.5-17.0); MEAN CORPUSCULAR HEMOGLOBIN 30.1 pg (27.0-33.4); MEAN CORPUSCULAR HGB CONC 34.2 g/dL (32.0-36.0); MEAN CORPUSCULAR VOLUME 88 fl (80-97); PLATELET COUNT 309 10^3/uL (150-450); RED BLOOD COUNT 4.25 10^6/uL (4.35-5.55); RED CELL DISTRIBUTION WIDTH 14.6 % (11.5-14.0); WHITE BLOOD COUNT 12.1 10^3/uL (4.0-10.5)
[2018-12-25 05:23] LABS: ANION GAP 7 (5-19); BLOOD UREA NITROGEN 34 mg/dL (7-20); CALCIUM 9.4 mg/dL (8.4-10.2); CARBON DIOXIDE 28 mmol/L (22-30); CHLORIDE 99 mmol/L (98-107); GLUCOSE 139 mg/dL (75-110); POTASSIUM 4.5 mmol/L (3.6-5.0); SODIUM 134.3 mmol/L (137-145)
[2018-12-25 05:25] LABS: ABSOLUTE LYMPHOCYTES# (MANUAL) 0.4 10^3/uL (0.5-4.7); ABSOLUTE MONOCYTES # (MANUAL) 0.7 10^3/uL (0.1-1.4); ANISOCYTOSIS 1+; BASOPHILS % (MANUAL) 0 % (0-2); EOSINOPHILS % (MANUAL) 0 % (0-6); LYMPHOCYTES % (MANUAL) 3 % (13-45); MONOCYTES % (MANUAL) 6 % (3-13); PLATELET COMMENT ADEQUATE; POLYCHROMASIA 1+; SEGMENTED NEUTROPHILS % (MAN) 91 % (42-78); TOTAL CELLS COUNTED 100
[2018-12-25] MEDS: HEPARIN SOD (PORCINE) 5,000 UNIT/ML 1 ML SYRINGE SUBCUT SCH ×3 (05:59→21:22)
[2018-12-25] MEDS: METHYLPREDNISOLONE INJ 40 MG/1 ML SDV IV SCH ×2 (05:59→17:38)
[2018-12-25] MEDS: BUDESONIDE NEB 0.5 MG/2 ML AMPUL NEB SCH ×2 (07:56→21:44)
[2018-12-25] MEDS: ROFLUMILAST 500 MCG TABLET PO SCH (10:39)
[2018-12-25] MEDS: FERROUS SULFATE 325 MG TABLET PO SCH ×2 (10:39→17:38)
[2018-12-25] MEDS: DOCUSATE SODIUM 100 MG CAPSULE PO SCH ×2 (10:39→17:38)
[2018-12-25] MEDS: GUAIFENESIN 600 MG TABLET.SA PO SCH ×2 (10:40→21:23)
[2018-12-25] MEDS: CLOPIDOGREL BISULFATE 75 MG TABLET PO SCH (10:40)
[2018-12-25] MEDS: ASPIRIN 81 MG TABLET, ENT COATED PO SCH (10:41)
[2018-12-25] MEDS: FAMOTIDINE 20 MG TABLET PO SCH ×2 (10:41→21:22)
[2018-12-25] MEDS: CEFTRIAXONE 2 GM/D5W RTU 2 GM/50 ML RTUPB IV SCH (10:42)
[2018-12-25] MEDS: AMLODIPINE BESYLATE 2.5 MG TABLET PO SCH (10:42)
[2018-12-25] MEDS: FLUTICASONE/UMECLIDIN/VILANTER 100-62.5-25 MCG/DOSE IH SCH (10:42)
[2018-12-25] MEDS: METOPROLOL SUCCINATE 50 MG TAB.SR.24H PO SCH (10:43)
--- NOTE | 2018-12-25 11:28 | PDOC PROGRESS REPORT ---
Subjective Progress Note for:: 12/25/18 Subjective:: 58 year old male who presented to the hospital just a few hours after he was discharged to home complaining of a recurrence of his dyspnea. He admits that after leaving the hospital today even though he did not feel "back to normal" he did return to home and began smoking cigarettes. After smoking he noticed that he had become more dyspneic and he tried using his nebulizer therapy administering several treatments to himself without significant improvement. His dyspnea continued to worsen and he did not attempt to use his CPAP at home but instead called for the EMS team to bring him back to the hospital. He admits numerous similar previous episodes and now understands that smoking does indeed worsen his dyspnea. He has not found any ameliorating factors for his dyspnea other than treatment in the hospital. In the emergency room he was found to be hypoxic and dyspneic with significant work of breathing requiring BiPAP respiratory support. Because of his worsened condition he was readmitted to the hospital for further evaluation and treatment. 12/22/2018 -58-year-old male with history of COPD chronic smoker he was discharged yesterday morning on p.o. prednisone and was advised to continue home oxygen at home. He was fine for a few hours at home after that started having the severe shortness of breath wheezing unable to walk from the bed to the bathroom. Try to use the inhalers and try to use the nebulizer treatments 4-5 times without any improvement so he decided to come to the emergency room again last night. He admitted to the overnight hospitalist that he started smoking again at home. On examination this morning patient is still on BiPAP. Alert and awake communicating very well. Pulse ox is 98% on 35% oxygen. 12/23/[id number]-eieg-old male recently discharged from the hospital for COPD exacerbation came back again within 1 day. Nurse called me this morning and the blood pressure is running in the upper 80s and diastolic running in the 60s patient was completely asymptomatic I requested the nurse to hold his morning blood pressure medications, patient was encouraged to drink plenty of oral fluids. I went to talk to him patient was in shortness of breath struggling to complete the sentences and he calmed down after a minute or so. Also complaining of chest tightness. He just completed nebulizer treatment. I disc ussed the plan with him that we going to place him on a telemetry monitoring, cardiac workup, CT of the chest to rule out PE. Also told him a plan to start him on IV antibiotic therapy. Patient is agreed with the plan. Later on I spoke to the and explained the treatment and plan of care. 12/24/2018 58-year-old male admitted with COPD exacerbation. He is looking much better today. He feels better today. He still on BiPAP as needed. He is receiving IV Solu-Medrol, atrial nebulizations. No acute events in the last 24 hours. Afebrile. Yesterday we did a CT of the chest to rule out PE which was negative for PE. 12/25/2018 58-year-old male admitted with COPD exacerbation acute on chronic respiratory failure with hypoxia and hypercapnia. He is doing much better today compared to yesterday. Presently on IV Solu-Medrol, ipratropium nebulizations. CT of the chest was negative for PE and pneumonia. a Febrile. Reason For Visit: COPD EXACERBATION Physical Exam Vital Signs: Temp Pulse Resp BP Pulse Ox 97.5 F 62 17 119/66 98 12/25/18 07:46 12/25/18 07:56 12/25/18 07:56 12/25/18 07:46 12/25/18 07:56 Intake & Output 12/24/18 12/25/18 12/26/18 06:59 06:59 06:59 Intake Total 1658 1689 237 Output Total 675 1350 400 Balance 983 339 -163 Weight 73.3 kg 73.8 kg General appearance: PRESENT: mild distress Head exam: PRESENT: atraumatic Eye exam: PRESENT: PERRLA Mouth exam: PRESENT: moist, tongue midline Neck exam: ABSENT: carotid bruit, JVD, lymphadenopathy, thyromegaly Respiratory exam: PRESENT: decreased breath sounds, wheezes Cardiovascular exam: PRESENT: tachycardia GI/Abdominal exam: PRESENT: normal bowel sounds, soft. ABSENT: distended, guarding, mass, organolmegaly, rebound, tenderness Extremities exam: PRESENT: full ROM. ABSENT: calf tenderness, clubbing, pedal edema Neurological exam: PRESENT: alert, awake, oriented to person, oriented to place, oriented to time, oriented to situation, CN II-XII grossly intact. ABSENT: motor sensory deficit Psychiatric exam: PRESENT: appropriate affect, normal mood. ABSENT: homicidal ideation, suicidal ideation Results Laboratory Results: 12/25/18 04:04 12/25/18 04:04 12/25/18 12/25/18 04:04 04:04 WBC 12.1 H RBC 4.25 L Hgb 12.8 L Hct 37.4 L MCV 88 MCH 30.1 MCHC 34.2 RDW 14.6 H Plt Count 309 Seg Neutrophils % Not Reportable Lymphocytes % Not Reportable Monocytes % Not Reportable Eosinophils % Not Reportable Basophils % Not Reportable Absolute Neutrophils Not Reportable Absolute Lymphocytes Not Reportable Absolute Monocytes Not Reportable Absolute Eosinophils Not Reportable Absolute Basophils Not Reportable Sodium 134.3 L Potassium 4.5 Chloride 99 Carbon Dioxide 28 Anion Gap 7 BUN 34 H Creatinine 0.73 Est GFR ( Amer) > 60 Est GFR (Non-Af Amer) > 60 Glucose 139 H Calcium 9.4 12/21/18 12/22/18 12/22/18 23:05 05:36 05:36 Creatine Kinase 33 L CK-MB (CK-2) 1.58 Troponin I < 0.012 < 0.012 NT-Pro-B Natriuret Pep 182 12/22/18 12/22/18 12/22/18 10:40 10:40 16:42 Creatine Kinase 29 L 26 L CK-MB (CK-2) 1.39 Troponin I < 0.012 NT-Pro-B Natriuret Pep 12/22/18 12/23/18 12/23/18 16:42 13:59 13:59 Creatine Kinase < 20 L CK-MB (CK-2) 1.20 0.90 Troponin I < 0.012 < 0.012 NT-Pro-B Natriuret Pep 12/23/18 12/23/18 12/24/18 18:30 18:30 00:41 Creatine Kinase < 20 L < 20 L CK-MB (CK-2) 0.85 Troponin I < 0.012 NT-Pro-B Natriuret Pep 12/24/18 00:41 Creatine Kinase CK-MB (CK-2) 0.66 Troponin I < 0.012 NT-Pro-B Natriuret Pep Impressions: Chest X-Ray 12/21/18 23:04 IMPRESSION: Underlying hyperinflation. No acute cardiopulmonary process copyright 2011 [employer]- All Rights Reserved Chest/Abdomen CTA 12/23/18 00:00 IMPRESSION: 1. No pulmonary emboli. 2. COPD. No evidence of superimposed pneumonia. Assessment & Plan - Diagnosis (1) Acute respiratory failure with hypoxia Is this a current diagnosis for this admission?: Yes Plan: Patient will be treated with BiPAP and supplemental oxygen as required to maintain adequate oxygen saturation greater than 90%. He will receive ellen tional supportive care as required. 12/22/2018-patient is presently on BiPAP, pulse ox is 96% on 35% oxygen. Pulse ox 135.7 and oxygen yesterday pH is 7.45/PCO2 40/PO2 73.6/bicarb is 27. Plan is to continue BiPAP as needed, IV Solu-Medrol 40 mg every 6 hours, scheduled nebulizer treatments. Patient is presently on Xopenex nebs every 8 hours and albuterol nebulizations every hour as needed. Plan to repeat the ABG today and do the follow-up chest x-rays tomorrow. Admission chest x-ray ruled out any pneumonia. 12/23/2018-patient was admitted with acute respiratory failure with hypoxia. Patient was a nebulizer treatment IV Solu-Medrol 40 mg every 6 hours. Also was placed on BiPAP on as needed basis. Chest x-ray ruled out any pneumonia. Pulse oxes on 3.5 L today is 97%. Patient was hypotensive and asymptomatic without any complaints of dizziness or lightheadedness. Plan is to do the CT of the chest to rule out PE and started on IV Rocephin 2 g daily. Cardiac workup was requested. Is going to be placed on telemetry monitoring. Plan to put a consult for Dr. Jesus. 12/24/[id number]-nbhh-old male with history of COPD admitted for acute exacerbation of COPD leading to acute respiratory failure with hypoxia. CT of the chest was negative for pneumonia or PE. Presently on IV Solu-Medrol 40 mg every 8 hours, IV Rocephin 2 g daily, Xopenex nebulizations every 8 hours and albuterol nebulizations as needed basis. Plan is to continue the present management today. She says she is feeling better today. 12/25/[id number]-kiga-old male admitted with acute on chronic respiratory failure with hypoxia most likely secondary to COPD exacerbation. CT of the chest was negative for PE and pneumonia. Is on IV Solu-Medrol 40 mg every 8 hours and IV Rocephin 2 g daily along with the Xopenex nebulizations every 8 hours and albuterol nebulizations on as-needed basis. Chest is much better today compared to yesterday's examination. Plan is to decrease the Solu-Medrol to every 12 hours and continue the other management. Pulse ox today is 100% on 3 L. (2) COPD exacerbation Is this a current diagnosis for this admission?: Yes Plan: 12/22/2018-patient has history of COPD secondary to chronic smoking. He is a current smoker. He is uses 2 L oxygen at home. He uses CPAP at night at home. We are going to resume the CPAP orders were during this hospital stay. Patient does not want to be on nicotine patch. Patient is presently on albuterol nebulization, Xopenex nebulizations, IV steroids. Plan is to continue the present management. 12/23/2018-patient has history of COPD secondary to smoking according to his after he was discharged from here he went home and started smoking again and had another attack of COPD exacerbation came to the emergency room and he was readmitted. He uses 2 L of oxygen at home. Pulse ox is 97% on 3.5 L. Patient does not want any nicotine patch. Presently on IV Solu-Medrol 40 mg daily every 12 hours, Xopenex and albuterol nebulizations. Plan is to continue the present management. 12/24/2018-patient has history of COPD secondary to chronic smoking on 2 L of oxygen at home. Pulse ox today 98% on 2 L oxygen. Plan is to continue Xopenex, albuterol nebulizations and IV steroids. CPT is going to be requested. 12/25/2018-patient has history of COPD secondary to chronic smoking he is on 2 L home oxygen. Pulse ox today is 100% on 3 L. Plan is to continue IV steroids So davey-Medrol and Xopenex nebulizations. Patient is also receiving chest physical therapy. (3) FRED on CPAP Is this a current diagnosis for this admission?: Yes Plan: Patient will be treated with BiPAP during his hospital course however once he is able to tolerate being off BiPAP during the day he will be treated with CPAP at night as he would be at home. If patient unable to tolerate CPAP at night with no further therapy he should be discharged home on BiPAP. 12/22/2018-patient has history of obstructive sleep apnea uses CPAP at home during the night. We are going to put him on BiPAP for the next 2 days and switch to CPAP once COPD exacerbation is resolving. 12/23/2018-patient has history of obstructive sleep apnea uses CPAP at night. Plan is to resume the CPAP treatment here. 12/24/2018-patient has history of obstructive sleep apnea uses CPAP at night at home. Patient is presently on BiPAP on as-needed basis. 12/25/2018-patient has history of obstructive sleep apnea uses CPAP at night at home. Presently is on BiPAP on as-needed basis. (4) Diabetes mellitus type 2 in nonobese Is this a current diagnosis for this admission?: Yes Plan: Patient will be continued on his current diabetic medications and will also have a supplemental sliding scale insulin available to cover hyperglycemia. Hemoglobin A1c will be obtained to determine his diabetic therapeutic efficacy over the last 90 days. 12/22/2018-patient history of type 2 diabetes mellitus he was started on IV Solu- Medrol 40 mg every 6 hours for COPD exacerbation, based on sliding scale before meals and at bedtime. he is on metformin at home ,to hold metformin during the hospital stay. He is hemoglobin A1c last week is 6.4. Plan is to continue the present management. 12/23/2018-patient has history of type 2 diabetes mellitus latest blood sugar is 103. Metformin is on hold. His insulin sliding scale. Hemoglobin A1c 6.4. Plan is to continue the present management. 12/24/2018-patient has history of type 2 diabetes mellitus. Latest blood sugar is 129. He is on insulin sliding scale and hemoglobin A1c 6.4. Plan is to continue the present management. 12/25/2018-patient's latest blood sugar today is 126 well-controlled presently is on insulin sliding scale. Plan is to continue the present management. - Time Time Spent with patient: 15-24 minutes Smoking Cessation Education: over 10 minutes Medications reviewed and adjusted accordingly: Yes Anticipated discharge: Home
[2018-12-25] MEDS: ALBUTEROL SULFATE 0.083% NEB 2.5 MG/3 ML AMPUL NEB PRN (12:30)
[2018-12-25] MEDS: ASCORBIC ACID 500 MG TABLET PO SCH (18:00)
[2018-12-25] MEDS: FOLIC ACID 1 MG TABLET PO SCH (21:22)
[2018-12-25] MEDS: CYANOCOBALAMIN (VITAMIN B-12) 1,000 MCG TABLET PO SCH (21:23)
[2018-12-25] MEDS: ATORVASTATIN CALCIUM 40 MG TABLET PO SCH (21:23)
--- NOTE | 2018-12-26 00:15 | EKG REPORT ---
SEVERITY:- ABNORMAL ECG - SINUS RHYTHM RIGHT BUNDLE BRANCH BLOCK : Confirmed by: Lindsay Brunson 26-Dec-2018 00:14:19
[2018-12-26] MEDS: HEPARIN SOD (PORCINE) 5,000 UNIT/ML 1 ML SYRINGE SUBCUT SCH ×3 (05:30→21:31)
[2018-12-26 06:45] LABS: ABSOLUTE LYMPHOCYTES (AUTO) 1.5 10^3/uL (0.5-4.7); ABSOLUTE NEUT (AUTO) 9.9 10^3/uL (1.7-8.2); BASOPHILS % (AUTO) 0.1 % (0-2); EOSINOPHILS % (AUTO) 0.4 % (0-6); HEMATOCRIT 36.8 % (37.9-51.0); HEMOGLOBIN 12.7 g/dL (13.5-17.0); LYMPHOCYTES % (AUTO) 12.1 % (13-45); MEAN CORPUSCULAR HGB CONC 34.5 g/dL (32.0-36.0); MEAN CORPUSCULAR VOLUME 87 fl (80-97); MONOCYTES % (AUTO) 8.2 % (3-13); PLATELET COUNT 297 10^3/uL (150-450); RED BLOOD COUNT 4.24 10^6/uL (4.35-5.55); RED CELL DISTRIBUTION WIDTH 14.6 % (11.5-14.0); SEGMENTED NEUTROPHILS % (AUTO) 79.2 % (42-78); TOTAL CELLS COUNTED % (AUTO) 100 %; WHITE BLOOD COUNT 12.5 10^3/uL (4.0-10.5)
[2018-12-26 07:02] LABS: ALANINE AMINOTRANSFERASE 79 U/L (21-72); ALBUMIN 3.6 g/dL (3.5-5.0); ALKALINE PHOSPHATASE 44 U/L (38-126); ANION GAP 9 (5-19); ASPARTATE AMINO TRANSFERASE 16 U/L (17-59); BILIRUBIN,DIRECT 0.1 mg/dL (0.0-0.4); BILIRUBIN,TOTAL 0.7 mg/dL (0.2-1.3); BLOOD UREA NITROGEN 32 mg/dL (7-20); CALCIUM 9.4 mg/dL (8.4-10.2); CARBON DIOXIDE 25 mmol/L (22-30); CHLORIDE 99 mmol/L (98-107); GLUCOSE 97 mg/dL (75-110); POTASSIUM 4.2 mmol/L (3.6-5.0); SODIUM 132.7 mmol/L (137-145); TOTAL PROTEIN 5.4 g/dL (6.3-8.2)
[2018-12-26] MEDS: IPRATROPIUM BROMIDE 0.02% NEB 0.5 MG/2.5 ML AMPUL NEB SCH ×2 (08:34→16:04)
[2018-12-26] MEDS: LEVALBUTEROL HCL NEB 1.25 MG/3 ML AMPUL NEB SCH ×2 (08:34→16:04)
[2018-12-26] MEDS: BUDESONIDE NEB 0.5 MG/2 ML AMPUL NEB SCH ×2 (08:34→20:55)
[2018-12-26] MEDS: FLUTICASONE/UMECLIDIN/VILANTER 100-62.5-25 MCG/DOSE IH SCH (09:25)
[2018-12-26] MEDS: METOPROLOL SUCCINATE 50 MG TAB.SR.24H PO SCH (09:26)
[2018-12-26] MEDS: ASPIRIN 81 MG TABLET, ENT COATED PO SCH (09:26)
[2018-12-26] MEDS: METHYLPREDNISOLONE INJ 40 MG/1 ML SDV IV SCH ×2 (09:26→17:19)
[2018-12-26] MEDS: CEFTRIAXONE 2 GM/D5W RTU 2 GM/50 ML RTUPB IV SCH (09:26)
[2018-12-26] MEDS: FAMOTIDINE 20 MG TABLET PO SCH ×2 (09:26→21:32)
[2018-12-26] MEDS: CLOPIDOGREL BISULFATE 75 MG TABLET PO SCH (09:28)
[2018-12-26] MEDS: GUAIFENESIN 600 MG TABLET.SA PO SCH ×2 (09:28→21:32)
[2018-12-26] MEDS: ROFLUMILAST 500 MCG TABLET PO SCH (09:28)
[2018-12-26] MEDS: DOCUSATE SODIUM 100 MG CAPSULE PO SCH ×2 (09:28→17:19)
[2018-12-26] MEDS: FERROUS SULFATE 325 MG TABLET PO SCH ×2 (09:28→17:19)
[2018-12-26] MEDS: AMLODIPINE BESYLATE 2.5 MG TABLET PO SCH (09:29)
[2018-12-26] MEDS: ALBUTEROL SULFATE 0.083% NEB 2.5 MG/3 ML AMPUL NEB PRN ×2 (12:17→20:55)
[2018-12-26] MEDS: INSULIN REG, HUMAN 100 UNIT/ML 3 ML VIAL (PYX) SUBCUT PRN ×3 (12:18→21:32)
--- NOTE | 2018-12-26 12:49 | PDOC PROGRESS REPORT ---
Subjective Progress Note for:: 12/26/18 Subjective:: 58 year old male who presented to the hospital just a few hours after he was discharged to home complaining of a recurrence of his dyspnea. He admits that after leaving the hospital today even though he did not feel "back to normal" he did return to home and began smoking cigarettes. After smoking he noticed that he had become more dyspneic and he tried using his nebulizer therapy administering several treatments to himself without significant improvement. His dyspnea continued to worsen and he did not attempt to use his CPAP at home but instead called for the EMS team to bring him back to the hospital. He admits numerous similar previous episodes and now understands that smoking does indeed worsen his dyspnea. He has not found any ameliorating factors for his dyspnea other than treatment in the hospital. In the emergency room he was found to be hypoxic and dyspneic with significant work of breathing requiring BiPAP respiratory support. Because of his worsened condition he was readmitted to the hospital for further evaluation and treatment. 12/22/2018 -58-year-old male with history of COPD chronic smoker he was discharged yesterday morning on p.o. prednisone and was advised to continue home oxygen at home. He was fine for a few hours at home after that started having the severe shortness of breath wheezing unable to walk from the bed to the bathroom. Try to use the inhalers and try to use the nebulizer treatments 4-5 times without any improvement so he decided to come to the emergency room again last night. He admitted to the overnight hospitalist that he started smoking again at home. On examination this morning patient is still on BiPAP. Alert and awake communicating very well. Pulse ox is 98% on 35% oxygen. 12/23/[id number]-rmdn-old male recently discharged from the hospital for COPD exacerbation came back again within 1 day. Nurse called me this morning and the blood pressure is running in the upper 80s and diastolic running in the 60s patient was completely asymptomatic I requested the nurse to hold his morning blood pressure medications, patient was encouraged to drink plenty of oral fluids. I went to talk to him patient was in shortness of breath struggling to complete the sentences and he calmed down after a minute or so. Also complaining of chest tightness. He just completed nebulizer treatment. I disc ussed the plan with him that we going to place him on a telemetry monitoring, cardiac workup, CT of the chest to rule out PE. Also told him a plan to start him on IV antibiotic therapy. Patient is agreed with the plan. Later on I spoke to the and explained the treatment and plan of care. 12/24/2018 58-year-old male admitted with COPD exacerbation. He is looking much better today. He feels better today. He still on BiPAP as needed. He is receiving IV Solu-Medrol, atrial nebulizations. No acute events in the last 24 hours. Afebrile. Yesterday we did a CT of the chest to rule out PE which was negative for PE. 12/25/2018 58-year-old male admitted with COPD exacerbation acute on chronic respiratory failure with hypoxia and hypercapnia. He is doing much better today compared to yesterday. Presently on IV Solu-Medrol, ipratropium nebulizations. CT of the chest was negative for PE and pneumonia. a Febrile. 12/26/2018-no acute events in the last 24 hours. Patient is doing much better. She is using the BiPAP and chest physical therapy. As per the patient every time after chest physical therapy he is coughing and bringing up the mucus and it is helping him breathe better. Reason For Visit: COPD EXACERBATION Physical Exam Vital Signs: Temp Pulse Resp BP Pulse Ox 97.4 F 67 18 102/66 98 12/26/18 08:04 12/26/18 08:39 12/26/18 08:39 12/26/18 08:04 12/26/18 08:39 Intake & Output 12/25/18 12/26/18 12/27/18 06:59 06:59 06:59 Intake Total 1689 1190 50 Output Total 1350 2450 Balance 339 -1260 50 Weight 73.8 kg 72.9 kg General appearance: PRESENT: no acute distress Eye exam: PRESENT: PERRLA Mouth exam: PRESENT: moist Teeth exam: PRESENT: poor dentation Respiratory exam: PRESENT: decreased breath sounds Cardiovascular exam: PRESENT: tachycardia GI/Abdominal exam: PRESENT: normal bowel sounds, soft. ABSENT: distended, guarding, mass, organolmegaly, rebound, tenderness Extremities exam: PRESENT: full ROM. ABSENT: calf tenderness, clubbing, pedal edema Neurological exam: PRESENT: alert, awake, oriented to person, oriented to place, oriented to time, oriented to situation, CN II-XII grossly intact. ABSENT: motor sensory deficit Psychiatric exam: PRESENT: appropriate affect, normal mood. ABSENT: homicidal ideation, suicidal ideation Results Laboratory Results: 12/26/18 05:38 12/26/18 05:38 12/26/18 12/26/18 05:38 05:38 WBC 12.5 H RBC 4.24 L Hgb 12.7 L Hct 36.8 L MCV 87 MCH 30.0 MCHC 34.5 RDW 14.6 H Plt Count 297 Seg Neutrophils % 79.2 H Lymphocytes % 12.1 L Monocytes % 8.2 Eosinophils % 0.4 Basophils % 0.1 Absolute Neutrophils 9.9 H Absolute Lymphocytes 1.5 Absolute Monocytes 1.0 Absolute Eosinophils 0.0 Absolute Basophils 0.0 Sodium 132.7 L Potassium 4.2 Chloride 99 Carbon Dioxide 25 Anion Gap 9 BUN 32 H Creatinine 0.66 Est GFR ( Amer) > 60 Est GFR (Non-Af Amer) > 60 Glucose 97 Calcium 9.4 Magnesium 2.1 Total Bilirubin 0.7 AST 16 L ALT 79 H Alkaline Phosphatase 44 Total Protein 5.4 L Albumin 3.6 12/21/18 12/22/18 12/22/18 23:05 05:36 05:36 Creatine Kinase 33 L CK-MB (CK-2) 1.58 Troponin I < 0.012 < 0.012 NT-Pro-B Natriuret Pep 182 12/22/18 12/22/18 12/22/18 10:40 10:40 16:42 Creatine Kinase 29 L 26 L CK-MB (CK-2) 1.39 Troponin I < 0.012 NT-Pro-B Natriuret Pep 12/22/18 12/23/18 12/23/18 16:42 13:59 13:59 Creatine Kinase < 20 L CK-MB (CK-2) 1.20 0.90 Troponin I < 0.012 < 0.012 NT-Pro-B Natriuret Pep 12/23/18 12/23/18 12/24/18 18:30 18:30 00:41 Creatine Kinase < 20 L < 20 L CK-MB (CK-2) 0.85 Troponin I < 0.012 NT-Pro-B Natriuret Pep 12/24/18 00:41 Creatine Kinase CK-MB (CK-2) 0.66 Troponin I < 0.012 NT-Pro-B Natriuret Pep Impressions: Chest X-Ray 12/21/18 23:04 IMPRESSION: Underlying hyperinflation. No acute cardiopulmonary process copyright 2010 [employer]- All Rights Reserved Chest/Abdomen CTA 12/23/18 00:00 IMPRESSION: 1. No pulmonary emboli. 2. COPD. No evidence of superimposed pneumonia. Assessment & Plan - Diagnosis (1) Acute respiratory failure with hypoxia Is this a current diagnosis for this admission?: Yes Plan: Patient will be treated with BiPAP and supplemental oxygen as required to maintain adequate oxygen saturation greater than 90%. He will receive additional supportive care as required. 12/22/2018-patient is presently on BiPAP, pulse ox is 96% on 35% oxygen. Pulse ox 135.7 and oxygen yesterday pH is 7.45/PCO2 40/PO2 73.6/bicarb is 27. Plan is to continue BiPAP as needed, IV Solu-Medrol 40 mg every 6 hours, scheduled nebulizer treatments. Patient is presently on Xopenex nebs every 8 hours and albuterol nebulizations every hour as needed. Plan to repeat the ABG today and do the follow-up chest x-rays tomorrow. Admission chest x-ray ruled out any pn eumonia. 12/23/2018-patient was admitted with acute respiratory failure with hypoxia. Patient was a nebulizer treatment IV Solu-Medrol 40 mg every 6 hours. Also was placed on BiPAP on as needed basis. Chest x-ray ruled out any pneumonia. Pulse oxes on 3.5 L today is 97%. Patient was hypotensive and asymptomatic without any complaints of dizziness or lightheadedness. Plan is to do the CT of the chest to rule out PE and started on IV Rocephin 2 g daily. Cardiac workup was requested. Is going to be placed on telemetry monitoring. Plan to put a consult for Dr. Jesus. 12/24/[id number]-atjq-old male with history of COPD admitted for acute exacerbation of COPD leading to acute respiratory failure with hypoxia. CT of the chest was negative for pneumonia or PE. Presently on IV Solu-Medrol 40 mg every 8 hours, IV Rocephin 2 g daily, Xopenex nebulizations every 8 hours and albuterol nebuliz ations as needed basis. Plan is to continue the present management today. She says she is feeling better today. 12/25/[id number]-mglc-old male admitted with acute on chronic respiratory failure with hypoxia most likely secondary to COPD exacerbation. CT of the chest was negative for PE and pneumonia. Is on IV Solu-Medrol 40 mg every 8 hours and IV Rocephin 2 g daily along with the Xopenex nebulizations every 8 hours and albuterol nebulizations on as-needed basis. Chest is much better today compared to yesterday's examination. Plan is to decrease the Solu-Medrol to every 12 hours and continue the other management. Pulse ox today is 100% on 3 L. 12/26/[id number]-luet-old male admitted with acute on chronic respiratory failure with hypoxia presently on BiPAP, chest physical therapy, IV steroid therapy along with IV Rocephin 2 g daily Xopenex every 8 hours, albuterol nebulizations as needed. He is showing slow and significant improvement on daily basis. His pulse ox today is 97% on 3 L. Plan is to continue the present management. (2) COPD exacerbation Is this a current diagnosis for this admission?: Yes Plan: 12/22/2018-patient has history of COPD secondary to chronic smoking. He is a current smoker. He is uses 2 L oxygen at home. He uses CPAP at night at home. We are going to resume the CPAP orders were during this hospital stay. Patient does not want to be on nicotine patch. Patient is presently on albuterol nebulization, Xopenex nebulizations, IV steroids. Plan is to continue the present management. 12/23/2018-patient has history of COPD secondary to smoking according to his after he was discharged from here he went home and started smoking again and had another attack of COPD exacerbation came to the emergency room and he was readmitted. He uses 2 L of oxygen at home. Pulse ox is 97% on 3.5 L. Patient does not want any nicotine patch. Presently on IV Solu-Medrol 40 mg daily every 12 hours, Xopenex and albuterol nebulizations. Plan is to continue the present management. 12/24/2018-patient has history of COPD secondary to chronic smoking on 2 L of oxygen at home. Pulse ox today 98% on 2 L oxygen. Plan is to continue Xopenex, albuterol nebulizations and IV steroids. CPT is going to be requested. 12/25/2018-patient has history of COPD secondary to chronic smoking he is on 2 L home oxygen. Pulse ox today is 100% on 3 L. Plan is to continue IV steroids Solu-Medrol and Xopenex nebulizations. Patient is also receiving chest physical therapy. 12/26/2018-patient has history of COPD secondary to chronic smoking on 2 L oxygen. Pulse ox is 97% on 3 L today. He is receiving chest physical therapy, Xopenex nebulizations, IV Solu-Medrol 40 mg p.o. every 12 hours. Chest x-ray was done negative for pneumonia. (3) FRED on CPAP Is this a current diagnosis for this admission?: Yes Plan: Patient will be treated with BiPAP during his hospital course however once he is able to tolerate being off BiPAP during the day he will be treated with CPAP at night as he would be at home. If patient unable to tolerate CPAP at night with no further therapy he should be discharged home on BiPAP. 12/22/2018-patient has history of obstructive sleep apnea uses CPAP at home during the night. We are going to put him on BiPAP for the next 2 days and switch to CPAP once COPD exacerbation is resolving. 12/23/2018-patient has history of obstructive sleep apnea uses CPAP at night. Plan is to resume the CPAP treatment here. 12/24/2018-patient has history of obstructive sleep apnea uses CPAP at night at home. Patient is presently on BiPAP on as-needed basis. 12/25/2018-patient has history of obstructive sleep apnea uses CPAP at night at home. Presently is on BiPAP on as-needed basis. 12/26/2018-patient has history of obstructive sleep apnea uses CPAP at night. Here he is using the BiPAP on as-needed basis. We will continue the present management while he was in the hospital. (4) Diabetes mellitus type 2 in nonobese Is this a current diagnosis for this admission?: Yes Plan: Patient will be continued on his current diabetic medications and will also have a supplemental sliding scale insulin available to cover hyperglycemia. Hemoglobin A1c will be obtained to determine his diabetic therapeutic efficacy over the last 90 days. 12/22/2018-patient history of type 2 diabetes mellitus he was started on IV Solu- Medrol 40 mg every 6 hours for COPD exacerbation, based on sliding scale before meals and at bedtime. he is on metformin at home ,to hold metformin during the hospital stay. He is hemoglobin A1c last week is 6.4. Plan is to continue the present management. 12/23/2018-patient has history of type 2 diabetes mellitus latest blood sugar is 103. Metformin is on hold. His insulin sliding scale. Hemoglobin A1c 6.4. Plan is to continue the present management. 12/24/2018-patient has history of type 2 diabetes mellitus. Latest blood sugar is 129. He is on insulin sliding scale and hemoglobin A1c 6.4. Plan is to continue the present management. 12/25/2018-patient's latest blood sugar today is 126 well-controlled presently is on insulin sliding scale. Plan is to continue the present management. 12/26/2018 patient's latest blood sugar is 110 he is on insulin sliding scale. He has history of type 2 diabetes mellitus hemoglobin A1c 6.4. - Time Time Spent with patient: 15-24 minutes Medications reviewed and adjusted accordingly: Yes
[2018-12-26] MEDS: ASCORBIC ACID 500 MG TABLET PO SCH (17:19)
[2018-12-26] MEDS: CYANOCOBALAMIN (VITAMIN B-12) 1,000 MCG TABLET PO SCH (21:32)
[2018-12-26] MEDS: ATORVASTATIN CALCIUM 40 MG TABLET PO SCH (21:32)
[2018-12-26] MEDS: FOLIC ACID 1 MG TABLET PO SCH (21:32)
[2018-12-27] MEDS: IPRATROPIUM BROMIDE 0.02% NEB 0.5 MG/2.5 ML AMPUL NEB SCH ×3 (00:25→16:10)
[2018-12-27] MEDS: LEVALBUTEROL HCL NEB 1.25 MG/3 ML AMPUL NEB SCH ×3 (00:25→16:10)
[2018-12-27] MEDS: HEPARIN SOD (PORCINE) 5,000 UNIT/ML 1 ML SYRINGE SUBCUT SCH ×3 (05:17→22:48)
[2018-12-27 05:19] LABS: ABSOLUTE LYMPHOCYTES (AUTO) 1.5 10^3/uL (0.5-4.7); ABSOLUTE MONOCYTES (AUTO) 0.9 10^3/uL (0.1-1.4); ABSOLUTE NEUT (AUTO) 9.2 10^3/uL (1.7-8.2); BASOPHILS % (AUTO) 0.1 % (0-2); EOSINOPHILS % (AUTO) 0.3 % (0-6); HEMATOCRIT 36.8 % (37.9-51.0); HEMOGLOBIN 12.9 g/dL (13.5-17.0); LYMPHOCYTES % (AUTO) 12.7 % (13-45); MEAN CORPUSCULAR HEMOGLOBIN 30.7 pg (27.0-33.4); MEAN CORPUSCULAR VOLUME 88 fl (80-97); MONOCYTES % (AUTO) 7.7 % (3-13); PLATELET COUNT 260 10^3/uL (150-450); RED CELL DISTRIBUTION WIDTH 14.7 % (11.5-14.0); SEGMENTED NEUTROPHILS % (AUTO) 79.2 % (42-78); TOTAL CELLS COUNTED % (AUTO) 100 %; WHITE BLOOD COUNT 11.6 10^3/uL (4.0-10.5)
[2018-12-27 05:47] LABS: ALANINE AMINOTRANSFERASE 68 U/L (21-72); ALBUMIN 3.5 g/dL (3.5-5.0); ALKALINE PHOSPHATASE 40 U/L (38-126); ANION GAP 8 (5-19); ASPARTATE AMINO TRANSFERASE 20 U/L (17-59); BILIRUBIN,DIRECT 0.2 mg/dL (0.0-0.4); BILIRUBIN,TOTAL 0.7 mg/dL (0.2-1.3); BLOOD UREA NITROGEN 30 mg/dL (7-20); CALCIUM 9.3 mg/dL (8.4-10.2); CARBON DIOXIDE 25 mmol/L (22-30); CHLORIDE 99 mmol/L (98-107); GLUCOSE 101 mg/dL (75-110); POTASSIUM 4.4 mmol/L (3.6-5.0); SODIUM 132.3 mmol/L (137-145); TOTAL PROTEIN 5.4 g/dL (6.3-8.2)
[2018-12-27] MEDS: BUDESONIDE NEB 0.5 MG/2 ML AMPUL NEB SCH ×2 (08:11→20:25)
[2018-12-27] MEDS: METHYLPREDNISOLONE INJ 40 MG/1 ML SDV IV SCH (09:56)
[2018-12-27] MEDS: GUAIFENESIN 600 MG TABLET.SA PO SCH ×2 (09:58→22:48)
[2018-12-27] MEDS: CEFTRIAXONE 2 GM/D5W RTU 2 GM/50 ML RTUPB IV SCH (09:58)
[2018-12-27] MEDS: FLUTICASONE/UMECLIDIN/VILANTER 100-62.5-25 MCG/DOSE IH SCH (09:58)
[2018-12-27] MEDS: ROFLUMILAST 500 MCG TABLET PO SCH (09:58)
[2018-12-27] MEDS: AMLODIPINE BESYLATE 2.5 MG TABLET PO SCH (09:59)
[2018-12-27] MEDS: FERROUS SULFATE 325 MG TABLET PO SCH ×2 (09:59→17:25)
[2018-12-27] MEDS: FAMOTIDINE 20 MG TABLET PO SCH ×2 (09:59→22:49)
[2018-12-27] MEDS: CLOPIDOGREL BISULFATE 75 MG TABLET PO SCH (09:59)
[2018-12-27] MEDS: METOPROLOL SUCCINATE 50 MG TAB.SR.24H PO SCH (09:59)
[2018-12-27] MEDS: ASPIRIN 81 MG TABLET, ENT COATED PO SCH (09:59)
[2018-12-27] MEDS: DOCUSATE SODIUM 100 MG CAPSULE PO SCH ×2 (09:59→17:25)
--- NOTE | 2018-12-27 10:07 | PDOC PROGRESS REPORT ---
Subjective Progress Note for:: 12/27/18 Subjective:: 58 year old male who presented to the hospital just a few hours after he was discharged to home complaining of a recurrence of his dyspnea. He admits that after leaving the hospital today even though he did not feel "back to normal" he did return to home and began smoking cigarettes. After smoking he noticed that he had become more dyspneic and he tried using his nebulizer therapy administering several treatments to himself without significant improvement. His dyspnea continued to worsen and he did not attempt to use his CPAP at home but instead called for the EMS team to bring him back to the hospital. He admits numerous similar previous episodes and now understands that smoking does indeed worsen his dyspnea. He has not found any ameliorating factors for his dyspnea other than treatment in the hospital. In the emergency room he was found to be hypoxic and dyspneic with significant work of breathing requiring BiPAP respiratory support. Because of his worsened condition he was readmitted to the hospital for further evaluation and treatment. 12/22/2018 -58-year-old male with history of COPD chronic smoker he was discharged yesterday morning on p.o. prednisone and was advised to continue home oxygen at home. He was fine for a few hours at home after that started having the severe shortness of breath wheezing unable to walk from the bed to the bathroom. Try to use the inhalers and try to use the nebulizer treatments 4-5 times without any improvement so he decided to come to the emergency room again last night. He admitted to the overnight hospitalist that he started smoking again at home. On examination this morning patient is still on BiPAP. Alert and awake communicating very well. Pulse ox is 98% on 35% oxygen. 12/23/[id number]-jbhq-old male recently discharged from the hospital for COPD exacerbation came back again within 1 day. Nurse called me this morning and the blood pressure is running in the upper 80s and diastolic running in the 60s patient was completely asymptomatic I requested the nurse to hold his morning blood pressure medications, patient was encouraged to drink plenty of oral fluids. I went to talk to him patient was in shortness of breath struggling to complete the sentences and he calmed down after a minute or so. Also complaining of chest tightness. He just completed nebulizer treatment. I disc ussed the plan with him that we going to place him on a telemetry monitoring, cardiac workup, CT of the chest to rule out PE. Also told him a plan to start him on IV antibiotic therapy. Patient is agreed with the plan. Later on I spoke to the and explained the treatment and plan of care. 12/24/2018 58-year-old male admitted with COPD exacerbation. He is looking much better today. He feels better today. He still on BiPAP as needed. He is receiving IV Solu-Medrol, atrial nebulizations. No acute events in the last 24 hours. Afebrile. Yesterday we did a CT of the chest to rule out PE which was negative for PE. 12/25/2018 58-year-old male admitted with COPD exacerbation acute on chronic respiratory failure with hypoxia and hypercapnia. He is doing much better today compared to yesterday. Presently on IV Solu-Medrol, ipratropium nebulizations. CT of the chest was negative for PE and pneumonia. a Febrile. 12/26/2018-no acute events in the last 24 hours. Patient is doing much better. She is using the BiPAP and chest physical therapy. As per the patient every time after chest physical therapy he is coughing and bringing up the mucus and it is helping him breathe better. 12/27/2018 no acute events in the last 24 hours. Patient is afebrile. Doing much better. Using using BiPAP only in the night. Comfortable in the bed no complaints from the patient. Communicating very well. Reason For Visit: COPD EXACERBATION Physical Exam Vital Signs: Temp Pulse Resp BP Pulse Ox 97.5 F 54 L 15 109/73 100 12/27/18 07:49 12/27/18 07:49 12/27/18 07:49 12/27/18 07:49 12/27/18 07:49 Intake & Output 12/26/18 12/27/18 12/28/18 06:59 06:59 06:59 Intake Total 1190 1690 Output Total 2450 2730 Balance -1260 -1040 Weight 72.9 kg 74.4 kg General appearance: PRESENT: no acute distress Head exam: PRESENT: atraumatic Eye exam: PRESENT: PERRLA Mouth exam: PRESENT: dry mucosa Teeth exam: PRESENT: poor dentation Neck exam: ABSENT: carotid bruit, JVD, lymphadenopathy, thyromegaly Respiratory exam: PRESENT: decreased breath sounds Cardiovascular exam: PRESENT: RRR. ABSENT: diastolic murmur, rubs, systolic murmur GI/Abdominal exam: PRESENT: normal bowel sounds, soft. ABSENT: distended, guarding, mass, organolmegaly, rebound, tenderness Extremities exam: PRESENT: full ROM. ABSENT: calf tenderness, clubbing, pedal edema Neurological exam: PRESENT: alert, awake, oriented to person, oriented to place, oriented to time, oriented to situation, CN II-XII grossly intact. ABSENT: motor sensory deficit Psychiatric exam: PRESENT: appropriate affect, normal mood. ABSENT: homicidal ideation, suicidal ideation Results Laboratory Results: 12/27/18 04:13 12/27/18 04:13 12/27/18 12/27/18 04:13 04:13 WBC 11.6 H RBC 4.20 L Hgb 12.9 L Hct 36.8 L MCV 88 MCH 30.7 MCHC 35.0 RDW 14.7 H Plt Count 260 Seg Neutrophils % 79.2 H Lymphocytes % 12.7 L Monocytes % 7.7 Eosinophils % 0.3 Basophils % 0.1 Absolute Neutrophils 9.2 H Absolute Lymphocytes 1.5 Absolute Monocytes 0.9 Absolute Eosinophils 0.0 Absolute Basophils 0.0 Sodium 132.3 L Potassium 4.4 Chloride 99 Carbon Dioxide 25 Anion Gap 8 BUN 30 H Creatinine 0.64 Est GFR ( Amer) > 60 Est GFR (Non-Af Amer) > 60 Glucose 101 Calcium 9.3 Magnesium 2.1 Total Bilirubin 0.7 AST 20 ALT 68 Alkaline Phosphatase 40 Total Protein 5.4 L Albumin 3.5 12/21/18 12/22/18 12/22/18 23:05 05:36 05:36 Creatine Kinase 33 L CK-MB (CK-2) 1.58 Troponin I < 0.012 < 0.012 NT-Pro-B Natriuret Pep 182 12/22/18 12/22/18 12/22/18 10:40 10:40 16:42 Creatine Kinase 29 L 26 L CK-MB (CK-2) 1.39 Troponin I < 0.012 NT-Pro-B Natriuret Pep 12/22/18 12/23/18 12/23/18 16:42 13:59 13:59 Creatine Kinase < 20 L CK-MB (CK-2) 1.20 0.90 Troponin I < 0.012 < 0.012 NT-Pro-B Natriuret Pep 12/23/18 12/23/18 12/24/18 18:30 18:30 00:41 Creatine Kinase < 20 L < 20 L CK-MB (CK-2) 0.85 Troponin I < 0.012 NT-Pro-B Natriuret Pep 12/24/18 00:41 Creatine Kinase CK-MB (CK-2) 0.66 Troponin I < 0.012 NT-Pro-B Natriuret Pep Impressions: Chest X-Ray 12/21/18 23:04 IMPRESSION: Underlying hyperinflation. No acute cardiopulmonary process copyright 2010 [email or web address]- All Rights Reserved Chest/Abdomen CTA 12/23/18 00:00 IMPRESSION: 1. No pulmonary emboli. 2. COPD. No evidence of superimposed pneumonia. Assessment & Plan - Diagnosis (1) Acute respiratory failure with hypoxia Is this a current diagnosis for this admission?: Yes Plan: Patient will be treated with BiPAP and supplemental oxygen as required to maintain adequate oxygen saturation greater than 90%. He will receive additiona l supportive care as required. 12/22/2018-patient is presently on BiPAP, pulse ox is 96% on 35% oxygen. Pulse ox 135.7 and oxygen yesterday pH is 7.45/PCO2 40/PO2 73.6/bicarb is 27. Plan is to continue BiPAP as needed, IV Solu-Medrol 40 mg every 6 hours, scheduled nebulizer treatments. Patient is presently on Xopenex nebs every 8 hours and albuterol nebulizations every hour as needed. Plan to repeat the ABG today and do the follow-up chest x-rays tomorrow. Admission chest x-ray ruled out any pneumonia. 12/23/2018-patient was admitted with acute respiratory failure with hypoxia. Patient was a nebulizer treatment IV Solu-Medrol 40 mg every 6 hours. Also was placed on BiPAP on as needed basis. Chest x-ray ruled out any pneumonia. Pulse oxes on 3.5 L today is 97%. Patient was hypotensive and asymptomatic without any complaints of dizziness or lightheadedness. Plan is to do the CT of the chest to rule out PE and started on IV Rocephin 2 g daily. Cardiac workup was requested. Is going to be placed on telemetry monitoring. Plan to put a consult for Dr. Jesus. 12/24/[id number]-saoi-old male with history of COPD admitted for acute exacerbation of COPD leading to acute respiratory failure with hypoxia. CT of the chest was negative for pneumonia or PE. Presently on IV Solu-Medrol 40 mg every 8 hours, IV Rocephin 2 g daily, Xopenex nebulizations every 8 hours and albuterol neb ulizations as needed basis. Plan is to continue the present management today. She says she is feeling better today. 12/25/[id number]-ochy-old male admitted with acute on chronic respiratory failure with hypoxia most likely secondary to COPD exacerbation. CT of the chest was negative for PE and pneumonia. Is on IV Solu-Medrol 40 mg every 8 hours and IV Rocephin 2 g daily along with the Xopenex nebulizations every 8 hours and albuterol nebulizations on as-needed basis. Chest is much better today compared to yesterday's examination. Plan is to decrease the Solu-Medrol to every 12 hours and continue the other management. Pulse ox today is 100% on 3 L. 12/26/[id number]-lvdp-old male admitted with acute on chronic respiratory failure with hypoxia presently on BiPAP, chest physical therapy, IV steroid therapy along with IV Rocephin 2 g daily Xopenex every 8 hours, albuterol nebulizations as needed. He is showing slow and significant improvement on daily basis. His pulse ox today is 97% on 3 L. Plan is to continue the present management. 12/27/[id number]-liwl-old male admitted with acute on chronic respiratory failure with hypoxia secondary to COPD exacerbation initially requiring BiPAP. Now pulse oxes 100% on 2 L. He is using BiPAP bowling the night. Presently on IV Solu-Medrol 40 mg every 12 hours plan is to switch to p.o. prednisone 10 mg twice a day. He is also receiving chest physical therapy, IV Rocephin 2 g daily, Xopenex every 8 hours, albuterol nebulizations as needed. Antibiotics will be discontinued today. Chest x-ray was negative for pneumonia. (2) COPD exacerbation Is this a current diagnosis for this admission?: Yes Plan: 12/22/2018-patient has history of COPD secondary to chronic smoking. He is a current smoker. He is uses 2 L oxygen at home. He uses CPAP at night at home. We are going to resume the CPAP orders were during this hospital stay. Patient does not want to be on nicotine patch. Patient is presently on albuterol nebulization, Xopenex nebulizations, IV steroids. Plan is to continue the present management. 12/23/2018-patient has history of COPD secondary to smoking according to his after he was discharged from here he went home and started smoking again and had another attack of COPD exacerbation came to the emergency room and he was readmitted. He uses 2 L of oxygen at home. Pulse ox is 97% on 3.5 L. Patient does not want any nicotine patch. Presently on IV Solu-Medrol 40 mg daily every 12 hours, Xopenex and albuterol nebulizations. Plan is to continue the present management. 12/24/2018-patient has history of COPD secondary to chronic smoking on 2 L of oxygen at home. Pulse ox today 98% on 2 L oxygen. Plan is to continue Xopenex, albuterol nebulizations and IV steroids. CPT is going to be requested. 12/25/2018-patient has history of COPD secondary to chronic smoking he is on 2 L home oxygen. Pulse ox today is 100% on 3 L. Plan is to continue IV steroids Solu-Medrol and Xopenex nebulizations. Patient is also receiving chest physical therapy. 12/26/2018-patient has history of COPD secondary to chronic smoking on 2 L oxygen. Pulse ox is 97% on 3 L today. He is receiving chest physical therapy, Xopenex nebulizations, IV Solu-Medrol 40 mg p.o. every 12 hours. Chest x-ray was done negative for pneumonia. 12/27/2018-patient has history of COPD secondary to smoking on 2 L oxygen. Pulse ox is 100 % on 2 lts. Presently on IV Solu-Medrol 40 mg every 12 hours, Xopenex nebulizations, ipratropium nebulizations. Plan is to switch IV Solu-Medrol to p.o. prednisone today. On examination today chest bilateral entry was severely decreased minimal wheezing at the bases today. (3) FRED on CPAP Is this a current diagnosis for this admission?: Yes Plan: Patient will be treated with BiPAP during his hospital course however once he is able to tolerate being off BiPAP during the day he will be treated with CPAP at night as he would be at home. If patient unable to tolerate CPAP at night with no further therapy he should be discharged home on BiPAP. 12/22/2018-patient has history of obstructive sleep apnea uses CPAP at home during the night. We are going to put him on BiPAP for the next 2 days and switch to CPAP once COPD exacerbation is resolving. 12/23/2018-patient has history of obstructive sleep apnea uses CPAP at night. Plan is to resume the CPAP treatment here. 12/24/2018-patient has history of obstructive sleep apnea uses CPAP at night at home. Patient is presently on BiPAP on as-needed basis. 12/25/2018-patient has history of obstructive sleep apnea uses CPAP at night at home. Presently is on BiPAP on as-needed basis. 12/26/2018-patient has history of obstructive sleep apnea uses CPAP at night. Here he is using the BiPAP on as-needed basis. We will continue the present management while he was in the hospital. 12/27/2018-patient has history of obstructive sleep apnea uses CPAP at home. Here he is using BiPAP at night I think he is stable enough to switch to CPAP from tonight. (4) Diabetes mellitus type 2 in nonobese Is this a current diagnosis for this admission?: Yes Plan: Patient will be continued on his current diabetic medications and will also have a supplemental sliding scale insulin available to cover hyperglycemia. Hemoglobin A1c will be obtained to determine his diabetic therapeutic efficacy over the last 90 days. 12/22/2018-patient history of type 2 diabetes mellitus he was started on IV Solu- Medrol 40 mg every 6 hours for COPD exacerbation, based on sliding scale before meals and at bedtime. he is on metformin at home ,to hold metformin during the hospital stay. He is hemoglobin A1c last week is 6.4. Plan is to continue the present management. 12/23/2018-patient has history of type 2 diabetes mellitus latest blood sugar is 103. Metformin is on hold. His insulin sliding scale. Hemoglobin A1c 6.4. Plan is to continue the present management. 12/24/2018-patient has history of type 2 diabetes mellitus. Latest blood sugar is 129. He is on insulin sliding scale and hemoglobin A1c 6.4. Plan is to continue the present management. 12/25/2018-patient's latest blood sugar today is 126 well-controlled presently is on insulin sliding scale. Plan is to continue the present management. 12/26/2018 patient's latest blood sugar is 110 he is on insulin sliding scale. He has history of type 2 diabetes mellitus hemoglobin A1c 6.4. 12/27/2018-latest blood sugar is 104 on insulin sliding scale. Hemoglobin A1c 6.4. He takes metformin at home which was on hold. Plan is to continue the present management. - Time Time Spent with patient: 15-24 minutes Smoking Cessation Education: over 10 minutes Medications reviewed and adjusted accordingly: Yes Anticipated discharge: Home
[2018-12-27] MEDS: PREDNISONE 10 MG TABLET PO SCH ×2 (10:22→17:24)
[2018-12-27] MEDS: ALBUTEROL SULFATE 0.083% NEB 2.5 MG/3 ML AMPUL NEB PRN ×2 (12:03→20:26)
[2018-12-27] MEDS: ASCORBIC ACID 500 MG TABLET PO SCH (17:25)
[2018-12-27] MEDS: CYANOCOBALAMIN (VITAMIN B-12) 1,000 MCG TABLET PO SCH (22:49)
[2018-12-27] MEDS: FOLIC ACID 1 MG TABLET PO SCH (22:49)
[2018-12-27] MEDS: ATORVASTATIN CALCIUM 40 MG TABLET PO SCH (22:49)
[2018-12-28] MEDS: LEVALBUTEROL HCL NEB 1.25 MG/3 ML AMPUL NEB SCH ×4 (00:01→23:44)
[2018-12-28] MEDS: IPRATROPIUM BROMIDE 0.02% NEB 0.5 MG/2.5 ML AMPUL NEB SCH ×4 (00:01→23:44)
[2018-12-28 05:43] LABS: HEMATOCRIT 38.2 % (37.9-51.0); HEMOGLOBIN 13.2 g/dL (13.5-17.0); MEAN CORPUSCULAR HEMOGLOBIN 30.6 pg (27.0-33.4); MEAN CORPUSCULAR HGB CONC 34.6 g/dL (32.0-36.0); MEAN CORPUSCULAR VOLUME 88 fl (80-97); PLATELET COUNT 291 10^3/uL (150-450); RED BLOOD COUNT 4.33 10^6/uL (4.35-5.55); RED CELL DISTRIBUTION WIDTH 14.4 % (11.5-14.0); WHITE BLOOD COUNT 10.7 10^3/uL (4.0-10.5)
[2018-12-28] MEDS: HEPARIN SOD (PORCINE) 5,000 UNIT/ML 1 ML SYRINGE SUBCUT SCH ×3 (05:47→21:41)
[2018-12-28 06:14] LABS: ABSOLUTE LYMPHOCYTES# (MANUAL) 1.7 10^3/uL (0.5-4.7); ABSOLUTE MONOCYTES # (MANUAL) 0.4 10^3/uL (0.1-1.4); ABSOLUTE NEUTROPHILS# (MANUAL) 8.6 10^3/uL (1.7-8.2); BAND NEUTROPHILS % (MANUAL) 1 % (3-5); BASOPHILS % (MANUAL) 0 % (0-2); EOSINOPHILS % (MANUAL) 0 % (0-6); LYMPHOCYTES % (MANUAL) 15 % (13-45); MONOCYTES % (MANUAL) 4 % (3-13); SEGMENTED NEUTROPHILS % (MAN) 79 % (42-78); TOTAL CELLS COUNTED 100
[2018-12-28 06:15] LABS: ANISOCYTOSIS SLIGHT; BURR CELLS SLIGHT; PLATELET COMMENT ADEQUATE; POIKILOCYTOSIS SLIGHT
[2018-12-28 06:31] LABS: ALANINE AMINOTRANSFERASE 74 U/L (21-72); ALBUMIN 3.5 g/dL (3.5-5.0); ALKALINE PHOSPHATASE 44 U/L (38-126); ANION GAP 8 (5-19); ASPARTATE AMINO TRANSFERASE 17 U/L (17-59); BILIRUBIN,DIRECT 0.1 mg/dL (0.0-0.4); BILIRUBIN,TOTAL 0.6 mg/dL (0.2-1.3); BLOOD UREA NITROGEN 30 mg/dL (7-20); CALCIUM 9.5 mg/dL (8.4-10.2); CARBON DIOXIDE 26 mmol/L (22-30); CHLORIDE 99 mmol/L (98-107); GLUCOSE 96 mg/dL (75-110); POTASSIUM 4.1 mmol/L (3.6-5.0); SODIUM 133.4 mmol/L (137-145); TOTAL PROTEIN 5.4 g/dL (6.3-8.2)
[2018-12-28] MEDS: NORMAL SALINE 1000 ML 1,000 ML IV PRN ×2 (06:57→08:59)
[2018-12-28] MEDS: BUDESONIDE NEB 0.5 MG/2 ML AMPUL NEB SCH ×2 (08:02→20:51)
[2018-12-28] MEDS: FAMOTIDINE 20 MG TABLET PO SCH ×2 (09:33→21:41)
[2018-12-28] MEDS: CLOPIDOGREL BISULFATE 75 MG TABLET PO SCH (09:33)
[2018-12-28] MEDS: DOCUSATE SODIUM 100 MG CAPSULE PO SCH ×2 (09:33→17:33)
[2018-12-28] MEDS: METOPROLOL SUCCINATE 50 MG TAB.SR.24H PO SCH (09:33)
[2018-12-28] MEDS: GUAIFENESIN 600 MG TABLET.SA PO SCH ×2 (09:33→21:41)
[2018-12-28] MEDS: ASPIRIN 81 MG TABLET, ENT COATED PO SCH (09:34)
[2018-12-28] MEDS: ROFLUMILAST 500 MCG TABLET PO SCH (09:34)
[2018-12-28] MEDS: PREDNISONE 10 MG TABLET PO SCH ×2 (09:34→17:33)
[2018-12-28] MEDS: FERROUS SULFATE 325 MG TABLET PO SCH ×2 (09:34→17:33)
[2018-12-28] MEDS: AMLODIPINE BESYLATE 2.5 MG TABLET PO SCH (09:36)
[2018-12-28] MEDS: FLUTICASONE/UMECLIDIN/VILANTER 100-62.5-25 MCG/DOSE IH SCH (09:36)
[2018-12-28] MEDS ORDERED: (PENDING PHARMACY ID) (Alendronate Sodium [Fosamax 70 Mg Tablet] 1 TAB) PO SCH (10:00)
--- NOTE | 2018-12-28 11:26 | PDOC PROGRESS REPORT ---
Subjective Progress Note for:: 12/28/18 Subjective:: 58 year old male who presented to the hospital just a few hours after he was discharged to home complaining of a recurrence of his dyspnea. He admits that after leaving the hospital today even though he did not feel "back to normal" he did return to home and began smoking cigarettes. After smoking he noticed that he had become more dyspneic and he tried using his nebulizer therapy administering several treatments to himself without significant improvement. His dyspnea continued to worsen and he did not attempt to use his CPAP at home but instead called for the EMS team to bring him back to the hospital. He admits numerous similar previous episodes and now understands that smoking does indeed worsen his dyspnea. He has not found any ameliorating factors for his dyspnea other than treatment in the hospital. In the emergency room he was found to be hypoxic and dyspneic with significant work of breathing requiring BiPAP respiratory support. Because of his worsened condition he was readmitted to the hospital for further evaluation and treatment. 12/22/2018 -58-year-old male with history of COPD chronic smoker he was discharged yesterday morning on p.o. prednisone and was advised to continue home oxygen at home. He was fine for a few hours at home after that started having the severe shortness of breath wheezing unable to walk from the bed to the bathroom. Try to use the inhalers and try to use the nebulizer treatments 4-5 times without any improvement so he decided to come to the emergency room again last night. He admitted to the overnight hospitalist that he started smoking again at home. On examination this morning patient is still on BiPAP. Alert and awake communicating very well. Pulse ox is 98% on 35% oxygen. 12/23/[id number]-tljv-old male recently discharged from the hospital for COPD exacerbation came back again within 1 day. Nurse called me this morning and the blood pressure is running in the upper 80s and diastolic running in the 60s patient was completely asymptomatic I requested the nurse to hold his morning blood pressure medications, patient was encouraged to drink plenty of oral fluids. I went to talk to him patient was in shortness of breath struggling to complete the sentences and he calmed down after a minute or so. Also complaining of chest tightness. He just completed nebulizer treatment. I disc ussed the plan with him that we going to place him on a telemetry monitoring, cardiac workup, CT of the chest to rule out PE. Also told him a plan to start him on IV antibiotic therapy. Patient is agreed with the plan. Later on I spoke to the and explained the treatment and plan of care. 12/24/2018 58-year-old male admitted with COPD exacerbation. He is looking much better today. He feels better today. He still on BiPAP as needed. He is receiving IV Solu-Medrol, atrial nebulizations. No acute events in the last 24 hours. Afebrile. Yesterday we did a CT of the chest to rule out PE which was negative for PE. 12/25/2018 58-year-old male admitted with COPD exacerbation acute on chronic respiratory failure with hypoxia and hypercapnia. He is doing much better today compared to yesterday. Presently on IV Solu-Medrol, ipratropium nebulizations. CT of the chest was negative for PE and pneumonia. a Febrile. 12/26/2018-no acute events in the last 24 hours. Patient is doing much better. She is using the BiPAP and chest physical therapy. As per the patient every time after chest physical therapy he is coughing and bringing up the mucus and it is helping him breathe better. 12/27/2018 no acute events in the last 24 hours. Patient is afebrile. Doing much better. Using using BiPAP only in the night. Comfortable in the bed no complaints from the patient. Communicating very well. 12/28/2018-patient became hypotensive last night blood pressure systolic is in the 80s he was given 2 L of normal saline latest blood pressure is 103/46. He is presently on amlodipine 2.5 mg p.o. daily and metoprolol 50 mg twice a day both medications are going to be on hold. Patient said he does not have any symptoms of lightheadedness or dizziness any other symptoms at the time of low blood pressure. As per his breathing he said he is doing great. Reason For Visit: COPD EXACERBATION Physical Exam Vital Signs: Temp Pulse Resp BP Pulse Ox 97.4 F 57 L 17 104/63 100 12/28/18 08:09 12/28/18 08:09 12/28/18 08:09 12/28/18 08:09 12/28/18 08:09 Intake & Output 12/27/18 12/28/18 12/29/18 06:59 06:59 06:59 Intake Total 7879 334 8673 Output Total 2730 2410 Balance -1040 -1621 1000 Weight 74.4 kg 74.6 kg General appearance: PRESENT: no acute distress Head exam: PRESENT: atraumatic Eye exam: PRESENT: PERRLA Mouth exam: PRESENT: moist Neck exam: ABSENT: carotid bruit, JVD, lymphadenopathy, thyromegaly Respiratory exam: PRESENT: decreased breath sounds Cardiovascular exam: PRESENT: RRR. ABSENT: diastolic murmur, rubs, systolic murmur GI/Abdominal exam: PRESENT: normal bowel sounds, soft. ABSENT: distended, guarding, mass, organolmegaly, rebound, tenderness Extremities exam: PRESENT: full ROM. ABSENT: calf tenderness, clubbing, pedal edema Neurological exam: PRESENT: alert, awake, oriented to person, oriented to place, oriented to time, oriented to situation, CN II-XII grossly intact. ABSENT: motor sensory deficit Psychiatric exam: PRESENT: appropriate affect, normal mood. ABSENT: homicidal ideation, suicidal ideation Results Laboratory Results: 12/28/18 04:49 12/28/18 04:49 12/28/18 12/28/18 04:49 04:49 WBC 10.7 H RBC 4.33 L Hgb 13.2 L Hct 38.2 MCV 88 MCH 30.6 MCHC 34.6 RDW 14.4 H Plt Count 291 Seg Neutrophils % Not Reportable Lymphocytes % Not Reportable Monocytes % Not Reportable Eosinophils % Not Reportable Basophils % Not Reportable Absolute Neutrophils Not Reportable Absolute Lymphocytes Not Reportable Absolute Monocytes Not Reportable Absolute Eosinophils Not Reportable Absolute Basophils Not Reportable Sodium 133.4 L Potassium 4.1 Chloride 99 Carbon Dioxide 26 Anion Gap 8 BUN 30 H Creatinine 0.69 Est GFR ( Amer) > 60 Est GFR (Non-Af Amer) > 60 Glucose 96 Calcium 9.5 Magnesium 2.1 Total Bilirubin 0.6 AST 17 ALT 74 H Alkaline Phosphatase 44 Total Protein 5.4 L Albumin 3.5 12/21/18 12/22/18 12/22/18 23:05 05:36 05:36 Creatine Kinase 33 L CK-MB (CK-2) 1.58 Troponin I < 0.012 < 0.012 NT-Pro-B Natriuret Pep 182 02/06/0212/22/18 12/22/18 10:40 10:40 16:42 Creatine Kinase 29 L 26 L CK-MB (CK-2) 1.39 Troponin I < 0.012 NT-Pro-B Natriuret Pep 12/22/18 12/23/18 12/23/18 16:42 13:59 13:59 Creatine Kinase < 20 L CK-MB (CK-2) 1.20 0.90 Troponin I < 0.012 < 0.012 NT-Pro-B Natriuret Pep 12/23/18 12/23/18 12/24/18 18:30 18:30 00:41 Creatine Kinase < 20 L < 20 L CK-MB (CK-2) 0.85 Troponin I < 0.012 NT-Pro-B Natriuret Pep 12/24/18 00:41 Creatine Kinase CK-MB (CK-2) 0.66 Troponin I < 0.012 NT-Pro-B Natriuret Pep Impressions: Chest X-Ray 12/21/18 23:04 IMPRESSION: Underlying hyperinflation. No acute cardiopulmonary process copyright 2010 [employer]- All Rights Reserved Chest/Abdomen CTA 12/23/18 00:00 IMPRESSION: 1. No pulmonary emboli. 2. COPD. No evidence of superimposed pneumonia. Assessment & Plan - Diagnosis (1) Acute respiratory failure with hypoxia Is this a current diagnosis for this admission?: Yes Plan: Patient will be treated with BiPAP and supplemental oxygen as required to maintain adequate oxygen saturation greater than 90%. He will receive additional supportive care as required. 12/22/2018-patient is presently on BiPAP, pulse ox is 96% on 35% oxygen. Pulse ox 135.7 and oxygen yesterday pH is 7.45/PCO2 40/PO2 73.6/bicarb is 27. Plan is to continue BiPAP as needed, IV Solu-Medrol 40 mg every 6 hours, scheduled nebulizer treatments. Patient is presently on Xopenex nebs every 8 hours and albuterol nebulizations every hour as needed. Plan to repeat the ABG today and do the follow-up chest x-rays tomorrow. Admission chest x-ray ruled out any pneumonia. 12/23/2018-patient was admitted with acute respiratory failure with hypoxia. Patient was a nebulizer treatment IV Solu-Medrol 40 mg every 6 hours. Also was placed on BiPAP on as needed basis. Chest x-ray ruled out any pneumonia. Pulse oxes on 3.5 L today is 97%. Patient was hypotensive and asymptomatic without any complaints of dizziness or lightheadedness. Plan is to do the CT of the chest to rule out PE and started on IV Rocephin 2 g daily. Cardiac workup was requested. Is going to be placed on telemetry monitoring. Plan to put a consult for Dr. Jesus. 12/24/[id number]-nkkv-old male with history of COPD admitted for acute exacerbation of COPD leading to acute respiratory failure with hypoxia. CT of the chest was negative for pneumonia or PE. Presently on IV Solu-Medrol 40 mg every 8 hours, IV Rocephin 2 g daily, Xopenex nebulizations every 8 hours and albuterol nebu lizations as needed basis. Plan is to continue the present management today. She says she is feeling better today. 12/25/[id number]-jqka-old male admitted with acute on chronic respiratory failure with hypoxia most likely secondary to COPD exacerbation. CT of the chest was negative for PE and pneumonia. Is on IV Solu-Medrol 40 mg every 8 hours and IV Rocephin 2 g daily along with the Xopenex nebulizations every 8 hours and albuterol nebulizations on as-needed basis. Chest is much better today compared to yesterday's examination. Plan is to decrease the Solu-Medrol to every 12 hours and continue the other management. Pulse ox today is 100% on 3 L. 12/26/[id number]-ubsj-old male admitted with acute on chronic respiratory failure with hypoxia presently on BiPAP, chest physical therapy, IV steroid therapy along with IV Rocephin 2 g daily Xopenex every 8 hours, albuterol nebulizations as needed. He is showing slow and significant improvement on daily basis. His pulse ox today is 97% on 3 L. Plan is to continue the present management. 12/27/[id number]-torr-old male admitted with acute on chronic respiratory failure with hypoxia secondary to COPD exacerbation initially requiring BiPAP. Now pulse oxes 100% on 2 L. He is using BiPAP bowling the night. Presently on IV Solu-Medrol 40 mg every 12 hours plan is to switch to p.o. prednisone 10 mg twice a day. He is also receiving chest physical therapy, IV Rocephin 2 g daily, Xopenex every 8 hours, albuterol nebulizations as needed. Antibiotics will be discontinued today. Chest x-ray was negative for pneumonia. 12/28/[id number]-griw-old male admitted with acute on chronic respiratory failure with hypoxia most likely secondary to COPD exacerbation. He is on BiPAP until yesterday. It was switched to CPAP from last night. Pulse ox on 2 L today is 100%. He is on prednisone 10 mg twice a day. Chest x-ray was negative for pneumonia. He still on Xopenex nebulizations every 8 hours and albuterol nebulizations as needed. Patient may go home tomorrow. (2) COPD exacerbation Is this a current diagnosis for this admission?: Yes Plan: 12/22/2018-patient has history of COPD secondary to chronic smoking. He is a current smoker. He is uses 2 L oxygen at home. He uses CPAP at night at home. We are going to resume the CPAP orders were during this hospital stay. Patient does not want to be on nicotine patch. Patient is presently on albuterol nebulization, Xopenex nebulizations, IV steroids. Plan is to continue the present management. 12/23/2018-patient has history of COPD secondary to smoking according to his after he was discharged from here he went home and started smoking again and had another attack of COPD exacerbation came to the emergency room and he was readmitted. He uses 2 L of oxygen at home. Pulse ox is 97% on 3.5 L. Patient does not want any nicotine patch. Presently on IV Solu-Medrol 40 mg daily every 12 hours, Xopenex and albuterol nebulizations. Plan is to continue the present management. 12/24/2018-patient has history of COPD secondary to chronic smoking on 2 L of oxygen at home. Pulse ox today 98% on 2 L oxygen. Plan is to continue Xopenex, albuterol nebulizations and IV steroids. CPT is going to be requested. 12/25/2018-patient has history of COPD secondary to chronic smoking he is on 2 L home oxygen. Pulse ox today is 100% on 3 L. Plan is to continue IV steroids Solu-Medrol and Xopenex nebulizations. Patient is also receiving chest physical therapy. 12/26/2018-patient has history of COPD secondary to chronic smoking on 2 L oxygen. Pulse ox is 97% on 3 L today. He is receiving chest physical therapy, Xopenex nebulizations, IV Solu-Medrol 40 mg p.o. every 12 hours. Chest x-ray was done negative for pneumonia. 12/27/2018-patient has history of COPD secondary to smoking on 2 L oxygen. Pulse ox is 100 % on 2 lts. Presently on IV Solu-Medrol 40 mg every 12 hours, Xopenex nebulizations, ipratropium nebulizations. Plan is to switch IV Solu-Medrol to p.o. prednisone today. On examination today chest bilateral entry was severely decreased minimal wheezing at the bases today. 12/28/2018-patient has history of COPD secondary to chronic smoking he is on 2 L oxygen at home. Pulse ox today on 2 L is 100%. He is presently on prednisone 10 mg p.o. twice daily, Xopenex and ipratropium nebulizations I think he can go home on 2 L oxygen tomorrow. (3) FRED on CPAP Is this a current diagnosis for this admission?: Yes Plan: Patient will be treated with BiPAP during his hospital course however once he is able to tolerate being off BiPAP during the day he will be treated with CPAP at night as he would be at home. If patient unable to tolerate CPAP at night with no further therapy he should be discharged home on BiPAP. 12/22/2018-patient has history of obstructive sleep apnea uses CPAP at home during the night. We are going to put him on BiPAP for the next 2 days and switch to CPAP once COPD exacerbation is resolving. 12/23/2018-patient has history of obstructive sleep apnea uses CPAP at night. Plan is to resume the CPAP treatment here. 12/24/2018-patient has history of obstructive sleep apnea uses CPAP at night at home. Patient is presently on BiPAP on as-needed basis. 12/25/2018-patient has history of obstructive sleep apnea uses CPAP at night at home. Presently is on BiPAP on as-needed basis. 12/26/2018-patient has history of obstructive sleep apnea uses CPAP at night. Here he is using the BiPAP on as-needed basis. We will continue the present management while he was in the hospital. 12/27/2018-patient has history of obstructive sleep apnea uses CPAP at home. Here he is using BiPAP at night I think he is stable enough to switch to CPAP from tonight. 12/28/2018-patient's is using CPAP at night. Timescomplaints or concerns last night. (4) Diabetes mellitus type 2 in nonobese Is this a current diagnosis for this admission?: Yes Plan: Patient will be continued on his current diabetic medications and will also have a supplemental sliding scale insulin available to cover hyperglycemia. Hemoglobin A1c will be obtained to determine his diabetic therapeutic efficacy over the last 90 days. 12/22/2018-patient history of type 2 diabetes mellitus he was started on IV Solu- Medrol 40 mg every 6 hours for COPD exacerbation, based on sliding scale before meals and at bedtime. he is on metformin at home ,to hold metformin during the hospital stay. He is hemoglobin A1c last week is 6.4. Plan is to continue the present management. 12/23/2018-patient has history of type 2 diabetes mellitus latest blood sugar is 103. Metformin is on hold. His insulin sliding scale. Hemoglobin A1c 6.4. Plan is to continue the present management. 12/24/2018-patient has history of type 2 diabetes mellitus. Latest blood sugar is 129. He is on insulin sliding scale and hemoglobin A1c 6.4. Plan is to continue the present management. 12/25/2018-patient's latest blood sugar today is 126 well-controlled presently is on insulin sliding scale. Plan is to continue the present management. 12/26/2018 patient's latest blood sugar is 110 he is on insulin sliding scale. He has history of type 2 diabetes mellitus hemoglobin A1c 6.4. 12/27/2018-latest blood sugar is 104 on insulin sliding scale. Hemoglobin A1c 6.4. He takes metformin at home which was on hold. Plan is to continue the present management. 12/28/2018-patient blood sugar today is 95. He is on sliding scale hemoglobin A1c 6.4. Plan is to continue the present management. - Time Time Spent with patient: 15-24 minutes Smoking Cessation Education: over 10 minutes Medications reviewed and adjusted accordingly: Yes Anticipated discharge: Home
[2018-12-28] MEDS: ALBUTEROL SULFATE 0.083% NEB 2.5 MG/3 ML AMPUL NEB PRN (12:09)
[2018-12-28] MEDS: ASCORBIC ACID 500 MG TABLET PO SCH (17:33)
--- NOTE | 2018-12-28 17:51 | PDOC CONSULTATION ---
Consultation Consult Date: 12/26/18 Attending physician:: LOREN DUDLEY Consult reason:: Acute on chronic respiratory failure History of Present Illness Admission Date/PCP: 12/22/18 02:27 ALEX FIELDS MD History of Present Illness: ELIA ROSENBAUM is a 58 year old male 58-year-old male on a CPAP: Chronic respiratory failure hypercapnic hypoxic due to advanced COPD bronchiectasis was admitted for increasing cough shortness of breath and a borderline fever seems to be somewhat better now with intensive bronchodilator therapy, intravenous steroids and intensive physical chest physiotherapy he denies hemoptysis admits to chills with no fever no nausea vomiting diarrhea no angina-like chest pain no edema. Past Medical History Cardiac Medical History: Reports: Coronary Artery Disease, Myocardial Infarction, Hypertension Pulmonary Medical History: Reports: Chronic Obstructive Pulmonary Disease (COPD), Pneumonia, Respiratory Failure - Chronic hypoxic respiratory failure on O2 2 L/min per nasal cannula cont., Sleep Apnea EENT Medical History: Reports: None Neurological Medical History: Denies: Multiple Sclerosis, Seizures Endocrine Medical History: Reports: Diabetes Mellitus Type 2 Denies: Diabetes Mellitus Type 1, Hyperthyroidism, Hypothyroidism Renal/ Medical History: Denies: Chronic Kidney Disease, Nephrolithiasis Malignancy Medical History: Reports: None GI Medical History: Denies: Cirrhosis, Crohn's Disease, Hepatitis, Ulcerative Colitis Musculoskeltal Medical History: Denies: Arthritis, Gout Skin Medical History: Denies: Eczema, Psoriasis Psychiatric Medical History: Reports: Tobacco Dependency Denies: Alcohol Dependency, Depression, Substance Abuse Traumatic Medical History: Reports: None Denies: Traumatic Brain Injury Hematology: Reports: Anemia Denies: Sickle Cell Disease, Bleeding Tendencies Infectious Medical History: Reports: None Past Surgical History Past Surgical History: Reports: Cardiac Catheterization, Coronary Stent - right coronary artery stents x4 Social History Information Source: Patient, [facility] Lives with: Family Smoking Status: Current Every Day Smoker Cigarettes Packs Per Day: 1 Number of Years Smokin Passive smoke exposure as: Both Frequency of Alcohol Use: None Hx Recreational Drug Use: No Drugs: None Hx Prescription Drug Abuse: No - Advance Directive Resuscitation Status: Full Code Family History Family History: CAD, DM Parental Family History Reviewed: Yes Children Family History Reviewed: Yes Sibling(s) Family History Reviewed.: Yes Medication/Allergy Home Medications: Acetaminophen [Tylenol Extra Strength 500 mg Tablet] 1,000 mg PO BID 12/22/18 Albuterol Sulfate [Proair Hfa Inhalation Aerosol 8.5 gm Mdi] 2 puff IH Q6HP PRN 12/22/18 Alendronate Sodium [Fosamax 70 mg Tablet] 1 tab PO WE@10 12/22/18 Amlodipine Besylate [Norvasc 2.5 mg Tablet] 2.5 mg PO DAILY 12/22/18 Ascorbic Acid [Vitamin C 500 mg Tablet] 500 mg PO DAILY 12/22/18 Aspirin [Ecotrin 81 mg EC Tablet] 81 mg PO DAILY 12/22/18 Atorvastatin Calcium [Lipitor 40 mg Tablet] 40 mg PO QHS 12/22/18 Clopidogrel Bisulfate [Plavix 75 mg Tablet] 75 mg PO DAILY 12/22/18 Cyanocobalamin (Vitamin B-12) [Vitamin B-12] 1,000 mcg PO DAILY 12/22/18 Ferrous Sulfate [Feosol 325 mg Tablet] 325 mg PO BID 12/22/18 Fluticasone/Umeclidin/Vilanter [Trelegy 100-62.5-25 Mcg Ellipta 14 Dose/Dpi] 1 puff IH DAILY 12/22/18 Folic Acid [Folvite 1 mg Tablet] 1 mg PO DAILY 12/22/18 Ibuprofen [Motrin 800 mg Tablet] 800 mg PO TIDP PRN 12/22/18 Ipratropium/Albuterol Sulfate [Duoneb 3 ml Ampul] 3 ml NEB RTQID 12/22/18 Lisinopril/Hydrochlorothiazide [Lisinopril-Hctz 10-12.5 mg Tab] 1 each PO DAILY 12/22/18 Metformin HCl [Metformin HCl ER] 500 mg PO BID 12/22/18 Metoprolol Succinate [Toprol Xl] 50 mg PO DAILY 12/22/18 Roflumilast [Daliresp 500 mcg Tablet] 500 mcg PO DAILY 12/22/18 Allergies/Adverse Reactions: No Known Allergies Allergy (Verified 12/22/18 17:30) Review of Systems Constitutional: PRESENT: chills, fatigue, weakness. ABSENT: headache(s), night sweats Eyes: ABSENT: visual disturbances Nose, Mouth, and Throat: ABSENT: mouth pain, sore throat Cardiovascular: PRESENT: dyspnea on exertion. ABSENT: palpitations Respiratory: PRESENT: cough, dyspnea, sputum. ABSENT: hemoptysis Gastrointestinal: ABSENT: abdominal pain, bloating, coffee ground emesis, heartburn, hematochezia, melena Genitourinary: ABSENT: dysuria, hematuria Musculoskeletal: ABSENT: deformity, joint swelling Integumentary: ABSENT: pruritus, rash Neurological: ABSENT: abnormal gait, abnormal movements, abnormal speech, confusion, frequent falls, lack of coordination, memory loss, numbness Psychiatric: ABSENT: hallucinations, homidical ideation, suicidal ideation Endocrine: ABSENT: cold intolerance, heat intolerance, polydipsia, polyuria Hematologic/Lymphatic: ABSENT: easy bruising, lymphadenopathy Allergic/Immunologic: ABSENT: seasonal rhinorrhea Physical Exam Vital Signs: Temp Pulse Resp BP Pulse Ox 98.2 F 70 16 103/51 L 96 12/28/18 15:44 12/28/18 16:36 12/28/18 16:36 12/28/18 15:44 12/28/18 16:36 Intake & Output 12/27/18 12/28/18 12/29/18 06:59 06:59 06:59 Intake Total 7262 934 3964 Output Total 2730 2410 400 Balance -1040 -1621 1457 Weight 74.4 kg 74.6 kg General appearance: PRESENT: cooperative, disheveled, mild distress, thin Head exam: PRESENT: atraumatic, normocephalic Eye exam: PRESENT: conjunctiva pale, EOMI. ABSENT: nystagmus Mouth exam: PRESENT: dry mucosa, neck supple, tongue midline Neck exam: ABSENT: carotid bruit, JVD, lymphadenopathy, thyromegaly, tracheal deviation, tracheostomy Respiratory exam: PRESENT: decreased breath sounds, prolonged expiratory phas, rales, rhonchi, symmetrical, wheezes. ABSENT: retraction, stridor Cardiovascular exam: PRESENT: RRR, +S1, +S2, tachycardia Pulses: PRESENT: normal radial pulses GI/Abdominal exam: PRESENT: soft. ABSENT: tenderness Extremities exam: ABSENT: calf tenderness, clubbing, joint swelling, pedal edema Musculoskeletal exam: ABSENT: deformity, dislocation Neurological exam: PRESENT: alert, awake Psychiatric exam: PRESENT: appropriate affect Skin exam: PRESENT: dry, warm Results Laboratory Results: 12/28/18 04:49 12/28/18 04:49 12/28/18 12/28/18 04:49 04:49 WBC 10.7 H RBC 4.33 L Hgb 13.2 L Hct 38.2 MCV 88 MCH 30.6 MCHC 34.6 RDW 14.4 H Plt Count 291 Seg Neutrophils % Not Reportable Lymphocytes % Not Reportable Monocytes % Not Reportable Eosinophils % Not Reportable Basophils % Not Reportable Absolute Neutrophils Not Reportable Absolute Lymphocytes Not Reportable Absolute Monocytes Not Reportable Absolute Eosinophils Not Reportable Absolute Basophils Not Reportable Sodium 133.4 L Potassium 4.1 Chloride 99 Carbon Dioxide 26 Anion Gap 8 BUN 30 H Creatinine 0.69 Est GFR ( Amer) > 60 Est GFR (Non-Af Amer) > 60 Glucose 96 Calcium 9.5 Magnesium 2.1 Total Bilirubin 0.6 AST 17 ALT 74 H Alkaline Phosphatase 44 Total Protein 5.4 L Albumin 3.5 12/21/18 12/22/18 12/22/18 23:05 05:36 05:36 Creatine Kinase 33 L CK-MB (CK-2) 1.58 Troponin I < 0.012 < 0.012 NT-Pro-B Natriuret Pep 182 12/22/18 12/22/18 12/22/18 10:40 10:40 16:42 Creatine Kinase 29 L 26 L CK-MB (CK-2) 1.39 Troponin I < 0.012 NT-Pro-B Natriuret Pep 12/22/18 12/23/18 12/23/18 16:42 13:59 13:59 Creatine Kinase < 20 L CK-MB (CK-2) 1.20 0.90 Troponin I < 0.012 < 0.012 NT-Pro-B Natriuret Pep 12/23/18 12/23/18 12/24/18 18:30 18:30 00:41 Creatine Kinase < 20 L < 20 L CK-MB (CK-2) 0.85 Troponin I < 0.012 NT-Pro-B Natriuret Pep 12/24/18 00:41 Creatine Kinase CK-MB (CK-2) 0.66 Troponin I < 0.012 NT-Pro-B Natriuret Pep Impressions: Chest X-Ray 12/21/18 23:04 IMPRESSION: Underlying hyperinflation. No acute cardiopulmonary process copyright 2010 [employer]- All Rights Reserved Chest/Abdomen CTA 12/23/18 00:00 IMPRESSION: 1. No pulmonary emboli. 2. COPD. No evidence of superimposed pneumonia. Assessment & Plan - Diagnosis (1) Bronchiectasis Qualifiers: Bronchiectasis type: with acute lower respiratory infection Qualified Code(s): J47.0 - Bronchiectasis with acute lower respiratory infection Is this a current diagnosis for this admission?: Yes Plan: Visualized and substantiated by chest x-ray/CT scan taken December 23, 2018. Suggest airway clearance by way of sustained-intensive chest physiotherapy using the vest therapy (2) Acute respiratory failure with hypoxia Is this a current diagnosis for this admission?: Yes Plan: Continue supplemental oxygen (3) Tobacco use disorder, severe, dependence Is this a current diagnosis for this admission?: Yes Plan: Stop smoking transdermal nicotine
[2018-12-28] MEDS: CYANOCOBALAMIN (VITAMIN B-12) 1,000 MCG TABLET PO SCH (21:41)
[2018-12-28] MEDS: FOLIC ACID 1 MG TABLET PO SCH (21:41)
[2018-12-28] MEDS: INSULIN REG, HUMAN 100 UNIT/ML 3 ML VIAL (PYX) SUBCUT PRN (21:41)
[2018-12-28] MEDS: ATORVASTATIN CALCIUM 40 MG TABLET PO SCH (21:41)
[2018-12-29] MEDS: HEPARIN SOD (PORCINE) 5,000 UNIT/ML 1 ML SYRINGE SUBCUT SCH ×2 (05:17→13:17)
[2018-12-29 05:51] LABS: HEMATOCRIT 36.1 % (37.9-51.0); HEMOGLOBIN 12.2 g/dL (13.5-17.0); MEAN CORPUSCULAR HEMOGLOBIN 30.1 pg (27.0-33.4); MEAN CORPUSCULAR HGB CONC 33.7 g/dL (32.0-36.0); MEAN CORPUSCULAR VOLUME 89 fl (80-97); PLATELET COUNT 248 10^3/uL (150-450); RED BLOOD COUNT 4.04 10^6/uL (4.35-5.55); RED CELL DISTRIBUTION WIDTH 14.6 % (11.5-14.0); WHITE BLOOD COUNT 11.4 10^3/uL (4.0-10.5)
[2018-12-29 05:52] LABS: ALANINE AMINOTRANSFERASE 75 U/L (21-72); ALBUMIN 3.2 g/dL (3.5-5.0); ALKALINE PHOSPHATASE 42 U/L (38-126); ANION GAP 7 (5-19); ASPARTATE AMINO TRANSFERASE 20 U/L (17-59); BILIRUBIN,DIRECT 0.1 mg/dL (0.0-0.4); BILIRUBIN,TOTAL 0.6 mg/dL (0.2-1.3); BLOOD UREA NITROGEN 30 mg/dL (7-20); CALCIUM 9.2 mg/dL (8.4-10.2); CARBON DIOXIDE 26 mmol/L (22-30); CHLORIDE 101 mmol/L (98-107); GLUCOSE 105 mg/dL (75-110); POTASSIUM 4.9 mmol/L (3.6-5.0); SODIUM 133.7 mmol/L (137-145)
[2018-12-29 06:39] LABS: ABSOLUTE LYMPHOCYTES# (MANUAL) 1.9 10^3/uL (0.5-4.7); ABSOLUTE MONOCYTES # (MANUAL) 0.8 10^3/uL (0.1-1.4); ABSOLUTE NEUTROPHILS# (MANUAL) 8.3 10^3/uL (1.7-8.2); BAND NEUTROPHILS % (MANUAL) 1 % (3-5); BASOPHILS % (MANUAL) 0 % (0-2); EOSINOPHILS % (MANUAL) 3 % (0-6); LYMPHOCYTES % (MANUAL) 17 % (13-45); MONOCYTES % (MANUAL) 7 % (3-13); SEGMENTED NEUTROPHILS % (MAN) 72 % (42-78); TOTAL CELLS COUNTED 100
[2018-12-29 06:41] LABS: ANISOCYTOSIS SLIGHT; OVALOCYTES SLIGHT; PLATELET CLUMPS PRESENT; POIKILOCYTOSIS SLIGHT; POLYCHROMASIA SLIGHT
[2018-12-29 06:42] LABS: PLATELET COMMENT ADEQUATE
[2018-12-29] MEDS: LEVALBUTEROL HCL NEB 1.25 MG/3 ML AMPUL NEB SCH ×2 (07:51→16:13)
[2018-12-29] MEDS: IPRATROPIUM BROMIDE 0.02% NEB 0.5 MG/2.5 ML AMPUL NEB SCH ×2 (07:51→16:13)
[2018-12-29] MEDS: BUDESONIDE NEB 0.5 MG/2 ML AMPUL NEB SCH (07:51)
[2018-12-29] MEDS: ASPIRIN 81 MG TABLET, ENT COATED PO SCH (09:32)
[2018-12-29] MEDS: DOCUSATE SODIUM 100 MG CAPSULE PO SCH (09:32)
[2018-12-29] MEDS: FAMOTIDINE 20 MG TABLET PO SCH (09:32)
[2018-12-29] MEDS: GUAIFENESIN 600 MG TABLET.SA PO SCH (09:32)
[2018-12-29] MEDS: CLOPIDOGREL BISULFATE 75 MG TABLET PO SCH (09:32)
[2018-12-29] MEDS: PREDNISONE 10 MG TABLET PO SCH (09:32)
[2018-12-29] MEDS: FERROUS SULFATE 325 MG TABLET PO SCH (09:32)
[2018-12-29] MEDS: FLUTICASONE/UMECLIDIN/VILANTER 100-62.5-25 MCG/DOSE IH SCH (09:32)
[2018-12-29] MEDS: ROFLUMILAST 500 MCG TABLET PO SCH (09:33)
[2018-12-29] MEDS: ALBUTEROL SULFATE 0.083% NEB 2.5 MG/3 ML AMPUL NEB PRN (12:37)
[2018-12-29] MEDS ORDERED: ONDANSETRON 4 MG TAB.RAPDIS PO PRN (14:30)
[2018-12-29] MEDS ORDERED: ONDANSETRON HCL INJ/PF 4 MG/2 ML SDV IV PRN (14:30)
[2018-12-29 16:31] VITALS: BP 107/65
--- NOTE | 2018-12-29 17:42 | PDOC PROGRESS REPORT ---
Subjective Progress Note for:: 12/28/18 Reason For Visit: COPD EXACERBATION Physical Exam Vital Signs: Temp Pulse Resp BP Pulse Ox 98.2 F 70 16 103/51 L 96 12/28/18 15:44 12/28/18 16:36 12/28/18 16:36 12/28/18 15:44 12/28/18 16:36 Intake & Output 12/27/18 12/28/18 12/29/18 06:59 06:59 06:59 Intake Total 0878 524 9291 Output Total 2730 2410 400 Balance -1040 -1621 1457 Weight 74.4 kg 74.6 kg Results Laboratory Results: 12/28/18 04:49 12/28/18 04:49 12/28/18 12/28/18 04:49 04:49 WBC 10.7 H RBC 4.33 L Hgb 13.2 L Hct 38.2 MCV 88 MCH 30.6 MCHC 34.6 RDW 14.4 H Plt Count 291 Seg Neutrophils % Not Reportable Lymphocytes % Not Reportable Monocytes % Not Reportable Eosinophils % Not Reportable Basophils % Not Reportable Absolute Neutrophils Not Reportable Absolute Lymphocytes Not Reportable Absolute Monocytes Not Reportable Absolute Eosinophils Not Reportable Absolute Basophils Not Reportable Sodium 133.4 L Potassium 4.1 Chloride 99 Carbon Dioxide 26 Anion Gap 8 BUN 30 H Creatinine 0.69 Est GFR ( Amer) > 60 Est GFR (Non-Af Amer) > 60 Glucose 96 Calcium 9.5 Magnesium 2.1 Total Bilirubin 0.6 AST 17 ALT 74 H Alkaline Phosphatase 44 Total Protein 5.4 L Albumin 3.5 12/21/18 12/22/18 12/22/18 23:05 05:36 05:36 Creatine Kinase 33 L CK-MB (CK-2) 1.58 Troponin I < 0.012 < 0.012 NT-Pro-B Natriuret Pep 182 12/22/18 12/22/18 12/22/18 10:40 10:40 16:42 Creatine Kinase 29 L 26 L CK-MB (CK-2) 1.39 Troponin I < 0.012 NT-Pro-B Natriuret Pep 12/22/18 12/23/18 12/23/18 16:42 13:59 13:59 Creatine Kinase < 20 L CK-MB (CK-2) 1.20 0.90 Troponin I < 0.012 < 0.012 NT-Pro-B Natriuret Pep 12/23/18 12/23/18 12/24/18 18:30 18:30 00:41 Creatine Kinase < 20 L < 20 L CK-MB (CK-2) 0.85 Troponin I < 0.012 NT-Pro-B Natriuret Pep 12/24/18 00:41 Creatine Kinase CK-MB (CK-2) 0.66 Troponin I < 0.012 NT-Pro-B Natriuret Pep Impressions: Chest X-Ray 12/21/18 23:04 IMPRESSION: Underlying hyperinflation. No acute cardiopulmonary process copyright 2010 [email or web address]- All Rights Reserved Chest/Abdomen CTA 12/23/18 00:00 IMPRESSION: 1. No pulmonary emboli. 2. COPD. No evidence of superimposed pneumonia. Assessment & Plan - Diagnosis (1) Bronchiectasis Qualifiers: Bronchiectasis type: with acute lower respiratory infection Qualified Code(s): J47.0 - Bronchiectasis with acute lower respiratory infection Is this a current diagnosis for this admission?: Yes Plan: Visualized and substantiated by chest x-ray/CT scan taken December 23, 2018. Suggest airway clearance by way of sustained-intensive chest physiotherapy using the vest therapy. Patient has tried the flutter valve and was unable to successfully remove secretions (2) Acute respiratory failure with hypoxia Is this a current diagnosis for this admission?: Yes Plan: This patient would benefit from noninvasive mechanical ventilation via the trilogy AVAPS/AE and faster responding AVAPS rates as opposed to BiPAP. The trilogy is able to provide a target tidal volume and also adjusting the EPAP pressures to maintain a patent airway as well as an oral backup rate. This machine will help improve PaCO2 levels. The severity of the patient's condition will lead to future hospitalizations and readmissions as well as life- threatening situations without the use of this device day and night. Trilogy home vent needed for hypoxemic as well as hypercapnic respiratory failure due to FEV1 is 34% of predicted. [facility] or [facility] to follow for trilogy set up. (3) Tobacco use disorder, severe, dependence Is this a current diagnosis for this admission?: Yes
--- NOTE | 2018-12-29 17:44 | PDOC PROGRESS REPORT ---
Subjective Progress Note for:: 12/27/18 Subjective:: Improved Reason For Visit: COPD EXACERBATION Physical Exam Vital Signs: Temp Pulse Resp BP Pulse Ox 98.2 F 70 16 103/51 L 96 12/28/18 15:44 12/28/18 16:36 12/28/18 16:36 12/28/18 15:44 12/28/18 16:36 Intake & Output 12/27/18 12/28/18 12/29/18 06:59 06:59 06:59 Intake Total 0780 030 4451 Output Total 2730 2410 400 Balance -1040 -1621 1457 Weight 74.4 kg 74.6 kg General appearance: PRESENT: no acute distress, cooperative, disheveled, well- developed, well-nourished Head exam: PRESENT: atraumatic, normocephalic Eye exam: PRESENT: conjunctiva pale, EOMI Mouth exam: PRESENT: dry mucosa, neck supple, tongue midline Neck exam: ABSENT: carotid bruit, JVD, lymphadenopathy, thyromegaly, tracheal deviation, tracheostomy Respiratory exam: PRESENT: decreased breath sounds, prolonged expiratory phas, rhonchi, unlabored, wheezes. ABSENT: retraction, stridor Cardiovascular exam: PRESENT: RRR, +S1, +S2 Pulses: PRESENT: normal radial pulses GI/Abdominal exam: PRESENT: soft. ABSENT: tenderness Extremities exam: ABSENT: calf tenderness, clubbing, joint swelling, pedal edema Musculoskeletal exam: PRESENT: ambulatory. ABSENT: deformity, dislocation Neurological exam: PRESENT: awake Psychiatric exam: PRESENT: appropriate affect Skin exam: PRESENT: dry, warm Results Laboratory Results: 12/28/18 04:49 12/28/18 04:49 12/28/18 12/28/18 04:49 04:49 WBC 10.7 H RBC 4.33 L Hgb 13.2 L Hct 38.2 MCV 88 MCH 30.6 MCHC 34.6 RDW 14.4 H Plt Count 291 Seg Neutrophils % Not Reportable Lymphocytes % Not Reportable Monocytes % Not Reportable Eosinophils % Not Reportable Basophils % Not Reportable Absolute Neutrophils Not Reportable Absolute Lymphocytes Not Reportable Absolute Monocytes Not Reportable Absolute Eosinophils Not Reportable Absolute Basophils Not Reportable Sodium 133.4 L Potassium 4.1 Chloride 99 Carbon Dioxide 26 Anion Gap 8 BUN 30 H Creatinine 0.69 Est GFR ( Amer) > 60 Est GFR (Non-Af Amer) > 60 Glucose 96 Calcium 9.5 Magnesium 2.1 Total Bilirubin 0.6 AST 17 ALT 74 H Alkaline Phosphatase 44 Total Protein 5.4 L Albumin 3.5 12/21/18 12/22/18 12/22/18 23:05 05:36 05:36 Creatine Kinase 33 L CK-MB (CK-2) 1.58 Troponin I < 0.012 < 0.012 NT-Pro-B Natriuret Pep 182 12/22/18 12/22/18 12/22/18 10:40 10:40 16:42 Creatine Kinase 29 L 26 L CK-MB (CK-2) 1.39 Troponin I < 0.012 NT-Pro-B Natriuret Pep 12/22/18 12/23/18 12/23/18 16:42 13:59 13:59 Creatine Kinase < 20 L CK-MB (CK-2) 1.20 0.90 Troponin I < 0.012 < 0.012 NT-Pro-B Natriuret Pep 12/23/18 12/23/18 12/24/18 18:30 18:30 00:41 Creatine Kinase < 20 L < 20 L CK-MB (CK-2) 0.85 Troponin I < 0.012 NT-Pro-B Natriuret Pep 12/24/18 00:41 Creatine Kinase CK-MB (CK-2) 0.66 Troponin I < 0.012 NT-Pro-B Natriuret Pep Impressions: Chest X-Ray 12/21/18 23:04 IMPRESSION: Underlying hyperinflation. No acute cardiopulmonary process copyright 2010 [employer]- All Rights Reserved Chest/Abdomen CTA 12/23/18 00:00 IMPRESSION: 1. No pulmonary emboli. 2. COPD. No evidence of superimposed pneumonia. Assessment & Plan - Diagnosis (1) Bronchiectasis Qualifiers: Bronchiectasis type: with acute lower respiratory infection Qualified Code(s): J47.0 - Bronchiectasis with acute lower respiratory infection Is this a current diagnosis for this admission?: Yes Plan: Visualized and substantiated by chest x-ray/CT scan taken December 23, 2018. Suggest airway clearance by way of sustained-intensive chest physiotherapy using the vest therapy. Patient has tried for the valve and was unable to successfully remove secretions (2) Acute respiratory failure with hypoxia Is this a current diagnosis for this admission?: Yes Plan: This patient would benefit from noninvasive mechanical ventilation via the trilogy AVAPS/AE and faster responding AVAPS rates as opposed to BiPAP. The trilogy is able to provide a target tidal volume and also adjusting the EPAP pressures to maintain a patent airway as well as an oral backup rate. This machine will help improve PaCO2 levels. The severity of the patient's condition will lead to future hospitalizations and readmissions as well as life- threatening situations without the use of this device day and night. Trilogy home vent needed for hypoxemic as well as hypercapnic respiratory failure due to FEV1 is 34% of predicted. [facility] or [facility] [place] [facility] to follow for trilogy set up. (3) Tobacco use disorder, severe, dependence Is this a current diagnosis for this admission?: Yes Plan: Stop smoking transdermal nicotine
--- NOTE | 2018-12-30 12:07 | Pulmonary Function Test ---
Pulmonary Function Test Date of Procedure:: 12/29/18 INDICATION:: Dyspnea Referring Provider: Dr.V. Johnson - Report Spirometry: FVC 2.26 L 48% FEV1 1.21 L 34% FEV1/FVC % 66 54 predicted 76 FEF 25-75% 0.91 L 30% Impression: Severe obstructive ventilatory defect
--- NOTE | 2019-01-05 23:10 | PDOC DISCHARGE SUMMARY ---
General - Admit/Disc Date/PCP Admission Date/Primary Care Provider: 12/22/18 02:27 ALEX JESUS MD Discharge Date: 12/29/18 - Discharge Diagnosis (1) Acute and chronic respiratory failure with hypoxia Is this a current diagnosis for this admission?: Yes (2) Acute respiratory failure with hypoxia Is this a current diagnosis for this admission?: Yes (3) COPD exacerbation Is this a current diagnosis for this admission?: Yes (4) Diabetes mellitus type 2 in nonobese Is this a current diagnosis for this admission?: Yes - Additional Information Resuscitation Status: Full Code Prescriptions: Methylprednisolone [Medrol Dosepack (4 mg/Tab) 21 Tab/Dosepak] 21 tab PO ASDIR PRN #1 dspk PRN Reason: Home Medications: Acetaminophen [Tylenol Extra Strength 500 mg Tablet] 1,000 mg PO BID 12/22/18 Albuterol Sulfate [Proair HFA Inhalation Aerosol 8.5 gm MDI] 2 puff IH Q6HP PRN 12/22/18 Alendronate Sodium [Fosamax 70 mg Tablet] 1 tab PO WE@10 12/22/18 Ascorbic Acid [Vitamin C 500 mg Tablet] 500 mg PO DAILY 12/22/18 Aspirin [Ecotrin 81 mg EC Tablet] 81 mg PO DAILY 12/22/18 Atorvastatin Calcium [Lipitor 40 mg Tablet] 40 mg PO QHS 12/22/18 Clopidogrel Bisulfate [Plavix 75 mg Tablet] 75 mg PO DAILY 12/22/18 Cyanocobalamin (Vitamin B-12) [Vitamin B-12] 1,000 mcg PO DAILY 12/22/18 Ferrous Sulfate [Feosol 325 mg Tablet] 325 mg PO BID 12/22/18 Fluticasone/Umeclidin/Vilanter [Trelegy 100-62.5-25 Mcg Ellipta 14 Dose/Dpi] 1 puff IH DAILY 12/22/18 Folic Acid [Folvite 1 mg Tablet] 1 mg PO DAILY 12/22/18 Ibuprofen [Motrin 800 mg Tablet] 800 mg PO TIDP PRN 12/22/18 Ipratropium/Albuterol Sulfate [Duoneb 3 ml Ampul] 3 ml NEB RTQID 12/22/18 Metformin HCl [Metformin HCl ER] 500 mg PO BID 12/22/18 Roflumilast [Daliresp 500 mcg Tablet] 500 mcg PO DAILY 12/22/18 Acetaminophen [Tylenol 325 mg Tablet] 650 mg PO Q4HP PRN tablet 12/29/18 Alendronate Sodium [Fosamax "Weekly" 35 mg Tablet] 70 mg PO We@0600 tablet 12/29/18 Ascorbic Acid [Vitamin C 500 mg Tablet] 500 mg PO QPM tablet 12/29/18 Aspirin [Ecotrin 81 mg EC Tablet] 81 mg PO DAILY tabec 12/29/18 Atorvastatin Calcium [Lipitor 40 mg Tablet] 40 mg PO QHS tablet 12/29/18 Clopidogrel Bisulfate [Plavix 75 mg Tablet] 75 mg PO DAILY tablet 12/29/18 Cyanocobalamin (Vitamin B-12) [Vitamin B-12 1000 mcg Tablet] 1,000 mcg PO QHS tablet 12/29/18 Folic Acid [Folvite 1 mg Tablet] 1 mg PO QHS tablet 12/29/18 Guaifenesin [Mucinex Sr 600 mg Tablet.sa] 1,200 mg PO Q12 tablet.sa 12/29/18 Methylprednisolone [Medrol Dosepack (4 mg/Tab) 21 Tab/Dosepak] 21 tab PO ASDIR PRN #1 dspk 12/29/18 Roflumilast [Daliresp 500 Mcg Tablet] 500 mcg PO DAILY tablet 12/29/18 History of Present Illness History of Present Illness: ELIA ROSENBAUM is a 58 year old male Hospital Course Hospital Course: Admission: 58 year old male who presented to the hospital just a few hours after he was discharged to home complaining of a recurrence of his dyspnea. He admits that after leaving the hospital today even though he did not feel "back to normal" he did return to home and began smoking cigarettes. After smoking he noticed that he had become more dyspneic and he tried using his nebulizer therapy administering several treatments to himself without significant improvement. His dyspnea continued to worsen and he did not attempt to use his CPAP at home but instead called for the EMS team to bring him back to the hospital. He admits numerous similar previous episodes and now understands that smoking does indeed worsen his dyspnea. He has not found any ameliorating factors for his dyspnea other than treatment in the hospital. In the emergency room he was found to be hypoxic and dyspneic with significant work of breathing requiring BiPAP respiratory support. Because of his worsened condition he was readmitted to the hospital for further evaluation and treatment. 12/22/2018 -58-year-old male with history of COPD chronic smoker he was discharged yesterday morning on p.o. prednisone and was advised to continue home oxygen at home. He was fine for a few hours at home after that started having the severe shortness of breath wheezing unable to walk from the bed to the bathroom. Try to use the inhalers and try to use the nebulizer treatments 4-5 times without any improvement so he decided to come to the emergency room again last night. He admitted to the overnight hospitalist that he started smoking again at home. On examination this morning patient is still on BiPAP. Alert and awake communicating very well. Pulse ox is 98% on 35% oxygen. 12/23/[id number]-yasg-old male recently discharged from the hospital for COPD exacerbation came back again within 1 day. Nurse called me this morning and the blood pressure is running in the upper 80s and diastolic running in the 60s patient was completely asymptomatic I requested the nurse to hold his morning blood pressure medications, patient was encouraged to drink plenty of oral f luids. I went to talk to him patient was in shortness of breath struggling to complete the sentences and he calmed down after a minute or so. Also complaining of chest tightness. He just completed nebulizer treatment. I discussed the plan with him that we going to place him on a telemetry monito ring, cardiac workup, CT of the chest to rule out PE. Also told him a plan to start him on IV antibiotic therapy. Patient is agreed with the plan. Later on I spoke to the and explained the treatment and plan of care. 12/24/2018 58-year-old male admitted with COPD exacerbation. He is looking much better today. He feels better today. He still on BiPAP as needed. He is receiving IV Solu-Medrol, atrial nebulizations. No acute events in the last 24 hours. Afebrile. Yesterday we did a CT of the chest to rule out PE which was negative for PE. 12/25/2018 58-year-old male admitted with COPD exacerbation acute on chronic respiratory failure with hypoxia and hypercapnia. He is doing much better today compared to yesterday. Presently on IV Solu-Medrol, ipratropium nebulizations. CT of the chest was negative for PE and pneumonia. a Febrile. 12/26/2018-no acute events in the last 24 hours. Patient is doing much better. She is using the BiPAP and chest physical therapy. As per the patient every time after chest physical therapy he is coughing and bringing up the mucus and it is helping him breathe better. 12/27/2018 no acute events in the last 24 hours. Patient is afebrile. Doing much better. Using using BiPAP only in the night. Comfortable in the bed no complaints from the patient. Communicating very well. 12/28/2018-patient became hypotensive last night blood pressure systolic is in the 80s he was given 2 L of normal saline latest blood pressure is 103/46. He is presently on amlodipine 2.5 mg p.o. daily and metoprolol 50 mg twice a day both medications are going to be on hold. Patient said he does not have any symptoms of lightheadedness or dizziness any other symptoms at the time of low blood pressure. As per his breathing he said he is doing great. 12/29/18 at the time of evaluation patient is in good spirits. He reports being ready for discharge. He has no wheeze. He reports his breathing is at baseline. He has no concerns. Nursing reports no concerns. Seems to be stable enough for discharge. Denies fever. Elevations white blood cell count seem to be related to steroids. Creatinine 0.87 on discharge. He reports walking around the unit comfortably over the past 2 days. Denies issue with dyspnea on exertion. No acute changes. Physical Exam Vital Signs: Temp Pulse Resp BP Pulse Ox 97.5 F 82 17 103/69 97 12/29/18 11:41 12/29/18 14:00 12/29/18 12:37 12/29/18 11:41 12/29/18 12:37 Intake & Output 12/28/18 12/29/18 12/30/18 06:59 06:59 06:59 Intake Total 789 2603 711 Output Total 2410 2200 350 Balance -1621 403 361 Weight 74.6 kg 74.6 kg General appearance: PRESENT: no acute distress, cooperative, other - Older than stated age. Multiple tattoos. Head exam: PRESENT: atraumatic, normocephalic Eye exam: PRESENT: conjunctiva pink, EOMI, PERRLA. ABSENT: scleral icterus Mouth exam: PRESENT: moist, tongue midline Respiratory exam: PRESENT: prolonged expiratory phas, other - No wheeze, crackle s, rhonchi. Cardiovascular exam: PRESENT: RRR, +S1, +S2 Pulses: PRESENT: normal dorsalis pedis pul Vascular exam: PRESENT: normal capillary refill GI/Abdominal exam: PRESENT: normal bowel sounds, soft. ABSENT: distended, guarding, mass, organolmegaly, rebound, tenderness Rectal exam: PRESENT: deferred Musculoskeletal exam: PRESENT: full ROM, normal inspection Neurological exam: PRESENT: alert, awake, oriented to person, oriented to place, oriented to time, oriented to situation, CN II-XII grossly intact. ABSENT: motor sensory deficit Psychiatric exam: PRESENT: appropriate affect, normal mood. ABSENT: homicidal ideation, suicidal ideation Results Laboratory Results: 12/29/18 04:49 12/29/18 04:49 12/29/18 12/29/18 04:49 04:49 WBC 11.4 H RBC 4.04 L Hgb 12.2 L Hct 36.1 L MCV 89 MCH 30.1 MCHC 33.7 RDW 14.6 H Plt Count 248 Seg Neutrophils % Not Reportable Lymphocytes % Not Reportable Monocytes % Not Reportable Eosinophils % Not Reportable Basophils % Not Reportable Absolute Neutrophils Not Reportable Absolute Lymphocytes Not Reportable Absolute Monocytes Not Reportable Absolute Eosinophils Not Reportable Absolute Basophils Not Reportable Sodium 133.7 L Potassium 4.9 Chloride 101 Carbon Dioxide 26 Anion Gap 7 BUN 30 H Creatinine 0.87 Est GFR ( Amer) > 60 Est GFR (Non-Af Amer) > 60 Glucose 105 Calcium 9.2 Magnesium 2.1 Total Bilirubin 0.6 AST 20 ALT 75 H Alkaline Phosphatase 42 Total Protein 5.0 L Albumin 3.2 L 12/21/18 12/22/18 12/22/18 23:05 05:36 05:36 Creatine Kinase 33 L CK-MB (CK-2) 1.58 Troponin I < 0.012 < 0.012 NT-Pro-B Natriuret Pep 182 12/22/18 12/22/18 12/22/18 10:40 10:40 16:42 Creatine Kinase 29 L 26 L CK-MB (CK-2) 1.39 Troponin I < 0.012 NT-Pro-B Natriuret Pep 12/22/18 12/23/18 12/23/18 16:42 13:59 13:59 Creatine Kinase < 20 L CK-MB (CK-2) 1.20 0.90 Troponin I < 0.012 < 0.012 NT-Pro-B Natriuret Pep 12/23/18 12/23/18 12/24/18 18:30 18:30 00:41 Creatine Kinase < 20 L < 20 L CK-MB (CK-2) 0.85 Troponin I < 0.012 NT-Pro-B Natriuret Pep 12/24/18 00:41 Creatine Kinase CK-MB (CK-2) 0.66 Troponin I < 0.012 NT-Pro-B Natriuret Pep Impressions: Chest X-Ray 12/21/18 23:04 IMPRESSION: Underlying hyperinflation. No acute cardiopulmonary process copyright 2010 [employer]- All Rights Reserved Chest/Abdomen CTA 12/23/18 00:00 IMPRESSION: 1. No pulmonary emboli. 2. COPD. No evidence of superimposed pneumonia. Qualifiers - * PATIENT BEING DISCHARGED WITH ANY OF THE FOLLOWING DIAGNOSIS: No Plan Discharge Plan: (1) Acute respiratory failure with hypoxia Is this a current diagnosis for this admission?: Yes Plan: Patient will be treated with BiPAP and supplemental oxygen as required to maintain adequate oxygen saturation greater than 90%. He will receive additional supportive care as required. 12/22/2018-patient is presently on BiPAP, pulse ox is 96% on 35% oxygen. Pulse ox 135.7 and oxygen yesterday pH is 7.45/PCO2 40/PO2 73.6/bicarb is 27. Plan is to continue BiPAP as needed, IV Solu-Medrol 40 mg every 6 hours, scheduled nebulizer treatments. Patient is presently on Xopenex nebs every 8 hours and albuterol nebulizations every hour as needed. Plan to repeat the ABG today and do the follow-up chest x-rays tomorrow. Admission chest x-ray ruled out any pneumonia. 12/23/2018-patient was admitted with acute respiratory failure with hypoxia. Patient was a nebulizer treatment IV Solu-Medrol 40 mg every 6 hours. Also was placed on BiPAP on as needed basis. Chest x-ray ruled out any pneumonia. Pulse oxes on 3.5 L today is 97%. Patient was hypotensive and asymptomatic without any complaints of dizziness or lightheadedness. Plan is to do the CT of the chest to rule out PE and started on IV Rocephin 2 g daily. Cardiac workup was r equested. Is going to be placed on telemetry monitoring. Plan to put a consult for Dr. Jesus. 12/24/[id number]-rykp-old male with history of COPD admitted for acute exacerbation of COPD leading to acute respiratory failure with hypoxia. CT of the chest was negative for pneumonia or PE. Presently on IV Solu-Medrol 40 mg every 8 hours, IV Rocephin 2 g daily, Xopenex nebulizations every 8 hours and albuterol nebulizations as needed basis. Plan is to continue the present management today. She says she is feeling better today. 12/25/[id number]-ooff-old male admitted with acute on chronic respiratory failure with hypoxia most likely secondary to COPD exacerbation. CT of the chest was negative for PE and pneumonia. Is on IV Solu-Medrol 40 mg every 8 hours and IV Rocephin 2 g daily along with the Xopenex nebulizations every 8 hours and albuterol nebulizations on as-needed basis. Chest is much better today compared to yesterday's examination. Plan is to decrease the Solu-Medrol to every 12 hours and continue the other management. Pulse ox today is 100% on 3 L. 12/26/[id number]-xhas-old male admitted with acute on chronic respiratory failure with hypoxia presently on BiPAP, chest physical therapy, IV steroid therapy along with IV Rocephin 2 g daily Xopenex every 8 hours, albuterol nebulizations as needed. He is showing slow and significant improvement on daily basis. His pulse ox today is 97% on 3 L. Plan is to continue the present management. 12/27/[id number]-kzue-old male admitted with acute on chronic respiratory failure with hypoxia secondary to COPD exacerbation initially requiring BiPAP. Now pulse oxes 100% on 2 L. He is using BiPAP bowling the night. Presently on IV Solu-Medrol 40 mg every 12 hours plan is to switch to p.o. prednisone 10 mg twice a day. He is also receiving chest physical therapy, IV Rocephin 2 g daily, Xopenex every 8 hours, albuterol nebulizations as needed. Antibiotics will be discontinued today. Chest x-ray was negative for pneumonia. 12/28/[id number]-paah-old male admitted with acute on chronic respiratory failure with hypoxia most likely secondary to COPD exacerbation. He is on BiPAP until yesterday. It was switched to CPAP from last night. Pulse ox on 2 L today is 100%. He is on prednisone 10 mg twice a day. Chest x-ray was negative for pneumonia. He still on Xopenex nebulizations every 8 hours and albuterol nebulizations as needed. Patient may go home tomorrow. 12/29/18 patient is back at his baseline, and will follow up with his insurance follow up specialist on discharge. Continue with previous management he will be discharged on Medrol Dosepak. (2) COPD exacerbation Is this a current diagnosis for this admission?: Yes Plan: 12/22/2018-patient has history of COPD secondary to chronic smoking. He is a current smoker. He is uses 2 L oxygen at home. He uses CPAP at night at home. We are going to resume the CPAP orders were during this hospital stay. Patient does not want to be on nicotine patch. Patient is presently on albuterol nebulization, Xopenex nebulizations, IV steroids. Plan is to continue the present management. 12/23/2018-patient has history of COPD secondary to smoking according to his after he was discharged from here he went home and started smoking again and had another attack of COPD exacerbation came to the emergency room and he was readmitted. He uses 2 L of oxygen at home. Pulse ox is 97% on 3.5 L. Patient does not want any nicotine patch. Presently on IV Solu-Medrol 40 mg daily every 12 hours, Xopenex and albuterol nebulizations. Plan is to continue the present management. 12/24/2018-patient has history of COPD secondary to chronic smoking on 2 L of oxygen at home. Pulse ox today 98% on 2 L oxygen. Plan is to continue Xopenex, albuterol nebulizations and IV steroids. CPT is going to be requested. 12/25/2018-patient has history of COPD secondary to chronic smoking he is on 2 L home oxygen. Pulse ox today is 100% on 3 L. Plan is to continue IV steroids Solu-Medrol and Xopenex nebulizations. Patient is also receiving chest physical therapy. 12/26/2018-patient has history of COPD secondary to chronic smoking on 2 L oxygen. Pulse ox is 97% on 3 L today. He is receiving chest physical therapy, Xopenex nebulizations, IV Solu-Medrol 40 mg p.o. every 12 hours. Chest x-ray was done negative for pneumonia. 12/27/2018-patient has history of COPD secondary to smoking on 2 L oxygen. Pulse ox is 100 % on 2 lts. Presently on IV Solu-Medrol 40 mg every 12 hours, Xopenex nebulizations, ipratropium nebulizations. Plan is to switch IV Solu-Medrol to p.o. prednisone today. On examination today chest bilateral entry was severely decreased minimal wheezing at the bases today. 12/28/2018-patient has history of COPD secondary to chronic smoking he is on 2 L oxygen at home. Pulse ox today on 2 L is 100%. He is presently on prednisone 10 mg p.o. twice daily, Xopenex and ipratropium nebulizations I think he can go home on 2 L oxygen tomorrow. 12/29/18 patient reported being back on his baseline. Discharged on Medrol Dosepak. Prescription provided. Plans follow with pulmonology on discharge. (3) FRED on CPAP Is this a current diagnosis for this admission?: Yes Plan: Patient will be treated with BiPAP during his hospital course however once he is able to tolerate being off BiPAP during the day he will be treated with CPAP at night as he would be at home. If patient unable to tolerate CPAP at night with no further therapy he should be discharged home on BiPAP. 12/22/2018-patient has history of obstructive sleep apnea uses CPAP at home during the night. We are going to put him on BiPAP for the next 2 days and switch to CPAP once COPD exacerbation is resolving. 12/23/2018-patient has history of obstructive sleep apnea uses CPAP at night. Plan is to resume the CPAP treatment here. 12/24/2018-patient has history of obstructive sleep apnea uses CPAP at night at home. Patient is presently on BiPAP on as-needed basis. 12/25/2018-patient has history of obstructive sleep apnea uses CPAP at night at home. Presently is on BiPAP on as-needed basis. 12/26/2018-patient has history of obstructive sleep apnea uses CPAP at night. Here he is using the BiPAP on as-needed basis. We will continue the present management while he was in the hospital. 12/27/2018-patient has history of obstructive sleep apnea uses CPAP at home. Here he is using BiPAP at night I think he is stable enough to switch to CPAP from tonight. 12/28/2018-patient's is using CPAP at night. Timescomplaints or concerns last night. 12/29/18 no issues last 24 hours. Continue with current management. (4) Diabetes mellitus type 2 in nonobese Is this a current diagnosis for this admission?: Yes Plan: Patient will be continued on his current diabetic medications and will also have a supplemental sliding scale insulin available to cover hyperglycemia. Hemoglobin A1c will be obtained to determine his diabetic therapeutic efficacy over the last 90 days. 12/22/2018-patient history of type 2 diabetes mellitus he was started on IV Solu- Medrol 40 mg every 6 hours for COPD exacerbation, based on sliding scale before meals and at bedtime. he is on metformin at home ,to hold metformin during the hospital stay. He is hemoglobin A1c last week is 6.4. Plan is to continue the present management. 12/23/2018-patient has history of type 2 diabetes mellitus latest blood sugar is 103. Metformin is on hold. His insulin sliding scale. Hemoglobin A1c 6.4. Plan is to continue the present management. 12/24/2018-patient has history of type 2 diabetes mellitus. Latest blood sugar is 129. He is on insulin sliding scale and hemoglobin A1c 6.4. Plan is to continue the present management. 12/25/2018-patient's latest blood sugar today is 126 well-controlled presently is on insulin sliding scale. Plan is to continue the present management. 12/26/2018 patient's latest blood sugar is 110 he is on insulin sliding scale. He has history of type 2 diabetes mellitus hemoglobin A1c 6.4. 12/27/2018-latest blood sugar is 104 on insulin sliding scale. Hemoglobin A1c 6.4. He takes metformin at home which was on hold. Plan is to continue the present management. 12/28/2018-patient blood sugar today is 95. He is on sliding scale hemoglobin A1c 6.4. Plan is to continue the present management. 12/29/18 discharged on past management instructed follow-up with primary care physician for further follow-up and management.
== END 2018-12-29 05:45 | disposition home or self-care (01) | DRG 189 ==
LOC: ER 22:59 → EH 12-22 02:27 → 4N 12-22 19:42
PROVIDERS: ADMIT Emergency Medicine; ATTEND Emergency Medicine
PROC: 5A09557 Assistance with Respiratory Ventilation, Greater than 96 Consecutive Hours, Continuous Positive Airway Pressure (ICD-10-PCS; principal; 2018-12-21)
DX: J96.21 Acute and chronic respiratory failure with hypoxia (principal); J44.1 Chronic obstructive pulmonary disease with (acute) exacerbation; J47.0 Bronchiectasis with acute lower respiratory infection; I10 Essential (primary) hypertension; I95.9 Hypotension, unspecified; I25.10 Atherosclerotic heart disease of native coronary artery without angina pectoris; E11.65 Type 2 diabetes mellitus with hyperglycemia; I25.2 Old myocardial infarction; Z99.81 Dependence on supplemental oxygen; G47.33 Obstructive sleep apnea (adult) (pediatric); Z95.5 Presence of coronary angioplasty implant and graft; Z79.899 Other long term (current) drug therapy; Z79.52 Long term (current) use of systemic steroids; Z79.51 Long term (current) use of inhaled steroids; Z79.84 Long term (current) use of oral hypoglycemic drugs; Z79.2 Long term (current) use of antibiotics; Z83.3 Family history of diabetes mellitus; Z82.49 Family history of ischemic heart disease and other diseases of the circulatory system; Z79.82 Long term (current) use of aspirin; Z79.02 Long term (current) use of antithrombotics/antiplatelets
CPT/HCPCS: 36415; 71045; 71275; 80048; 80053; 82550; 82553; 82803; 82962; 83036; 83735; 83880; 84484; 85025; 93005; 93010; 94640; 94660; 94667; 94668; 96374; 96375; 96376; 99285; J0696; J1644; J1815; J2405; J2920; J2930; J3475; J3490; J7030; J7512; J7620

== ENCOUNTER 2019-10-17 08:38 | Day surgery (SDC) | payer OTHER, MEDICARE ==
[~2019-10-17 08:38] MED LIST: KETOROLAC TROMETHAMINE 0.45% 4 DROP/0.4 ML DROPERETTE OD PRN
[2019-10-17] MEDS ORDERED: MIDAZOLAM 2 MG/2 ML INJ ONE (09:35)
[2019-10-17] MEDS ORDERED: FENTANYL CITRATE INJ/PF 100 MCG/2 ML AMPUL ONE (09:35)
[2019-10-17] MEDS: TETRACAINE HCL 0.5% OPH SOLN 4 ML OD PRN ×4 (09:37→10:18)
[2019-10-17] MEDS: BESIFLOXACIN HCL 0.6% OPH SUSP 5 ML BOTTLE OD PRN ×4 (09:37→10:40)
[2019-10-17] MEDS: TROPICAMIDE 1% OPH SOLN 15 ML OD PRN ×3 (09:37→10:00)
[2019-10-17] MEDS: CYCLOPENTOLATE 0.2%/PHENYLEPHRINE 1% OPH SOLN 2 ML OD PRN ×3 (09:37→10:00)
[2019-10-17] MEDS: LIDOCAINE 4% INJ/PF (40 MG/ML) 5 ML AMPUL OD PRN ×2 (10:20)
[2019-10-17] MEDS: BUPIVACAINE HCL 0.75% INJ/PF (7.5 MG/1 ML) 10 ML SDV OD PRN ×2 (10:20)
[2019-10-17] MEDS: LIDOCAINE 1% INJ-PF (10 MG/ML) 30 ML SDV ONE ×2 (10:29)
[2019-10-17] MEDS: EPINEPHRINE INJ/PF 1 MG/1 ML AMPULE ONE ×2 (10:29)
[2019-10-17] MEDS: CHONDR SU A NA/HYALUR INTRAOC KIT (SURGICARE) ONE ×2 (10:29)
[2019-10-17] MEDS: DORZOLAMIDE HCL 2%/TIMOLOL MALEAT 0.5% OPH SOLN 10 ML OD PRN ×2 (10:40)
--- NOTE | 2019-10-17 14:50 | Operative Report ---
Operative Report-[facility] Operative Report: DATE OF SURGERY: 10/17/2019 PREOPERATIVE DIAGNOSIS: CATARACT, RIGHT EYE. POSTOPERATIVE DIAGNOSIS: CATARACT, RIGHT EYE. PROCEDURE PERFORMED: PHACOEMULSIFICATION WITH POSTERIOR CHAMBER INTRAOCULAR LENS, RIGHT EYE. Intraocular Lens Model : MX60E 25.5 Total Phaco Time: 6.03 CDE SURGEON: REGINA GRIGGS MD ANESTHESIA: TOPICAL WITH MAC. INDICATIONS FOR SURGERY: Difficulty reading road signs and words on TV. PROCEDURE: The patient was brought to the Operating Room and placed on the operative table. Following tetracaine drops, topical anesthesia was administered. This consisted of instrument wipe pledgets soaked in a solution of 4% Xylocaine mixed with 0.75% Marcaine in a 1:2 ratio. A 2 x 1 cm pledget was placed in the superior fornix. A 1 x 1 cm pledget was placed in the inferior fornix. The eye was patched shut for 5 minutes. The patch was removed. The eye was sterilely prepped and draped in the usual manner. Lid speculum was placed in the eye. The pledgets were removed. 4-0 black silk sutures were placed around the superior and the inferior rectus muscles to be used as traction. A conjunctival peritomy was made at the 10 o'clock position. Hemostasis was obtained with bipolar cautery. A posterior limbal groove was created using a crescent knife and dissected anteriorly towards the cornea. A sharp point blade was used to create a paracentesis site at the 2 o'clock position. 0.2 cc non preserved Lidocaine was injected into the anterior chamber. A 2.4 mm keratome was used to enter the anterior chamber through the groove. Viscoelastic was injected into the anterior chamber. An anterior capsulotomy was performed using Utrata forceps in a capsulorrhexis fashion. Hydrodissection and hydrodelineation were performed. Phacoemulsification was performed in [id number] technique. Following this, the I/A unit was used to remove residual cortex. Viscoelastic was injected into the capsular bag. The Intraocular lens was placed in the capsular bag. The I/A unit was used to remove residual viscoelastic. The wound was seen to be watertight under high and low pressure, and no sutures were placed. The intraocular lens was well centered. The pressure was adjusted in the eye to normal pressure. The 4-0 black silk sutures and lid speculum were removed. The eye was shielded after Besivance and Cosopt drops were placed. The patient tolerated the procedure well and was sent to the Recovery Room in good condition.
== END 2019-10-17 11:25 | disposition home or self-care (01) ==
LOC: SC 08:38
PROVIDERS: ATTEND Ophthalmology
DX: H25.813 Combined forms of age-related cataract, bilateral (principal); H40.033 Anatomical narrow angle, bilateral; E11.9 Type 2 diabetes mellitus without complications; I11.9 Hypertensive heart disease without heart failure; E78.00 Pure hypercholesterolemia, unspecified; J44.9 Chronic obstructive pulmonary disease, unspecified; D64.9 Anemia, unspecified; Z87.891 Personal history of nicotine dependence; Z79.51 Long term (current) use of inhaled steroids; Z79.82 Long term (current) use of aspirin; Z79.899 Other long term (current) drug therapy; Z79.84 Long term (current) use of oral hypoglycemic drugs; Z99.81 Dependence on supplemental oxygen; Z79.02 Long term (current) use of antithrombotics/antiplatelets
CPT/HCPCS: 82962; 66984; V2632; J2250; J3490 ×5; J0171; J3010

== ENCOUNTER 2019-11-08 15:23 | Inpatient (IN) | payer MEDICARE, OTHER ==
--- NOTE | 2019-11-08 16:31 | ER Document Report ---
ED General - General Chief Complaint: Allergic Reaction Stated Complaint: DIFFICULTY BREATHING Primary Care Provider: CEASAR LINDA [NO LOCAL MD] - Follow up as needed TRAVEL OUTSIDE OF THE [place] IN LAST 30 DAYS: No - HPI Notes: PCP: Leigh Anjum at [facility] 59wm with known "Severe obstructive ventilatory defect" per replaced by [facility] PFT December 2018, at home always on few liters nasal cannula and trilogy BiPAP at night with oxygen and sometimes if he is having exacerbation even intermittently in the day. He has not needed the use the trilogy except for a few days ago he did and then upon waking this morning he was feeling more short of breath than usual he has had some sweats but not really fevers or chills. Denies any vomiting. He was trying to avoid mentioning his trouble breathing that was worse than baseline this morning at his family's get together. They ate their usual dishes at the [place] lunch so nothing out of the ordinary but then they went to go wrap gifts and suddenly they noticed he was scratching his chest underarms groin area they looked and there were red whelps mostly in the underarm folds in the inguinal folds and under his pannus. They cover them with calamine powder/lotio n and called EMS because his breath at that time got suddenly much much worse. He says that he has not been having en route EMS gave 0.5 epi, alburerol x2, atrovent x1, 2g Mg over 10 min, 125mg solumedrol, 25mg Benadryl, 20mg pepcid. medical hx COPD, Asthma, 3 MIs (last one 2004), 6 cardiac stents and DM II. he denies that he has had chest pain lately. No passing out or near passing out or falls. Says is been eating and drinking like normal and he has been taking meds for high blood pressure he cannot recall any of the names neither can daughter or her that is here with him but they have them in the car. Says last hospitalization was months and months ago he has not been on any chronic steroids or recent steroids. - Related Data Allergies/Adverse Reactions: No Known Allergies Allergy (Verified 12/22/18 17:30) Past Medical History - Social History Smoking Status: Unknown if Ever Smoked Chew tobacco use (# tins/day): No Frequency of alcohol use: None Drug Abuse: None Family History: CAD, DM Patient has suicidal ideation: No Patient has homicidal ideation: No - Past Medical History Cardiac Medical History: Reports: Hx Coronary Artery Disease, Hx Heart Attack - 2002, Hx Hypertension Pulmonary Medical History: Reports: Hx COPD, Hx Pneumonia, Hx Respiratory Failure - Chronic hypoxic respiratory failure on O2 2 L/min per nasal cannula cont., Hx Sleep Apnea Denies: Hx Asthma Neurological Medical History: Denies: Hx Cerebrovascular Accident, Hx Seizures Endocrine Medical History: Reports: Hx Diabetes Mellitus Type 2. Denies: Hx Diabetes Mellitus Type 1, Hx Hyperthyroidism, Hx Hypothyroidism Renal/ Medical History: Denies: Hx Peritoneal Dialysis GI Medical History: Denies: Hx Cirrhosis, Hx Crohn's Disease, Hx Hepatitis, Hx Hiatal Hernia, Hx Ulcer, Hx Ulcerative Colitis Musculoskeletal Medical History: Denies Hx Arthritis, Denies Hx Gout Skin Medical History: Denies Hx Eczema, Denies Hx Psoriasis Psychiatric Medical History: Denies: Hx Depression Traumatic Medical History: Denies: Hx Traumatic Brain Injury Infectious Medical History: Denies: Hx Hepatitis Past Surgical History: Reports: Hx Cardiac Catheterization, Hx Coronary Stent - right coronary artery stents x4. Denies: Hx Open Heart Surgery - STENTS, Hx Pacemaker - Immunizations Hx Diphtheria, Pertussis, Tetanus Vaccination: No Hx Pneumococcal Vaccination: 08/15/16 Physical Exam - Vital signs Vitals: Resp Pulse Ox 31 H 97 11/08/19 16:01 11/08/19 16:01 Course - Vital Signs Vital signs: Temp Pulse Resp BP Pulse Ox 20 151/80 H 95 11/08/19 18:01 11/08/19 18:01 11/08/19 18:01 - Laboratory Result Diagrams: 11/08/19 16:30 11/08/19 16:30 Laboratory results interpreted by me: 11/08/19 11/08/19 11/08/19 16:30 16:30 16:30 WBC 24.0 H RDW 14.6 H Seg Neuts % (Manual) 88 H Lymphocytes % (Manual) 1 L Abs Neuts (Manual) 22.3 H Abs Lymphs (Manual) 0.2 L Glucose 148 H Calcium 10.3 H Creatine Kinase 208 H Urine Protein 11/08/19 18:10 WBC RDW Seg Neuts % (Manual) Lymphocytes % (Manual) Abs Neuts (Manual) Abs Lymphs (Manual) Glucose Calcium Creatine Kinase Urine Protein 30 H Discharge - Discharge Clinical Impression: Severe allergic reaction with respiratory distress, Decompensated COPD with exacerbation (chronic obstructive pulmonary disease) Condition: Poor Disposition: ADMITTED OBSERVATION Admitting Provider: Fatou (Hospitalist) Unit Admitted: Telemetry Referrals: LOCALMD,NO [NO LOCAL MD] - Follow up as needed
[2019-11-08 16:59] LABS: HEMATOCRIT 46.8 % (37.9-51.0); HEMOGLOBIN 15.6 g/dL (13.5-17.0); MEAN CORPUSCULAR HEMOGLOBIN 29.6 pg (27.0-33.4); MEAN CORPUSCULAR HGB CONC 33.4 g/dL (32.0-36.0); MEAN CORPUSCULAR VOLUME 89 fl (80-97); PLATELET COUNT 374 10^3/uL (150-450); RED BLOOD COUNT 5.28 10^6/uL (4.35-5.55); RED CELL DISTRIBUTION WIDTH 14.6 % (11.5-14.0)
--- NOTE | 2019-11-08 17:06 | RADIOLOGY REPORT (SQ) ---
EXAM DESCRIPTION: CHEST 2 VIEWS COMPLETED DATE/TIME: 11/08/2019 4:46 pm REASON FOR STUDY: allergic reaction COMPARISON: 12/21/2018 EXAM PARAMETERS: NUMBER OF VIEWS: two views TECHNIQUE: Digital Frontal and Lateral radiographic views of the chest acquired. RADIATION DOSE: NA LIMITATIONS: none FINDINGS: LUNGS AND PLEURA: Heterogeneous opacity of the right upper lobe. MEDIASTINUM AND HILAR STRUCTURES: No masses or contour abnormalities. HEART AND VASCULAR STRUCTURES: Heart normal size. No evidence for failure. BONES: No acute findings. HARDWARE: None in the chest. OTHER: No other significant finding. IMPRESSION: Heterogeneous opacity of the right upper lobe, concerning for infection. Recommend foll owup radiographs in 6-8 weeks to ensure complete resolution and exclude underlying mass. TECHNICAL DOCUMENTATION: JOB ID: [id number] [employer]- All Rights Reserved Reading location - IP/workstation name: [email or web address]
[2019-11-08] MEDS ORDERED: NORMAL SALINE 250 ML IV ONE (17:08)
[2019-11-08 17:21] LABS: ABSOLUTE LYMPHOCYTES# (MANUAL) 0.2 10^3/uL (0.5-4.7); ABSOLUTE MONOCYTES # (MANUAL) 1.4 10^3/uL (0.1-1.4); ANISOCYTOSIS SLIGHT; BAND NEUTROPHILS % (MANUAL) 5 % (3-5); BASOPHILS % (MANUAL) 0 % (0-2); EOSINOPHILS % (MANUAL) 0 % (0-6); LYMPHOCYTES % (MANUAL) 1 % (13-45); MONOCYTES % (MANUAL) 6 % (3-13); PLATELET COMMENT ADEQUATE; SEGMENTED NEUTROPHILS % (MAN) 88 % (42-78); TOTAL CELLS COUNTED 100
[2019-11-08 17:27] LABS: CREATINE KINASE MB 4.16 ng/mL (<4.55); TROPONIN I < 0.012 ng/mL
[2019-11-08] MEDS: IPRATROPIUM/ALBUTEROL 0.5-2.5 MG/3 ML AMPUL NEB PRN ×3 (17:42→18:28)
[2019-11-08] MEDS ORDERED: CEFTRIAXONE 1 GM/D5W RTU 1 GM/50 ML RTUPB IV ONE (18:00)
[2019-11-08 18:20] LABS: ALBUMIN 4.8 g/dL (3.5-5.0); ALKALINE PHOSPHATASE 63 U/L (38-126); ANION GAP 17 (5-19); ASPARTATE AMINO TRANSFERASE 27 U/L (17-59); BILIRUBIN,DIRECT 0.2 mg/dL (0.0-0.4); BILIRUBIN,TOTAL 0.8 mg/dL (0.2-1.3); BLOOD UREA NITROGEN 14 mg/dL (7-20); CALCIUM 10.3 mg/dL (8.4-10.2); CARBON DIOXIDE 24 mmol/L (22-30); CHLORIDE 98 mmol/L (98-107); GLUCOSE 148 mg/dL (75-110); POTASSIUM 4.3 mmol/L (3.6-5.0); TOTAL PROTEIN 7.6 g/dL (6.3-8.2)
[2019-11-08 18:40] LABS: APPEARANCE,URINE CLEAR; BILIRUBIN,URINE NEGATIVE (NEGATIVE); COLOR,URINE YELLOW; GLUCOSE, URINE NEGATIVE (NEGATIVE); KETONES,URINE NEGATIVE (NEGATIVE); LEUKOCYTE ESTERASE,URINE NEGATIVE (NEGATIVE); NITRITE,URINE NEGATIVE (NEGATIVE); PROTEIN,URINE 30 mg/dL (NEGATIVE); URINE SPECIFIC GRAVITY 1.012; UROBILINOGEN,URINE NEGATIVE mg/dL (<2.0)
[2019-11-08] MEDS ORDERED: PROMETHAZINE HCL INJ 25 MG/1 ML VIAL IV PRN (19:36)
[2019-11-08] MEDS ORDERED: LEVALBUTEROL HCL NEB 0.63 MG/3 ML AMPUL NEB PRN (19:36)
[2019-11-08] MEDS ORDERED: EPINEPHRINE INJ/PF 1 MG/1 ML AMPULE IM ONE (19:36)
[2019-11-08] MEDS ORDERED: MAGNESIUM HYDROXIDE SUSP 30 ML UDCUP PO PRN (19:36)
[2019-11-08] MEDS ORDERED: MAG HYDROX/AL HYDROX/SIMETH SUSP 30 ML UDCUP PO PRN (19:36)
[2019-11-08] MEDS ORDERED: DIPHENHYDRAMINE HCL 50 MG/ML VIAL IV ONE (19:39)
[2019-11-08] MEDS ORDERED: FAMOTIDINE INJ/PF 20 MG/2 ML SDV IV ONE (19:39)
[2019-11-08] MEDS ORDERED: IPRATROPIUM/ALBUTEROL 0.5-2.5 MG/3 ML AMPUL NEB ONE (19:39)
[2019-11-08] MEDS ORDERED: NICOTINE 21 MG/24 HR PATCH.TD24 TD PRN (19:40)
--- NOTE | 2019-11-08 20:11 | EKG REPORT ---
SEVERITY:- ABNORMAL ECG - SINUS TACHYCARDIA RIGHT BUNDLE BRANCH BLOCK INFERIOR INFARCT, AGE INDETERMINATE : Confirmed by: Andreia Lagos MD 08-Nov-2019 20:11:10
--- NOTE | 2019-11-08 20:13 | EKG REPORT ---
SEVERITY:- ABNORMAL ECG - SINUS TACHYCARDIA RIGHT BUNDLE BRANCH BLOCK : Confirmed by: Andreia Lagos MD 08-Nov-2019 20:11:32
[2019-11-08 20:50] LABS: A TYPE INFLUENZA AG NEGATIVE (NEGATIVE); B INFLUENZA AG NEGATIVE (NEGATIVE)
[2019-11-08] MEDS ORDERED: METOPROLOL TARTRATE PF/INJ 5 MG/5 ML SDV IV PRN (21:32)
[2019-11-08] MEDS: BUDESONIDE NEB 0.5 MG/2 ML AMPUL NEB SCH (21:42)
[2019-11-08] MEDS: ATORVASTATIN CALCIUM 40 MG TABLET PO SCH (23:12)
[2019-11-08] MEDS: RANOLAZINE 500 MG TAB.SR.12H PO SCH (23:12)
[2019-11-08] MEDS: IPRATROPIUM BROMIDE 0.02% NEB 0.5 MG/2.5 ML AMPUL NEB SCH (23:13)
[2019-11-08] MEDS: LEVALBUTEROL HCL NEB 1.25 MG/3 ML AMPUL NEB SCH (23:13)
[2019-11-08] MEDS: DIPHENHYDRAMINE HCL 50 MG/ML VIAL IV SCH (23:15)
[2019-11-08] MEDS: METHYLPREDNISOLONE INJ 40 MG/1 ML SDV IV SCH (23:16)
[2019-11-08] MEDS: HEPARIN SOD (PORCINE) 5,000 UNIT/ML 1 ML VIAL SUBCUT SCH (23:17)
[2019-11-08] MEDS: LEVOFLOXACIN 750 MG TABLET PO SCH (23:36)
[2019-11-08] MEDS: INSULIN REG, HUMAN 100 UNIT/ML 3 ML VIAL (PYX) SUBCUT SCH (23:36)
--- NOTE | 2019-11-09 00:25 | PDOC H&P ---
History of Present Illness Admission Date/PCP: 11/08/2019 19:12 Leigh Anjum Patient complains of: Hives History of Present Illness: ELIA JAEGER is a 59 year old male who presented to the emergency room with acute hives. He admits the sudden onset of extreme pruritus and erythematous welts generalized over his torso with concentration in the intertriginous regions beginning while unwrapping gifts for [place]. His hives were treated with calamine lotion and powder at home without relief. His hives were accompanied by an increase in his chronic dyspnea and wheezing. He denies other associated or accompanying signs and symptoms. He denies prior similar episodes of hives but admits numerous similar episodes of acute exacerbation of his dyspnea related to his severe COPD. He has not identified any aggravating or ameliorating factors for his hives. EMS was summoned and he received subcutaneous epinephrine, nebulizer treatments x3, IV Solu-Medrol, IV magnesium, IV Benadryl and IV Pepcid. By the time of his arrival in the emergency room his hives were improving though he continued to have labored respirations and is treated with BiPAP. He continued to improve but had not reobtained his usual baseline. He was subsequently placed on observation status in a medical [facility] emetry bed. Past Medical History Cardiac Medical History: Reports: Coronary Artery Disease, Myocardial Infarction - 2001, Hypertension Denies: Atrial Fibrillation, Congestive Heart Failure Pulmonary Medical History: Reports: Bronchitis, Chronic Obstructive Pulmonary Disease (COPD) - Oxygen and trilogy dependent, Pneumonia, Respiratory Failure - Chronic hypoxic respiratory failure on O2 2 L/min per nasal cannula cont., Sleep Apnea - Oxygen and trilogy dependent Denies: Asthma EENT Medical History: Denies: Cataracts, Ears - Hearing aids Neurological Medical History: Denies: Hemorrhagic CVA, Ischemic CVA, Seizures Endocrine Medical History: Reports: Diabetes Mellitus Type 2 Denies: Diabetes Mellitus Type 1, Hyperthyroidism, Hypothyroidism Renal/ Medical History: Denies: Chronic Kidney Disease, Nephrolithiasis Malignancy Medical History: Reports: None GI Medical History: Denies: Cirrhosis, Crohn's Disease, Hepatitis, Hiatal Hernia, Ulcerative Colitis Musculoskeltal Medical History: Denies: Arthritis, Gout Skin Medical History: Denies: Eczema, Psoriasis Psychiatric Medical History: Denies: Alcohol Dependency, Depression, Substance Abuse, Tobacco Dependency Traumatic Medical History: Reports: None Denies: Traumatic Brain Injury Hematology: Reports: Anemia Denies: Bleeding Tendencies Infectious Medical History: Reports: None Past Surgical History Past Surgical History: Reports: Cardiac Catheterization, Coronary Stent - x6 Social History Information Source: Patient Lives with: Spouse/Significant other Smoking Status: Current Every Day Smoker Electronic Cigarette use?: No Frequency of Alcohol Use: None Hx Recreational Drug Use: No Drugs: None Hx Prescription Drug Abuse: No - Advance Directive Resuscitation Status: Full Code Surrogate healthcare decision maker:: Angie Jaeger Family History Family History: CAD, DM. denies: Malignancy Parental Family History Reviewed: Yes Children Family History Reviewed: No Sibling(s) Family History Reviewed.: Yes Medication/Allergy Home Medications: Albuterol Sulfate [Proair HFA Inhalation Aerosol 8.5 gm MDI] 2 puff IH Q6HP PRN 12/22/18 Ascorbic Acid [Vitamin C 500 mg Tablet] 500 mg PO DAILY 12/22/18 Aspirin [Ecotrin 81 mg EC Tablet] 81 mg PO DAILY 12/22/18 Atorvastatin Calcium [Lipitor 40 mg Tablet] 40 mg PO QHS 12/22/18 Clopidogrel Bisulfate [Plavix 75 mg Tablet] 75 mg PO DAILY 12/22/18 Cyanocobalamin (Vitamin B-12) [Vitamin B-12] 1,000 mcg PO DAILY 12/22/18 Ferrous Sulfate [Feosol 325 mg Tablet] 325 mg PO BID 12/22/18 Folic Acid [Folvite 1 mg Tablet] 1 mg PO DAILY 12/22/18 Ibuprofen [Motrin 800 mg Tablet] 800 mg PO TIDP PRN 12/22/18 Ipratropium/Albuterol Sulfate [Duoneb 3 ml Ampul] 3 ml NEB RTQID 12/22/18 Metformin HCl [Metformin HCl ER] 500 mg PO BID 12/22/18 Alendronate Sodium [Fosamax "Weekly" 35 mg Tablet] 70 mg PO We@0600 tablet 12/29/18 Methylprednisolone [Medrol Dosepack (4 mg/Tab) 21 Tab/Dosepak] 21 tab PO ASDIR PRN #1 dspk 12/29/18 Roflumilast [Daliresp 500 Mcg Tablet] 500 mcg PO DAILY tablet 12/29/18 Ascorbic Acid [Vitamin C 500 mg Tablet] 500 mg PO DAILY 10/16/19 Fluticasone/Umeclidin/Vilanter [Trelegy 100-62.5-25 Mcg Ellipta 14 Dose/Dpi] 1 each DAILY 10/16/19 Ipratropium/Albuterol Sulfate [Duoneb 3 ml Ampul] 3 ml NEB [id number] PRN 10/16/19 Ketorolac Tromethamine 0.45% [Acuvail 0.45% Oph Soln 0.4 ml/Dropperette] 1 drop OD ASDIR 10/16/19 Metoprolol Succinate [Toprol Xl 50 mg Tab.sr] 50 mg PO DAILY 10/16/19 Moxifloxacin HCl [Vigamox 0.5% Oph Soln 3 ml] 1 drop OP ASDIR PRN 10/16/19 Omeprazole 20 mg PO DAILY 10/16/19 Prednisolone Acetate [Pred Forte] 1 drop OP ASDIR 10/16/19 Ranolazine [Ranexa 500 mg Tab.sr] 500 mg PO Q12 10/16/19 Allergies/Adverse Reactions: No Known Allergies Allergy (Verified 12/22/18 17:30) Review of Systems Constitutional: ABSENT: chills, fever(s) Eyes: ABSENT: visual disturbances, other - Eye pain Ears: ABSENT: hearing changes, other - Ear pain Nose, Mouth, and Throat: ABSENT: headache(s), mouth pain, sore throat Cardiovascular: ABSENT: chest pain, dyspnea on exertion, edema, orthropnea, palpitations Respiratory: PRESENT: as per HPI, dyspnea. ABSENT: cough Gastrointestinal: ABSENT: abdominal pain, constipation, diarrhea, nausea, vomiting Genitourinary: ABSENT: dysuria, hematuria Musculoskeletal: ABSENT: back pain, joint swelling, muscle weakness Integumentary: PRESENT: as per HPI, erythema - Hives, pruritus, rash - Hives Neurological: ABSENT: confusion, convulsions, focal weakness, memory loss, syncope Psychiatric: ABSENT: anxiety, depression Endocrine: ABSENT: cold intolerance, heat intolerance Hematologic/Lymphatic: ABSENT: easy bleeding, easy bruising Allergic/Immunologic: ABSENT: seasonal rhinorrhea Physical Exam Vital Signs: Temp Pulse Resp BP Pulse Ox 20 151/80 H 95 11/08/19 18:01 11/08/19 18:01 11/08/19 18:01 Intake & Output 11/06/19 11/07/19 11/08/19 23:59 23:59 23:59 Intake Total 50 Balance 50 Weight 90.718 kg General appearance: PRESENT: no acute distress, cooperative Head exam: PRESENT: atraumatic, normocephalic Eye exam: PRESENT: conjunctiva pink. ABSENT: conjunctival injection, scleral icterus Ear exam: PRESENT: normal external ear exam. ABSENT: bleeding, drainage Mouth exam: PRESENT: dry mucosa, neck supple Neck exam: ABSENT: thyromegaly, tracheal deviation Respiratory exam: PRESENT: decreased breath sounds - Moderately decreased breath sounds throughout all lung [place], prolonged expiratory phas - Moderately prolonged expiratory phase noted in all lung [place], symmetrical, wheezes - Moderate expiratory wheezes present in all lung [place] Cardiovascular exam: PRESENT: RRR. ABSENT: clicks, gallop, rubs Pulses: PRESENT: normal radial pulses, normal dorsalis pedis pul Vascular exam: PRESENT: normal capillary refill. ABSENT: pallor GI/Abdominal exam: PRESENT: normal bowel sounds, soft Rectal exam: PRESENT: deferred Extremities exam: ABSENT: joint swelling, pedal edema Musculoskeletal exam: ABSENT: deformity, dislocation Neurological exam: PRESENT: alert, oriented to person, oriented to place, oriented to time, oriented to situation, CN II-XII grossly intact. ABSENT: motor sensory deficit Psychiatric exam: PRESENT: appropriate affect, normal mood Skin exam: PRESENT: dry, intact, urticaria - Mild urticaria noted on the intertriginous areas of the trunk bilaterally., warm. ABSENT: jaundice Results Laboratory Results: 11/08/19 16:30 11/08/19 16:30 11/08/19 11/08/19 11/08/19 16:30 16:30 18:10 WBC 24.0 H RBC 5.28 Hgb 15.6 Hct 46.8 MCV 89 MCH 29.6 MCHC 33.4 RDW 14.6 H Plt Count 374 Seg Neutrophils % Not Reportable Sodium 138.7 Potassium 4.3 Chloride 98 Carbon Dioxide 24 Anion Gap 17 BUN 14 Creatinine 0.80 Est GFR ( Amer) > 60 Glucose 148 H Calcium 10.3 H Total Bilirubin 0.8 AST 27 Alkaline Phosphatase 63 Total Protein 7.6 Albumin 4.8 Urine Color YELLOW Urine Appearance CLEAR Urine pH 6.0 Ur Specific [place] 1.012 Urine Protein 30 H Urine Glucose (UA) NEGATIVE Urine Ketones NEGATIVE Urine Blood NEGATIVE Urine Nitrite NEGATIVE Ur Leukocyte Esterase NEGATIVE Urine WBC (Auto) 1 11/08/19 11/08/19 16:30 16:30 Creatine Kinase 208 H CK-MB (CK-2) 4.16 Troponin I < 0.012 Impressions: Chest X-Ray 11/08/19 00:00 IMPRESSION: Heterogeneous opacity of the right upper lobe, concerning for infection. Recommend followup radiographs in 6-8 weeks to ensure complete resolution and exclude underlying mass. Assessment and Plan - Diagnosis (1) Acute urticaria Is this a current diagnosis for this admission?: Yes (2) COPD with acute exacerbation Is this a current diagnosis for this admission?: Yes (3) Acute and chronic respiratory failure with hypoxia Is this a current diagnosis for this admission?: Yes (4) FRED (obstructive sleep apnea) Is this a current diagnosis for this admission?: Yes (5) Tobacco use disorder, severe, dependence Is this a current diagnosis for this admission?: Yes (6) Diabetes mellitus type 2 in nonobese Is this a current diagnosis for this admission?: Yes (7) Coronary artery disease Qualifiers: Coronary Disease-Associated Artery/Lesion type: [place] artery [place] vs. transplanted heart: [place] heart Associated angina: without angina Qualified Code(s): I25.10 - Atherosclerotic heart disease of [place] coronary artery without angina pectoris Is this a current diagnosis for this admission?: Yes - Plan Summary Summary: Patient is admitted on observation bed assignment status to a medical telemetry bed where he will receive routine supportive and symptomatic cares. He will be treated with an aggressive pulmonary toilet utilizing Xopenex, Atrovent and Pulmicort delivered via nebulizer. He will be treated with IV Solu-Medrol. He will use BiPAP for respiratory support overnight and as needed. He will have continuous nasal cannula oxygen at 2 L/min when not on BiPAP. He will receive ongoing treatment with Benadryl and Pepcid administered IV initially with conversion to oral therapy at or before discharge. A CBC metabolic profile and magnesium level be obtained in the morning. Antibiotic therapy was initiated in the emergency room and will be continued as a short course of Levaquin 750 mg p.o. daily x4 days. Patient will be continued on his usual home medications as appropriate and will also be maintained on his recommended diabetic and cardiac diet restrictions. Before meals and at bedtime Accu-Cheks will be obtained with sliding scale insulin for hyperglycemia and a hypoglycemic protocol in place. Smoking cessation is advised and counseled briefly at the bedside. A nicotine replacement patch is available for the patient's use, if desired. - Time Time Spent with patient: 15-24 minutes Smoking Cessation Education: 3 to 10 minutes Medications reviewed and adjusted accordingly: Yes Anticipated discharge: Home Within: within 48 hours - Inpatient Certification Based on my medical assessment, after consideration of the patient's co morbidities, presenting symptoms, or acuity I expect that the services needed warrant INPATIENT care.: No I certify that my determination is in accordance with my understanding of Medicare's requirements for reasonable and necessary INPATIENT services [42 CFR 412.3e].: No
[2019-11-09] MEDS ORDERED: INFLUENZA QUAD (6MOS+) 2019-20 VAC 0.5 ML SYR IM ONE (00:41)
[2019-11-09] MEDS: DIPHENHYDRAMINE HCL 50 MG/ML VIAL IV SCH ×4 (04:59→23:24)
[2019-11-09] MEDS: METHYLPREDNISOLONE INJ 40 MG/1 ML SDV IV SCH ×2 (04:59→12:06)
[2019-11-09] MEDS: HEPARIN SOD (PORCINE) 5,000 UNIT/ML 1 ML VIAL SUBCUT SCH ×3 (04:59→21:23)
[2019-11-09] MEDS: IPRATROPIUM BROMIDE 0.02% NEB 0.5 MG/2.5 ML AMPUL NEB SCH ×3 (08:10→23:53)
[2019-11-09] MEDS: LEVALBUTEROL HCL NEB 1.25 MG/3 ML AMPUL NEB SCH ×3 (08:10→23:53)
[2019-11-09] MEDS: BUDESONIDE NEB 0.5 MG/2 ML AMPUL NEB SCH (08:10)
[2019-11-09 08:34] LABS: HEMATOCRIT 41.9 % (37.9-51.0); HEMOGLOBIN 14.1 g/dL (13.5-17.0); MEAN CORPUSCULAR HEMOGLOBIN 29.8 pg (27.0-33.4); MEAN CORPUSCULAR HGB CONC 33.5 g/dL (32.0-36.0); MEAN CORPUSCULAR VOLUME 89 fl (80-97); RED BLOOD COUNT 4.72 10^6/uL (4.35-5.55); RED CELL DISTRIBUTION WIDTH 15.1 % (11.5-14.0); WHITE BLOOD COUNT 23.7 10^3/uL (4.0-10.5)
[2019-11-09] MEDS: INSULIN REG, HUMAN 100 UNIT/ML 3 ML VIAL (PYX) SUBCUT SCH ×2 (08:46→12:06)
[2019-11-09] MEDS: METFORMIN HCL 500 MG TABLET PO SCH ×2 (08:46→17:23)
[2019-11-09 09:02] LABS: ANION GAP 13 (5-19); BLOOD UREA NITROGEN 19 mg/dL (7-20); CALCIUM 9.4 mg/dL (8.4-10.2); CARBON DIOXIDE 26 mmol/L (22-30); CHLORIDE 99 mmol/L (98-107); GLUCOSE 147 mg/dL (75-110); POTASSIUM 4.2 mmol/L (3.6-5.0)
[2019-11-09 09:07] LABS: PLATELET COUNT 380 10^3/uL (150-450)
[2019-11-09] MEDS ORDERED: ASPIRIN 81 MG TABLET, ENT COATED PO SCH (10:00)
[2019-11-09] MEDS: METOPROLOL SUCCINATE 50 MG TAB.SR.24H PO SCH (10:25)
[2019-11-09] MEDS: RANOLAZINE 500 MG TAB.SR.12H PO SCH ×2 (10:25→21:23)
[2019-11-09] MEDS: DOCUSATE SODIUM 100 MG CAPSULE PO SCH ×2 (10:26→17:23)
[2019-11-09] MEDS: FAMOTIDINE INJ/PF 20 MG/2 ML SDV IV SCH ×2 (10:26→21:23)
[2019-11-09] MEDS: CLOPIDOGREL BISULFATE 75 MG TABLET PO SCH (10:26)
--- NOTE | 2019-11-09 11:50 | PDOC PROGRESS REPORT ---
Subjective Progress Note for:: 11/09/19 Subjective:: ELIA ROSENBAUM is a 59 year old male who presented to the emergency room with acute hives. He admits the sudden onset of extreme pruritus and erythematous welts generalized over his torso with concentration in the intertriginous regions beginning while unwrapping gifts for [place]. His hives were treated with calamine lotion and powder at home without relief. His hives were accompanied by an increase in his chronic dyspnea and wheezing. He denies other associated or accompanying signs and symptoms. He denies prior similar episodes of hives but admits numerous similar episodes of acute exacerbation of his dyspnea related to his severe COPD. He has not identified any aggravating or ameliorating factors for his hives. EMS was summoned and he received subc utaneous epinephrine, nebulizer treatments x3, IV Solu-Medrol, IV magnesium, IV Benadryl and IV Pepcid. By the time of his arrival in the emergency room his hives were improving though he continued to have labored respirations and is treated with BiPAP. He continued to improve but had not reobtained his usual baseline. He was subsequently placed on observation status in a medical telemetry bed. 11/09/2019. Patient resting comfortably in bed, on BiPAP, in no apparent distress, hives have almost resolved completely, denies any chest pain, nausea, vomiting, fever, chills, diarrhea, constipation or any urinary symptoms. Reason For Visit: ACUTE URTICARIA,ACUTE EXACERBATION OF COPD Physical Exam Vital Signs: Temp Pulse Resp BP Pulse Ox 98.3 F 106 H 14 123/72 96 11/09/19 07:58 11/09/19 08:10 11/09/19 08:10 11/09/19 07:58 11/09/19 08:10 Intake & Output 11/08/19 11/09/19 11/10/19 06:59 06:59 06:59 Intake Total 310 Output Total 0 Balance 310 Weight 90.9 kg General appearance: PRESENT: obese Head exam: PRESENT: atraumatic, normocephalic Respiratory exam: PRESENT: prolonged expiratory phas, wheezes. ABSENT: rales, rhonchi Cardiovascular exam: PRESENT: RRR. ABSENT: diastolic murmur, rubs, systolic murmur GI/Abdominal exam: PRESENT: normal bowel sounds, soft. ABSENT: distended, guarding, mass, organolmegaly, rebound, tenderness Neurological exam: PRESENT: alert, awake, oriented to person, oriented to place, oriented to time, oriented to situation, CN II-XII grossly intact. ABSENT: motor sensory deficit Results Laboratory Results: 11/09/19 07:50 11/09/19 07:50 11/08/19 11/08/19 11/08/19 16:30 16:30 18:10 WBC 24.0 H RBC 5.28 Hgb 15.6 Hct 46.8 MCV 89 MCH 29.6 MCHC 33.4 RDW 14.6 H Plt Count 374 Seg Neutrophils % Not Reportable Sodium 138.7 Potassium 4.3 Chloride 98 Carbon Dioxide 24 Anion Gap 17 BUN 14 Creatinine 0.80 Est GFR ( Amer) > 60 Glucose 148 H Calcium 10.3 H Magnesium Total Bilirubin 0.8 AST 27 Alkaline Phosphatase 63 Total Protein 7.6 Albumin 4.8 Urine Color YELLOW Urine Appearance CLEAR Urine pH 6.0 Ur Specific [place] 1.012 Urine Protein 30 H Urine Glucose (UA) NEGATIVE Urine Ketones NEGATIVE Urine Blood NEGATIVE Urine Nitrite NEGATIVE Ur Leukocyte Esterase NEGATIVE Urine WBC (Auto) 1 11/09/19 11/09/19 07:50 07:50 WBC 23.7 H RBC 4.72 Hgb 14.1 Hct 41.9 MCV 89 MCH 29.8 MCHC 33.5 RDW 15.1 H Plt Count 380 Seg Neutrophils % Sodium 138.4 Potassium 4.2 Chloride 99 Carbon Dioxide 26 Anion Gap 13 BUN 19 Creatinine 0.89 Est GFR ( Amer) > 60 Glucose 147 H Calcium 9.4 Magnesium 1.8 Total Bilirubin AST Alkaline Phosphatase Total Protein Albumin Urine Color Urine Appearance Urine pH Ur Specific [place] Urine Protein Urine Glucose (UA) Urine Ketones Urine Blood Urine Nitrite Ur Leukocyte Esterase Urine WBC (Auto) 11/08/19 11/08/19 11/08/19 16:30 16:30 20:00 Creatine Kinase 208 H CK-MB (CK-2) 4.16 Troponin I < 0.012 < 0.012 11/09/19 11/09/19 02:27 07:50 Creatine Kinase CK-MB (CK-2) Troponin I < 0.012 < 0.012 Impressions: Chest X-Ray 11/08/19 00:00 IMPRESSION: Heterogeneous opacity of the right upper lobe, concerning for infection. Recommend followup radiographs in 6-8 weeks to ensure complete resolution and exclude underlying mass. Assessment and Plan - Diagnosis (1) Pneumonia Qualifiers: Laterality: right Lung location: upper lobe of lung Is this a current diagnosis for this admission?: Yes Plan: Likely community-acquired due to gram-positive including Streptococcus pneumonia. Chest x-ray positive for right upper lobe opacity. Mass versus infection. Initial labs positive for labs positive for leukocytosis. Presented with hypoxia, tachypnea. Afebrile. Day 2 IV antibiotics. Day 2 IV levofloxacin. Continue empiric IV antibiotics. Follow-up cultures. Outpatient repeat CXR/chest CT to rule out any pulmonary mass. (2) Acute urticaria Is this a current diagnosis for this admission?: Yes Plan: Unidentified source. Improving. Continue antihistamines. Monitor vitals. Supportive measures. (3) COPD with acute exacerbation Is this a current diagnosis for this admission?: Yes Plan: History of severe COPD, supplemental O2 and BiPAP dependent. Has trilogy at home. Continue telemetry, scheduled BiPAP, duo nebs, LABA, LABA, ICS, pulmonary toileting, incentive spirometry, flutter valve. (4) CAD (coronary artery disease) Qualifiers: Coronary Disease-Associated Artery/Lesion type: [place] artery [place] vs. transplanted heart: [place] heart Associated angina: angina presence unspecified Qualified Code(s): I25.10 - Atherosclerotic heart disease of [place] coronary artery without angina pectoris Is this a current diagnosis for this admission?: Yes Plan: Denies any anginal symptoms. Troponins negative x2. Continue DAPT, ANA LAURA, beta-blockers, ranolazine. (5) Acute and chronic respiratory failure with hypoxia Is this a current diagnosis for this admission?: Yes Plan: Due to acute CHF exacerbation complicated by pneumonia. Plan as per above. (6) Diabetes mellitus type 2 in nonobese Is this a current diagnosis for this admission?: Yes Plan: Controlled. Hemoglobin A1c 6.0. Takes metformin at home. Diabetic diet, sliding scale insulin, Accu-Chek, hypoglycemia protocol. Restart home meds upon discharge. Outpatient PCP follow-up. (7) FRED on CPAP Is this a current diagnosis for this admission?: Yes Plan: Nocturnal CPAP. (8) Tobacco use disorder, severe, dependence Is this a current diagnosis for this admission?: Yes Plan: Advised on quitting. NicoDerm patch provided.
[2019-11-09] MEDS ORDERED: (PENDING PHARMACY ID) (Metformin Hcl [Metformin Hcl Er] 500 MG) PO SCH (18:00)
[2019-11-09] MEDS: LEVOFLOXACIN 750 MG TABLET PO SCH (21:23)
[2019-11-09] MEDS: ATORVASTATIN CALCIUM 40 MG TABLET PO SCH (21:23)
[2019-11-10] MEDS: DIPHENHYDRAMINE HCL 50 MG/ML VIAL IV SCH ×3 (05:36→17:56)
[2019-11-10] MEDS: HEPARIN SOD (PORCINE) 5,000 UNIT/ML 1 ML VIAL SUBCUT SCH ×3 (05:36→21:20)
[2019-11-10 06:40] LABS: HEMATOCRIT 35.5 % (37.9-51.0); MEAN CORPUSCULAR HEMOGLOBIN 29.6 pg (27.0-33.4); MEAN CORPUSCULAR HGB CONC 33.4 g/dL (32.0-36.0); MEAN CORPUSCULAR VOLUME 89 fl (80-97); PLATELET COUNT 368 10^3/uL (150-450)
[2019-11-10 06:57] LABS: HEMOGLOBIN 11.9 g/dL (13.5-17.0)
[2019-11-10 07:03] LABS: ALBUMIN 3.4 g/dL (3.5-5.0); ALKALINE PHOSPHATASE 46 U/L (38-126); ANION GAP 9 (5-19); ASPARTATE AMINO TRANSFERASE 19 U/L (17-59); BILIRUBIN,DIRECT 0.2 mg/dL (0.0-0.4); BILIRUBIN,TOTAL 0.4 mg/dL (0.2-1.3); BLOOD UREA NITROGEN 25 mg/dL (7-20); CALCIUM 9.2 mg/dL (8.4-10.2); CARBON DIOXIDE 26 mmol/L (22-30); CHLORIDE 103 mmol/L (98-107); GLUCOSE 118 mg/dL (75-110); POTASSIUM 4.3 mmol/L (3.6-5.0); TOTAL PROTEIN 5.8 g/dL (6.3-8.2)
[2019-11-10 07:13] LABS: ABSOLUTE LYMPHOCYTES# (MANUAL) 0.5 10^3/uL (0.5-4.7); ABSOLUTE MONOCYTES # (MANUAL) 1.2 10^3/uL (0.1-1.4); BASOPHILS % (MANUAL) 0 % (0-2); EOSINOPHILS % (MANUAL) 0 % (0-6); LYMPHOCYTES % (MANUAL) 2 % (13-45); MONOCYTES % (MANUAL) 5 % (3-13); SEGMENTED NEUTROPHILS % (MAN) 93 % (42-78); TOTAL CELLS COUNTED 100
[2019-11-10 07:15] LABS: ANISOCYTOSIS SLIGHT; BURR CELLS SLIGHT; PLATELET COMMENT ADEQUATE; POLYCHROMASIA SLIGHT; TOXIC GRANULATION SLIGHT
[2019-11-10] MEDS: METFORMIN HCL 500 MG TABLET PO SCH ×2 (08:21→17:56)
[2019-11-10] MEDS ORDERED: ALBUTEROL SULFATE HFA (90 MCG/PUFF) 200 PUFF/8.5 GM MDI IH PRN (09:25)
[2019-11-10] MEDS: ASPIRIN 81 MG TABLET, ENT COATED PO SCH (09:45)
[2019-11-10] MEDS: METOPROLOL SUCCINATE 50 MG TAB.SR.24H PO SCH (09:45)
[2019-11-10] MEDS: DOCUSATE SODIUM 100 MG CAPSULE PO SCH ×2 (09:45→17:56)
[2019-11-10] MEDS: LISINOPRIL 10 MG TABLET PO SCH (09:45)
[2019-11-10] MEDS: ASCORBIC ACID 500 MG TABLET PO SCH (09:45)
[2019-11-10] MEDS: FLUTICASONE/UMECLIDIN/VILANTER 100-62.5-25 MCG/DOSE IH SCH (09:46)
[2019-11-10] MEDS: FOLIC ACID 1 MG TABLET PO SCH (09:46)
[2019-11-10] MEDS: CLOPIDOGREL BISULFATE 75 MG TABLET PO SCH (09:46)
[2019-11-10] MEDS: FAMOTIDINE INJ/PF 20 MG/2 ML SDV IV SCH ×2 (09:46→21:21)
[2019-11-10] MEDS: LEVALBUTEROL HCL NEB 1.25 MG/3 ML AMPUL NEB SCH (09:47)
[2019-11-10] MEDS: IPRATROPIUM BROMIDE 0.02% NEB 0.5 MG/2.5 ML AMPUL NEB SCH (09:47)
[2019-11-10] MEDS ORDERED: METOPROLOL SUCCINATE 50 MG TAB.SR.24H PO SCH (10:00)
[2019-11-10] MEDS ORDERED: CLOPIDOGREL BISULFATE 75 MG TABLET PO SCH (10:00)
[2019-11-10] MEDS ORDERED: RANOLAZINE 500 MG TAB.SR.12H PO SCH (10:00)
[2019-11-10] MEDS ORDERED: (PENDING PHARMACY ID) (Roflumilast [Daliresp 500 Mcg Tablet] 500 MCG) PO SCH (10:00)
[2019-11-10] MEDS ORDERED: (PENDING PHARMACY ID) (Lisinopril [Prinivil] 20 MG) PO SCH (10:00)
[2019-11-10] MEDS: RANOLAZINE 500 MG TAB.SR.12H PO SCH ×2 (10:12→21:26)
[2019-11-10] MEDS: ROFLUMILAST 500 MCG TABLET PO SCH (10:12)
[2019-11-10] MEDS: IPRATROPIUM/ALBUTEROL 0.5-2.5 MG/3 ML AMPUL NEB SCH ×5 (10:43→22:55)
--- NOTE | 2019-11-10 11:20 | PDOC PROGRESS REPORT ---
Subjective Progress Note for:: 11/10/19 Subjective:: ELIA ROSENBAUM is a 59 year old male who presented to the emergency room with acute hives. He admits the sudden onset of extreme pruritus and erythematous welts generalized over his torso with concentration in the intertriginous regions beginning while unwrapping gifts for [place]. His hives were treated with calamine lotion and powder at home without relief. His hives were accompanied by an increase in his chronic dyspnea and wheezing. He denies other associated or accompanying signs and symptoms. He denies prior similar episodes of hives but admits numerous similar episodes of acute exacerbation of his dyspnea related to his severe COPD. He has not identified any aggravating or ameliorating factors for his hives. EMS was summoned and he received subc utaneous epinephrine, nebulizer treatments x3, IV Solu-Medrol, IV magnesium, IV Benadryl and IV Pepcid. By the time of his arrival in the emergency room his hives were improving though he continued to have labored respirations and is treated with BiPAP. He continued to improve but had not reobtained his usual baseline. He was subsequently placed on observation status in a medical telemetry bed. 11/09/2019. Patient resting comfortably in bed, on BiPAP, in no apparent distress, hives have almost resolved completely, denies any chest pain, nausea, vomiting, fever, chills, diarrhea, constipation or any urinary symptoms. 11/10/2019. No acute events overnight. Patient currently resting in bed no apparent distress. Still complaining of productive cough, rash has resolved, denies any fever, chills, nausea, vomiting, diarrhea, constipation or any urinary symptoms. Reason For Visit: ACUTE URTICARIA,ACUTE EXACERBATION OF COPD Physical Exam Vital Signs: Temp Pulse Resp BP Pulse Ox 98.5 F 90 18 120/77 97 11/10/19 07:19 11/10/19 10:47 11/10/19 10:47 11/10/19 07:19 11/10/19 10:47 Intake & Output 11/09/19 11/10/19 11/11/19 06:59 06:59 06:59 Intake Total 310 1227 Output Total 0 175 Balance 310 1052 Weight 90.9 kg General appearance: PRESENT: obese Head exam: PRESENT: atraumatic, normocephalic Respiratory exam: PRESENT: crackles, prolonged expiratory phas. ABSENT: rales, rhonchi, wheezes Cardiovascular exam: PRESENT: RRR. ABSENT: diastolic murmur, rubs, systolic murmur GI/Abdominal exam: PRESENT: normal bowel sounds, soft. ABSENT: distended, guarding, mass, organolmegaly, rebound, tenderness Neurological exam: PRESENT: alert, awake, oriented to person, oriented to place, oriented to time, oriented to situation, CN II-XII grossly intact. ABSENT: motor sensory deficit Results Laboratory Results: 11/10/19 05:24 11/10/19 05:24 11/10/19 11/10/19 05:24 05:24 WBC 23.0 H RBC 4.00 L Hgb 11.9 L D Hct 35.5 L MCV 89 MCH 29.6 MCHC 33.4 RDW 15.0 H Plt Count 368 Seg Neutrophils % Not Reportable Sodium 137.9 Potassium 4.3 Chloride 103 Carbon Dioxide 26 Anion Gap 9 BUN 25 H Creatinine 0.92 Est GFR ( Amer) > 60 Glucose 118 H Calcium 9.2 Total Bilirubin 0.4 AST 19 Alkaline Phosphatase 46 Total Protein 5.8 L Albumin 3.4 L 11/08/19 17:45 Blood Blood Culture (PCR) - Final Staphylococcus Species 11/08/19 17:55 Blood Blood Culture (PCR) - Final Staphylococcus Species 11/08/19 11/08/19 11/08/19 16:30 16:30 20:00 Creatine Kinase 208 H CK-MB (CK-2) 4.16 Troponin I < 0.012 < 0.012 11/09/19 11/09/19 11/09/19 02:27 07:50 14:13 Creatine Kinase CK-MB (CK-2) Troponin I < 0.012 < 0.012 < 0.012 Impressions: Chest X-Ray 11/08/19 00:00 IMPRESSION: Heterogeneous opacity of the right upper lobe, concerning for infection. Recommend followup radiographs in 6-8 weeks to ensure complete resolution and exclude underlying mass. Assessment and Plan - Diagnosis (1) Pneumonia Qualifiers: Laterality: right Lung location: upper lobe of lung Is this a current diagnosis for this admission?: Yes Plan: Improving. Afebrile. Leukocytosis improving. Still complaining of productive cough. Likely community-acquired due to gram-positive including Streptococcus pneumonia. Chest x-ray positive for right upper lobe opacity. Mass versus infection. Initial labs positive for labs positive for leukocytosis. Presented with hypoxia, tachypnea. Afebrile. Day 3 IV antibiotics. Day 3 IV levofloxacin. Continue empiric IV antibiotics. Follow-up cultures. Outpatient repeat CXR/chest CT to rule out any pulmonary mass. (2) Acute urticaria Is this a current diagnosis for this admission?: Yes Plan: Unidentified source. Resolved. Continue antihistamines as needed. Monitor vitals. Supportive measures. (3) COPD with acute exacerbation Is this a current diagnosis for this admission?: Yes Plan: History of severe COPD, supplemental O2 and BiPAP dependent. Has trilogy at home. Continue telemetry, scheduled BiPAP, duo nebs, LABA, LABA, ICS, pulmonary toileting, incentive spirometry, flutter valve. (4) CAD (coronary artery disease) Qualifiers: Coronary Disease-Associated Artery/Lesion type: [place] artery [place] vs. transplanted heart: [place] heart Associated angina: angina presence unspecified Qualified Code(s): I25.10 - Atherosclerotic heart disease of [place] coronary artery without angina pectoris Is this a current diagnosis for this admission?: Yes Plan: Denies any anginal symptoms. Troponins negative x2. Continue DAPT, ANA LAURA, beta-blockers, ranolazine. (5) Acute and chronic respiratory failure with hypoxia Is this a current diagnosis for this admission?: Yes Plan: Due to acute CHF exacerbation complicated by pneumonia. Plan as per above. (6) Diabetes mellitus type 2 in nonobese Is this a current diagnosis for this admission?: Yes Plan: Controlled. Hemoglobin A1c 6.0. Takes metformin at home. Diabetic diet, sliding scale insulin, Accu-Chek, hypoglycemia protocol. Restart home meds upon discharge. Outpatient PCP follow-up. (7) FRED on CPAP Is this a current diagnosis for this admission?: Yes Plan: Nocturnal CPAP. (8) Tobacco use disorder, severe, dependence Is this a current diagnosis for this admission?: Yes Plan: Advised on quitting. NicoDerm patch provided.
[2019-11-10] MEDS: ACETAMINOPHEN 325 MG TABLET PO PRN ×2 (12:08→18:01)
[2019-11-10] MEDS: ATORVASTATIN CALCIUM 40 MG TABLET PO SCH (21:21)
[2019-11-10] MEDS: LEVOFLOXACIN 750 MG TABLET PO SCH (21:21)
[2019-11-11] MEDS: DIPHENHYDRAMINE HCL 50 MG/ML VIAL IV SCH ×5 (00:34→23:00)
[2019-11-11] MEDS: ACETAMINOPHEN 325 MG TABLET PO PRN ×4 (00:34→18:33)
[2019-11-11] MEDS: IPRATROPIUM/ALBUTEROL 0.5-2.5 MG/3 ML AMPUL NEB SCH ×8 (02:01→23:50)
[2019-11-11] MEDS: HEPARIN SOD (PORCINE) 5,000 UNIT/ML 1 ML VIAL SUBCUT SCH ×3 (05:18→21:28)
[2019-11-11 06:18] LABS: ABSOLUTE EOSINOPHILS # (AUTO) 0.1 10^3/uL (0.0-0.6); ABSOLUTE NEUT (AUTO) 12.9 10^3/uL (1.7-8.2); BASOPHILS % (AUTO) 0.1 % (0-2); EOSINOPHILS % (AUTO) 0.9 % (0-6); HEMATOCRIT 36.3 % (37.9-51.0); HEMOGLOBIN 12.2 g/dL (13.5-17.0); LYMPHOCYTES % (AUTO) 6.2 % (13-45); MEAN CORPUSCULAR HEMOGLOBIN 29.9 pg (27.0-33.4); MEAN CORPUSCULAR HGB CONC 33.7 g/dL (32.0-36.0); MEAN CORPUSCULAR VOLUME 89 fl (80-97); MONOCYTES % (AUTO) 12.6 % (3-13); PLATELET COUNT 341 10^3/uL (150-450); RED CELL DISTRIBUTION WIDTH 14.7 % (11.5-14.0); SEGMENTED NEUTROPHILS % (AUTO) 80.2 % (42-78); TOTAL CELLS COUNTED % (AUTO) 100 %; WHITE BLOOD COUNT 16.1 10^3/uL (4.0-10.5)
[2019-11-11 06:47] LABS: ALBUMIN 3.6 g/dL (3.5-5.0); ALKALINE PHOSPHATASE 53 U/L (38-126); ANION GAP 14 (5-19); ASPARTATE AMINO TRANSFERASE 42 U/L (17-59); BILIRUBIN,DIRECT 0.3 mg/dL (0.0-0.4); BILIRUBIN,TOTAL 0.8 mg/dL (0.2-1.3); BLOOD UREA NITROGEN 23 mg/dL (7-20); CALCIUM 9.2 mg/dL (8.4-10.2); CARBON DIOXIDE 24 mmol/L (22-30); CHLORIDE 100 mmol/L (98-107); GLUCOSE 104 mg/dL (75-110); POTASSIUM 3.9 mmol/L (3.6-5.0); TOTAL PROTEIN 6.3 g/dL (6.3-8.2)
[2019-11-11] MEDS: FOLIC ACID 1 MG TABLET PO SCH (10:24)
[2019-11-11] MEDS: LISINOPRIL 10 MG TABLET PO SCH (10:24)
[2019-11-11] MEDS: METFORMIN HCL 500 MG TABLET PO SCH ×2 (10:24→15:23)
[2019-11-11] MEDS: CLOPIDOGREL BISULFATE 75 MG TABLET PO SCH (10:24)
[2019-11-11] MEDS: DOCUSATE SODIUM 100 MG CAPSULE PO SCH ×2 (10:25→18:33)
[2019-11-11] MEDS: METOPROLOL SUCCINATE 50 MG TAB.SR.24H PO SCH (10:25)
[2019-11-11] MEDS: ASCORBIC ACID 500 MG TABLET PO SCH (10:25)
[2019-11-11] MEDS: FAMOTIDINE INJ/PF 20 MG/2 ML SDV IV SCH ×2 (10:26→21:36)
[2019-11-11] MEDS: ASPIRIN 81 MG TABLET, ENT COATED PO SCH (10:27)
[2019-11-11] MEDS ORDERED: VANCOMYCIN HCL 0 MG in DEXTROSE 5%-WATER 250 ML IV NR (10:30)
[2019-11-11] MEDS: FLUTICASONE/UMECLIDIN/VILANTER 100-62.5-25 MCG/DOSE IH SCH (10:31)
[2019-11-11] MEDS: ROFLUMILAST 500 MCG TABLET PO SCH (10:31)
--- NOTE | 2019-11-11 10:33 | PDOC PROGRESS REPORT ---
Subjective Progress Note for:: 11/11/19 Subjective:: ELIA ROSENBAUM is a 59 year old male who presented to the emergency room with acute hives. He admits the sudden onset of extreme pruritus and erythematous welts generalized over his torso with concentration in the intertriginous regions beginning while unwrapping gifts for [place]. His hives were treated with calamine lotion and powder at home without relief. His hives were accompanied by an increase in his chronic dyspnea and wheezing. He denies other associated or accompanying signs and symptoms. He denies prior similar episodes of hives but admits numerous similar episodes of acute exacerbation of his dyspnea related to his severe COPD. He has not identified any aggravating or ameliorating factors for his hives. EMS was summoned and he received subc utaneous epinephrine, nebulizer treatments x3, IV Solu-Medrol, IV magnesium, IV Benadryl and IV Pepcid. By the time of his arrival in the emergency room his hives were improving though he continued to have labored respirations and is treated with BiPAP. He continued to improve but had not reobtained his usual baseline. He was subsequently placed on observation status in a medical telemetry bed. 11/09/2019. Patient resting comfortably in bed, on BiPAP, in no apparent distress, hives have almost resolved completely, denies any chest pain, nausea, vomiting, fever, chills, diarrhea, constipation or any urinary symptoms. 11/10/2019. No acute events overnight. Patient currently resting in bed no apparent distress. Still complaining of productive cough, rash has resolved, denies any fever, chills, nausea, vomiting, diarrhea, constipation or any urinary symptoms. 11/11/2019. No acute events overnight. Complaining of dyspnea on exertion, denies any chest pain, nausea, vomiting, diarrhea, constipation or any urinary symptoms. Still having productive cough. P.o. tolerant. Having normal bowel and bladder movements. Reason For Visit: ACUTE URTICARIA,ACUTE CHRONIC COPD, Physical Exam Vital Signs: Temp Pulse Resp BP Pulse Ox 98.3 F 96 24 H 126/68 H 97 11/11/19 08:28 11/11/19 08:28 11/11/19 09:54 11/11/19 08:28 11/11/19 09:54 Intake & Output 11/10/19 11/11/1911/12/19 06:59 06:59 06:59 Intake Total 1227 1000 Output Total 175 2000 Balance 1052 -1000 Weight 91.7 kg General appearance: PRESENT: mild distress, obese Head exam: PRESENT: atraumatic, normocephalic Respiratory exam: PRESENT: accessory muscle use, crackles, decreased breath sounds, prolonged expiratory phas, tachypnea. ABSENT: rales, rhonchi, wheezes GI/Abdominal exam: PRESENT: normal bowel sounds, soft. ABSENT: distended, guarding, mass, organolmegaly, rebound, tenderness Neurological exam: PRESENT: alert, awake, oriented to person, oriented to place, oriented to time, oriented to situation, CN II-XII grossly intact. ABSENT: motor sensory deficit Results Laboratory Results: 11/11/19 05:45 11/11/19 05:45 11/10/19 11/11/19 11/11/19 05:24 05:45 05:45 WBC 16.1 H RBC 4.10 L Hgb 12.2 L Hct 36.3 L MCV 89 MCH 29.9 MCHC 33.7 RDW 14.7 H Plt Count 341 Seg Neutrophils % 80.2 H Sodium 137.5 Potassium 3.9 Chloride 100 Carbon Dioxide 24 Anion Gap 14 BUN 23 H Creatinine 0.95 Est GFR ( Amer) > 60 Glucose 104 Calcium 9.2 Total Bilirubin 0.8 AST 42 Alkaline Phosphatase 53 Total Protein 6.3 Albumin 3.6 TSH 0.02 L 11/08/19 17:45 Blood Blood Culture (PCR) - Final Staphylococcus Species 11/08/19 17:55 Blood Blood Culture (PCR) - Final Staphylococcus Species 11/08/19 11/08/19 11/08/19 16:30 16:30 20:00 Creatine Kinase 208 H CK-MB (CK-2) 4.16 Troponin I < 0.012 < 0.012 11/09/19 11/09/19 11/09/19 02:27 07:50 14:13 Creatine Kinase CK-MB (CK-2) Troponin I < 0.012 < 0.012 < 0.012 Impressions: Chest X-Ray 11/08/19 00:00 IMPRESSION: Heterogeneous opacity of the right upper lobe, concerning for i nfection. Recommend followup radiographs in 6-8 weeks to ensure complete resolution and exclude underlying mass. Assessment and Plan - Diagnosis (1) Pneumonia Qualifiers: Laterality: right Lung location: upper lobe of lung Is this a current diagnosis for this admission?: Yes Plan: Improving. Afebrile. Leukocytosis improving. Still complaining of productive cough. Likely community-acquired due to gram-positive including Streptococcus pneumonia. Chest x-ray positive for right upper lobe opacity. Mass versus infection. Initial labs positive for labs positive for leukocytosis. Presented with hypoxia, tachypnea. Afebrile. Day 4 IV antibiotics. Day 4 IV levofloxacin. Day 1 IV vancomycin. Continue empiric IV antibiotics. Follow-up cultures. Outpatient repeat CXR/chest CT to rule out any pulmonary mass. (2) Acute urticaria Is this a current diagnosis for this admission?: Yes Plan: Unidentified source. Resolved. Continue antihistamines as needed. Monitor vitals. Supportive measures. (3) COPD with acute exacerbation Is this a current diagnosis for this admission?: Yes Plan: History of severe COPD, supplemental O2 and BiPAP dependent. Has trilogy at home. Continue telemetry, scheduled BiPAP, duo nebs, LABA, LABA, ICS, pulmonary toileting, incentive spirometry, flutter valve. (4) CAD (coronary artery disease) Qualifiers: Coronary Disease-Associated Artery/Lesion type: [place] artery [place] vs. transplanted heart: [place] heart Associated angina: angina presence unspecified Qualified Code(s): I25.10 - Atherosclerotic heart disease of [place] coronary artery without angina pectoris Is this a current diagnosis for this admission?: Yes Plan: Denies any anginal symptoms. Troponins negative x2. Continue DAPT, ANA LAURA, beta-blockers, ranolazine. (5) Acute and chronic respiratory failure with hypoxia Is this a current diagnosis for this admission?: Yes Plan: Due to acute CHF exacerbation complicated by pneumonia. Plan as per above. (6) Diabetes mellitus type 2 in nonobese Is this a current diagnosis for this admission?: Yes Plan: Controlled. Hemoglobin A1c 6.0. Takes metformin at home. Diabetic diet, sliding scale insulin, Accu-Chek, hypoglycemia protocol. Restart home meds upon discharge. Outpatient PCP follow-up. (7) FRED on CPAP Is this a current diagnosis for this admission?: Yes Plan: Nocturnal CPAP. (8) Former smoker Is this a current diagnosis for this admission?: Yes Plan: Former heavy smoker. Quit 1 year ago. Encouraged abstinence. NicoDerm patch will be provided if needed.
[2019-11-11] MEDS: RANOLAZINE 500 MG TAB.SR.12H PO SCH ×2 (10:40→21:28)
[2019-11-11] MEDS: VANCOMYCIN HCL 1,500 MG in DEXTROSE 5%-WATER 250 ML IV SCH ×2 (15:26→21:27)
[2019-11-11] MEDS: KETOROLAC TROMETHAMINE 10 MG TABLET PO PRN (19:30)
[2019-11-11] MEDS: LEVOFLOXACIN 750 MG TABLET PO SCH (21:27)
[2019-11-11] MEDS: ATORVASTATIN CALCIUM 40 MG TABLET PO SCH (21:28)
[2019-11-12] MEDS: IPRATROPIUM/ALBUTEROL 0.5-2.5 MG/3 ML AMPUL NEB SCH ×6 (04:32→23:50)
[2019-11-12] MEDS: HEPARIN SOD (PORCINE) 5,000 UNIT/ML 1 ML VIAL SUBCUT SCH ×3 (05:30→21:21)
[2019-11-12] MEDS: DIPHENHYDRAMINE HCL 50 MG/ML VIAL IV SCH ×4 (05:30→23:27)
[2019-11-12] MEDS: KETOROLAC TROMETHAMINE 10 MG TABLET PO PRN (05:34)
[2019-11-12 07:58] LABS: ABSOLUTE EOSINOPHILS # (AUTO) 0.3 10^3/uL (0.0-0.6); ABSOLUTE LYMPHOCYTES (AUTO) 0.9 10^3/uL (0.5-4.7); ABSOLUTE MONOCYTES (AUTO) 2.2 10^3/uL (0.1-1.4); ABSOLUTE NEUT (AUTO) 12.1 10^3/uL (1.7-8.2); BASOPHILS % (AUTO) 0.2 % (0-2); HEMATOCRIT 35.3 % (37.9-51.0); HEMOGLOBIN 11.9 g/dL (13.5-17.0); LYMPHOCYTES % (AUTO) 5.7 % (13-45); MEAN CORPUSCULAR HEMOGLOBIN 29.8 pg (27.0-33.4); MEAN CORPUSCULAR HGB CONC 33.8 g/dL (32.0-36.0); MEAN CORPUSCULAR VOLUME 88 fl (80-97); MONOCYTES % (AUTO) 13.9 % (3-13); PLATELET COUNT 313 10^3/uL (150-450); RED CELL DISTRIBUTION WIDTH 14.8 % (11.5-14.0); SEGMENTED NEUTROPHILS % (AUTO) 78.2 % (42-78); TOTAL CELLS COUNTED % (AUTO) 100 %; WHITE BLOOD COUNT 15.5 10^3/uL (4.0-10.5)
[2019-11-12] MEDS: METFORMIN HCL 500 MG TABLET PO SCH ×2 (08:02→17:09)
[2019-11-12] MEDS: FLUTICASONE/UMECLIDIN/VILANTER 100-62.5-25 MCG/DOSE IH SCH (08:02)
[2019-11-12] MEDS: VANCOMYCIN HCL 1,500 MG in DEXTROSE 5%-WATER 250 ML IV SCH ×2 (09:25→21:21)
[2019-11-12] MEDS: FAMOTIDINE INJ/PF 20 MG/2 ML SDV IV SCH ×2 (09:25→21:22)
[2019-11-12] MEDS: LISINOPRIL 10 MG TABLET PO SCH (09:25)
[2019-11-12] MEDS: METOPROLOL SUCCINATE 50 MG TAB.SR.24H PO SCH (09:26)
[2019-11-12] MEDS: ROFLUMILAST 500 MCG TABLET PO SCH (09:26)
[2019-11-12] MEDS: RANOLAZINE 500 MG TAB.SR.12H PO SCH ×2 (09:26→21:22)
[2019-11-12] MEDS: ASCORBIC ACID 500 MG TABLET PO SCH (09:26)
[2019-11-12] MEDS: FOLIC ACID 1 MG TABLET PO SCH (09:26)
[2019-11-12] MEDS: CLOPIDOGREL BISULFATE 75 MG TABLET PO SCH (09:26)
[2019-11-12] MEDS: ASPIRIN 81 MG TABLET, ENT COATED PO SCH (09:26)
[2019-11-12] MEDS: DOCUSATE SODIUM 100 MG CAPSULE PO SCH ×2 (09:26→17:09)
[2019-11-12] MEDS: TRAMADOL HCL 50 MG TABLET PO PRN ×3 (09:30→20:56)
--- NOTE | 2019-11-12 14:38 | PDOC PROGRESS REPORT ---
Subjective Progress Note for:: 11/12/19 Subjective:: ELIA ROSENBAUM is a 59 year old male who presented to the emergency room with acute hives. He admits the sudden onset of extreme pruritus and erythematous welts generalized over his torso with concentration in the intertriginous regions beginning while unwrapping gifts for [place]. His hives were treated with calamine lotion and powder at home without relief. His hives were accompanied by an increase in his chronic dyspnea and wheezing. He denies other associated or accompanying signs and symptoms. He denies prior similar episodes of hives but admits numerous similar episodes of acute exacerbation of his dyspnea related to his severe COPD. He has not identified any aggravating or ameliorating factors for his hives. EMS was summoned and he received subc utaneous epinephrine, nebulizer treatments x3, IV Solu-Medrol, IV magnesium, IV Benadryl and IV Pepcid. By the time of his arrival in the emergency room his hives were improving though he continued to have labored respirations and is treated with BiPAP. He continued to improve but had not reobtained his usual baseline. He was subsequently placed on observation status in a medical telemetry bed. 11/09/2019. Patient resting comfortably in bed, on BiPAP, in no apparent distress, hives have almost resolved completely, denies any chest pain, nausea, vomiting, fever, chills, diarrhea, constipation or any urinary symptoms. 11/10/2019. No acute events overnight. Patient currently resting in bed no apparent distress. Still complaining of productive cough, rash has resolved, denies any fever, chills, nausea, vomiting, diarrhea, constipation or any urinary symptoms. 11/11/2019. No acute events overnight. Complaining of dyspnea on exertion, denies any chest pain, nausea, vomiting, diarrhea, constipation or any urinary symptoms. Still having productive cough. P.o. tolerant. Having normal bowel and bladder movements. 11/12/2019. No acute events overnight. Patient still complaining of dyspnea exertion, productive cough with specks of blood, denies any fever, chest pain, nausea, vomiting, diarrhea, constipation or any urinary symptoms. Reason For Visit: ACUTE URTICARIA,ACUTE CHRONIC COPD, Physical Exam Vital Signs: Temp Pulse Resp BP Pulse Ox 99.2 F 94 17 131/62 H 96 11/12/19 11:29 11/12/19 12:12 11/12/19 12:12 11/12/19 11:29 11/12/19 12:12 Intake & Output 11/11/19 11/12/19 11/13/19 06:59 06:59 06:59 Intake Total 999 1476 510 Output Total 1999 5523 150 Balance -1000 -599 360 Weight 91.7 kg 86.5 kg General appearance: PRESENT: severe distress Head exam: PRESENT: atraumatic, normocephalic Respiratory exam: PRESENT: accessory muscle use, decreased breath sounds, symmetrical, tachypnea. ABSENT: rales, rhonchi, wheezes Cardiovascular exam: PRESENT: RRR. ABSENT: diastolic murmur, rubs, systolic murmur GI/Abdominal exam: PRESENT: normal bowel sounds, soft. ABSENT: distended, guarding, mass, organolmegaly, rebound, tenderness Neurological exam: PRESENT: alert, awake, oriented to person, oriented to place, oriented to time, oriented to situation, CN II-XII grossly intact. ABSENT: motor sensory deficit Results Laboratory Results: 11/12/19 07:45 11/11/19 05:45 11/12/19 11/12/19 07:45 07:45 WBC 15.5 H RBC 4.00 L Hgb 11.9 L Hct 35.3 L MCV 88 MCH 29.8 MCHC 33.8 RDW 14.8 H Plt Count 313 Seg Neutrophils % 78.2 H Free T4 1.44 11/08/19 17:55 Blood Blood Culture (PCR) - Final Staphylococcus Species 11/08/19 17:45 Blood Blood Culture (PCR) - Final Staphylococcus Species 11/08/19 11/08/19 11/08/19 16:30 16:30 20:00 Creatine Kinase 208 H CK-MB (CK-2) 4.16 Troponin I < 0.012 < 0.012 11/09/19 11/09/19 11/09/19 02:27 07:50 14:13 Creatine Kinase CK-MB (CK-2) Troponin I < 0.012 < 0.012 < 0.012 Impressions: Chest X-Ray 11/08/19 00:00 IMPRESSION: Heterogeneous opacity of the right upper lobe, concerning for infection. Recommend followup radiographs in 6-8 weeks to ensure complete resolution and exclude underlying mass. Assessment and Plan - Diagnosis (1) Pneumonia Qualifiers: Laterality: right Lung location: upper lobe of lung Is this a current diagnosis for this admission?: Yes Plan: Persistent leukocytosis, productive cough. Afebrile. Likely community-acquired due to gram-positive including Streptococcus pneumonia. Chest x-ray positive for right upper lobe opacity. Mass versus infection. Initial labs positive for labs positive for leukocytosis. Presented with hypoxia, tachypnea. Afebrile. Day 5 IV antibiotics. Day 5 IV levofloxacin. Day 2 IV vancomycin. Continue empiric IV antibiotics. Repeat blood cultures. Blood culture from admission positive for gram-positive cocci in clusters. Pending sensitivity. Outpatient repeat CXR/chest CT to rule out any pulmonary mass. (2) COPD with acute exacerbation Is this a current diagnosis for this admission?: Yes Plan: History of severe COPD, supplemental O2 and BiPAP dependent. Has trilogy at home. Continue telemetry, scheduled BiPAP, duo nebs, JAMIE, LABA, LAMA , ICS, pulmonary toileting, incentive spirometry, flutter valve. (3) CAD (coronary artery disease) Qualifiers: Coronary Disease-Associated Artery/Lesion type: [place] artery [place] vs. transplanted heart: [place] heart Associated angina: angina presence unspecified Qualified Code(s): I25.10 - Atherosclerotic heart disease of [place] coronary artery without angina pectoris Is this a current diagnosis for this admission?: Yes Plan: Denies any anginal symptoms. Troponins negative x2. Continue DAPT, ANA LAURA, beta-blockers, ranolazine. (4) Acute and chronic respiratory failure with hypoxia Is this a current diagnosis for this admission?: Yes Plan: Due to acute COPD exacerbation complicated by pneumonia. Plan as per above. (5) Diabetes mellitus type 2 in nonobese Is this a current diagnosis for this admission?: Yes Plan: Controlled. Hemoglobin A1c 6.0. Takes metformin at home. Diabetic diet, sliding scale insulin, Accu-Chek, hypoglycemia protocol. Restart home meds upon discharge. Outpatient PCP follow-up. (6) FRED on CPAP Is this a current diagnosis for this admission?: Yes Plan: Nocturnal CPAP. (7) Former smoker Is this a current diagnosis for this admission?: Yes Plan: Former heavy smoker. Quit 1 year ago. Encouraged abstinence. NicoDerm patch will be provided if needed. (8) Acute urticaria Is this a current diagnosis for this admission?: Yes Plan: Unidentified source. Resolved. Continue antihistamines as needed. Monitor vitals. Supportive measures.
[2019-11-12] MEDS: ATORVASTATIN CALCIUM 40 MG TABLET PO SCH (21:22)
[2019-11-12] MEDS: LEVOFLOXACIN 750 MG TABLET PO SCH (21:22)
[2019-11-13] MEDS: IPRATROPIUM/ALBUTEROL 0.5-2.5 MG/3 ML AMPUL NEB SCH ×5 (03:48→20:27)
[2019-11-13] MEDS: HEPARIN SOD (PORCINE) 5,000 UNIT/ML 1 ML VIAL SUBCUT SCH ×3 (05:04→21:52)
[2019-11-13] MEDS: DIPHENHYDRAMINE HCL 50 MG/ML VIAL IV SCH ×3 (05:04→18:17)
[2019-11-13] MEDS: KETOROLAC TROMETHAMINE 10 MG TABLET PO PRN (08:04)
[2019-11-13] MEDS: FLUTICASONE/UMECLIDIN/VILANTER 100-62.5-25 MCG/DOSE IH SCH (08:05)
[2019-11-13] MEDS: METFORMIN HCL 500 MG TABLET PO SCH ×2 (08:05→15:27)
[2019-11-13] MEDS ORDERED: IPRATROPIUM/ALBUTEROL 0.5-2.5 MG/3 ML AMPUL NEB ONE (08:13)
[2019-11-13] MEDS: CLOPIDOGREL BISULFATE 75 MG TABLET PO SCH (09:26)
[2019-11-13] MEDS: ASCORBIC ACID 500 MG TABLET PO SCH (09:26)
[2019-11-13] MEDS: FOLIC ACID 1 MG TABLET PO SCH (09:26)
[2019-11-13] MEDS: RANOLAZINE 500 MG TAB.SR.12H PO SCH ×2 (09:26→21:51)
[2019-11-13] MEDS: ASPIRIN 81 MG TABLET, ENT COATED PO SCH (09:26)
[2019-11-13] MEDS: FAMOTIDINE INJ/PF 20 MG/2 ML SDV IV SCH ×2 (09:26→21:52)
[2019-11-13] MEDS: ROFLUMILAST 500 MCG TABLET PO SCH (09:26)
[2019-11-13] MEDS: METOPROLOL SUCCINATE 50 MG TAB.SR.24H PO SCH (09:26)
[2019-11-13] MEDS: LISINOPRIL 10 MG TABLET PO SCH (09:26)
[2019-11-13] MEDS: DOCUSATE SODIUM 100 MG CAPSULE PO SCH ×2 (09:33→18:26)
[2019-11-13 10:25] LABS: HEMATOCRIT 37.1 % (37.9-51.0); HEMOGLOBIN 12.4 g/dL (13.5-17.0); MEAN CORPUSCULAR HEMOGLOBIN 29.6 pg (27.0-33.4); MEAN CORPUSCULAR HGB CONC 33.4 g/dL (32.0-36.0); MEAN CORPUSCULAR VOLUME 89 fl (80-97); PLATELET COUNT 385 10^3/uL (150-450); RED BLOOD COUNT 4.19 10^6/uL (4.35-5.55); RED CELL DISTRIBUTION WIDTH 14.9 % (11.5-14.0); WHITE BLOOD COUNT 18.8 10^3/uL (4.0-10.5)
[2019-11-13 10:33] LABS: ANION GAP 16 (5-19); BLOOD UREA NITROGEN 22 mg/dL (7-20); CALCIUM 9.3 mg/dL (8.4-10.2); CARBON DIOXIDE 22 mmol/L (22-30); CHLORIDE 97 mmol/L (98-107); GLUCOSE 123 mg/dL (75-110); POTASSIUM 3.9 mmol/L (3.6-5.0)
[2019-11-13 11:07] LABS: VANCOMYCIN,TROUGH 10.1 ug/mL (5.0-20.0)
[2019-11-13 11:17] LABS: ABSOLUTE MONOCYTES # (MANUAL) 0.4 10^3/uL (0.1-1.4); ANISOCYTOSIS SLIGHT; BASOPHILS % (MANUAL) 0 % (0-2); EOSINOPHILS % (MANUAL) 1 % (0-6); LYMPHOCYTES % (MANUAL) 16 % (13-45); MONOCYTES % (MANUAL) 2 % (3-13); PLATELET COMMENT ADEQUATE; SEGMENTED NEUTROPHILS % (MAN) 81 % (42-78); TOTAL CELLS COUNTED 100
--- NOTE | 2019-11-13 12:13 | PDOC PROGRESS REPORT ---
Subjective Progress Note for:: 11/13/19 Subjective:: ELIA ROSENBAUM is a 59 year old male who presented to the emergency room with acute hives. He admits the sudden onset of extreme pruritus and erythematous welts generalized over his torso with concentration in the intertriginous regions beginning while unwrapping gifts for [place]. His hives were treated with calamine lotion and powder at home without relief. His hives were accompanied by an increase in his chronic dyspnea and wheezing. He denies other associated or accompanying signs and symptoms. He denies prior similar episodes of hives but admits numerous similar episodes of acute exacerbation of his dyspnea related to his severe COPD. He has not identified any aggravating or ameliorating factors for his hives. EMS was summoned and he received subc utaneous epinephrine, nebulizer treatments x3, IV Solu-Medrol, IV magnesium, IV Benadryl and IV Pepcid. By the time of his arrival in the emergency room his hives were improving though he continued to have labored respirations and is treated with BiPAP. He continued to improve but had not reobtained his usual baseline. He was subsequently placed on observation status in a medical telemetry bed. 11/09/2019. Patient resting comfortably in bed, on BiPAP, in no apparent distress, hives have almost resolved completely, denies any chest pain, nausea, vomiting, fever, chills, diarrhea, constipation or any urinary symptoms. 11/10/2019. No acute events overnight. Patient currently resting in bed no apparent distress. Still complaining of productive cough, rash has resolved, denies any fever, chills, nausea, vomiting, diarrhea, constipation or any urinary symptoms. 11/11/2019. No acute events overnight. Complaining of dyspnea on exertion, denies any chest pain, nausea, vomiting, diarrhea, constipation or any urinary symptoms. Still having productive cough. P.o. tolerant. Having normal bowel and bladder movements. 11/12/2019. No acute events overnight. Patient still complaining of dyspnea exertion, productive cough with specks of blood, denies any fever, chest pain, nausea, vomiting, diarrhea, constipation or any urinary symptoms. 11/13/2019. No acute events overnight. No changes compared to yesterday. Patient is still appears to be in respiratory distress with BiPAP dependency. Pleuritic chest pain has improved. Patient is complaining of dyspnea on exertion, he is p.o. tolerant and having normal bowel and bladder movements. Denies any chest pain, fever, chills, nausea, vomiting, diarrhea, constipation or urinary symptoms. Reason For Visit: ACUTE URTICARIA,ACUTE CHRONIC COPD, Physical Exam Vital Signs: Temp Pulse Resp BP Pulse Ox 98.0 F 97 22 H 116/70 97 11/13/19 07:34 11/13/19 08:19 11/13/19 08:19 11/13/19 07:34 11/13/19 08:19 Intake & Output 11/12/19 11/13/19 11/14/19 06:59 06:59 06:59 Intake Total 1476 1060 Output Total 2375 500 Balance -899 560 Weight 86.5 kg 85.7 kg General appearance: PRESENT: mild distress Eye exam: PRESENT: conjunctiva pink, EOMI, PERRLA. ABSENT: scleral icterus Respiratory exam: PRESENT: clear to auscultation marielena, wheezes. ABSENT: rales, rhonchi Cardiovascular exam: PRESENT: RRR. ABSENT: diastolic murmur, rubs, systolic murmur GI/Abdominal exam: PRESENT: normal bowel sounds, soft. ABSENT: distended, guarding, mass, organolmegaly, rebound, tenderness Neurological exam: PRESENT: alert, awake, oriented to person, oriented to place, oriented to time, oriented to situation, CN II-XII grossly intact. ABSENT: motor sensory deficit Results Laboratory Results: 11/13/19 09:45 11/13/19 09:45 11/13/19 11/13/19 11/13/19 09:45 09:45 09:45 WBC 18.8 H RBC 4.19 L Hgb 12.4 L Hct 37.1 L MCV 89 MCH 29.6 MCHC 33.4 RDW 14.9 H Plt Count 385 Seg Neutrophils % Not Reportable Sodium 135.3 L Potassium 3.9 Chloride 97 L Carbon Dioxide 22 Anion Gap 16 BUN 22 H Creatinine Cancelled 0.86 Est GFR ( Amer) Cancelled > 60 Est GFR (Non-Af Amer) Cancelled Glucose 123 H Calcium 9.3 11/08/19 17:45 Blood Blood Culture (PCR) - Final Staphylococcus Species 11/08/19 17:45 Blood Blood Culture - Final Staphylococcus Hominis 11/08/19 17:55 Blood Blood Culture (PCR) - Final Staphylococcus Species 11/08/19 17:55 Blood Blood Culture - Final Staphylococcus Hominis 11/08/19 11/08/19 11/08/19 16:30 16:30 20:00 Creatine Kinase 208 H CK-MB (CK-2) 4.16 Troponin I < 0.012 < 0.012 11/09/19 11/09/19 11/09/19 02:27 07:50 14:13 Creatine Kinase CK-MB (CK-2) Troponin I < 0.012 < 0.012 < 0.012 Impressions: Chest X-Ray 11/08/19 00:00 IMPRESSION: Heterogeneous opacity of the right upper lobe, concerning for infection. Recommend followup radiographs in 6-8 weeks to ensure complete resolution and exclude underlying mass. Assessment and Plan - Diagnosis (1) Pneumonia Qualifiers: Laterality: right Lung location: upper lobe of lung Is this a current diagnosis for this admission?: Yes Plan: Persistent leukocytosis, productive cough. Afebrile. Likely community-acquired due to gram-positive including Streptococcus pneumonia. Chest x-ray positive for right upper lobe opacity. Mass versus infection. Initial labs positive for labs positive for leukocytosis. Presented with hypoxia, tachypnea. Afebrile. Day 6 IV antibiotics. Day 6 IV levofloxacin. Received 2 days of IV vancomycin. DC IV vancomycin. Blood culture growing 2 out of 2 bottles Staphylococcus hominis pansensitive. Continue levofloxacin. Follow-up sputum culture. Outpatient repeat CXR/chest CT to rule out any pulmonary mass. (2) COPD with acute exacerbation Is this a current diagnosis for this admission?: Yes Plan: History of severe COPD, supplemental O2 and BiPAP dependent. Has trilogy at home. Continue telemetry, scheduled BiPAP, duo nebs, IV steroids JAMIE, LABA, LAMA , ICS, pulmonary toileting, incentive spirometry, flutter valve. (3) CAD (coronary artery disease) Qualifiers: Coronary Disease-Associated Artery/Lesion type: [place] artery [place] vs. transplanted heart: [place] heart Associated angina: angina presence unspecified Qualified Code(s): I25.10 - Atherosclerotic heart disease of [place] coronary artery without angina pectoris Is this a current diagnosis for this admission?: Yes Plan: Denies any anginal symptoms. Troponins negative x2. Continue DAPT, ANA LAURA, beta-blockers, ranolazine. (4) Acute and chronic respiratory failure with hypoxia Is this a current diagnosis for this admission?: Yes Plan: Due to acute COPD exacerbation complicated by pneumonia. Plan as per above. (5) Diabetes mellitus type 2 in nonobese Is this a current diagnosis for this admission?: Yes Plan: Controlled. Hemoglobin A1c 6.0. Takes metformin at home. Diabetic diet, sliding scale insulin, Accu-Chek, hypoglycemia protocol. Restart home meds upon discharge. Outpatient PCP follow-up. (6) FRED on CPAP Is this a current diagnosis for this admission?: Yes Plan: Nocturnal CPAP. (7) Former smoker Is this a current diagnosis for this admission?: Yes Plan: Former heavy smoker. Quit 1 year ago. Encouraged abstinence. NicoDerm patch will be provided if needed. (8) Acute urticaria Is this a current diagnosis for this admission?: Yes Plan: Unidentified source. Resolved. Continue antihistamines as needed. Monitor vitals. Supportive measures.
[2019-11-13] MEDS: TRAMADOL HCL 50 MG TABLET PO PRN ×2 (12:39→18:17)
[2019-11-13] MEDS ORDERED: METHYLPREDNISOLONE INJ 40 MG/1 ML SDV IV SCH (14:00)
[2019-11-13] MEDS: METHYLPREDNISOLONE INJ 125 MG/2 ML SDV IV SCH ×2 (15:27→21:51)
[2019-11-13] MEDS: ATORVASTATIN CALCIUM 40 MG TABLET PO SCH (21:51)
[2019-11-13] MEDS: LEVOFLOXACIN 750 MG TABLET PO SCH (21:51)
[2019-11-14] MEDS: DIPHENHYDRAMINE HCL 50 MG/ML VIAL IV SCH ×4 (00:14→17:12)
[2019-11-14] MEDS: TRAMADOL HCL 50 MG TABLET PO PRN ×4 (00:14→17:12)
[2019-11-14] MEDS: IPRATROPIUM/ALBUTEROL 0.5-2.5 MG/3 ML AMPUL NEB SCH ×7 (00:20→23:45)
[2019-11-14] MEDS: METHYLPREDNISOLONE INJ 125 MG/2 ML SDV IV SCH ×3 (06:52→22:02)
[2019-11-14] MEDS: HEPARIN SOD (PORCINE) 5,000 UNIT/ML 1 ML VIAL SUBCUT SCH ×3 (06:54→22:01)
[2019-11-14] MEDS: FLUTICASONE/UMECLIDIN/VILANTER 100-62.5-25 MCG/DOSE IH SCH (08:31)
[2019-11-14] MEDS: METFORMIN HCL 500 MG TABLET PO SCH ×2 (08:31→15:20)
[2019-11-14 08:37] LABS: HEMATOCRIT 36.3 % (37.9-51.0); HEMOGLOBIN 12.2 g/dL (13.5-17.0); MEAN CORPUSCULAR HEMOGLOBIN 29.8 pg (27.0-33.4); MEAN CORPUSCULAR HGB CONC 33.7 g/dL (32.0-36.0); MEAN CORPUSCULAR VOLUME 88 fl (80-97); PLATELET COUNT 419 10^3/uL (150-450); RED BLOOD COUNT 4.11 10^6/uL (4.35-5.55); RED CELL DISTRIBUTION WIDTH 14.7 % (11.5-14.0)
[2019-11-14 09:22] LABS: ABSOLUTE LYMPHOCYTES# (MANUAL) 1.4 10^3/uL (0.5-4.7); ABSOLUTE MONOCYTES # (MANUAL) 0.7 10^3/uL (0.1-1.4); BAND NEUTROPHILS % (MANUAL) 3 % (3-5); BASOPHILS % (MANUAL) 0 % (0-2); EOSINOPHILS % (MANUAL) 0 % (0-6); LYMPHOCYTES % (MANUAL) 10 % (13-45); MONOCYTES % (MANUAL) 5 % (3-13); SEGMENTED NEUTROPHILS % (MAN) 82 % (42-78); TOTAL CELLS COUNTED 100
[2019-11-14 09:24] LABS: ANISOCYTOSIS SLIGHT; PLATELET COMMENT ADEQUATE; PLATELET LARGE PRESENT; TOXIC VACUOLATION PRESENT
[2019-11-14] MEDS ORDERED: DEXTROSE 40% GEL 15 GM TUBE PO PRN ×2 (10:11)
[2019-11-14] MEDS ORDERED: DEXTROSE 50%-WATER 25 GM/50 ML DISP.SYRIN IV PRN ×2 (10:11)
[2019-11-14] MEDS ORDERED: GLUCAGON,HUMAN RECOMB 1 MG INJ IM PRN (10:11)
--- NOTE | 2019-11-14 10:11 | PDOC PROGRESS REPORT ---
Subjective Progress Note for:: 11/14/19 Subjective:: ELIA ROSENBAUM is a 59 year old male who presented to the emergency room with acute hives. He admits the sudden onset of extreme pruritus and erythematous welts generalized over his torso with concentration in the intertriginous regions beginning while unwrapping gifts for [place]. His hives were treated with calamine lotion and powder at home without relief. His hives were accompanied by an increase in his chronic dyspnea and wheezing. He denies other associated or accompanying signs and symptoms. He denies prior similar episodes of hives but admits numerous similar episodes of acute exacerbation of his dyspnea related to his severe COPD. He has not identified any aggravating or ameliorating factors for his hives. EMS was summoned and he received subc utaneous epinephrine, nebulizer treatments x3, IV Solu-Medrol, IV magnesium, IV Benadryl and IV Pepcid. By the time of his arrival in the emergency room his hives were improving though he continued to have labored respirations and is treated with BiPAP. He continued to improve but had not reobtained his usual baseline. He was subsequently placed on observation status in a medical telemetry bed. 11/09/2019. Patient resting comfortably in bed, on BiPAP, in no apparent distress, hives have almost resolved completely, denies any chest pain, nausea, vomiting, fever, chills, diarrhea, constipation or any urinary symptoms. 11/10/2019. No acute events overnight. Patient currently resting in bed no apparent distress. Still complaining of productive cough, rash has resolved, denies any fever, chills, nausea, vomiting, diarrhea, constipation or any urinary symptoms. 11/11/2019. No acute events overnight. Complaining of dyspnea on exertion, denies any chest pain, nausea, vomiting, diarrhea, constipation or any urinary symptoms. Still having productive cough. P.o. tolerant. Having normal bowel and bladder movements. 11/12/2019. No acute events overnight. Patient still complaining of dyspnea exertion, productive cough with specks of blood, denies any fever, chest pain, nausea, vomiting, diarrhea, constipation or any urinary symptoms. 11/13/2019. No acute events overnight. No changes compared to yesterday. Patient is still appears to be in respiratory distress with BiPAP dependency. Pleuritic chest pain has improved. Patient is complaining of dyspnea on exertion, he is p.o. tolerant and having normal bowel and bladder movements. Denies any chest pain, fever, chills, nausea, vomiting, diarrhea, constipation or urinary symptoms. 11/14/2019. No acute events overnight. Patient still endorsing dyspnea on exertion and with no improvement of his respiratory symptoms compared to yesterday. Denies any chest pain, nausea, vomiting, diarrhea, constipation or any urinary symptoms. Reason For Visit: ACUTE URTICARIA,ACUTE CHRONIC COPD, Physical Exam Vital Signs: Temp Pulse Resp BP Pulse Ox 97.8 F 85 18 115/59 L 96 11/14/19 07:32 11/14/19 07:58 11/14/19 07:58 11/14/19 07:32 11/14/19 07:58 Intake & Output 11/13/19 11/14/19 11/15/19 06:59 06:59 06:59 Intake Total 1060 956 Output Total 500 775 Balance 560 181 Weight 85.7 kg 85.7 kg General appearance: PRESENT: mild distress Head exam: PRESENT: atraumatic, normocephalic Respiratory exam: PRESENT: clear to auscultation marielena. ABSENT: rales, rhonchi, wheezes Cardiovascular exam: PRESENT: RRR. ABSENT: diastolic murmur, rubs, systolic murmur GI/Abdominal exam: PRESENT: normal bowel sounds, soft. ABSENT: distended, guarding, mass, organolmegaly, rebound, tenderness Neurological exam: PRESENT: alert, awake, oriented to person, oriented to place, oriented to time, oriented to situation, CN II-XII grossly intact. ABSENT: motor sensory deficit Results Laboratory Results: 11/14/19 08:04 11/13/19 09:45 11/13/19 11/13/19 11/13/19 09:45 09:45 09:45 WBC 18.8 H RBC 4.19 L Hgb 12.4 L Hct 37.1 L MCV 89 MCH 29.6 MCHC 33.4 RDW 14.9 H Plt Count 385 Seg Neutrophils % Not Reportable Sodium 135.3 L Potassium 3.9 Chloride 97 L Carbon Dioxide 22 Anion Gap 16 BUN 22 H Creatinine Cancelled 0.86 Est GFR ( Amer) Cancelled > 60 Est GFR (Non-Af Amer) Cancelled Glucose 123 H Calcium 9.3 11/14/19 08:04 WBC 14.0 H RBC 4.11 L Hgb 12.2 L Hct 36.3 L MCV 88 MCH 29.8 MCHC 33.7 RDW 14.7 H Plt Count 419 Seg Neutrophils % Not Reportable Sodium Potassium Chloride Carbon Dioxide Anion Gap BUN Creatinine Est GFR ( Amer) Est GFR (Non-Af Amer) Glucose Calcium 11/10/19 11:15 Sputum Gram Stain - Final 11/10/19 11:15 Sputum Sputum Culture - Final Staphylococcus Aureus Normal Johanny 11/08/19 11/08/19 11/08/19 16:30 16:30 20:00 Creatine Kinase 208 H CK-MB (CK-2) 4.16 Troponin I < 0.012 < 0.012 11/09/19 11/09/19 11/09/19 02:27 07:50 14:13 Creatine Kinase CK-MB (CK-2) Troponin I < 0.012 < 0.012 < 0.012 Impressions: Chest X-Ray 11/08/19 00:00 IMPRESSION: Heterogeneous opacity of the right upper lobe, concerning for infection. Recommend followup radiographs in 6-8 weeks to ensure complete resolution and exclude underlying mass. Assessment and Plan - Diagnosis (1) Pneumonia Qualifiers: Laterality: right Lung location: upper lobe of lung Is this a current diagnosis for this admission?: Yes Plan: Leukocytosis. Still complaining of productive cough. Afebrile. Likely community-acquired due to gram-positive including Streptococcus pneumonia. Chest x-ray on admission positive for right upper lobe opacity. Mass versus infection. Initial labs positive for labs positive for leukocytosis. Presented with hypoxia, tachypnea. Afebrile. Day 7 IV antibiotics. Day 7 IV levofloxacin. Received 2 days of IV vancomycin. DC IV vancomycin. Blood culture growing 2 out of 2 bottles Staphylococcus hominis pansensitive. Repeat blood cultures negative so far. Continue levofloxacin. Outpatient repeat CXR/chest CT to rule out any pulmonary mass. (2) COPD with acute exacerbation Is this a current diagnosis for this admission?: Yes Plan: History of severe COPD, supplemental O2 and BiPAP dependent. Has trilogy at home. Continue telemetry, scheduled BiPAP, duo nebs, IV steroids JAMIE, LABA, LAMA , ICS, pulmonary toileting, incentive spirometry, flutter valve. Consult discharge planning for possible pulmonary rehab. (3) CAD (coronary artery disease) Qualifiers: Coronary Disease-Associated Artery/Lesion type: [place] artery [place] vs. transplanted heart: [place] heart Associated angina: angina presence unspecified Qualified Code(s): I25.10 - Atherosclerotic heart disease of [place] coronary artery without angina pectoris Is this a current diagnosis for this admission?: Yes Plan: Denies any anginal symptoms. Troponins negative x2. Continue DAPT, ANA LAURA, beta-blockers, ranolazine. (4) Acute and chronic respiratory failure with hypoxia Is this a current diagnosis for this admission?: Yes Plan: Due to acute COPD exacerbation complicated by pneumonia. Plan as per above. (5) Diabetes mellitus type 2 in nonobese Is this a current diagnosis for this admission?: Yes Plan: Controlled. Hemoglobin A1c 6.0. Takes metformin at home. Diabetic diet, sliding scale insulin, Accu-Chek, hypoglycemia protocol. Restart home meds upon discharge. Outpatient PCP follow-up. (6) FRED on CPAP Is this a current diagnosis for this admission?: Yes Plan: Nocturnal CPAP. (7) Former smoker Is this a current diagnosis for this admission?: Yes Plan: Former heavy smoker. Quit 1 year ago. Encouraged abstinence. NicoDerm patch will be provided if needed. (8) Acute urticaria Is this a current diagnosis for this admission?: Yes Plan: Unidentified source. Resolved. Continue antihistamines as needed. Monitor vitals. Supportive measures.
[2019-11-14] MEDS: METOPROLOL SUCCINATE 50 MG TAB.SR.24H PO SCH (10:39)
[2019-11-14] MEDS: FAMOTIDINE INJ/PF 20 MG/2 ML SDV IV SCH ×2 (10:39→22:02)
[2019-11-14] MEDS: ASCORBIC ACID 500 MG TABLET PO SCH (10:40)
[2019-11-14] MEDS: FOLIC ACID 1 MG TABLET PO SCH (10:40)
[2019-11-14] MEDS: ASPIRIN 81 MG TABLET, ENT COATED PO SCH (10:40)
[2019-11-14] MEDS: CLOPIDOGREL BISULFATE 75 MG TABLET PO SCH (10:40)
[2019-11-14] MEDS: LISINOPRIL 10 MG TABLET PO SCH (10:40)
[2019-11-14] MEDS: ROFLUMILAST 500 MCG TABLET PO SCH (10:48)
[2019-11-14] MEDS: RANOLAZINE 500 MG TAB.SR.12H PO SCH ×2 (10:48→22:25)
[2019-11-14] MEDS: DOCUSATE SODIUM 100 MG CAPSULE PO SCH ×2 (10:50→18:30)
[2019-11-14] MEDS: INSULIN LISPRO 100 UNIT/ML 3 ML VIAL SUBCUT SCH ×3 (12:45→22:01)
[2019-11-14] MEDS: ATORVASTATIN CALCIUM 40 MG TABLET PO SCH (22:00)
[2019-11-14] MEDS: LEVOFLOXACIN 750 MG TABLET PO SCH (22:00)
[2019-11-15] MEDS: DIPHENHYDRAMINE HCL 50 MG/ML VIAL IV SCH ×4 (00:11→17:10)
[2019-11-15] MEDS: TRAMADOL HCL 50 MG TABLET PO PRN ×4 (00:11→17:09)
[2019-11-15] MEDS: IPRATROPIUM/ALBUTEROL 0.5-2.5 MG/3 ML AMPUL NEB SCH ×5 (03:40→20:20)
[2019-11-15] MEDS: HEPARIN SOD (PORCINE) 5,000 UNIT/ML 1 ML VIAL SUBCUT SCH ×3 (05:38→21:59)
[2019-11-15] MEDS: METHYLPREDNISOLONE INJ 125 MG/2 ML SDV IV SCH ×3 (05:38→21:58)
[2019-11-15] MEDS: METFORMIN HCL 500 MG TABLET PO SCH ×2 (08:16→17:09)
[2019-11-15] MEDS: INSULIN LISPRO 100 UNIT/ML 3 ML VIAL SUBCUT SCH ×4 (08:16→21:51)
[2019-11-15] MEDS: FLUTICASONE/UMECLIDIN/VILANTER 100-62.5-25 MCG/DOSE IH SCH (08:18)
[2019-11-15 08:37] LABS: HEMATOCRIT 37.1 % (37.9-51.0); HEMOGLOBIN 12.4 g/dL (13.5-17.0); MEAN CORPUSCULAR HEMOGLOBIN 29.6 pg (27.0-33.4); MEAN CORPUSCULAR HGB CONC 33.4 g/dL (32.0-36.0); MEAN CORPUSCULAR VOLUME 89 fl (80-97); PLATELET COUNT 511 10^3/uL (150-450); RED BLOOD COUNT 4.18 10^6/uL (4.35-5.55); RED CELL DISTRIBUTION WIDTH 14.2 % (11.5-14.0); WHITE BLOOD COUNT 17.6 10^3/uL (4.0-10.5)
[2019-11-15 08:42] LABS: ABSOLUTE LYMPHOCYTES# (MANUAL) 0.7 10^3/uL (0.5-4.7); ABSOLUTE MONOCYTES # (MANUAL) 1.6 10^3/uL (0.1-1.4); BASOPHILS % (MANUAL) 0 % (0-2); EOSINOPHILS % (MANUAL) 0 % (0-6); LYMPHOCYTES % (MANUAL) 4 % (13-45); MONOCYTES % (MANUAL) 9 % (3-13); MYELOCYTES % (MANUAL) 1 % (0); SEGMENTED NEUTROPHILS % (MAN) 86 % (42-78); TOTAL CELLS COUNTED 100
[2019-11-15 08:43] LABS: ANISOCYTOSIS SLIGHT; PLATELET COMMENT INCREASED; TOXIC GRANULATION 1+
[2019-11-15] MEDS: DOCUSATE SODIUM 100 MG CAPSULE PO SCH ×2 (09:07→17:09)
[2019-11-15] MEDS: FOLIC ACID 1 MG TABLET PO SCH (09:15)
[2019-11-15] MEDS: FAMOTIDINE INJ/PF 20 MG/2 ML SDV IV SCH ×2 (09:15→21:57)
[2019-11-15] MEDS: ROFLUMILAST 500 MCG TABLET PO SCH (09:15)
[2019-11-15] MEDS: ASCORBIC ACID 500 MG TABLET PO SCH (09:15)
[2019-11-15] MEDS: RANOLAZINE 500 MG TAB.SR.12H PO SCH ×2 (09:15→21:54)
[2019-11-15] MEDS: METOPROLOL SUCCINATE 50 MG TAB.SR.24H PO SCH (09:15)
[2019-11-15] MEDS: CLOPIDOGREL BISULFATE 75 MG TABLET PO SCH (09:15)
[2019-11-15] MEDS: ASPIRIN 81 MG TABLET, ENT COATED PO SCH (09:15)
[2019-11-15] MEDS: LISINOPRIL 10 MG TABLET PO SCH (09:15)
--- NOTE | 2019-11-15 11:14 | PDOC PROGRESS REPORT ---
Subjective Progress Note for:: 11/15/19 Subjective:: ELIA ROSENBAUM is a 59 year old male who presented to the emergency room with acute hives. He admits the sudden onset of extreme pruritus and erythematous welts generalized over his torso with concentration in the intertriginous regions beginning while unwrapping gifts for [place]. His hives were treated with calamine lotion and powder at home without relief. His hives were accompanied by an increase in his chronic dyspnea and wheezing. He denies other associated or accompanying signs and symptoms. He denies prior similar episodes of hives but admits numerous similar episodes of acute exacerbation of his dyspnea related to his severe COPD. He has not identified any aggravating or ameliorating factors for his hives. EMS was summoned and he received subc utaneous epinephrine, nebulizer treatments x3, IV Solu-Medrol, IV magnesium, IV Benadryl and IV Pepcid. By the time of his arrival in the emergency room his hives were improving though he continued to have labored respirations and is treated with BiPAP. He continued to improve but had not reobtained his usual baseline. He was subsequently placed on observation status in a medical telemetry bed. 11/09/2019. Patient resting comfortably in bed, on BiPAP, in no apparent distress, hives have almost resolved completely, denies any chest pain, nausea, vomiting, fever, chills, diarrhea, constipation or any urinary symptoms. 11/10/2019. No acute events overnight. Patient currently resting in bed no apparent distress. Still complaining of productive cough, rash has resolved, denies any fever, chills, nausea, vomiting, diarrhea, constipation or any urinary symptoms. 11/11/2019. No acute events overnight. Complaining of dyspnea on exertion, denies any chest pain, nausea, vomiting, diarrhea, constipation or any urinary symptoms. Still having productive cough. P.o. tolerant. Having normal bowel and bladder movements. 11/12/2019. No acute events overnight. Patient still complaining of dyspnea exertion, productive cough with specks of blood, denies any fever, chest pain, nausea, vomiting, diarrhea, constipation or any urinary symptoms. 11/13/2019. No acute events overnight. No changes compared to yesterday. Patient is still appears to be in respiratory distress with BiPAP dependency. Pleuritic chest pain has improved. Patient is complaining of dyspnea on exertion, he is p.o. tolerant and having normal bowel and bladder movements. Denies any chest pain, fever, chills, nausea, vomiting, diarrhea, constipation or urinary symptoms. 11/14/2019. No acute events overnight. Patient still endorsing dyspnea on exertion and with no improvement of his respiratory symptoms compared to yesterday. Denies any chest pain, nausea, vomiting, diarrhea, constipation or any urinary symptoms. 11/15/2019. No acute events overnight. Moderate improvement in his health recently. Did not use BiPAP last night. Still he wanted on exertion. Denies any fever, chills, nausea, vomiting, diarrhea, constipation or any urinary symptoms. Patient will greatly benefit from pulmonary rehab, I have discussed this with his reservoir caretaker Dr. Jesus who agrees with it. Pending discharge planning arrangement for pulmonary rehab. Reason For Visit: ACUTE URTICARIA,ACUTE CHRONIC COPD, Physical Exam Vital Signs: Temp Pulse Resp BP Pulse Ox 97.3 F 76 16 129/79 H 97 11/15/19 07:00 11/15/19 08:05 11/15/19 08:05 11/15/19 07:00 11/15/19 08:05 Intake & Output 11/14/19 11/15/19 11/16/19 06:59 06:59 06:59 Intake Total 956 957 Output Total 775 1000 Balance 181 -43 Weight 85.7 kg 85.7 kg General appearance: PRESENT: no acute distress, well-developed, well-nourished Head exam: PRESENT: atraumatic, normocephalic Respiratory exam: PRESENT: decreased breath sounds. ABSENT: rales, rhonchi, wheezes Cardiovascular exam: PRESENT: RRR. ABSENT: diastolic murmur, rubs, systolic murmur GI/Abdominal exam: PRESENT: normal bowel sounds, soft. ABSENT: distended, guarding, mass, organolmegaly, rebound, tenderness Neurological exam: PRESENT: alert, awake, oriented to person, oriented to place, oriented to time, oriented to situation, CN II-XII grossly intact. ABSENT: motor sensory deficit Results Laboratory Results: 11/15/19 08:00 11/13/19 09:45 11/15/19 08:00 WBC 17.6 H RBC 4.18 L Hgb 12.4 L Hct 37.1 L MCV 89 MCH 29.6 MCHC 33.4 RDW 14.2 H Plt Count 511 H Seg Neutrophils % Not Reportable 11/08/19 11/08/19 11/08/19 16:30 16:30 20:00 Creatine Kinase 208 H CK-MB (CK-2) 4.16 Troponin I < 0.012 < 0.012 11/09/19 11/09/19 11/09/19 02:27 07:50 14:13 Creatine Kinase CK-MB (CK-2) Troponin I < 0.012 < 0.012 < 0.012 Impressions: Chest X-Ray 11/08/19 00:00 IMPRESSION: Heterogeneous opacity of the right upper lobe, concerning for infection. Recommend followup radiographs in 6-8 weeks to ensure complete resolution and exclude underlying mass. Assessment and Plan - Diagnosis (1) Pneumonia Qualifiers: Laterality: right Lung location: upper lobe of lung Is this a current diagnosis for this admission?: Yes Plan: Persistent leukocytosis. Cough improving. Afebrile. Leukocytosis likely secondary to IV steroids. Likely community-acquired due to gram-positive including Streptococcus pneumonia. Chest x-ray on admission positive for right upper lobe opacity. Mass versus infection. Initial labs positive for labs positive for leukocytosis. Presented with hypoxia, tachypnea. Afebrile. Day 8 IV antibiotics. Day 8 IV levofloxacin. Received 2 days of IV vancomycin. DC IV vancomycin. Blood culture growing 2 out of 2 bottles Staphylococcus hominis pansensitive. Repeat blood cultures negative so far. Continue levofloxacin. Outpatient repeat CXR/chest CT to rule out any pulmonary mass. (2) COPD with acute exacerbation Is this a current diagnosis for this admission?: Yes Plan: History of severe COPD, supplemental O2 and BiPAP dependent. Has trilogy at home. Continue telemetry, scheduled BiPAP, duo nebs, IV steroids JAMIE, LABA, LAMA , ICS, pulmonary toileting, incentive spirometry, flutter valve. Consult discharge planning for possible pulmonary rehab. (3) CAD (coronary artery disease) Qualifiers: Coronary Disease-Associated Artery/Lesion type: [place] artery [place] vs. transplanted heart: [place] heart Associated angina: angina presence unspecified Qualified Code(s): I25.10 - Atherosclerotic heart disease of [place] coronary artery without angina pectoris Is this a current diagnosis for this admission?: Yes Plan: Denies any anginal symptoms. Troponins negative x2. Continue DAPT, ANA LAURA, beta-blockers, ranolazine. (4) Acute and chronic respiratory failure with hypoxia Is this a current diagnosis for this admission?: Yes Plan: Due to acute COPD exacerbation complicated by pneumonia. Plan as per above. (5) Diabetes mellitus type 2 in nonobese Is this a current diagnosis for this admission?: Yes Plan: Controlled. Hemoglobin A1c 6.0. Takes metformin at home. Diabetic diet, sliding scale insulin, Accu-Chek, hypoglycemia protocol. Restart home meds upon discharge. Outpatient PCP follow-up. (6) FRED on CPAP Is this a current diagnosis for this admission?: Yes Plan: Nocturnal CPAP. (7) Former smoker Is this a current diagnosis for this admission?: Yes Plan: Former heavy smoker. Quit 1 year ago. Encouraged abstinence. NicoDerm patch will be provided if needed. (8) Acute urticaria Is this a current diagnosis for this admission?: Yes Plan: Unidentified source. Resolved. Continue antihistamines as needed. Monitor vitals. Supportive measures.
[2019-11-15] MEDS ORDERED: INSULIN GLARGINE,HUM.REC.ANLOG 1,000 UNIT/10 ML VIAL (PYX) SUBCUT ONE (12:00)
[2019-11-15] MEDS: ATORVASTATIN CALCIUM 40 MG TABLET PO SCH (21:54)
[2019-11-15] MEDS: LEVOFLOXACIN 750 MG TABLET PO SCH (21:54)
[2019-11-16] MEDS: DIPHENHYDRAMINE HCL 50 MG/ML VIAL IV SCH ×4 (00:11→17:50)
[2019-11-16] MEDS: TRAMADOL HCL 50 MG TABLET PO PRN ×4 (00:11→17:50)
[2019-11-16] MEDS: IPRATROPIUM/ALBUTEROL 0.5-2.5 MG/3 ML AMPUL NEB SCH ×5 (00:39→15:34)
[2019-11-16] MEDS: METHYLPREDNISOLONE INJ 125 MG/2 ML SDV IV SCH ×2 (05:24→14:19)
[2019-11-16] MEDS: HEPARIN SOD (PORCINE) 5,000 UNIT/ML 1 ML VIAL SUBCUT SCH ×2 (05:25→14:19)
[2019-11-16 05:57] LABS: HEMATOCRIT 34.4 % (37.9-51.0); HEMOGLOBIN 11.5 g/dL (13.5-17.0); MEAN CORPUSCULAR HEMOGLOBIN 29.4 pg (27.0-33.4); MEAN CORPUSCULAR HGB CONC 33.5 g/dL (32.0-36.0); MEAN CORPUSCULAR VOLUME 88 fl (80-97); PLATELET COUNT 454 10^3/uL (150-450); RED BLOOD COUNT 3.92 10^6/uL (4.35-5.55); RED CELL DISTRIBUTION WIDTH 14.5 % (11.5-14.0)
[2019-11-16 06:14] LABS: ABSOLUTE LYMPHOCYTES# (MANUAL) 1.4 10^3/uL (0.5-4.7); ABSOLUTE MONOCYTES # (MANUAL) 1.2 10^3/uL (0.1-1.4); BAND NEUTROPHILS % (MANUAL) 2 % (3-5); BASOPHILS % (MANUAL) 0 % (0-2); EOSINOPHILS % (MANUAL) 0 % (0-6); LYMPHOCYTES % (MANUAL) 9 % (13-45); METAMYELOCYTES % (MANUAL) 1 % (0-1); MONOCYTES % (MANUAL) 8 % (3-13); SEGMENTED NEUTROPHILS % (MAN) 80 % (42-78); TOTAL CELLS COUNTED 100
[2019-11-16 06:15] LABS: PLATELET COMMENT INCREASED; RBC MORPHOLOGY COMMENT NORMO-CYTIC/CHROMIC
[2019-11-16] MEDS: METFORMIN HCL 500 MG TABLET PO SCH ×2 (08:35→16:10)
[2019-11-16] MEDS: FLUTICASONE/UMECLIDIN/VILANTER 100-62.5-25 MCG/DOSE IH SCH (08:35)
[2019-11-16] MEDS: INSULIN LISPRO 100 UNIT/ML 3 ML VIAL SUBCUT SCH ×3 (08:35→16:04)
[2019-11-16] MEDS: DOCUSATE SODIUM 100 MG CAPSULE PO SCH ×2 (09:07→17:45)
[2019-11-16] MEDS: FOLIC ACID 1 MG TABLET PO SCH (09:11)
[2019-11-16] MEDS: ROFLUMILAST 500 MCG TABLET PO SCH (09:11)
[2019-11-16] MEDS: LISINOPRIL 10 MG TABLET PO SCH (09:12)
[2019-11-16] MEDS: FAMOTIDINE INJ/PF 20 MG/2 ML SDV IV SCH (09:12)
[2019-11-16] MEDS: METOPROLOL SUCCINATE 50 MG TAB.SR.24H PO SCH (09:12)
[2019-11-16] MEDS: ASCORBIC ACID 500 MG TABLET PO SCH (09:12)
[2019-11-16] MEDS: CLOPIDOGREL BISULFATE 75 MG TABLET PO SCH (09:12)
[2019-11-16] MEDS: ASPIRIN 81 MG TABLET, ENT COATED PO SCH (09:12)
[2019-11-16] MEDS: RANOLAZINE 500 MG TAB.SR.12H PO SCH (09:12)
[2019-11-16] MEDS ORDERED: INSULIN GLARGINE,HUM.REC.ANLOG 1,000 UNIT/10 ML VIAL SUBCUT SCH (10:00)
[2019-11-16 17:59] VITALS: BP 130/73
--- NOTE | 2019-11-16 18:20 | PDOC DISCHARGE SUMMARY ---
Impression - Admit/DC Date/PCP Admission Date/Primary Care Provider: 11/10/19 15:48 Discharge Date: 11/16/19 - Discharge Diagnosis (1) Pneumonia Is this a current diagnosis for this admission?: Yes (2) COPD with acute exacerbation Is this a current diagnosis for this admission?: Yes (3) CAD (coronary artery disease) Is this a current diagnosis for this admission?: Yes (4) Acute and chronic respiratory failure with hypoxia Is this a current diagnosis for this admission?: Yes (5) Diabetes mellitus type 2 in nonobese Is this a current diagnosis for this admission?: Yes (6) FRED on CPAP Is this a current diagnosis for this admission?: Yes (7) Former smoker Is this a current diagnosis for this admission?: Yes (8) Acute urticaria Is this a current diagnosis for this admission?: Yes - Additional Information Resuscitation Status: Full Code Discharge Diet: As Tolerated, Cardiac Discharge Activity: Activity As Tolerated, Balance Activity w/Rest Referrals: ALEX FIELDS MD [ACTIVE STAFF] - (OFFICE IS CLOSED UNTIL November PLEASE CALL TO MAKE AN APPT AT THAT TIME Pulmonary Rehab) Prescriptions: Prednisone [Deltasone] 40 mg PO DAILY 6 Days #3 tablet Home Medications: Acetaminophen [Tylenol] 500 mg PO Q6HP PRN 11/09/19 Albuterol Sulfate [Proair HFA Inhalation Aerosol 8.5 gm MDI] 1 puff IH Q4HP PRN 11/09/19 Alendronate Sodium [Fosamax 70 mg Tablet] 1 tab PO ACBRKFST 11/09/19 Ascorbic Acid [Vitamin C 500 mg Tablet] 500 mg PO DAILY 11/09/19 Aspirin [Ecotrin 81 mg EC Tablet] 81 mg PO DAILY 11/09/19 Atorvastatin Calcium [Lipitor 40 mg Tablet] 40 mg PO QHS 11/09/19 Clopidogrel Bisulfate [Plavix 75 mg Tablet] 75 mg PO DAILY 11/09/19 Cyanocobalamin (Vitamin B-12) [Vitamin B-12] 1,000 mcg PO DAILY 11/09/19 Ferrous Sulfate 324 mg PO DAILY 11/09/19 Fluticasone/Umeclidin/Vilanter [Trelegy 100-62.5-25 Mcg Ellipta 14 Dose/Dpi] 1 puff IH QAM 11/09/19 Folic Acid 1 mg PO DAILY 11/09/19 Ipratropium/Albuterol Sulfate [Duoneb 3 ml Ampul] 3 ml NEB RTQ3 11/09/19 Lisinopril [Prinivil] 20 mg PO DAILY 11/09/19 Metformin HCl [Metformin HCl ER] 500 mg PO BID 11/09/19 Metoprolol Succinate [Toprol Xl 50 mg Tab.sr] 50 mg PO DAILY 11/09/19 Ranolazine [Ranolazine ER] 500 mg PO BID 11/09/19 Roflumilast [Daliresp 500 mcg Tablet] 500 mcg PO DAILY 11/09/19 Prednisone [Deltasone] 40 mg PO DAILY 6 Days #3 tablet 11/16/19 History of Present Illiness History of Present Illness: ELIA ROSENBAUM is a 59 year old male who presented to the emergency room with acute hives. He admits the sudden onset of extreme pruritus and erythematous welts generalized over his torso with concentration in the intertriginous regions beginning while unwrapping gifts for [employer]. His hives were treated with calamine lotion and powder at home without relief. His hives were accompanied by an increase in his chronic dyspnea and wheezing. He denies other associated or accompanying signs and symptoms. He denies prior similar episodes of hives but admits numerous similar episodes of acute exacerbation of his dyspnea related to his severe COPD. He has not identified any aggravating or ameliorating factors for his hives. EMS was summoned and he received subcutaneous epinephrine, nebulizer treatments x3, IV Solu-Medrol, IV magnesium, IV Benadryl and IV Pepcid. By the time of his arrival in the emergency room his hives were improving though he continued to have labored respirations and is treated with BiPAP. He continued to improve but had not reobtained his usual baseline. He was subsequently placed on observation status in a medical telemetry bed. Hospital Course Hospital Course: (1) Pneumonia Likely community-acquired due to gram-positive including Streptococcus pneumonia. Chest x-ray on admission positive for right upper lobe opacity. Mass versus infection. Initial labs positive for labs positive for leukocytosis. Presented with hypoxia, tachypnea. Afebrile. Received 9 days of IV antibiotics. Received 9 days of IV levofloxacin. Received 2 days of IV vancomycin. Blood culture growing 2 out of 2 bottles Staphylococcus hominis pansensitive. Repeat blood cultures remained negative. Outpatient repeat CXR/chest CT to rule out any pulmonary mass. (2) COPD with acute exacerbation History of severe COPD, supplemental O2 and BiPAP dependent. Has trilogy at home. Was a started on scheduled BiPAP, duo nebs, IV steroids JAMIE, LABA, LAMA , ICS, pulmonary toileting, incentive spirometry, flutter valve. Was discharged to follow-up with pulmonology and pulmonary rehab. senior media planner was consulted and pulmonary rehab was arranged as outpatient. (3) CAD (coronary artery disease) Denied any anginal symptoms. Troponins negative x2. Continued DAPT, ANA LAURA, beta-blockers, ranolazine. (4) Acute and chronic respiratory failure with hypoxia Due to acute COPD exacerbation complicated by pneumonia. Plan as per above. (5) Diabetes mellitus type 2 in nonobese Controlled. Hemoglobin A1c 6.0. Takes metformin at home. Was a started on diabetic diet, sliding scale insulin, Accu-Chek, hypoglycemia protocol. Advised to restart home meds upon discharge and follow-up with PCP. (6) FRED on CPAP Continued on nocturnal CPAP. (7) Former smoker Former heavy smoker. Quit 1 year ago. Encouraged abstinence. NicoDerm patch will be provided if needed. (8) Acute urticaria Unidentified source. Resolved. Was started on antihistamines as needed. Vitals monitored. Remained stable. Physical Exam Vital Signs: Temp Pulse Resp BP Pulse Ox 97.5 F 74 17 130/73 H 100 11/16/19 17:56 11/16/19 17:56 11/16/19 17:56 11/16/19 17:56 11/16/19 17:56 Intake & Output 11/15/19 11/16/19 11/17/19 06:59 06:59 06:59 Intake Total 957 1490 480 Output Total 1000 2500 750 Balance -43 -1010 -270 Weight 85.7 kg 84.6 kg General appearance: PRESENT: no acute distress, well-developed, well-nourished Head exam: PRESENT: atraumatic, normocephalic Respiratory exam: PRESENT: clear to auscultation marielena. ABSENT: rales, rhonchi, wheezes Cardiovascular exam: PRESENT: RRR. ABSENT: diastolic murmur, rubs, systolic murmur Neurological exam: PRESENT: alert, awake, oriented to person, oriented to place, oriented to time, oriented to situation, CN II-XII grossly intact. ABSENT: motor sensory deficit Results Laboratory Results: WBC 15.0 10^3/uL (4.0-10.5) H 11/16/19 04:37 RBC 3.92 10^6/uL (4.35-5.55) L 11/16/19 04:37 Hgb 11.5 g/dL (13.5-17.0) L 11/16/19 04:37 Hct 34.4 % (37.9-51.0) L 11/16/19 04:37 MCV 88 fl (80-97) 11/16/19 04:37 MCH 29.4 pg (27.0-33.4) 11/16/19 04:37 MCHC 33.5 g/dL (32.0-36.0) 11/16/19 04:37 RDW 14.5 % (11.5-14.0) H 11/16/19 04:37 Plt Count 454 10^3/uL (150-450) H 11/16/19 04:37 Lymph % (Auto) Not Reportable 11/16/19 04:37 Delta % (Auto) Not Reportable 11/16/19 04:37 Eos % (Auto) Not Reportable 11/16/19 04:37 Baso % (Auto) Not Reportable 11/16/19 04:37 Absolute Neuts (auto) Not Reportable 11/16/19 04:37 Absolute Lymphs (auto) Not Reportable 11/16/19 04:37 Absolute Monos (auto) Not Reportable 11/16/19 04:37 Absolute Eos (auto) Not Reportable 11/16/19 04:37 Absolute Basos (auto) Not Reportable 11/16/19 04:37 Total Counted 100 11/16/19 04:37 Seg Neutrophils % Not Reportable 11/16/19 04:37 Seg Neuts % (Manual) 80 % (42-78) H 11/16/19 04:37 Band Neutrophils % 2 % (3-5) L 11/16/19 04:37 Lymphocytes % (Manual) 9 % (13-45) L 11/16/19 04:37 Monocytes % (Manual) 8 % (3-13) 11/16/19 04:37 Eosinophils % (Manual) 0 % (0-6) 11/16/19 04:37 Basophils % (Manual) 0 % (0-2) 11/16/19 04:37 Metamyelocytes % 1 % (0-1) 11/16/19 04:37 Myelocytes % 1 % (0) H 11/15/19 08:00 Abs Neuts (Manual) 12.5 10^3/uL (1.7-8.2) H 11/16/19 04:37 Abs Lymphs (Manual) 1.4 10^3/uL (0.5-4.7) 11/16/19 04:37 Abs Monocytes (Manual) 1.2 10^3/uL (0.1-1.4) 11/16/19 04:37 Absolute Eos (Manual) 0.0 10^3/uL (0.0-0.6) 11/16/19 04:37 Abs Basophils (Manual) 0.0 10^3/uL (0.0-0.2) 11/16/19 04:37 Toxic Granulation 1+ 11/15/19 08:00 Toxic Vacuolation PRESENT 11/14/19 08:04 Large Platelets PRESENT 11/14/19 08:04 Platelet Comment INCREASED 11/16/19 04:37 Polychromasia SLIGHT 11/10/19 05:24 Anisocytosis SLIGHT 11/15/19 08:00 [place] Cells SLIGHT 11/10/19 05:24 RBC Morph Comment NORMO-CYTIC/CHROMIC 11/16/19 04:37 Sodium 135.3 mmol/L (137-145) L 11/13/19 09:45 Potassium 3.9 mmol/L (3.6-5.0) 11/13/19 09:45 Chloride 97 mmol/L (98-107) L 11/13/19 09:45 Carbon Dioxide 22 mmol/L (22-30) 11/13/19 09:45 Anion Gap 16 (5-19) 11/13/19 09:45 BUN 22 mg/dL (7-20) H 11/13/19 09:45 Creatinine 0.86 mg/dL (0.52-1.25) 11/13/19 09:45 Creatinine Cancelled 11/13/19 09:45 Est GFR ( Amer) > 60 (>60) 11/13/19 09:45 Est GFR ( Amer) Cancelled 11/13/19 09:45 Est GFR (Non-Af Amer) Cancelled 11/13/19 09:45 Est GFR (MDRD) Non-Af > 60 (>60) 11/13/19 09:45 Est GFR (MDRD) Non-Af Cancelled 11/13/19 09:45 Glucose 123 mg/dL (75-110) H 11/13/19 09:45 POC Glucose 124 mg/dL (70-110) H 11/16/19 15:45 Hemoglobin A1c % 6.0 % (4.7-6.0) 11/09/19 07:50 Calcium 9.3 mg/dL (8.4-10.2) 11/13/19 09:45 Magnesium 1.8 mg/dL (1.6-2.3) 11/09/19 07:50 Total Bilirubin 0.8 mg/dL (0.2-1.3) 11/11/19 05:45 Direct Bilirubin 0.3 mg/dL (0.0-0.4) 11/11/19 05:45 Neonat Total Bilirubin Not Reportable 11/11/19 05:45 Neonat Direct Bilirubin Not Reportable 11/11/19 05:45 Neonat Indirect Bili Not Reportable 11/11/19 05:45 AST 42 U/L (17-59) 11/11/19 05:45 ALT 51 U/L (<50) 11/11/19 05:45 Alkaline Phosphatase 53 U/L (38-126) 11/11/19 05:45 Creatine Kinase 208 U/L (55-170) H 11/08/19 16:30 CK-MB (CK-2) 4.16 ng/mL (<4.55) 11/08/19 16:30 Troponin I < 0.012 ng/mL 11/09/19 14:13 Total Protein 6.3 g/dL (6.3-8.2) 11/11/19 05:45 Albumin 3.6 g/dL (3.5-5.0) 11/11/19 05:45 EGFR Cancelled 11/13/19 09:45 TSH 0.02 uIU/mL (0.47-4.68) L 11/10/19 05:24 Free T4 1.44 ng/dL (0.78-2.19) 11/12/19 07:45 Urine Color YELLOW 11/08/19 18:10 Urine Appearance CLEAR 11/08/19 18:10 Urine pH 6.0 (5.0-9.0) 11/08/19 18:10 Ur Specific [place] 1.012 11/08/19 18:10 Urine Protein 30 mg/dL (NEGATIVE) H 11/08/19 18:10 Urine Glucose (UA) NEGATIVE mg/dL (NEGATIVE) 11/08/19 18:10 Urine Ketones NEGATIVE mg/dL (NEGATIVE) 11/08/19 18:10 Urine Blood NEGATIVE (NEGATIVE) 11/08/19 18:10 Urine Nitrite NEGATIVE (NEGATIVE) 11/08/19 18:10 Urine Bilirubin NEGATIVE (NEGATIVE) 11/08/19 18:10 Urine Urobilinogen NEGATIVE mg/dL (<2.0) 11/08/19 18:10 Ur Leukocyte Esterase NEGATIVE (NEGATIVE) 11/08/19 18:10 Urine WBC (Auto) 1 /HPF 11/08/19 18:10 Urine Mucus (Auto) RARE /LPF 11/08/19 18:10 Urine Ascorbic Acid NEGATIVE (NEGATIVE) 11/08/19 18:10 Time Trough Drawn 0945 11/13/19 09:45 Vancomycin Trough 10.1 ug/mL (5.0-20.0) 11/13/19 09:45 Influenza A (Rapid) NEGATIVE (NEGATIVE) 11/08/19 20:11 Influenza B (Rapid) NEGATIVE (NEGATIVE) 11/08/19 20:11 11/08/19 11/08/19 11/09/19 16:30 20:00 02:27 CK-MB (CK-2) 4.16 Troponin I < 0.012 < 0.012 < 0.012 11/09/19 11/09/19 07:50 14:13 CK-MB (CK-2) Troponin I < 0.012 < 0.012 Impressions: Chest X-Ray 11/08/19 00:00 IMPRESSION: Heterogeneous opacity of the right upper lobe, concerning for infection. Recommend followup radiographs in 6-8 weeks to ensure complete resolution and exclude underlying mass. Stroke Is this a Stroke Patient?: No Acute Heart Failure - Is this a Heart Failure Patient?: No
== END 2019-11-16 18:15 | disposition home or self-care (01) | DRG 193 ==
LOC: ER 15:23 → EH 19:23 → 3W 11-09 00:10 → 4W 11-10 06:25 → OBSVTOIN 11-10 15:48 → 4N 11-10 17:39
PROVIDERS: ADMIT Emergency Medicine; ATTEND Emergency Medicine
PROC: 5A09557 Assistance with Respiratory Ventilation, Greater than 96 Consecutive Hours, Continuous Positive Airway Pressure (ICD-10-PCS; principal; 2019-11-08)
PROC: 3E02340 Introduction of Influenza Vaccine into Muscle, Percutaneous Approach (ICD-10-PCS; 2019-11-16)
DX: J15.4 Pneumonia due to other streptococci (principal); J96.21 Acute and chronic respiratory failure with hypoxia; J44.1 Chronic obstructive pulmonary disease with (acute) exacerbation; I25.10 Atherosclerotic heart disease of native coronary artery without angina pectoris; E11.9 Type 2 diabetes mellitus without complications; G47.33 Obstructive sleep apnea (adult) (pediatric); L50.9 Urticaria, unspecified; I10 Essential (primary) hypertension; E66.9 Obesity, unspecified; I25.2 Old myocardial infarction; Z23 Encounter for immunization; Z87.891 Personal history of nicotine dependence; Z79.899 Other long term (current) drug therapy; Z79.84 Long term (current) use of oral hypoglycemic drugs; Z99.81 Dependence on supplemental oxygen; Z95.5 Presence of coronary angioplasty implant and graft; Z79.02 Long term (current) use of antithrombotics/antiplatelets; Z79.82 Long term (current) use of aspirin
CPT/HCPCS: 36415; 71046; 80048; 80053; 80202; 81001; 82550; 82553; 82962; 83036; 83735; 84439; 84443; 84484; 85025; 85027; 87040; 87070; 87077; 87150; 87186; 87205; 87804; 90686; 93005; 93010; 94640; 94660; 96365; 96372; 96375; 99284; G0378; J0171; J0696; J1200; J1644; J1815; J2920; J2930; J3370; J3490; J7060; J7620; S0028

== ENCOUNTER 2019-12-07 07:35 | Day surgery (SDC) | payer OTHER, MEDICARE ==
[~2019-12-07 07:35] MED LIST changes: +BUPIVACAINE HCL 0.75% INJ/PF (7.5 MG/1 ML) 10 ML SDV OS PRN; +CHONDR SU A NA/HYALUR INTRAOC KIT (SURGICARE) ONE; +EPINEPHRINE INJ/PF 1 MG/1 ML AMPULE ONE; -KETOROLAC TROMETHAMINE 0.45% 4 DROP/0.4 ML DROPERETTE OD PRN; +KETOROLAC TROMETHAMINE 0.45% 4 DROP/0.4 ML DROPERETTE OS PRN; +LIDOCAINE 1% INJ-PF (10 MG/ML) 30 ML SDV ONE; +LIDOCAINE 4% INJ/PF (40 MG/ML) 5 ML AMPUL OS PRN
[2019-12-07] MEDS: CYCLOPENTOLATE 0.2%/PHENYLEPHRINE 1% OPH SOLN 2 ML OS PRN ×3 (08:20→08:44)
[2019-12-07] MEDS: BESIFLOXACIN HCL 0.6% OPH SUSP 5 ML BOTTLE OS PRN ×4 (08:20→09:23)
[2019-12-07] MEDS: TROPICAMIDE 1% OPH SOLN 15 ML OS PRN ×3 (08:20→08:44)
[2019-12-07] MEDS: TETRACAINE HCL 0.5% OPH SOLN 4 ML OS PRN ×2 (08:20→08:44)
[2019-12-07] MEDS ORDERED: FENTANYL CITRATE INJ/PF 100 MCG/2 ML AMPUL ONE (08:46)
[2019-12-07] MEDS ORDERED: MIDAZOLAM 2 MG/2 ML INJ ONE (08:46)
[2019-12-07] MEDS: DORZOLAMIDE HCL 2%/TIMOLOL MALEAT 0.5% OPH SOLN 10 ML OS PRN ×2 (09:23)
--- NOTE | 2019-12-07 13:08 | Operative Report ---
Operative Report-[facility] Operative Report: DATE OF SURGERY: 12/07/2019 PREOPERATIVE DIAGNOSIS: CATARACT, LEFT EYE. POSTOPERATIVE DIAGNOSIS: CATARACT, LEFT EYE. PROCEDURE PERFORMED: PHACOEMULSIFICATION WITH POSTERIOR CHAMBER INTRAOCULAR LENS, LEFT EYE. Intraocular Lens Model : MX60E 24.5 Total Phaco Time: 5.63 CDE SURGEON: REGINA GRIGGS MD ANESTHESIA: TOPICAL WITH MAC. INDICATIONS FOR SURGERY: Difficultly driving at night, and reading PROCEDURE: The patient was brought to the Operating Room and placed on the operative table. Following tetracaine drops, topical anesthesia was administered. This consisted of instrument wipe pledgets soaked in a solution of 4% Xylocaine mixed with 0.75% Marcaine in a 1:2 ratio. A 2 x 1 cm pledget was placed in the superior fornix. A 1 x 1 cm pledget was placed in the inferior fornix. The eye was patched shut for 5 minutes. The patch was removed. The eye was sterilely prepped and draped in the usual manner. Lid speculum was placed in the eye. The pledgets were removed. 4-0 black silk sutures were placed around the superior and the inferior rectus muscles to be used as traction. A conjunctival peritomy was made at the 10 o'clock position. Hemostasis was obtained with bipolar cautery. A posterior limbal groove was created using a crescent knife and dissected anteriorly towards the cornea. A sharp point blade was used to create a paracentesis site at the 2 o'clock position. 0.2 cc non preserved Lidocaine was injected into the anterior chamber. A 2.4 mm keratome was used to enter the anterior chamber through the groove. Viscoelastic was injected into the anterior chamber. An anterior capsulotomy was performed using Utrata forceps in a capsulorrhexis fashion. Hydrodissection and hydrodelineation were performed. Phacoemulsification was performed in vipxed-[id number] technique. Following this, the I/A unit was used to remove residual cortex. Viscoelastic was injected into the capsular bag. The Intraocular lens was placed in the capsular bag. The I/A unit was used to remove residual viscoelastic. The wound was seen to be watertight under high and low pressure, and no sutures were veronique nestor. The intraocular lens was well centered. The pressure was adjusted in the eye to normal pressure. The 4-0 black silk sutures and lid speculum were removed. The eye was shielded after Besivance,prednisolone, and Cosopt drops were placed. The patient tolerated the procedure well and was sent to the Recovery Room in good condition.
== END 2019-12-07 10:03 | disposition home or self-care (01) ==
LOC: SC 07:35
PROVIDERS: ATTEND Ophthalmology
DX: H25.812 Combined forms of age-related cataract, left eye (principal); Z96.1 Presence of intraocular lens; E11.9 Type 2 diabetes mellitus without complications; I11.9 Hypertensive heart disease without heart failure; J44.9 Chronic obstructive pulmonary disease, unspecified; E78.00 Pure hypercholesterolemia, unspecified; Z79.51 Long term (current) use of inhaled steroids; Z79.82 Long term (current) use of aspirin; Z79.84 Long term (current) use of oral hypoglycemic drugs; Z79.899 Other long term (current) drug therapy; Z87.891 Personal history of nicotine dependence; Z99.81 Dependence on supplemental oxygen; Z79.02 Long term (current) use of antithrombotics/antiplatelets; I25.2 Old myocardial infarction; D64.9 Anemia, unspecified
CPT/HCPCS: 66984; 82962; V2632; J2250; J3490 ×5; J0171; J3010; 142

== ENCOUNTER → 2019-12-28 | Outpatient (CLI) | payer MEDICARE, OTHER ==
--- NOTE | 2019-12-28 14:03 | RADIOLOGY REPORT (SQ) ---
EXAM DESCRIPTION: CT CHEST WITHOUT COMPLETED DATE/TIME: 12/28/2019 1:02 pm REASON FOR STUDY: J43.9 EMPHYSEMA, UNSPECIFIED J43.9 EMPHYSEMA, UNSPECIFIED COMPARISON: 12/23/2018 TECHNIQUE: CT scan performed of the chest without intravenous contrast. Images reviewed with lung, soft tissue and bone windows. Reconstructed coronal and sagittal MPR images reviewed. All images st ored on PACS. All CT scanners at this facility use dose modulation, iterative reconstruction, and/or weight based d osing when appropriate to reduce radiation dose to as low as reasonably achievable (ALARA). [facility]: Dose Right [facility]: CareDose [facility]: Dose Right [facility]: Teradose 4D [facility]: [employer] RADIATION DOSE: CT Rad equipment meets quality standard of care and radiation dose reduction techniq ues were employed. CTDIvol: 11.7 mGy. DLP: 486 mGy-cm. mGy. LIMITATIONS: No technical limitations. FINDINGS: LUNGS AND PLEURA: Centrilobular emphysema. New masslike opacification posteriorly in the right upper lobe measures about 14 x 12 mm on image 35 series 4. Considerable stranding around this area. No other pulmonary nodules. No pleural effusion. HILAR AND MEDIASTINAL STRUCTURES: No identified masses or abnormal nodes. No obvious aneurysm. HEART AND VASCULAR STRUCTURES: No aneurysm. No pericardial effusion. Coronary atherosclerosis. UPPER ABDOMEN: No significant findings. Limited exam. THYROID AND OTHER SOFT TISSUES: No masses. No adenopathy. BONES: No significant finding. HARDWARE: None in the chest. OTHER: No other significant findings. IMPRESSION: 1. Masslike opacification posteriorly in the right upper lobe. Cannot exclude 14 x 12 mm solid component. Concerning for neoplasm. Infectious/ inflammatory etiology cannot be excluded. Recommend PET-CT. 2. Pulmonary emphysema. 3. Coronary atherosclerosis. TECHNICAL DOCUMENTATION: JOB ID: [id number] Quality ID # [id number]: Final reports with documentation of one or more dose reduction techniques (e.g., Au tomated exposure control, adjustment of the mA and/or kV according to patient size, use of iterative reconstruction technique) 2010 [employer]- All Rights Reserved Reading location - IP/workstation name: [email or web address]
== END ==
LOC: RAD 12:49
PROVIDERS: ATTEND Registered Nurse
DX: J43.9 Emphysema, unspecified (principal)
CPT/HCPCS: 71250

== ENCOUNTER → 2020-01-09 | Outpatient (CLI) | payer MEDICARE, OTHER ==
--- NOTE | 2020-01-10 13:41 | RADIOLOGY REPORT (SQ) ---
EXAM DESCRIPTION: PET CT SKULL/THIGH COMPLETED DATE/TIME: 01/09/2020 1:46 pm REASON FOR STUDY: R91.1 SOLITARY PULMONARY NODULE R91.1 SOLITARY PULMONARY NODULE COMPARISON: CT chest dated 12/28/2019 and CTA chest dated December 23 2018 RADIONUCLIDE AND DOSE: 10.76 mCi F18 FDG The route of agent administration: Intravenous FASTING BLOOD SUGAR: 146 mg/dl CONTRAST TYPE AND DOSE: No CT contrast given. TECHNIQUE: Blood glucose level was verified. Above dose of FDG was injected intravenously. 2-D seg mented attenuation correction images were obtained from the base of the skull to the midthighs. Nonc ontrast CT images were obtained for attenuation correction and fusion with emission images. CT image s were performed without oral or intravenous contrast and are not sensitive for parenchymal lesions. A series of overlapping emission PET images were obtained. Images reviewed and manipulated at [facility] work station by the radiologist. Images stored on PACS. LIMITATIONS: None. FINDINGS: HEAD AND NECK: Increased uptake at the level of the cords is most likely physiologic relat ed to phonation. CHEST: Mild increased metabolic activity in the suspicious spiculated mass in the posterior aspect of the right upper lobe. Maximum SUV is 2.17. ABDOMEN AND PELVIS: No areas of abnormal metabolic activity in the abdomen or pelvis. Expected physi ologic activity is present in the genitourinary system and bowel. Minimal focal uptake in the left a spect of the prostate gland. This is nonspecific. PROXIMAL LOWER EXTREMITIES: No areas of abnormal metabolic activity in the soft tissues of the lower extremities. BONES: No abnormal metabolic activity in the visualized skeleton. ADDITIONAL CT FINDINGS: No additional significant findings on the noncontrast CT images. OTHER: No other significant findings. IMPRESSION: Maximum SUV in the right upper lobe spiculated mass is 2.17. No evidence of distant met astasis. TECHNICAL DOCUMENTATION: JOB ID: [id number] 2011 [employer]- All Rights Reserved Reading location - IP/workstation name: [email or web address]
== END ==
LOC: RAD 10:18
PROVIDERS: ATTEND Registered Nurse
DX: R91.8 Other nonspecific abnormal finding of lung field (principal); R91.1 Solitary pulmonary nodule
CPT/HCPCS: 78815; A9552

== ENCOUNTER → 2020-04-29 | Outpatient (CLI) | payer MEDICARE, OTHER ==
--- NOTE | 2020-04-29 12:00 | RADIOLOGY REPORT (SQ) ---
EXAM DESCRIPTION: CT CHEST WITH IMAGES COMPLETED DATE/TIME: 04/29/2020 9:28 am REASON FOR STUDY: C34.12 MALIGNANT NEOPLASM OF UPPER LOBE, LEFT BRONCHUS OR LUNG C34.12 MALIGNANT N EOPLASM OF UPPER LOBE, LEFT BRONCHUS OR SARAI COMPARISON: 12/28/2019. 12/23/2018. TECHNIQUE: CT scan of the chest performed using helical scanning technique with dynamic intravenous contrast injection. Images reviewed with lung, soft tissue and bone windows. Reconstructed coronal and sagittal MPR and MIP images reviewed. All images stored on PACS. All CT scanners at this facility use dose modulation, iterative reconstruction, and/or weight based d osing when appropriate to reduce radiation dose to as low as reasonably achievable (ALARA). [facility]: Dose Right [facility]: CareDose [facility]: Dose Right [facility]: Teradose 4D [facility]: [employer] RENAL FUNCTION: GFR > 60. RADIATION DOSE: CT Rad equipment meets quality standard of care and radiation dose reduction techniq ues were employed. CTDIvol: 13.1 mGy. DLP: 539 mGy-cm. . LIMITATIONS: None. FINDINGS: LUNGS AND PLEURA: Emphysema and scarring. In the area of previously noted masslike opacif ication in the right upper lobe, there is now only persistent hazy linear scar. No discrete nodules or masses here or developing elsewhere in the lungs. Stable 3 mm right upper lobe nodule image 35/70 . Mild additional areas of linear scarring in the lung bases. No pleural effusion. HILAR AND MEDIASTINAL STRUCTURES: No identified masses or abnormal nodes. HEART AND VASCULAR STRUCTURES: Marked Coronary calcification. No pericardial effusion. Ascending ao rta looks ectatic at just under 4 cm. No focal aneurysm. Great vessel origins are patent. No centr al pulmonary embolus allowing for limited opacification. HARDWARE: None in the chest. UPPER ABDOMEN: No significant findings. Limited exam. THYROID AND OTHER SOFT TISSUES: No masses. No adenopathy. BONES: No significant finding. OTHER: No other significant finding. IMPRESSION: 1. Resolved opacity in the right upper lobe. Minimal persistent scar here. 2. Otherwise stable CT appearance of the chest. No developing lesions. TECHNICAL DOCUMENTATION: JOB ID: [id number] Quality ID # [id number]: Final reports with documentation of one or more dose reduction techniques (e.g., Au tomated exposure control, adjustment of the mA and/or kV according to patient size, use of iterative reconstruction technique) 2010 [employer]- All Rights Reserved Reading location - IP/workstation name: [email or web address]
== END ==
LOC: RAD 08:44
PROVIDERS: ATTEND Internal Medicine
DX: C34.12 Malignant neoplasm of upper lobe, left bronchus or lung (principal)
CPT/HCPCS: 71260; 82565

== ENCOUNTER 2020-10-13 19:57 | Inpatient (IN) | payer MEDICARE, OTHER ==
--- NOTE | 2020-10-13 20:26 | ER Document Report ---
ED Medical Screen (RME) - General Chief Complaint: Shortness Of Breath Stated Complaint: SHORTNESS OF BREATH Time Seen by Provider: 10/13/20 20:21 Primary Care Provider: KATERINE LOUIS MD [Primary Care Provider] - Follow up as needed Mode of Arrival: Wheelchair Information source: Patient Notes: 60-year-old male presented to ED for severe shortness of breath. He states he has COPD high blood pressure several heart attacks and has cardiac stents. He states he is a former smoker no longer smokes does not drink or do any drugs. He states he is on 2 medicines medications are resolving. She is due for a breathing treatment and he needs it immediately. I cannot give a breathing treatment in the triage area I have informed the charge nurse that I need a room right now he also needs a BiPAP. He states he has BiPAP at home and he does need this area as he is having a hard time breathing right now. Is 97% on 2 L O2 nasal cannula I have greeted and performed a rapid initial assessment of this patient. A comprehensive ED assessment and evaluation of the patient, analysis of test results and completion of medical decision making process will be conducted by an additional ED providers. TRAVEL OUTSIDE OF THE [place] IN LAST 30 DAYS: No - Related Data Allergies/Adverse Reactions: No Known Allergies Allergy (Verified 12/04/19 14:50) Past Medical History - Past Medical History Cardiac Medical History: Reports: Hx Coronary Artery Disease, Hx Heart Attack - 1995, 1999, 2001, Hx Hypertension Denies: Hx Atrial Fibrillation, Hx Congestive Heart Failure Pulmonary Medical History: Reports: Hx Asthma - COPD, Hx Bronchitis, Hx COPD - Oxygen and trilogy dependent, Hx Pneumonia, Hx Respiratory Failure - Chronic hypoxic respiratory failure on O2 2 L/min per nasal cannula cont., Hx Sleep Signal Tester ea - Oxygen and trilogy dependent Neurological Medical History: Denies: Hx Cerebrovascular Accident, Hx Seizures Endocrine Medical History: Reports: Hx Diabetes Mellitus Type 2. Denies: Hx Diabetes Mellitus Type 1, Hx Hyperthyroidism, Hx Hypothyroidism Renal/ Medical History: Denies: Hx Peritoneal Dialysis GI Medical History: Denies: Hx Cirrhosis, Hx Crohn's Disease, Hx Hepatitis, Hx Hiatal Hernia, Hx Ulcer, Hx Ulcerative Colitis Musculoskeltal Medical History: Denies Hx Arthritis, Denies Hx Gout Skin Medical History: Denies Hx Eczema, Denies Hx Psoriasis Psychiatric Medical History: Denies: Hx Depression Traumatic Medical History: Denies: Hx Traumatic Brain Injury Infectious Medical History: Denies: Hx Hepatitis Past Surgical History: Reports: Hx Cardiac Catheterization, Hx Coronary Stent - x6, Hx Open Heart Surgery - STENTS X 6 . Denies: Hx Pacemaker - Immunizations Hx Diphtheria, Pertussis, Tetanus Vaccination: No Physical Exam - Vital signs Vitals: Temp Pulse Resp BP Pulse Ox 98.9 F 117 H 30 H 152/76 H 97 10/13/20 20:06 10/13/20 20:06 10/13/20 20:06 10/13/20 20:06 10/13/20 20:06 Course - Vital Signs Vital signs: Temp Pulse Resp BP Pulse Ox 98.9 F 117 H 30 H 152/76 H 97 10/13/20 20:06 10/13/20 20:06 10/13/20 20:06 10/13/20 20:06 10/13/20 20:06 Doctor's Discharge - Discharge Referrals: KATERINE LOUIS MD [Primary Care Provider] - Follow up as needed
[2020-10-13] MEDS ORDERED: IPRATROPIUM/ALBUTEROL 0.5-2.5 MG/3 ML AMPUL NEB ONE ×3 (20:38→20:44)
[2020-10-13] MEDS ORDERED: METHYLPREDNISOLONE INJ 125 MG/2 ML SDV ONE (20:38)
[2020-10-13] MEDS ORDERED: METHYLPREDNISOLONE INJ 125 MG/2 ML SDV IV ONE (20:44)
--- NOTE | 2020-10-13 20:54 | ER Document Report ---
ED General - General Chief Complaint: Shortness Of Breath Stated Complaint: SHORTNESS OF BREATH Time Seen by Provider: 10/13/20 20:21 Primary Care Provider: KATERINE LOUIS MD [Primary Care Provider] - Follow up as needed Mode of Arrival: Wheelchair TRAVEL OUTSIDE OF THE [place] IN LAST 30 DAYS: No - HPI Context: This is a 60-year-old male with a history of COPD, typically on 2 L O2 by nasal cannula at home 24 hours a day and states he also uses a BiPAP machine at night presenting with chief complaint of shortness of breath from the front lobby. Dennis dang states he no longer smokes and while his still smokes she does not smoke inside the house. He states he has had shortness of breath for the past 2 days. Patient denies history of COVID-19 infection, known exposure to persons positive for COVID-19 or known exposure to persons under investigation for COVID-19 infection. Patient denies fever, chills, chest pain, nausea, vomiting, abdominal pain. Patient denies loss of sense of taste or loss of sense of smell. Patient states any type of exertion exacerbates his shortness of breath and remaining still only slightly alleviates his symptoms. Associated symptoms: Other - See HPI Exacerbated by: Other - See HPI Relieved by: Other - See HPI - Related Data Allergies/Adverse Reactions: No Known Allergies Allergy (Verified 12/04/19 14:50) Past Medical History - General Information source: Patient - Social History Smoking Status: Former Smoker Lives with: Family Family History: Reviewed & Not Pertinent, CAD, DM Patient has suicidal ideation: No Patient has homicidal ideation: No - Past Medical History Cardiac Medical History: Reports: Hx Coronary Artery Disease, Hx Heart Attack - 1995, 1999, 2001, Hx Hypertension Denies: Hx Atrial Fibrillation, Hx Congestive Heart Failure Pulmonary Medical History: Reports: Hx Asthma - COPD, Hx Bronchitis, Hx COPD - Oxygen and trilogy dependent, Hx Pneumonia, Hx Respiratory Failure - Chronic hypoxic respiratory failure on O2 2 L/min per nasal cannula cont., Hx Sleep Apnea - Oxygen and trilogy dependent Neurological Medical History: Denies: Hx Cerebrovascular Accident, Hx Seizures Endocrine Medical History: Reports: Hx Diabetes Mellitus Type 2. Denies: Hx Diabetes Mellitus Type 1, Hx Hyperthyroidism, Hx Hypothyroidism Renal/ Medical History: Denies: Hx Peritoneal Dialysis GI Medical History: Denies: Hx Cirrhosis, Hx Crohn's Disease, Hx Hepatitis, Hx Hiatal Hernia, Hx Ulcer, Hx Ulcerative Colitis Musculoskeletal Medical History: Denies Hx Arthritis, Denies Hx Gout Skin Medical History: Denies Hx Eczema, Denies Hx Psoriasis Psychiatric Medical History: Denies: Hx Depression Traumatic Medical History: Denies: Hx Traumatic Brain Injury Infectious Medical History: Denies: Hx Hepatitis Past Surgical History: Reports: Hx Cardiac Catheterization, Hx Coronary Stent - x6, Hx Open Heart Surgery - STENTS X 6 . Denies: Hx Pacemaker - Immunizations Hx Diphtheria, Pertussis, Tetanus Vaccination: No Hx Pneumococcal Vaccination: 08/15/16 Review of Systems - Review of Systems Notes: Review of systems as below unless otherwise stated in HPI. CONSTITUTIONAL [No] fever, [No] chills. EYES [No] eye pain. ENT [No] URI symptoms, [No] sore throat, [No] ear pain. CARDIOVASCULAR [No] chest pain, [No] palpitations, [No] edema. RESPIRATORY Positive] Cough, [positive] SOB, [positive] wheezing. Positive tachypnea GASTROINTESTINAL [No] abdominal pain, [No] nausea, [No] Diarrhea, [No] Vomiting, [No] constipat ion, [No] melena, [No] rectal bleeding. GENITOURINARY [No] dysuria, [No] urinary frequency, [No] hematuria, [No] urinary urgency MUSCULOSKELETAL [No] Back pain. SKIN [No] Rash. NEUROLOGIC [No] Headache, [No] recent seizures, [No] paralysis,[No] parathesias. ENDOCRINE [No] polyuria. HEMO/LYMPATIC [No] easy brusing PSYCHIATRIC [No] depression. Physical Exam - Vital signs Vitals: Temp Pulse Resp BP Pulse Ox 98.9 F 117 H 30 H 152/76 H 97 10/13/20 20:06 10/13/20 20:06 10/13/20 20:06 10/13/20 20:06 10/13/20 20:06 - Notes Notes: CONSTITUTIONAL [Vital signs reviewed, Patient appears to be in acute respiratory distress, has obvious increased work of breathing, alert and oriented X 3, speaks in 1 and 2 word sentences HEAD [Atraumatic, Normocephalic.] EYES [Eyes are normal to inspection, No discharge from eyes, Extraocular muscles intact, Sclera are normal, Conjunctiva are normal.] ENT [External ears normal to inspection, Nose examination normal, Mouth normal to inspection.] NECK [Normal ROM, No jugular venous distention, No meningeal signs, ] RESPIRATORY CHEST There is audible air movement at the base of the patient's right posterior lung field, scant wheezes also appreciated, breath sounds are barely audible throughout the remainder of the patient's lung omalley. Patient is extremely tachypneic CARDIOVASCULAR [Tachycardia, No murmurs, Normal S1 S2, No rub, No gallop.] ABDOMEN [Abdomen is nontender, No pulsatile masses, No other masses, Bowel sounds normal, No distension, No peritoneal signs, No hernias.] BACK [There is no CVA Tenderness, There is no tenderness to palpation, Normal inspection.] UPPER EXTREMITY [Inspection normal, No cyanosis, No clubbing, No edema, LOWER EXTREMITY [Inspection normal, No cyanosis, No clubbing, No edema, No calf tenderness, NEURO [No focal motor deficits, No focal sensory deficits, patient speaks in 1-2 word sentences but speech does not seem slurred] SKIN Skin is cool and diaphoretic PSYCHIATRIC [Anxious affect. ] Course - Re-evaluation Re-evalutation: 10/13/20 23:40 Patient states he is feeling better now that he is on BiPAP. Patient appears to be having less difficulty breathing. He no longer appears to be in acute respiratory distress. Results of ED MSE, recommendation for admission discussed with patient who was agreeable to being admitted. - Vital Signs Vital signs: Temp Pulse Resp BP Pulse Ox 98.9 F 117 H 22 H 128/64 H 100 10/13/20 20:06 10/13/20 20:06 10/14/20 00:00 10/14/20 00:00 10/14/20 00:00 - Laboratory Result Diagrams: 10/13/20 20:37 10/13/20 20:37 Laboratory results interpreted by me: 10/13/20 10/13/20 10/13/20 20:37 20:37 20:37 WBC 16.2 H Hgb 8.7 L Hct 29.7 L MCV 66 L MCH 19.4 L MCHC 29.4 L RDW 20.4 H Plt Count 499 H Seg Neuts % (Manual) 87 H Lymphocytes % (Manual) 9 L Abs Neuts (Manual) 14.1 H Glucose 179 H Lactic Acid 2.7 H ALT 77 H - Diagnostic Test Radiology reviewed: Reports reviewed - EKG Interpretation by Me Additional EKG results interpreted by me: 10/13/20 20:54 EKG obtained on 10/13/2020 at 2044 hrs. was interpreted by this MD. Findings: Sinus tachycardia, rate 123, normal axis, TX interval appears to be within normal limits, P waves preceding QRS complexes, right bundle branch block is present, QTC is 467, there are no obvious patterns of ST segment elevation, dep ression or reciprocal changes seen to suggest acute myocardial ischemia or infarction. When compared with prior EKG from 11/08/2019 the gross morphology of the 2 EKGs appears very similar without evidence of significant change. Impression: Sinus tachycardia with right bundle branch block and nonspecific ST segments. - Consults Dr. Real Time consulted: 23:32 Reason for consultation: 10/13/20 23:37 acute respiratory failure, pneumonia, copd exacerbation Consulted provider: will come to ER Critical Care Note - Critical Care Note Total time excluding time spent on procedures (mins): 120 - Management of patient with acute respiratory failure, COPD exacerbation, pneumonia Discharge - Discharge Clinical Impression: Person under investigation for COVID-19 Acute respiratory failure Qualifiers: Respiratory failure complication: unspecified whether with hypoxia or hypercapnia Qualified Code(s): J96.00 - Acute respiratory failure, unspecified whether with hypoxia or hypercapnia Pneumonia Qualifiers: Pneumonia type: due to unspecified organism Laterality: unspecified laterality Lung location: unspecified part of lung Qualified Code(s): J18.9 - Pneumonia, unspecified organism Condition: Stable Disposition: ADMITTED INPATIENT Admitting Provider: Addie (Hospitalist) Unit Admitted: IMCU Referrals: KATERINE LOUIS MD [Primary Care Provider] - Follow up as needed
[2020-10-13 21:16] LABS: ALBUMIN 4.6 g/dL (3.5-5.0); ALKALINE PHOSPHATASE 45 U/L (38-126); ANION GAP 11 (5-19); ASPARTATE AMINO TRANSFERASE 39 U/L (17-59); BILIRUBIN,DIRECT 0.1 mg/dL (0.0-0.4); BILIRUBIN,TOTAL 0.5 mg/dL (0.2-1.3); BLOOD UREA NITROGEN 13 mg/dL (7-20); CARBON DIOXIDE 27 mmol/L (22-30); CHLORIDE 100 mmol/L (98-107); GLUCOSE 179 mg/dL (75-110); POTASSIUM 4.6 mmol/L (3.6-5.0)
[2020-10-13] MEDS ORDERED: PIPERACILLIN/TAZOBACTAM 4.5 GM VIAL IV ONE ×2 (21:24→21:27)
[2020-10-13] MEDS ORDERED: NORMAL SALINE IV ONE (21:27)
[2020-10-13 21:32] LABS: HEMATOCRIT 29.7 % (37.9-51.0); HEMOGLOBIN 8.7 g/dL (13.5-17.0); MEAN CORPUSCULAR HEMOGLOBIN 19.4 pg (27.0-33.4); MEAN CORPUSCULAR HGB CONC 29.4 g/dL (32.0-36.0); MEAN CORPUSCULAR VOLUME 66 fl (80-97); PLATELET COUNT 499 10^3/uL (150-450); RED CELL DISTRIBUTION WIDTH 20.4 % (11.5-14.0); WHITE BLOOD COUNT 16.2 10^3/uL (4.0-10.5)
[2020-10-13 21:48] LABS: ABSOLUTE LYMPHOCYTES# (MANUAL) 1.5 10^3/uL (0.5-4.7); ABSOLUTE MONOCYTES # (MANUAL) 0.5 10^3/uL (0.1-1.4); BASOPHILS % (MANUAL) 1 % (0-2); EOSINOPHILS % (MANUAL) 0 % (0-6); LYMPHOCYTES % (MANUAL) 9 % (13-45); MONOCYTES % (MANUAL) 3 % (3-13); SEGMENTED NEUTROPHILS % (MAN) 87 % (42-78); TOTAL CELLS COUNTED 100
[2020-10-13 21:49] LABS: TOXIC GRANULATION 1+
[2020-10-13 21:50] LABS: ANISOCYTOSIS 2+; OVALOCYTES 2+; PLATELET COMMENT ADEQUATE; POIKILOCYTOSIS 2+; SCHISTOCYTES 1+; TEAR DROP CELLS 1+
[2020-10-13 22:11] LABS: VENOUS BLOOD BASE EXCESS -0.6 mmol/L; VENOUS BLOOD HCO3 25.6 mmol/L (20-32); VENOUS BLOOD PCO2 48.2 mmHg (35-63); VENOUS BLOOD PH 7.34 (7.30-7.42)
--- NOTE | 2020-10-13 22:12 | EKG REPORT ---
SEVERITY:- ABNORMAL ECG - SINUS TACHYCARDIA RIGHT BUNDLE BRANCH BLOCK : Confirmed by: Guillermo Cárdenas MD 13-Oct-2020 22:12:01
--- NOTE | 2020-10-13 22:21 | RADIOLOGY REPORT (SQ) ---
EXAM DESCRIPTION: CHEST SINGLE VIEW CLINICAL HISTORY: 60 years Male, chest pain short of breath COMPARISON: Single view of the chest 12/21/2018 FINDINGS: Lungs: There is been development of very subtle parenchymal opacification in the left lung base. The right lung is clear. No obvious pneumothorax or pleural effusion. Mediastinum: Cardiac and mediastinal silhouette are unchanged. Bones: Osseous structures are stable IMPRESSION: Interval development of subtle opacification in the left lung base concerning for possible pneumonia.
[2020-10-13 23:00] LABS: A TYPE INFLUENZA AG NEGATIVE (NEGATIVE); B INFLUENZA AG NEGATIVE (NEGATIVE)
[2020-10-14] MEDS ORDERED: ALBUTEROL SULFATE 0.083% NEB 2.5 MG/3 ML AMPUL NEB PRN (00:04)
[2020-10-14] MEDS ORDERED: GLUCAGON,HUMAN RECOMB 1 MG INJ IM PRN (00:04)
[2020-10-14] MEDS ORDERED: ACETAMINOPHEN 325 MG TABLET PO PRN (00:04)
[2020-10-14] MEDS ORDERED: DEXTROSE 40% GEL 15 GM TUBE PO PRN ×2 (00:04)
[2020-10-14] MEDS ORDERED: DEXTROSE 50%-WATER 25 GM/50 ML DISP.SYRIN IV PRN ×2 (00:04)
[2020-10-14] MEDS ORDERED: ONDANSETRON HCL INJ/PF 4 MG/2 ML SDV IV PRN (00:04)
--- NOTE | 2020-10-14 00:20 | PDOC H&P ---
History of Present Illness Admission Date/PCP: [facility] History of Present Illness: ELIA ROSENBAUM is a 60 year old male with multiple medical comorbidities including emphysema, chronic hypoxemic respiratory failure, coronary artery disease, xoe-[id number]-husgwhlds diabetes mellitus, iron deficiency anemia, and obesity, who presents with a 3-day history of worsening shortness of breath. He is on 2 L of oxygen during the day and on BiPAP at night, he does not know his BiPAP settings. He said he has had worsening shortness of breath to the point where he short of breath at rest, productive cough of yellowish sputum, and he alleges that he had a temperature of 102 F at home earlier. He said he took some Tylenol and it came down. He said he takes nebulizer treatments every 4 hours at home, but his breathing was still getting worse. He has received a dose of Solu-Medrol and numerous breathing treatments and has been put on BiPAP and is feeling somewhat better at this time. He said that he used to smoke but he quit several years ago, he said his still smokes but she goes outside to do it. Chest x-ray showed what could be a small opacity in the left lung base. Past Medical History Cardiac Medical History: Reports: Coronary Artery Disease, Myocardial Infarction - 1995, 1999, 2001, Hypertension Denies: Atrial Fibrillation, Congestive Heart Failure Pulmonary Medical History: Reports: Asthma - COPD, Bronchitis, Chronic Obstructive Pulmonary Disease (COPD) - Oxygen and trilogy dependent, Pneumonia, Respiratory Failure - Chronic hypoxic respiratory failure on O2 2 L/min per nasal cannula cont., Sleep Apnea - Oxygen and trilogy dependent Neurological Medical History: Denies: Seizures Endocrine Medical History: Reports: Diabetes Mellitus Type 2 Denies: Diabetes Mellitus Type 1, Hyperthyroidism, Hypothyroidism GI Medical History: Denies: Cirrhosis, Crohn's Disease, Hepatitis, Hiatal Hernia, Ulcerative Colitis Musculoskeltal Medical History: Denies: Arthritis, Gout Skin Medical History: Denies: Eczema, Psoriasis Psychiatric Medical History: Denies: Depression Traumatic Medical History: Denies: Traumatic Brain Injury Hematology: Reports: Anemia - 2016 FE DEF. Denies: Sickle Cell Disease, Bleeding Tendencies Past Surgical History Past Surgical History: Reports: Cardiac Catheterization, Coronary Stent - x6 Denies: Pacemaker Social History Lives with: Family Smoking Status: Former Smoker Frequency of Alcohol Use: None Hx Recreational Drug Use: No Drugs: None Hx Prescription Drug Abuse: No Family History Family History: Reviewed & Not Pertinent, CAD, DM Parental Family History Reviewed: Yes Children Family History Reviewed: Yes Sibling(s) Family History Reviewed.: Yes Medication/Allergy Home Medications: Acetaminophen [Tylenol] 500 mg PO Q6HP PRN 11/09/19 Albuterol Sulfate [Proair HFA Inhalation Aerosol 8.5 gm MDI] 2 puff IH Q4HP PRN 11/09/19 Alendronate Sodium [Fosamax 70 mg Tablet] 1 tab PO [id number] 11/09/19 Ascorbic Acid [Vitamin C 500 mg Tablet] 500 mg PO DAILY 11/09/19 Aspirin [Ecotrin 81 mg EC Tablet] 81 mg PO DAILY 11/09/19 Atorvastatin Calcium [Lipitor 40 mg Tablet] 40 mg PO QHS 11/09/19 Clopidogrel Bisulfate [Plavix 75 mg Tablet] 75 mg PO DAILY 11/09/19 Cyanocobalamin (Vitamin B-12) [Vitamin B-12] 1,000 mcg PO DAILY 11/09/19 Ferrous Sulfate 324 mg PO DAILY 11/09/19 Fluticasone/Umeclidin/Vilanter [Trelegy 100-62.5-25 Mcg Ellipta 14 Dose/Dpi] 1 puff IH QAM 11/09/19 Folic Acid 1 mg PO DAILY 11/09/19 Ipratropium/Albuterol Sulfate [Duoneb 3 ml Ampul] 3 ml NEB RTQ3 11/09/19 Lisinopril [Prinivil] 20 mg PO DAILY 11/09/19 Metformin HCl [Metformin HCl ER] 500 mg PO BID 11/09/19 Metoprolol Succinate [Toprol Xl 50 mg Tab.sr] 50 mg PO DAILY 11/09/19 Ranolazine [Ranolazine ER] 500 mg PO BID 11/09/19 Roflumilast [Daliresp 500 mcg Tablet] 500 mcg PO DAILY 11/09/19 Allergies/Adverse Reactions: No Known Allergies Allergy (Verified 12/04/19 14:50) Review of Systems All systems: reviewed and no additional remarkable complaints except as stated - All systems were reviewed and were negative except as noted in the HPI Physical Exam Vital Signs: Temp Pulse Resp BP Pulse Ox 98.9 F 117 H 25 H 142/76 H 100 10/13/20 20:06 10/13/20 20:06 10/13/20 23:00 10/13/20 23:00 10/13/20 23:00 Intake & Output 10/12/20 10/13/20 10/14/20 06:59 06:59 06:59 Intake Total 33 Balance 33 Weight 97.9 kg General appearance: PRESENT: cooperative, disheveled, mild distress, obese Head exam: PRESENT: atraumatic, normocephalic Eye exam: PRESENT: EOMI, PERRLA. ABSENT: conjunctival injection, nystagmus, scleral icterus Ear exam: PRESENT: normal external ear exam Mouth exam: PRESENT: dry mucosa, neck supple Neck exam: PRESENT: full ROM. ABSENT: carotid bruit, JVD, lymphadenopathy, meningismus, tenderness, thyromegaly Respiratory exam: PRESENT: accessory muscle use, decreased breath sounds, prolonged expiratory phas, symmetrical, tachypnea. ABSENT: chest wall tenderness, crackles, rhonchi, unlabored, wheezes Cardiovascular exam: PRESENT: +S1, +S2, tachycardia Pulses: PRESENT: normal carotid pulses Vascular exam: PRESENT: normal capillary refill GI/Abdominal exam: PRESENT: normal bowel sounds, soft. ABSENT: distended, guarding, rebound, tenderness Extremities exam: ABSENT: clubbing, pedal edema Musculoskeletal exam: PRESENT: normal inspection. ABSENT: deformity Neurological exam: PRESENT: alert, awake, oriented to person, oriented to place, oriented to time, oriented to situation, CN II-XII grossly intact. ABSENT: motor sensory deficit Psychiatric exam: PRESENT: appropriate affect, normal mood Skin exam: PRESENT: dry, warm Results Laboratory Results: 10/13/20 20:37 10/13/20 20:37 10/13/20 10/13/20 10/13/20 20:37 20:37 20:37 WBC 16.2 H RBC 4.50 Hgb 8.7 L Hct 29.7 L MCV 66 L MCH 19.4 L MCHC 29.4 L RDW 20.4 H Plt Count 499 H Seg Neutrophils % Not Reportable VBG pH VBG pCO2 VBG HCO3 VBG Base Excess Sodium 137.6 Potassium 4.6 Chloride 100 Carbon Dioxide 27 Anion Gap 11 BUN 13 Creatinine 0.99 Est GFR ( Amer) > 60 Glucose 179 H Lactic Acid 2.7 H Calcium 10.0 Total Bilirubin 0.5 AST 39 Alkaline Phosphatase 45 Total Protein 7.0 Albumin 4.6 10/13/20 20:37 WBC RBC Hgb Hct MCV MCH MCHC RDW Plt Count Seg Neutrophils % VBG pH 7.34 VBG pCO2 48.2 VBG HCO3 25.6 VBG Base Excess -0.6 Sodium Potassium Chloride Carbon Dioxide Anion Gap BUN Creatinine Est GFR ( Amer) Glucose Lactic Acid Calcium Total Bilirubin AST Alkaline Phosphatase Total Protein Albumin 10/13/20 10/13/20 20:37 20:37 Troponin I < 0.012 NT-Pro-B Natriuret Pep 102 Impressions: Chest X-Ray 10/13/20 20:27 IMPRESSION: Interval development of subtle opacification in the left lung base concerning for possible pneumonia. Assessment and Plan - Diagnosis (1) Acute and chronic respiratory failure with hypoxia Is this a current diagnosis for this admission?: Yes (2) Sepsis Qualifiers: Sepsis type: sepsis due to unspecified organism Sepsis acute organ dysfunction status: with acute organ dysfunction Severe sepsis acute organ dysfunction type: acute respiratory failure Acute respiratory failure type: with hypoxia Severe sepsis shock status: without septic shock Qualified Code(s): A41.9 - Sepsis, unspecified organism; R65.20 - Severe sepsis without septic shock; J96.01 - Acute respiratory failure with hypoxia Is this a current diagnosis for this admission?: Yes (3) Left lower lobe pneumonia Qualifiers: Pneumonia type: due to unspecified organism Qualified Code(s): J18.9 - Pneumonia, unspecified organism Is this a current diagnosis for this admission?: Yes (4) COPD with acute exacerbation Is this a current diagnosis for this admission?: Yes (5) Person under investigation for COVID-19 Is this a current diagnosis for this admission?: Yes (6) Coronary artery disease Qualifiers: Coronary Disease-Associated Artery/Lesion type: [place] artery [place] vs. transplanted heart: [place] heart Associated angina: without angina Qualified Code(s): I25.10 - Atherosclerotic heart disease of [place] coronary artery without angina pectoris Is this a current diagnosis for this admission?: Yes (7) Diabetes mellitus type 2 in nonobese Is this a current diagnosis for this admission?: Yes (8) Essential hypertension Is this a current diagnosis for this admission?: Yes (9) Former smoker Is this a current diagnosis for this admission?: Yes (10) Nodule of right lung Is this a current diagnosis for this admission?: Yes - Plan Summary Summary: He does not know his BiPAP settings at home, but currently he is on 12/6 at 50% FiO2 and appears comfortable. We will continue to wean O2 as tolerated. He is normally on 2 L nasal cannula at home. We will start him on some IV Solu- Medrol, nebulizer treatments, and I started IV Zosyn because he appears to have a pneumonia as evidenced by fever, leukocytosis, and possible opacity on chest x-ray. He also had a fever at home allegedly. His medical history also puts him at risk for gram-negative pneumonia. He is not on insulin at home, but I started a sliding scale in anticipation that the steroids will make his blood sugars go higher. We will resume most of his home medications when they are verified by the pharmacy. - Time Time Spent with patient: 35 or more minutes Anticipated Discharge Disposition: Home with Home Health Anticipated Discharge Timeframe: Unknown - Inpatient Certification Based on my medical assessment, after consideration of the patient's comorbidities, presenting symptoms, or acuity I expect that the services needed warrant INPATIENT care.: Yes I certify that my determination is in accordance with my understanding of Medicare's requirements for reasonable and necessary INPATIENT services [42 CFR 412.3e].: Yes Medical Necessity: Significant Comorbidiites Make Outpatient Treatment Too Risky, Need Close Monitoring Due to Risk of Patient Decompensation, Need For Continuous Telemetry Monitoring, Need for Nebulizer Therapy and Monitoring of Response, Need for IV Antibiotics, Risk of Complication if Not Cared For in Hospital
[2020-10-14 00:46] LABS: ABSOLUTE RETICS # 0.092 10^6/uL (0.028-0.122); RETICULOCYTE COUNT (AUTO) 2.13 % (0.66-2.85)
[2020-10-14 02:08] LABS: FERRITIN 7.09 ng/mL (17.9-464.0)
[2020-10-14 02:25] LABS: IRON(TIBC) < 10.1 ug/dL (49-181)
[2020-10-14 02:47] LABS: FOLATE > 20.00 ng/mL (>2.76)
[2020-10-14 03:30] LABS: HEMATOCRIT 24.4 % (37.9-51.0); MEAN CORPUSCULAR HEMOGLOBIN 19.5 pg (27.0-33.4); MEAN CORPUSCULAR HGB CONC 29.5 g/dL (32.0-36.0); MEAN CORPUSCULAR VOLUME 66 fl (80-97); PLATELET COUNT 390 10^3/uL (150-450); RED BLOOD COUNT 3.69 10^6/uL (4.35-5.55); RED CELL DISTRIBUTION WIDTH 20.5 % (11.5-14.0); WHITE BLOOD COUNT 15.7 10^3/uL (4.0-10.5)
[2020-10-14 03:32] LABS: HEMOGLOBIN 7.2 g/dL (13.5-17.0)
[2020-10-14] MEDS: IPRATROPIUM/ALBUTEROL 0.5-2.5 MG/3 ML AMPUL NEB SCH ×5 (04:00→20:15)
[2020-10-14 04:18] LABS: ANION GAP 9 (5-19); BLOOD UREA NITROGEN 13 mg/dL (7-20); CALCIUM 8.4 mg/dL (8.4-10.2); CARBON DIOXIDE 20 mmol/L (22-30); CHLORIDE 105 mmol/L (98-107); GLUCOSE 260 mg/dL (75-110); POTASSIUM 4.9 mmol/L (3.6-5.0)
[2020-10-14] MEDS: HEPARIN SOD (PORCINE) 5,000 UNIT/ML 1 ML VIAL SUBCUT SCH ×3 (05:30→22:09)
[2020-10-14] MEDS: METHYLPREDNISOLONE INJ 40 MG/1 ML SDV IV SCH ×3 (05:30→22:09)
[2020-10-14] MEDS: PIPERACILLIN SODIUM/TAZOBACTAM 3.375 GM in NORMAL SALINE 100 ML IV SCH ×3 (05:31→17:57)
[2020-10-14] MEDS: INSULIN LISPRO 100 UNIT/ML 3 ML VIAL SUBCUT SCH ×4 (07:51→22:08)
[2020-10-14] MEDS ORDERED: IRON SUCROSE COMPLEX INJ/PF 100 MG/5 ML SDV IV ONE (09:30)
--- NOTE | 2020-10-14 12:41 | PDOC PROGRESS REPORT ---
Subjective Date:: 10/14/20 Subjective:: ELIA ROSENBAUM is a 60 year old male with multiple medical comorbidities including emphysema, chronic hypoxemic respiratory failure, coronary artery disease, [id number] diabetes mellitus, iron deficiency anemia, and obesity, who presents with a 3-day history of worsening shortness of breath. He is on 2 L of oxygen during the day and on BiPAP at night, he does not know his BiPAP settings. He said he has had worsening shortness of breath to the point where he short of breath at rest, productive cough of yellowish sputum, and he alleges that he had a temperature of 102 F at home earlier. He said he took some Tylenol and it came down. He said he takes nebulizer treatments every 4 hours at home, but his breathing was still getting worse. He has received a dose of Solu-Medrol and numerous breathing treatments and has been put on BiPAP and is feeling somewhat better at this time. He said that he used to smoke but he quit several years ago, he said his still smokes but she goes outside to do it. Chest x-ray showed what could be a small opacity in the left lung base. D1 Hospital stay 10/14/20 He was seen and examined at bedside. He reports that his breathing is much better now although he still feels short of breath with movement. I have resumed his home meds including Trelegy. I have asked him about his anemia and he said he is on iron for it. According to him he has never been worked up for it and has not had any colonoscopy. I gave him a dose of IV iron . COVID test still pending. According to the patient Dr. Jesus started him on a taper dose of Oral prednisone and he is currently on his 15 mg tablet (3 tab) week. He will be down to his 10 mg tab by WednesdayOctober 20. He is on IV steroids here in the hospital currently. I have asked him if he wants me to talk to anyone from his family to give them an update and he said no and he can call them himself. Reason For Visit: ACUTE ON CHRONIC HYPOXIC RESPIRATORY FAILURE, LEFT Physical Exam Vital Signs: Temp Pulse Resp BP Pulse Ox 97.8 F 115 H 22 H 129/65 H 100 10/14/20 08:44 10/14/20 11:35 10/14/20 11:35 10/14/20 08:44 10/14/20 11:35 Intake & Output 10/13/20 10/14/20 10/15/20 06:59 06:59 06:59 Intake Total 1155 Output Total 250 Balance 905 Weight 97.9 kg General appearance: PRESENT: cooperative, mild distress Head exam: PRESENT: atraumatic, normocephalic Eye exam: PRESENT: EOMI, PERRLA Mouth exam: PRESENT: moist Neck exam: PRESENT: full ROM Respiratory exam: PRESENT: symmetrical, unlabored, wheezes Cardiovascular exam: PRESENT: RRR, +S1, +S2 Vascular exam: PRESENT: normal capillary refill GI/Abdominal exam: PRESENT: normal bowel sounds, soft. ABSENT: rebound, tenderness Extremities exam: PRESENT: full ROM Musculoskeletal exam: PRESENT: full ROM Neurological exam: PRESENT: alert, awake, oriented to person, oriented to place, oriented to time, oriented to situation Results Laboratory Results: 10/14/20 03:15 10/14/20 03:15 10/13/20 10/13/20 10/13/20 20:37 20:37 20:37 WBC 16.2 H RBC 4.50 Hgb 8.7 L Hct 29.7 L MCV 66 L MCH 19.4 L MCHC 29.4 L RDW 20.4 H Plt Count 499 H Seg Neutrophils % Not Reportable Retic Count (auto) VBG pH VBG pCO2 VBG HCO3 VBG Base Excess Sodium 137.6 Potassium 4.6 Chloride 100 Carbon Dioxide 27 Anion Gap 11 BUN 13 Creatinine 0.99 Est GFR ( Amer) > 60 Glucose 179 H Lactic Acid 2.7 H Calcium 10.0 Magnesium Iron TIBC Ferritin Total Bilirubin 0.5 AST 39 Alkaline Phosphatase 45 Total Protein 7.0 Albumin 4.6 Vitamin B12 Folate 10/13/20 10/13/20 10/13/20 20:37 20:37 20:37 WBC RBC Hgb Hct MCV MCH MCHC RDW Plt Count Seg Neutrophils % Retic Count (auto) 2.13 VBG pH 7.34 VBG pCO2 48.2 VBG HCO3 25.6 VBG Base Excess -0.6 Sodium Potassium Chloride Carbon Dioxide Anion Gap BUN Creatinine Est GFR ( Amer) Glucose Lactic Acid Calcium Magnesium Iron < 10.1 L TIBC 508 H Ferritin 7.09 L Total Bilirubin AST Alkaline Phosphatase Total Protein Albumin Vitamin B12 > 1000.0 H Folate > 20.00 10/13/20 10/14/20 10/14/20 23:39 03:15 03:15 WBC 15.7 H RBC 3.69 L Hgb 7.2 L Hct 24.4 L MCV 66 L MCH 19.5 L MCHC 29.5 L RDW 20.5 H Plt Count 390 Seg Neutrophils % Retic Count (auto) VBG pH VBG pCO2 VBG HCO3 VBG Base Excess Sodium Potassium Chloride Carbon Dioxide Anion Gap BUN Creatinine Est GFR ( Amer) Glucose Lactic Acid 1.6 3.6 H Calcium Magnesium Iron TIBC Ferritin Total Bilirubin AST Alkaline Phosphatase Total Protein Albumin Vitamin B12 Folate 10/14/20 03:15 WBC RBC Hgb Hct MCV MCH MCHC RDW Plt Count Seg Neutrophils % Retic Count (auto) VBG pH VBG pCO2 VBG HCO3 VBG Base Excess Sodium 133.6 L Potassium 4.9 Chloride 105 Carbon Dioxide 20 L Anion Gap 9 BUN 13 Creatinine 0.82 Est GFR ( Amer) > 60 Glucose 260 H Lactic Acid Calcium 8.4 Magnesium 1.7 Iron TIBC Ferritin Total Bilirubin AST Alkaline Phosphatase Total Protein Albumin Vitamin B12 Folate 10/13/20 10/13/20 20:37 20:37 Troponin I < 0.012 NT-Pro-B Natriuret Pep 102 Impressions: Chest X-Ray 10/13/20 20:27 IMPRESSION: Interval development of subtle opacification in the left lung base concerning for possible pneumonia. Assessment and Plan - Diagnosis (1) Acute and chronic respiratory failure with hypoxia Is this a current diagnosis for this admission?: Yes Plan: -Came in due to SOB, known COPD patient - chronically on 2L of O2 support at home - currently on 5L of [place] saturating 95% - Likely from COPD exacerbation 2/2 to Pneumonia - continue O2 support - empiric abx for CAP - continue IV steroids, Trelegy and duoneb for SOB - awaiting COVID test (2) COPD exacerbation Is this a current diagnosis for this admission?: Yes Plan: - former smoker , Known COPD who came in due to SOB, cough and changes in sputum color - chronically on 2L O2 NC - has about 1 exacerbation requiring hospitalization per year - GOLD Classification D - per patient Dr. Jesus had started him on oral prednisone taper. This week he is suppose to be on 3 tab (15 mg) to be changed to 2 mg on wednesday. Currently he is on IV steroids. he should be discharged back on prednisone taper. - currently on duoneb -home trelegy restarted - roflumilast resumed - zosyn abx for both exacerbation and CAP - on BIPAP (3) COPD (chronic obstructive pulmonary disease) Qualifiers: COPD type: COPD with acute exacerbation Qualified Code(s): J44.1 - Chronic obstructive pulmonary disease with (acute) exacerbation Is this a current diagnosis for this admission?: Yes Plan: - former smoker - Management as above (4) Left lower lobe pneumonia Qualifiers: Pneumonia type: due to unspecified organism Qualified Code(s): J18.9 - Pneumonia, unspecified organism Is this a current diagnosis for this admission?: Yes Plan: - known COPD patient came in due to increased cough, SOB - CXR interval development of subtle opacification in the left lung base concerning for possible pneumonia -Ddx: Viral Pneumonia vs bacterial pneumonia - blood culture and sputum culture pending - COVID test pending - currently on Zosyn - IV steroids for COPD exacerbation - Duonebs PRN - continue O2 support (5) Person under investigation for COVID-19 Is this a current diagnosis for this admission?: Yes Plan: - COVID test pending - continue O2 support (6) CAD (coronary artery disease) Qualifiers: Coronary Disease-Associated Artery/Lesion type: [place] artery [place] vs. transplanted heart: [place] heart Associated angina: angina presence unspecified Qualified Code(s): I25.10 - Atherosclerotic heart disease of [place] coronary artery without angina pectoris Is this a current diagnosis for this admission?: Yes Plan: - no chest pain - continue aspirin, metoprolol, ranolazine, lipitor (7) Diabetes mellitus type 2 in nonobese Is this a current diagnosis for this admission?: Yes Plan: - on metformin at home - switched to SSI - accucheck - hypoglycemia protocol (8) Iron deficiency anemia Qualifiers: Iron deficiency anemia type: unspecified iron deficiency Qualified Code(s): D50.9 - Iron deficiency anemia, unspecified Is this a current diagnosis for this admission?: Yes Plan: - Hgb 7.2 baseline about 12 - according to the patient has never had work up for SURESH - Ferritin 7 low, Iron <10 low, TIBC 508 high - given 1 dose of IV iron - will need colonscopy outpatient - type adn screen and transfuse as needed (9) HLD (hyperlipidemia) Qualifiers: Hyperlipidemia type: unspecified Qualified Code(s): E78.5 - Hyperlipidemia, unspecified Is this a current diagnosis for this admission?: Yes Plan: - continue lipitor - Plan Summary Summary: . - Time Time Spent with patient: 25-34 minutes Medications reviewed and adjusted accordingly: Yes Anticipated Discharge Disposition: Home with Home Health Anticipated Discharge Timeframe: TBD
[2020-10-14] MEDS: METOPROLOL SUCCINATE 50 MG TAB.SR.24H PO SCH (14:04)
[2020-10-14] MEDS: FLUTICASONE/UMECLIDIN/VILANTER 100-62.5-25 MCG/DOSE IH SCH (15:06)
[2020-10-14] MEDS: RANOLAZINE 500 MG TAB.SR.12H PO SCH (22:08)
[2020-10-14] MEDS: ATORVASTATIN CALCIUM 40 MG TABLET PO SCH (22:08)
[2020-10-15] MEDS: PIPERACILLIN SODIUM/TAZOBACTAM 3.375 GM in NORMAL SALINE 100 ML IV SCH ×2 (00:07→06:38)
[2020-10-15] MEDS: IPRATROPIUM/ALBUTEROL 0.5-2.5 MG/3 ML AMPUL NEB SCH ×6 (00:24→20:10)
[2020-10-15 05:27] LABS: HEMATOCRIT 25.1 % (37.9-51.0); MEAN CORPUSCULAR HEMOGLOBIN 19.7 pg (27.0-33.4); MEAN CORPUSCULAR VOLUME 66 fl (80-97); PLATELET COUNT 385 10^3/uL (150-450); RED BLOOD COUNT 3.83 10^6/uL (4.35-5.55); RED CELL DISTRIBUTION WIDTH 20.6 % (11.5-14.0); WHITE BLOOD COUNT 17.6 10^3/uL (4.0-10.5)
[2020-10-15 05:42] LABS: HEMOGLOBIN 7.5 g/dL (13.5-17.0)
[2020-10-15 05:47] LABS: ANION GAP 6 (5-19); BLOOD UREA NITROGEN 18 mg/dL (7-20); CALCIUM 9.4 mg/dL (8.4-10.2); CARBON DIOXIDE 26 mmol/L (22-30); CHLORIDE 104 mmol/L (98-107); GLUCOSE 191 mg/dL (75-110); POTASSIUM 4.8 mmol/L (3.6-5.0)
[2020-10-15] MEDS: HEPARIN SOD (PORCINE) 5,000 UNIT/ML 1 ML VIAL SUBCUT SCH ×3 (06:38→21:40)
[2020-10-15] MEDS: METHYLPREDNISOLONE INJ 40 MG/1 ML SDV IV SCH (06:38)
[2020-10-15] MEDS ORDERED: INFLUENZA QUAD (6MOS+) 2020-21 VAC 0.5 ML SYR IM ONE (08:00)
[2020-10-15] MEDS ORDERED: ALENDRONATE SODIUM 70 MG PO SCH (08:00)
[2020-10-15] MEDS ORDERED: (PENDING PHARMACY ID) (Lisinopril [Prinivil] 20 MG Tablet) PO SCH (10:00)
[2020-10-15] MEDS ORDERED: ROFLUMILAST 500 MCG PO SCH (10:00)
[2020-10-15] MEDS ORDERED: CYANOCOBALAMIN 1000 MCG PO SCH (10:00)
[2020-10-15] MEDS ORDERED: ASPIRIN 81 MG TABLET, ENT COATED PO SCH (10:00)
[2020-10-15] MEDS ORDERED: IRON SUCROSE COMPLEX INJ/PF 100 MG/5 ML SDV IV SCH (10:00)
[2020-10-15] MEDS: CYANOCOBALAMIN (VITAMIN B-12) 1,000 MCG TABLET PO SCH (10:02)
[2020-10-15] MEDS: RANOLAZINE 500 MG TAB.SR.12H PO SCH ×2 (10:02→21:41)
[2020-10-15] MEDS: LISINOPRIL 10 MG TABLET PO SCH (10:02)
[2020-10-15] MEDS: ROFLUMILAST 500 MCG TABLET PO SCH (10:02)
[2020-10-15] MEDS: ASCORBIC ACID 500 MG TABLET PO SCH (10:02)
[2020-10-15] MEDS: FLUTICASONE/UMECLIDIN/VILANTER 100-62.5-25 MCG/DOSE IH SCH (10:03)
[2020-10-15] MEDS: METOPROLOL SUCCINATE 50 MG TAB.SR.24H PO SCH (10:03)
[2020-10-15] MEDS: FOLIC ACID 1 MG TABLET PO SCH (10:03)
[2020-10-15] MEDS: INSULIN LISPRO 100 UNIT/ML 3 ML VIAL SUBCUT SCH ×4 (10:03→21:41)
[2020-10-15] MEDS: ZINC SULFATE 220 MG CAPSULE PO SCH (10:09)
[2020-10-15] MEDS: DEXAMETHASONE SOD PHOSPHATE INJ 4 MG/1 ML VIAL IV SCH (10:09)
[2020-10-15] MEDS: CEFTRIAXONE 1 GM/D5W RTU 1 GM/50 ML RTUPB IV SCH (10:09)
[2020-10-15] MEDS: IRON SUCROSE COMPLEX INJ/PF 100 MG/5 ML SDV IV SCH (10:16)
[2020-10-15] MEDS: ACETAMINOPHEN 325 MG TABLET PO SCH ×2 (16:41→20:40)
--- NOTE | 2020-10-15 18:02 | PDOC PROGRESS REPORT ---
Subjective Date:: 10/15/20 Subjective:: Patient seen resting in bed comfortably, he is on 2 L nasal cannula as per his home oxygen regimen. He tells me that he is doing significantly better stating that he has not had to use his BiPAP during the day. He continues to feel short of breath with movement though this has improved as well. Reports history of iron deficiency anemia treated with p.o. iron at home. His Covid test is positive. The patient was made aware of this. I called patient's Gabby at as per patient's request. She was made aware and understanding that all contact in house need for testing and quarantine. Patient provides me with no further complaints or concerns. Discussed case with nursing. States that patient is doing well confirms that he is tolerating home O2 withhold difficulty. No further complaints or concerns. Reason For Visit: ACUTE ON CHRONIC HYPOXIC RESPIRATORY FAILURE, LEFT Physical Exam Vital Signs: Temp Pulse Resp BP Pulse Ox 99.0 F 91 18 131/61 H 96 10/15/20 16:17 10/15/20 16:19 10/15/20 16:19 10/15/20 16:17 10/15/20 16:19 Intake & Output 10/14/20 10/15/20 10/16/20 06:59 06:59 06:59 Intake Total 1155 1050 170 Output Total 250 2850 620 Balance 905 -1800 -450 Weight 97.9 kg 101 kg General appearance: PRESENT: no acute distress, cooperative, obese Head exam: PRESENT: atraumatic, normocephalic Eye exam: PRESENT: EOMI. ABSENT: scleral icterus Mouth exam: PRESENT: moist Neck exam: PRESENT: full ROM Respiratory exam: PRESENT: clear to auscultation marielena, symmetrical, unlabored. ABSENT: crackles, rhonchi, tachypnea, wheezes Cardiovascular exam: PRESENT: RRR, +S1, +S2 Pulses: PRESENT: normal radial pulses Vascular exam: PRESENT: normal capillary refill GI/Abdominal exam: PRESENT: soft. ABSENT: tenderness Extremities exam: PRESENT: full ROM. ABSENT: pedal edema, tenderness Musculoskeletal exam: PRESENT: ambulatory, full ROM. ABSENT: deformity Neurological exam: PRESENT: alert, awake, oriented to person, oriented to place, oriented to time, oriented to situation Psychiatric exam: PRESENT: appropriate affect, normal mood Skin exam: PRESENT: dry, intact, warm Results Laboratory Results: 10/15/20 04:51 10/15/20 04:51 10/15/20 10/15/20 04:51 04:51 WBC 17.6 H RBC 3.83 L Hgb 7.5 L Hct 25.1 L MCV 66 L MCH 19.7 L MCHC 30.0 L RDW 20.6 H Plt Count 385 Sodium 136.4 L Potassium 4.8 Chloride 104 Carbon Dioxide 26 Anion Gap 6 BUN 18 Creatinine 0.78 Est GFR ( Amer) > 60 Glucose 191 H Calcium 9.4 Magnesium 2.1 10/13/20 20:47 Sputum Gram Stain - Final 10/13/20 10/13/20 20:37 20:37 Troponin I < 0.012 NT-Pro-B Natriuret Pep 102 Impressions: Chest X-Ray 10/13/20 20:27 IMPRESSION: Interval development of subtle opacification in the left lung base concerning for possible pneumonia. Assessment and Plan - Diagnosis (1) Acute and chronic respiratory failure with hypoxia Is this a current diagnosis for this admission?: Yes Plan: Significantly improved - O2 sat stable on 2L of O2 support at home - Multiple etiologies: COPD exacerbation, sputum culutre + Strep pneumo and COVID positive - Azithromycin 250mg PO daily with first dose 10/16 - Ceftriaxone 1gm first dose 10/15 - Continue IV steroids, Trelegy and duoneb for SOB - Continue zinc, vitamin C, folate (2) COPD exacerbation Is this a current diagnosis for this admission?: Yes Plan: Pt with hx cigarette use, known COPD who came in due to SOB, cough and changes in sputum color - chronically on 2L O2 NC - GOLD Classification D - Cnt duoneb, home trelegy, roflumlast - On zosyn, discontinued, initiated azitho and rocephin Per pt Dr. Jesus had started him on oral prednisone taper. This week he is suppose to be on 3 tab (15 mg) to be changed to 2 mg on wednesday. Currently he is on IV steroids. he should be discharged back on prednisone taper. (3) COPD (chronic obstructive pulmonary disease) Qualifiers: COPD type: COPD with acute exacerbation Qualified Code(s): J44.1 - Chronic obstructive pulmonary disease with (acute) exacerbation Is this a current diagnosis for this admission?: Yes Plan: Management as discussed above. (4) Pneumonia due to COVID-19 virus Is this a current diagnosis for this admission?: Yes Plan: COVID positive as of 10/15. - Tx: Azithro, dexamethasone, Zinc, vitamin C, vitamin B12, folic acid - Stable, does not require convolescent serum or remdesivir at this time (5) Left lower lobe pneumonia Qualifiers: Pneumonia type: due to unspecified organism Qualified Code(s): J18.9 - Pneumonia, unspecified organism Is this a current diagnosis for this admission?: Yes Plan: Maintaining appropriate O2 saturation as above. - CXR interval development of subtle opacification in the left lung base co ncerning for possible pneumonia - Sputum culture 10/13 positive for strep pneumo. - Blood culture without growth in 24 hours. - Covid positive. - Discontinue Zosyn. - Initiate Azithro and rocephin as above. - Continue COPD exacerbation support as above (6) Diabetes mellitus Qualifiers: Diabetes mellitus type: type 2 Diabetes mellitus half-way insulin use: without half-way use Diabetes mellitus complication status: without complication Qualified Code(s): E11.9 - Type 2 diabetes mellitus without complications Is this a current diagnosis for this admission?: Yes Plan: Home medications include Metformin. - Hold during admission - Initiate SSI - accucheck - hypoglycemia protocol (7) Iron deficiency anemia Qualifiers: Iron deficiency anemia type: unspecified iron deficiency Qualified Code(s): D50.9 - Iron deficiency anemia, unspecified Is this a current diagnosis for this admission?: Yes Plan: Hgb 8.7 -> 7.2 -> 7.5 after IV iron infusion. - Baseline about 12 - Ferritin 7 low, Iron <10 low, TIBC 508 high - Given 2 doses of IV iron - Will need colonscopy outpatient (8) HLD (hyperlipidemia) Qualifiers: Hyperlipidemia type: unspecified Qualified Code(s): E78.5 - Hyperlipidemia, unspecified Is this a current diagnosis for this admission?: Yes Plan: Continue lipitor (9) Sepsis Qualifiers: Sepsis type: sepsis due to unspecified organism Severe sepsis acute organ dysfunction type: acute respiratory failure Acute respiratory failure type: with hypoxia Severe sepsis shock status: without septic shock Is this a current diagnosis for this admission?: Yes Plan: Resolved. - Patient presented as Septic on initial presentation. - Time Time Spent with patient: 25-34 minutes Medications reviewed and adjusted accordingly: Yes Anticipated Discharge Disposition: Home, Self Care Anticipated Discharge Timeframe: within 48 hours
[2020-10-15] MEDS: ATORVASTATIN CALCIUM 40 MG TABLET PO SCH (21:41)
[2020-10-16] MEDS: ACETAMINOPHEN 325 MG TABLET PO SCH ×7 (00:16→23:18)
[2020-10-16] MEDS: IPRATROPIUM/ALBUTEROL 0.5-2.5 MG/3 ML AMPUL NEB SCH ×6 (00:31→20:23)
[2020-10-16 05:17] LABS: HEMATOCRIT 23.6 % (37.9-51.0); MEAN CORPUSCULAR HEMOGLOBIN 19.7 pg (27.0-33.4); MEAN CORPUSCULAR HGB CONC 30.3 g/dL (32.0-36.0); MEAN CORPUSCULAR VOLUME 65 fl (80-97); PLATELET COUNT 371 10^3/uL (150-450); RED BLOOD COUNT 3.62 10^6/uL (4.35-5.55); RED CELL DISTRIBUTION WIDTH 20.6 % (11.5-14.0); WHITE BLOOD COUNT 10.9 10^3/uL (4.0-10.5)
[2020-10-16 05:20] LABS: HEMOGLOBIN 7.1 g/dL (13.5-17.0)
[2020-10-16 05:32] LABS: ANION GAP 7 (5-19); BLOOD UREA NITROGEN 22 mg/dL (7-20); CALCIUM 9.1 mg/dL (8.4-10.2); CARBON DIOXIDE 27 mmol/L (22-30); CHLORIDE 102 mmol/L (98-107); GLUCOSE 135 mg/dL (75-110)
[2020-10-16] MEDS: HEPARIN SOD (PORCINE) 5,000 UNIT/ML 1 ML VIAL SUBCUT SCH ×3 (05:34→22:26)
[2020-10-16 06:17] LABS: POTASSIUM 3.8 mmol/L (3.6-5.0)
[2020-10-16] MEDS ORDERED: NORMAL SALINE 250 ML IV PRN ×2 (07:41)
[2020-10-16] MEDS: INSULIN LISPRO 100 UNIT/ML 3 ML VIAL SUBCUT SCH ×4 (08:13→22:26)
[2020-10-16] MEDS: DEXAMETHASONE SOD PHOSPHATE INJ 4 MG/1 ML VIAL IV SCH (09:50)
[2020-10-16] MEDS: LISINOPRIL 10 MG TABLET PO SCH (09:51)
[2020-10-16] MEDS: ASCORBIC ACID 500 MG TABLET PO SCH (09:51)
[2020-10-16] MEDS: ZINC SULFATE 220 MG CAPSULE PO SCH (09:51)
[2020-10-16] MEDS: CYANOCOBALAMIN (VITAMIN B-12) 1,000 MCG TABLET PO SCH (09:51)
[2020-10-16] MEDS: FOLIC ACID 1 MG TABLET PO SCH (09:52)
[2020-10-16] MEDS: METOPROLOL SUCCINATE 50 MG TAB.SR.24H PO SCH (09:52)
[2020-10-16] MEDS: IRON SUCROSE COMPLEX INJ/PF 100 MG/5 ML SDV IV SCH (09:52)
[2020-10-16] MEDS: RANOLAZINE 500 MG TAB.SR.12H PO SCH ×2 (09:52→22:26)
[2020-10-16] MEDS: CEFTRIAXONE 1 GM/D5W RTU 1 GM/50 ML RTUPB IV SCH (09:52)
[2020-10-16] MEDS: ROFLUMILAST 500 MCG TABLET PO SCH (09:53)
[2020-10-16] MEDS: CLOPIDOGREL BISULFATE 75 MG TABLET PO SCH (09:54)
[2020-10-16] MEDS: FLUTICASONE/UMECLIDIN/VILANTER 100-62.5-25 MCG/DOSE IH SCH (10:28)
[2020-10-16] MEDS: AZITHROMYCIN 250 MG TABLET PO SCH (10:33)
--- NOTE | 2020-10-16 11:25 | CDI QUERY ---
<NAHUM WILEY - Last Filed: 10/16/20 11:24> CDI Query CDI Review: We are seeking further clarification of documentation to reflect the severity of illness of your patient. Per H&P: Sepsis Qualifiers: Sepsis type: sepsis due to unspecified organism Sepsis acute organ dysfunction status: with acute organ dysfunction Severe sepsis acute organ dysfunction type: acute respiratory failure Acute respiratory failure type: with hypoxia Severe sepsis shock status: without septic shock Qualified Cod e(s): A41.9 - Sepsis, unspecified organism; R65.20 - Severe sepsis without septic shock; J96.01 - Acute respiratory failure with hypoxia Is this a current diagnosis for this admission?: Yes Based on your medical judgement, can you further clarify in the Progress Notes and carry through to the Discharge Summary: Sepsis Present on Admission / confirmed Sepsis resolved Sepsis ruled out Unable to determine Other Thank you for your consideration. ALAN Ram RN Clinical Medical Office Receptionist Physician Advisor <JIMMY RESENDEZ - Last Filed: 10/16/20 11:57> CDI Query CDI Review: Sepsis resolved. Agree with Query: Yes - Sepsis resolved
[2020-10-16] MEDS: GUAIFENESIN/D-METHORPHAN (200-20 MG) SYRUP 10 ML PO PRN (11:41)
--- NOTE | 2020-10-16 13:23 | PDOC PROGRESS REPORT ---
Subjective Date:: 10/16/20 Subjective:: Patient seen on morning rounds. No acute events last night. Overall patient is doing well, reports continued improvement. He is currently on 2L NC O2 sat WNL, this is his baseline. During exam he experienced an aggressive bout of coughing with sputum produced. Sputum white in color without blood. Discussed laboratory findings with patient in detail. Hgb 7.1, informed patient of need for transfusion, agreeable. Denies hx of colonoscopy, educated on need and importance of colonoscopy upon discharge. He is understanding. No signs of acute bleeding, denies hematochezia or hematemesis. Reviewed home medications, pt on ASA and Plavix daily with most recent stent placed in March 2018. Denies cardiac symptoms today. No concerns per nursing. Reason For Visit: ACUTE ON CHRONIC HYPOXIC RESPIRATORY FAILURE, LEFT Physical Exam Vital Signs: Temp Pulse Resp BP Pulse Ox 99.1 F 103 H 20 136/65 H 99 10/16/20 11:49 10/16/20 12:08 10/16/20 12:08 10/16/20 11:49 10/16/20 12:08 Intake & Output 10/15/20 10/16/20 10/17/20 06:59 06:59 06:59 Intake Total 1050 650 50 Output Total 2850 1015 Balance -1800 -365 50 Weight 101 kg 100.2 kg Additional comments: General appearance: PRESENT: no acute distress, cooperative, obese Head exam: PRESENT: atraumatic, normocephalic Eye exam: PRESENT: EOMI. ABSENT: scleral icterus Mouth exam: PRESENT: moist Neck exam: PRESENT: full ROM Respiratory exam: PRESENT: clear to auscultation marielena, symmetrical, unlabored. ABSENT: crackles, rhonchi, tachypnea, wheezes Cardiovascular exam: PRESENT: RRR, +S1, +S2 Pulses: PRESENT: normal radial pulses Vascular exam: PRESENT: normal capillary refill GI/Abdominal exam: PRESENT: soft. ABSENT: tenderness Extremities exam: PRESENT: full ROM. ABSENT: pedal edema, tenderness Musculoskeletal exam: PRESENT: ambulatory, full ROM. ABSENT: deformity Neurological exam: PRESENT: alert, awake, oriented to person, oriented to place, oriented to time, oriented to situation Psychiatric exam: PRESENT: appropriate affect, normal mood Skin exam: PRESENT: dry, intact, warm Results Laboratory Results: 10/16/20 04:31 10/16/20 04:31 10/14/20 10/16/20 10/16/20 13:11 04:31 04:31 WBC 10.9 H RBC 3.62 L Hgb 7.1 L Hct 23.6 L MCV 65 L MCH 19.7 L MCHC 30.3 L RDW 20.6 H Plt Count 371 Sodium 135.8 L Potassium 3.8 D Chloride 102 Carbon Dioxide 27 Anion Gap 7 BUN 22 H Creatinine 0.78 Est GFR ( Amer) > 60 Est GFR (Non-Af Amer) OCULAR PATHOLOGIST Glucose 135 H Calcium 9.1 Magnesium 2.0 Blood Type A POSITIVE Antibody Screen NEGATIVE 10/13/20 20:47 Sputum Gram Stain - Final 10/13/20 20:47 Sputum Sputum Culture - Final Streptococcus Pneumoniae Normal Johanny 10/13/20 10/13/20 20:37 20:37 Troponin I < 0.012 NT-Pro-B Natriuret Pep 102 Impressions: Chest X-Ray 10/13/20 20:27 IMPRESSION: Interval development of subtle opacification in the left lung base concerning for possible pneumonia. Assessment and Plan - Diagnosis (1) Acute and chronic respiratory failure with hypoxia Is this a current diagnosis for this admission?: Yes Plan: Significantly improved - O2 sat stable on 2L of O2 support at home - Multiple etiologies: COPD exacerbation, sputum culutre + Strep pneumo and COVID positive - Azithromycin 250mg PO daily with first dose 10/16 continue until 10/20. - Ceftriaxone 1gm first dose 10/15. - Continue IV steroids, Trelegy and duoneb for SOB - Continue zinc, vitamin C, folate (2) COPD exacerbation Is this a current diagnosis for this admission?: Yes Plan: Pt with hx cigarette use, known COPD who came in due to SOB, cough and changes in sputum color - chronically on 2L O2 NC - GOLD Classification D - Cnt duoneb, home trelegy, roflumlast - On zosyn, discontinued, initiated azitho and rocephin Per pt Dr. Jesus had started him on oral prednisone taper. This week he is suppose to be on 3 tab (15 mg) to be changed to 2 mg on wednesday. Currently he is on IV steroids. he should be discharged back on prednisone taper. - Given hx halfway steroid use and long-term dual antiplatelet use pt at risk for GI bleed. - Initiate Protonix 40mg BID, continue after discharge. (3) COPD (chronic obstructive pulmonary disease) Qualifiers: COPD type: COPD with acute exacerbation Qualified Code(s): J44.1 - Chronic obstructive pulmonary disease with (acute) exacerbation Is this a current diagnosis for this admission?: Yes Plan: Management as discussed above. (4) Pneumonia due to COVID-19 virus Is this a current diagnosis for this admission?: Yes Plan: COVID positive as of 10/15. - Tx: Azithro, dexamethasone, Zinc, vitamin C, vitamin B12, folic acid - Stable, does not require convolescent serum or remdesivir at this time (5) Left lower lobe pneumonia Qualifiers: Pneumonia type: due to unspecified organism Qualified Code(s): J18.9 - Pneumonia, unspecified organism Is this a current diagnosis for this admission?: Yes Plan: Maintaining appropriate O2 saturation as above. - CXR interval development of subtle opacification in the left lung base concerning for possible pneumonia - Sputum culture 10/13 positive for strep pneumo. - Blood culture without growth in 48 hours. - Covid positive. - Initially tx'd with Zosyn, discontinued 10/15 - Initiate Azithro and rocephin as above. - Continue COPD exacerbation support as above (6) Diabetes mellitus Qualifiers: Diabetes mellitus type: type 2 Diabetes mellitus halfway insulin use: without stagecraft teacher use Diabetes mellitus complication status: without complication Qualified Code(s): E11.9 - Type 2 diabetes mellitus without complications Is this a current diagnosis for this admission?: Yes Plan: Home medications include Metformin. - Hold during admission - Initiate SSI - accucheck - hypoglycemia protocol (7) Iron deficiency anemia Qualifiers: Iron deficiency anemia type: unspecified iron deficiency Qualified Code(s): D50.9 - Iron deficiency anemia, unspecified Is this a current diagnosis for this admission?: Yes Plan: Hgb 8.7 -> 7.2 -> 7.5 -> 7.1 today - Tx: 1 unit PRBC given today; follow up Hgb. - Previous labs reviewed, Hgb 10/2020 was 12, with progressive decrease since. - Ferritin 7 low, Iron <10 low, TIBC 508 high - Denies history of full anemia workup - Given 3 doses of IV iron in patient - Plan to dc home with Ferrous Sulfate 325mg Mon/Wed/Wed No history of colonoscopy/EGD in the past. - Patient's age, history of halfway steroid use, halfway dual antiplatelet therapy, and downward trending hgb outpatient EGD/colonoscopy indicated. Patient was educated on this; I stressed the importance of need for follow up with GI regarding screening tests within 4 weeks of discharge from the hospital. Patient understanding and agreeable to this. - Protonix 40mg BID initiated due to increased risk GI bleed. (8) HLD (hyperlipidemia) Qualifiers: Hyperlipidemia type: unspecified Qualified Code(s): E78.5 - Hyperlipidemia, unspecified Is this a current diagnosis for this admission?: Yes Plan: Continue lipitor (9) Sepsis Qualifiers: Sepsis type: sepsis due to unspecified organism Severe sepsis acute organ dysfunction type: acute respiratory failure Acute respiratory failure type: with hypoxia Severe sepsis shock status: without septic shock Is this a current diagnosis for this admission?: Yes Plan: Resolved. Initial presentation met Sepsis criteria due to pneumonia - Hypoxemia - HR 102 - RR 25 - WBC 16.2 - Lactic acid 2.7 (10) CAD (coronary artery disease) Qualifiers: Coronary Disease-Associated Artery/Lesion type: bypass graft [place] vs. transplanted heart: [place] heart Associated angina: without angina Qualified Code(s): I25.810 - Atherosclerosis of coronary artery bypass graft(s) without angina pectoris Is this a current diagnosis for this admission?: Yes Plan: Pt with hx CAD with 6 total stents placed, most recent March 2019. - Without cardiac symptoms. - Current medication includes ASA 81mg daily and Plavix 75mg daily. - Given pt's anemia and risk for bleed will discontinue ASA and continue Plavix (decreased risk of bleed) - Initiated daily Protonix 40mg BID. - Time Time Spent with patient: 25-34 minutes Medications reviewed and adjusted accordingly: Yes Anticipated Discharge Disposition: Home, Self Care Anticipated Discharge Timeframe: within 24 hours
[2020-10-16] MEDS: PANTOPRAZOLE SODIUM 40 MG TABLET.DR PO SCH (16:26)
[2020-10-16 16:57] LABS: HEMATOCRIT 30.2 % (37.9-51.0); MEAN CORPUSCULAR HEMOGLOBIN 21.3 pg (27.0-33.4); MEAN CORPUSCULAR HGB CONC 30.7 g/dL (32.0-36.0); PLATELET COUNT 407 10^3/uL (150-450); RED BLOOD COUNT 4.36 10^6/uL (4.35-5.55); RED CELL DISTRIBUTION WIDTH 23.9 % (11.5-14.0); WHITE BLOOD COUNT 9.9 10^3/uL (4.0-10.5)
[2020-10-16 17:22] LABS: HEMOGLOBIN 9.3 g/dL (13.5-17.0); MEAN CORPUSCULAR VOLUME 69 fl (80-97)
[2020-10-16 17:24] LABS: ABSOLUTE LYMPHOCYTES# (MANUAL) 0.3 10^3/uL (0.5-4.7); BASOPHILS % (MANUAL) 0 % (0-2); EOSINOPHILS % (MANUAL) 0 % (0-6); LYMPHOCYTES % (MANUAL) 3 % (13-45); MONOCYTES % (MANUAL) 10 % (3-13); SEGMENTED NEUTROPHILS % (MAN) 87 % (42-78); TOTAL CELLS COUNTED 100
[2020-10-16 17:25] LABS: ANISOCYTOSIS 3+; HYPOCHROMASIA 1+; OVALOCYTES 1+; PLATELET COMMENT ADEQUATE
[2020-10-16] MEDS: ATORVASTATIN CALCIUM 40 MG TABLET PO SCH (22:26)
[2020-10-17] MEDS: IPRATROPIUM/ALBUTEROL 0.5-2.5 MG/3 ML AMPUL NEB SCH ×4 (00:10→11:52)
[2020-10-17] MEDS: ACETAMINOPHEN 325 MG TABLET PO SCH ×2 (04:55→09:07)
[2020-10-17 05:24] LABS: HEMATOCRIT 27.1 % (37.9-51.0); HEMOGLOBIN 8.6 g/dL (13.5-17.0); MEAN CORPUSCULAR HEMOGLOBIN 21.6 pg (27.0-33.4); MEAN CORPUSCULAR HGB CONC 31.7 g/dL (32.0-36.0); MEAN CORPUSCULAR VOLUME 68 fl (80-97); PLATELET COUNT 315 10^3/uL (150-450); RED BLOOD COUNT 3.97 10^6/uL (4.35-5.55); RED CELL DISTRIBUTION WIDTH 23.6 % (11.5-14.0); WHITE BLOOD COUNT 5.4 10^3/uL (4.0-10.5)
[2020-10-17] MEDS: HEPARIN SOD (PORCINE) 5,000 UNIT/ML 1 ML VIAL SUBCUT SCH (05:41)
[2020-10-17] MEDS: PANTOPRAZOLE SODIUM 40 MG TABLET.DR PO SCH (05:41)
[2020-10-17] MEDS: INSULIN LISPRO 100 UNIT/ML 3 ML VIAL SUBCUT SCH ×2 (08:24→12:28)
[2020-10-17] MEDS: CEFTRIAXONE 1 GM/D5W RTU 1 GM/50 ML RTUPB IV SCH (09:05)
[2020-10-17] MEDS: DEXAMETHASONE SOD PHOSPHATE INJ 4 MG/1 ML VIAL IV SCH (09:06)
[2020-10-17] MEDS: CYANOCOBALAMIN (VITAMIN B-12) 1,000 MCG TABLET PO SCH (09:06)
[2020-10-17] MEDS: LISINOPRIL 10 MG TABLET PO SCH (09:06)
[2020-10-17] MEDS: ROFLUMILAST 500 MCG TABLET PO SCH (09:06)
[2020-10-17] MEDS: GUAIFENESIN/D-METHORPHAN (200-20 MG) SYRUP 10 ML PO PRN (09:06)
[2020-10-17] MEDS: AZITHROMYCIN 250 MG TABLET PO SCH (09:06)
[2020-10-17] MEDS: ZINC SULFATE 220 MG CAPSULE PO SCH (09:07)
[2020-10-17] MEDS: ASCORBIC ACID 500 MG TABLET PO SCH (09:07)
[2020-10-17] MEDS: CLOPIDOGREL BISULFATE 75 MG TABLET PO SCH (09:07)
[2020-10-17] MEDS: METOPROLOL SUCCINATE 50 MG TAB.SR.24H PO SCH (09:07)
[2020-10-17] MEDS: RANOLAZINE 500 MG TAB.SR.12H PO SCH (09:07)
[2020-10-17] MEDS: FOLIC ACID 1 MG TABLET PO SCH (09:07)
[2020-10-17] MEDS: FLUTICASONE/UMECLIDIN/VILANTER 100-62.5-25 MCG/DOSE IH SCH (09:09)
[2020-10-17 12:12] VITALS: BP 107/48
--- NOTE | 2020-10-17 17:40 | PDOC DISCHARGE SUMMARY ---
Impression - Admit/DC Date/PCP Admission Date/Primary Care Provider: 10/14/20 00:38 KATERINE LOUIS MD Discharge Date: 10/17/20 - Discharge Diagnosis (1) Acute and chronic respiratory failure with hypoxia Is this a current diagnosis for this admission?: Yes (2) COPD exacerbation Is this a current diagnosis for this admission?: Yes (3) COPD (chronic obstructive pulmonary disease) Is this a current diagnosis for this admission?: Yes (4) Pneumonia due to COVID-19 virus Is this a current diagnosis for this admission?: Yes (5) Left lower lobe pneumonia Is this a current diagnosis for this admission?: Yes (6) Diabetes mellitus Is this a current diagnosis for this admission?: Yes (7) Iron deficiency anemia Is this a current diagnosis for this admission?: Yes (8) HLD (hyperlipidemia) Is this a current diagnosis for this admission?: Yes (9) Sepsis Is this a current diagnosis for this admission?: Yes (10) CAD (coronary artery disease) Is this a current diagnosis for this admission?: Yes - Additional Information Discharge Diet: Diabetic Discharge Activity: Activity As Tolerated Referrals: ALEX JESUS MD [ACTIVE STAFF] - 10/25/20 10:15 am KATERINE LOUIS MD [Primary Care Provider] - 11/01/20 11:00 am Prescriptions: Pantoprazole Sodium [Protonix [address] Tablet] 40 mg PO BID@0600,1700 #30 tablet. Azithromycin [Zithromax 250 mg Tablet] 250 mg PO DAILY 3 Days #3 tablet Home Medications: Alendronate Sodium [Fosamax 70 mg Tablet] 1 tab PO WE@1000 11/09/19 Atorvastatin Calcium [Lipitor 40 mg Tablet] 40 mg PO QHS 11/09/19 Clopidogrel Bisulfate [Plavix 75 mg Tablet] 75 mg PO DAILY 11/09/19 Fluticasone/Umeclidin/Vilanter [Trelegy 100-62.5-25 Mcg Ellipta 14 Dose/Dpi] 1 puff IH QAM 11/09/19 Ipratropium/Albuterol Sulfate [Duoneb 3 ml Ampul] 3 ml NEB RTQ4 11/09/19 Lisinopril [Prinivil] 20 mg PO DAILY 11/09/19 Metformin HCl [Metformin HCl ER] 500 mg PO BID 11/09/19 Metoprolol Succinate [Toprol Xl 50 mg Tab.sr] 50 mg PO DAILY 11/09/19 Ranolazine [Ranolazine ER] 500 mg PO BID 11/09/19 Roflumilast [Daliresp 500 mcg Tablet] 500 mcg PO DAILY 11/09/19 Prednisone [Deltasone 5 mg Tablet] 5 mg PO ASDIR PRN 10/14/20 Ascorbic Acid [Vitamin C 500 mg Tablet] 500 mg PO DAILY tablet 10/17/20 Azithromycin [Zithromax 250 mg Tablet] 250 mg PO DAILY 3 Days #3 tablet 10/17/20 Clopidogrel Bisulfate [Plavix 75 mg Tablet] 75 mg PO DAILY tablet 10/17/20 Cyanocobalamin (Vitamin B-12) [Vitamin B-12 1000 mcg Tablet] 1,000 mcg PO DAILY tablet 10/17/20 Folic Acid [Folvite 1 mg Tablet] 1 mg PO DAILY tablet 10/17/20 Pantoprazole Sodium [Protonix [address] Tablet] 40 mg PO BID@0600,1700 #30 tablet.dr 10/17/20 History of Present Illiness History of Present Illness: As per admitting provider "ELIA ROSENBAUM is a 60 year old male with multiple medical comorbidities including emphysema, chronic hypoxemic respiratory failure, coronary artery disease, [id number] diabetes mellitus, iron deficiency anemia, and obesity, who presents with a 3-day history of worsening shortness of breath. He is on 2 L of oxygen during the day and on BiPAP at night, he does not know his BiPAP settings. He said he has had worsening shortness of breath to the point where he short of breath at rest, productive cough of yellowish sputum, and he alleges that he had a temperature of 102 F at home earlier. He said he took some Tylenol and it came down. He said he takes nebulizer treatments every 4 hours at home, but his breathing was still getting worse. He has received a dose of Solu-Medrol and numerous breathing treatments and has been put on BiPAP and is feeling somewhat better at this time. He said that he used to smoke but he quit several years ago, he said his still smokes but she goes outside to do it. Chest x-ray showed what could be a small opacity in the left lung base." Hospital Course Hospital Course: Acute and chronic respiratory failure with hypoxia Resolved. O2 sat stable on 2L of O2 support at home - Multiple etiologies: COPD exacerbation, sputum culutre + Strep pneumo and COVID positive - Azithromycin 250mg PO daily with first dose 10/16 continue until 10/20. - Ceftriaxone 1gm recieved in house from 10/15-10/17. - Continue steroids taper as per outpatient pulm, Trelegy and duoneb for SOB - Continue zinc, vitamin C, folate - Quarantine until 10/25/2020 COPD exacerbation Pt with hx cigarette use, known COPD who came in due to SOB, cough and changes in sputum color - chronically on 2L O2 NC - GOLD Classification D - Cnt duoneb, home trelegy, roflumlast - On zosyn, discontinued, initiated azitho and rocephin Per pt Dr. Jseus had started him on oral prednisone taper. This week he is suppose to be on 3 tab (15 mg) to be changed to 2 mg on wednesday. Currently he is on IV steroids. he should be discharged back on prednisone taper. - Given hx residential steroid use and long-term dual antiplatelet use pt at risk for GI bleed. - Initiate Protonix 40mg BID, continue after discharge. Pneumonia due to COVID-19 virus COVID positive as of 10/15. - Tx: Azithro, dexamethasone, Zinc, vitamin C, vitamin B12, folic acid - Stable, not requiring convolescent serum or remdesivir Left lower lobe pneumonia Maintaining appropriate O2 saturation as above. - CXR interval development of subtle opacification in the left lung base con cerning for possible pneumonia - Sputum culture 10/13 positive for strep pneumo. - Blood culture without growth in > 48 hours. - Covid positive. - Initially tx'd with Zosyn, discontinued 10/15 - Continue Azithro until 10/20, 5 total days of treatment - Tx'd with x3 days Ceftriaxone Iron deficiency anemia Hgb 8.7 -> 7.2 -> 7.5 -> 7.1 -> 8.6 following 1 unit RBC. - Tx: 1 unit PRBC - Previous labs reviewed, Hgb 10/2020 was 12, with progressive decrease since. - Ferritin 7 low, Iron <10 low, TIBC 508 high - Denies history of full anemia workup - Given 3 doses of IV iron in patient - Dc Ferrous Sulfate 325mg BID, as previously taking No history of colonoscopy/EGD in the past. - Patient's age, history of residential steroid use, residential dual antiplatelet therapy, and downward trending hgb outpatient EGD/colonoscopy indicated. Patient was educated on this; I stressed the importance of need for follow up with GI regarding screening tests within 4 weeks of discharge from the hospital. Patient understanding and agreeable to this. - Protonix 40mg BID initiated due to increased risk GI bleed. Sepsis Resolved. Initial presentation met Sepsis criteria due to pneumonia - Hypoxemia - HR 102 - RR 25 - WBC 16.2 - Lactic acid 2.7 CAD (coronary artery disease) Pt with hx CAD with 6 total stents placed, most recent March 2019. - Without cardiac symptoms. - Current medication includes ASA 81mg daily and Plavix 75mg daily. - Given pt's anemia and risk for bleed will discontinue ASA and continue Plavix (decreased risk of bleed) - Initiated daily Protonix 40mg BID. Physical Exam Vital Signs: Temp Pulse Resp BP Pulse Ox 97.8 F 86 20 137/73 H 100 10/17/20 11:26 10/17/20 11:52 10/17/20 11:52 10/17/20 11:26 10/17/20 11:52 Intake & Output 10/16/20 10/17/20 10/18/20 06:59 06:59 06:59 Intake Total 650 1380 Output Total 1015 700 Balance -365 680 Weight 100.2 kg 99.9 kg Additional comments: General appearance: PRESENT: no acute distress, cooperative, obese Head exam: PRESENT: atraumatic, normocephalic Eye exam: PRESENT: EOMI. ABSENT: scleral icterus Mouth exam: PRESENT: moist Neck exam: PRESENT: full ROM Respiratory exam: PRESENT: clear to auscultation marielena, symmetrical, unlabored. ABSENT: crackles, rhonchi, tachypnea, wheezes Cardiovascular exam: PRESENT: RRR, +S1, +S2 Pulses: PRESENT: normal radial pulses Vascular exam: PRESENT: normal capillary refill GI/Abdominal exam: PRESENT: soft. ABSENT: tenderness Extremities exam: PRESENT: full ROM. ABSENT: pedal edema, tenderness Musculoskeletal exam: PRESENT: ambulatory, full ROM. ABSENT: deformity Neurological exam: PRESENT: alert, awake, oriented to person, oriented to place, oriented to time, oriented to situation Psychiatric exam: PRESENT: appropriate affect, normal mood Skin exam: PRESENT: dry, intact, warm Results Laboratory Results: WBC 5.4 10^3/uL (4.0-10.5) 10/17/20 04:28 RBC 3.97 10^6/uL (4.35-5.55) L 10/17/20 04:28 Hgb 8.6 g/dL (13.5-17.0) L 10/17/20 04:28 Hct 27.1 % (37.9-51.0) L 10/17/20 04:28 MCV 68 fl (80-97) L 10/17/20 04:28 MCH 21.6 pg (27.0-33.4) L 10/17/20 04:28 MCHC 31.7 g/dL (32.0-36.0) L 10/17/20 04:28 RDW 23.6 % (11.5-14.0) H 10/17/20 04:28 Plt Count 315 10^3/uL (150-450) 10/17/20 04:28 Lymph % (Auto) Not Reportable 10/16/20 16:16 Trigg % (Auto) Not Reportable 10/16/20 16:16 Eos % (Auto) Not Reportable 10/16/20 16:16 Baso % (Auto) Not Reportable 10/16/20 16:16 Reticulocyte # 0.092 10^6/uL (0.028-0.122) 10/13/20 20:37 Absolute Neuts (auto) Not Reportable 10/16/20 16:16 Absolute Lymphs (auto) Not Reportable 10/16/20 16:16 Absolute Monos (auto) Not Reportable 10/16/20 16:16 Absolute Eos (auto) Not Reportable 10/16/20 16:16 Absolute Basos (auto) Not Reportable 10/16/20 16:16 Total Counted 100 10/16/20 16:16 Seg Neutrophils % Not Reportable 10/16/20 16:16 Seg Neuts % (Manual) 87 % (42-78) H 10/16/20 16:16 Lymphocytes % (Manual) 3 % (13-45) L 10/16/20 16:16 Monocytes % (Manual) 10 % (3-13) 10/16/20 16:16 Eosinophils % (Manual) 0 % (0-6) 10/16/20 16:16 Basophils % (Manual) 0 % (0-2) 10/16/20 16:16 Abs Neuts (Manual) 8.6 10^3/uL (1.7-8.2) H 10/16/20 16:16 Abs Lymphs (Manual) 0.3 10^3/uL (0.5-4.7) L 10/16/20 16:16 Abs Monocytes (Manual) 1.0 10^3/uL (0.1-1.4) 10/16/20 16:16 Absolute Eos (Manual) 0.0 10^3/uL (0.0-0.6) 10/16/20 16:16 Abs Basophils (Manual) 0.0 10^3/uL (0.0-0.2) 10/16/20 16:16 Toxic Granulation 1+ 10/13/20 20:37 Platelet Comment ADEQUATE 10/16/20 16:16 Hypochromasia 1+ 10/16/20 16:16 Poikilocytosis 2+ 10/13/20 20:37 Anisocytosis 3+ 10/16/20 16:16 Microcytosis 2+ 10/16/20 16:16 Tear Drop Cells 1+ 10/13/20 20:37 Ovalocytes 1+ 10/16/20 16:16 Schistocytes 1+ 10/13/20 20:37 Retic Count (auto) 2.13 % (0.66-2.85) 10/13/20 20:37 VBG pH 7.34 (7.30-7.42) 10/13/20 20:37 VBG pCO2 48.2 mmHg (35-63) 10/13/20 20:37 VBG HCO3 25.6 mmol/L (20-32) 10/13/20 20:37 VBG Base Excess -0.6 mmol/L 10/13/20 20:37 Sodium 135.8 mmol/L (137-145) L 10/16/20 04:31 Potassium 3.8 mmol/L (3.6-5.0) D 10/16/20 04:31 Chloride 102 mmol/L (98-107) 10/16/20 04:31 Carbon Dioxide 27 mmol/L (22-30) 10/16/20 04:31 Anion Gap 7 (5-19) 10/16/20 04:31 BUN 22 mg/dL (7-20) H 10/16/20 04:31 Creatinine 0.78 mg/dL (0.52-1.25) 10/16/20 04:31 Est GFR ( Amer) > 60 (>60) 10/16/20 04:31 Est GFR (Non-Af Amer) SYNTHETIC SOIL BLOCKS PULPER 10/16/20 04:31 Est GFR (MDRD) Non-Af > 60 (>60) 10/16/20 04:31 Glucose 135 mg/dL (75-110) H 10/16/20 04:31 POC Glucose 283 mg/dL (70-110) H 10/17/20 11:18 Hemoglobin A1c % 5.2 % (4.7-6.0) 10/16/20 04:31 Lactic Acid 3.6 mmol/L (0.7-2.1) H 10/14/20 03:15 Calcium 9.1 mg/dL (8.4-10.2) 10/16/20 04:31 Magnesium 2.0 mg/dL (1.6-2.3) 10/16/20 04:31 Iron < 10.1 ug/dL (49-181) L 10/13/20 20:37 TIBC 508 ug/dL (250-450) H 10/13/20 20:37 Iron Saturation UNABLE TO CALCULATE % (20% - 50%) 10/13/20 20:37 Ferritin 7.09 ng/mL (17.9-464.0) L 10/13/20 20:37 Total Bilirubin 0.5 mg/dL (0.2-1.3) 10/13/20 20:37 Direct Bilirubin 0.1 mg/dL (0.0-0.4) 10/13/20 20:37 Neonat Total Bilirubin Not Reportable 10/13/20 20:37 Neonat Direct Bilirubin Not Reportable 10/13/20 20:37 Neonat Indirect Bili Not Reportable 10/13/20 20:37 AST 39 U/L (17-59) 10/13/20 20:37 ALT 77 U/L (<50) H 10/13/20 20:37 Alkaline Phosphatase 45 U/L (38-126) 10/13/20 20:37 Troponin I < 0.012 ng/mL 10/13/20 20:37 NT-Pro-B Natriuret Pep 102 pg/mL (<125) 10/13/20 20:37 Total Protein 7.0 g/dL (6.3-8.2) 10/13/20 20:37 Albumin 4.6 g/dL (3.5-5.0) 10/13/20 20:37 EGFR SYNTHETIC SOIL BLOCKS PULPER 10/16/20 04:31 Vitamin B12 > 1000.0 pg/mL (239-931) H 10/13/20 20:37 Folate > 20.00 ng/mL (>2.76) 10/13/20 20:37 COVID-19 Source See comment 10/13/20 22:01 COVID-19 (LINDSEY) DETECTED (Not Detect) A 10/13/20 22:01 Influenza A (Rapid) NEGATIVE (NEGATIVE) 10/13/20 22:01 Influenza B (Rapid) NEGATIVE (NEGATIVE) 10/13/20 22:01 Blood Type A POSITIVE 10/14/20 13:11 Blood Type Confirm A POSITIVE 10/16/20 09:40 Antibody Screen NEGATIVE 10/14/20 13:11 Crossmatch See Detail 10/14/20 13:11 10/13/20 10/13/20 20:37 20:37 Troponin I < 0.012 NT-Pro-B Natriuret Pep 102 Impressions: Chest X-Ray 10/13/20 20:27 IMPRESSION: Interval development of subtle opacification in the left lung base concerning for possible pneumonia. Plan Plan of Treatment: 1. Your difficulty breathing was a result of multiple factors including history of COPD, pneumonia and positive Covid test. For this we gave you antibiotics as well as intravenous steroids. -Continue taking azithromycin 250 mg by mouth for 3 days (your last dose will be on 10/20/2020) -Resume the steroid taper Dr. Jesus had you doing outpatient. -Dr. Dee was made aware of your hospitalization, please give his office a call to arrange for follow-up. -Continue with your home oxygen and home breathing treatments. 2. Your Covid was positive on 10/15/2020. This requires 10 total days of self- quarantining. (Your last day of quarantine will be 10/24/2020). 3. During hospitalization your blood levels were low and required blood transfusion. Additionally you received intravenous iron treatments. -Please continue taking iron supplementation as prescribed by your primary care provider. -Given your age and current hemoglobin level I highly recommend following up with Dr. Madden, computer publisher, for colonoscopy and EGD. We have organized a referral for you for this. 4. As discussed you are currently on aspirin and Plavix daily. Long-term dual therapy of these can increase your risk of bleed. For this reason I have stopped the aspirin and continue your Plavix 75 mg daily. -Plavix has shown decreased risk of bleeding events. -Additionally I have started you on Protonix 40 mg twice daily, this is a medication that helps decrease risk of GI bleed. Goals: Please follow-up with your primary care provider once out of quarantine. Please follow up with computer publisher for colonoscopy. Please follow-up with Dr. Jesus once out of quarantine. Time Spent: Greater than 30 Minutes Stroke Is this a Stroke Patient?: No Acute Heart Failure Is this a Heart Failure Patient?: No
== END 2020-10-17 14:07 | disposition home or self-care (01) | DRG 177 ==
LOC: ER 19:57 → EH 10-14 00:38 → 3N 10-14 01:15
PROVIDERS: ADMIT Family Medicine; ATTEND Physician Assistant
PROC: 5A09457 Assistance with Respiratory Ventilation, 24-96 Consecutive Hours, Continuous Positive Airway Pressure (ICD-10-PCS; principal; 2020-10-13)
PROC: 3E02340 Introduction of Influenza Vaccine into Muscle, Percutaneous Approach (ICD-10-PCS; 2020-10-14)
PROC: 30233N1 Transfusion of Nonautologous Red Blood Cells into Peripheral Vein, Percutaneous Approach (ICD-10-PCS; 2020-10-16)
DX: U07.1 COVID-19 (principal); A41.9 Sepsis, unspecified organism; J96.21 Acute and chronic respiratory failure with hypoxia; J12.89 Other viral pneumonia; R65.20 Severe sepsis without septic shock; Z23 Encounter for immunization; E11.9 Type 2 diabetes mellitus without complications; D50.9 Iron deficiency anemia, unspecified; E78.5 Hyperlipidemia, unspecified; I25.10 Atherosclerotic heart disease of native coronary artery without angina pectoris; J43.9 Emphysema, unspecified; I10 Essential (primary) hypertension; G47.30 Sleep apnea, unspecified; B95.3 Streptococcus pneumoniae as the cause of diseases classified elsewhere; Z79.899 Other long term (current) drug therapy; Z79.02 Long term (current) use of antithrombotics/antiplatelets; Z79.84 Long term (current) use of oral hypoglycemic drugs; I25.2 Old myocardial infarction; Z99.81 Dependence on supplemental oxygen; Z95.5 Presence of coronary angioplasty implant and graft; Z87.891 Personal history of nicotine dependence
CPT/HCPCS: 36415; 36430; 71045; 80048; 80053; 82607; 82728; 82746; 82803; 82962; 83036; 83540; 83550; 83605; 83735; 83880; 84484; 85025; 85027; 85045; 86850; 86900; 86901; 86920; 87040; 87070; 87077; 87186; 87205; 87635; 87804; 93005; 93010; 94640; 94660; 96361; 96365; 96375; 99285; C9803; J0696; J1100; J1644; J1756; J1815; J2543; J2920; J2930; J3490; J7030; J7050; J7613; P9016